=== PATIENT | female | born 1995 | race Caucasian/White ===

== ENCOUNTER → 2016-07-05 | Outpatient (CLI) | payer OTHER ==
[~2016-07-05] MED LIST: ACET50TA PO; Atarax PO; BENA25CA2 PO; BUTA50TA PO; EFFE150C PO; HYDR1OI TOP; IBUP60TA PO; IRON65TA PO; KEFL500C7 PO; KLON0.5T PO; LAMI25TA PO; MAGN400T5 PO; MELA0.02 PO; NO HISTORICAL MEDS; PREN1TAB11 PO; PRENMIS3 PO; PROZ10CA7 PO; PROZ20CA11 PO; STRA80CA PO; TRAZ25TA PO; TRAZ50TA4 PO; TYLE325T5 PO; VIST25CA PO; WELLTAB40 PO; XANA0.5T PO
== END ==
LOC: M OUTALCOH 14:27
PROVIDERS: ATTEND Psychiatry & Neurology Psychiatry
DX: Z13.9 Encounter for screening, unspecified (principal); F11.20 Opioid dependence, uncomplicated

== ENCOUNTER → 2016-12-16 | Outpatient (REF) | payer OTHER ==
[~2016-12-16] MED LIST changes: +CLON-383 PO; +GABA-283 PO; +NALT50TA4 PO
[2016-12-16 15:22] LABS: BASO # 0.1 K/mm3 (0.0-0.2); BASO % 1.1 % (0.0-1.0); EOS % 0.3 % (0.0-3.0); LARGE UNSTAINED CELL # 0.2 K/mm3 (0.0-0.4); LARGE UNSTAINED CELL % 1.4 % (0.0-4.0); LYMPH # 1.4 K/mm3 (1.5-6.5); LYMPH % 11.3 % (24.0-44.0); MEAN CORPUSCULAR HEMOGLOBIN 28.6 pg (27.0-33.0); MEAN CORPUSCULAR HGB CONC 34.5 g/dl (32.0-36.5); MEAN CORPUSCULAR VOLUME 82.9 fl (80.0-96.0); MONO # 0.6 K/mm3 (0.0-0.8); MONO % 4.4 % (0.0-5.0); NEUTROPHILS # 10.2 K/mm3 (1.8-7.7); NEUTROPHILS % 81.5 % (36.0-66.0); PLATELET COUNT, AUTOMATED 470 k/mm3 (150-450); RED CELL DISTRIBUTION WIDTH 13.8 % (11.5-14.5); WHITE BLOOD COUNT 12.5 K/mm3 (4.0-10.0)
[2016-12-16 16:20] LABS: ALBUMIN 4.6 GM/DL (3.2-5.2); ALBUMIN/GLOBULIN RATIO 1.53 (1.00-1.93); ALKALINE PHOSPHATASE 61 U/L (45-117); ALT/SGPT 28 U/L (12-78); ANION GAP 9 MEQ/L (8-16); AST/SGOT 17 U/L (15-37); BILIRUBIN,TOTAL 0.8 MG/DL (0.2-1.0); BLOOD UREA NITROGEN 13 MG/DL (7-18); CARBON DIOXIDE LEVEL 27 MEQ/L (21-32); CHLORIDE LEVEL 105 MEQ/L (98-107); CREATININE FOR GFR 0.69 MG/DL (0.55-1.02); GLOMERULAR FILTRATION RATE > 60.0 (>60); GLUCOSE, FASTING 83 MG/DL (70-105); POTASSIUM SERUM 4.5 MEQ/L (3.5-5.1); SODIUM LEVEL 141 MEQ/L (136-145); TOTAL PROTEIN 7.6 GM/DL (6.4-8.2)
[2016-12-23 10:17] LABS: ALT 24 IU/L (0-40); GGT 18 IU/L (0-60); HAPTOGLOBIN 107 mg/dL (34-200); HEPATITIS C QUANTITATION 985840 IU/mL (.); HEPATITIS C VIRUS GENOTYPE 1b (.); NECROINFLAM SCORE 0.09 (0.00-0.17); NECROINFLAMM GRADE A0-No activity (.); TOTAL BILIRUBIN 0.7 mg/dL (0.0-1.2)
== END ==
LOC: M LABDRAW1 15:00
PROVIDERS: ATTEND Internal Medicine Infectious Disease
DX: B18.2 Chronic viral hepatitis C (principal)

== ENCOUNTER 2016-12-17 10:04 | Emergency (ER) | payer OTHER ==
[~2016-12-17] VITALS: Ht 147.3 cm; Wt 47.3 kg
[~2016-12-17 10:04] MED LIST changes: -CLON-383 PO; -GABA-283 PO; +KEFL500C17 PO; -KEFL500C7 PO; -MELA0.02 PO; +MELA3TAB49 PO; -NALT50TA4 PO; +TRAZ50TA11 PO; -TRAZ50TA4 PO
[2016-12-17] MEDS ORDERED: CLON-383 PO (10:15)
[2016-12-17] MEDS ORDERED: GABA-283 PO (10:15)
[2016-12-17] MEDS ORDERED: NALT50TA4 PO (10:23)
[2016-12-17 12:18] VITALS: BP 106/58
== END 2016-12-17 12:19 | disposition home or self-care (01) ==
LOC: M ED 11:47
DX: F11.10 Opioid abuse, uncomplicated (principal); F17.200 Nicotine dependence, unspecified, uncomplicated; Z79.899 Other long term (current) drug therapy

== ENCOUNTER → 2016-12-30 | Outpatient (CLI) | payer MEDICAID ==
[~2016-12-30] MED LIST changes: +CLON-383 PO; +GABA-283 PO; +NALT50TA4 PO
== END ==
LOC: M OUTALCOH 07:36
PROVIDERS: ATTEND Psychiatry & Neurology Psychiatry
DX: Z13.9 Encounter for screening, unspecified (principal); F11.10 Opioid abuse, uncomplicated; F15.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 dependence, uncomplicated

== ENCOUNTER 2017-01-21 10:00 | Outpatient (RCR) | payer MEDICAID | END 2017-01-24 | LOC: M OUTALCOH 10:00 | PROVIDERS: ATTEND Psychiatry & Neurology Psychiatry | DX: F15.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 dependence, uncomplicated (principal); F11.10 Opioid abuse, uncomplicated ==

== ENCOUNTER → 2017-02-15 | Outpatient (REF) | payer OTHER ==
[2017-02-19 00:06] LABS: HEPATITIS C VIRUS GENOTYPE 1b (.)
== END ==
LOC: M SFHCPLAZ 13:21
PROVIDERS: ATTEND Internal Medicine Infectious Disease
DX: B18.2 Chronic viral hepatitis C (principal)

== ENCOUNTER → 2017-02-24 | Outpatient (RCR) | payer MEDICAID | LOC: M OUTALCOH 02-11 11:38 | PROVIDERS: ATTEND Psychiatry & Neurology Psychiatry | DX: F11.10 Opioid abuse, uncomplicated (principal); F15.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 dependence, uncomplicated ==

== ENCOUNTER 2017-03-25 15:00 | Outpatient (RCR) | payer OTHER | END 2017-03-26 | LOC: M OUTALCOH 15:00 | PROVIDERS: ATTEND Psychiatry & Neurology Psychiatry | DX: F15.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 dependence, uncomplicated (principal); F11.10 Opioid abuse, uncomplicated ==

== ENCOUNTER → 2017-03-30 | Outpatient (CLI) | payer MEDICAID ==
[2017-03-30 13:16] LABS: BASO # 0.1 10^3/uL (0.0-0.2); BASO % 0.7 % (0.0-1.0); EOS # 0.2 10^3/uL (0.0-0.50); EOS % 1.7 % (0.0-3.0); IMMATURE GRANULOCYTE % 0.5 % (0-0); LYMPH # 1.4 10^3/uL (1.5-6.5); LYMPH % 13.1 % (24.0-44.0); MEAN CORPUSCULAR HEMOGLOBIN 29.4 pg (27.0-33.0); MEAN CORPUSCULAR HGB CONC 34.6 g/dl (32.0-36.5); MEAN CORPUSCULAR VOLUME 84.9 fl (80.0-96.0); MONO # 0.5 10^3/uL (0.0-0.8); MONO % 4.9 % (0.0-5.0); NEUTROPHILS # 8.3 10^3/uL (1.8-7.7); NEUTROPHILS % 79.1 % (36.0-66.0); PLATELET COUNT, AUTOMATED 334 10^3/uL (150-450); RED CELL DISTRIBUTION WIDTH 12.8 % (11.5-14.5); WHITE BLOOD COUNT 10.5 10^3/uL (4.0-10.0)
[2017-03-30 13:20] LABS: VITAMIN B12 LEVEL 744 PG/ML (247-911)
[2017-03-30 13:22] LABS: ADD MANUAL DIFFER NO; DIFF SLIDE NUMBER 226
[2017-03-30 13:38] LABS: ALBUMIN 4.4 GM/DL (3.2-5.2); ALBUMIN/GLOBULIN RATIO 1.47 (1.00-1.93); ALKALINE PHOSPHATASE 72 U/L (45-117); ALT/SGPT 21 U/L (12-78); ANION GAP 6 MEQ/L (8-16); AST/SGOT 14 U/L (15-37); BILIRUBIN,TOTAL 0.4 MG/DL (0.2-1.0); BLOOD UREA NITROGEN 14 MG/DL (7-18); CALCIUM LEVEL 9.4 MG/DL (8.5-10.1); CARBON DIOXIDE LEVEL 30 MEQ/L (21-32); CHLORIDE LEVEL 106 MEQ/L (98-107); CHOLESTEROL LEVEL 146 MG/DL (<200); CREATININE FOR GFR 0.72 MG/DL (0.55-1.02); GLOMERULAR FILTRATION RATE > 60.0 (>60); GLUCOSE, FASTING 101 MG/DL (70-105); POTASSIUM SERUM 4.2 MEQ/L (3.5-5.1); SODIUM LEVEL 142 MEQ/L (136-145); TOTAL PROTEIN 7.4 GM/DL (6.4-8.2); TRIGLYCERIDES LEVEL 164 MG/DL (<150)
== END ==
LOC: M LAB 12:02
PROVIDERS: ATTEND Registered Nurse Psychiatric/Mental Health
DX: F31.32 Bipolar disorder, current episode depressed, moderate (principal)

== ENCOUNTER → 2017-04-12 | Outpatient (CLI) | payer OTHER ==
[2017-04-12 10:57] LABS: CONTROL LINE UCG INT CTR LINE PRESENT
[2017-04-12 11:07] LABS: MEAN CORPUSCULAR HEMOGLOBIN 29.7 pg (27.0-33.0); MEAN CORPUSCULAR HGB CONC 34.4 g/dl (32.0-36.5); MEAN CORPUSCULAR VOLUME 86.3 fl (80.0-96.0); RED CELL DISTRIBUTION WIDTH 13.2 % (11.5-14.5); WHITE BLOOD COUNT 8.5 10^3/uL (4.0-10.0)
[2017-04-12 11:25] LABS: ALBUMIN 4.2 GM/DL (3.2-5.2); ALKALINE PHOSPHATASE 63 U/L (45-117); ALT/SGPT 21 U/L (12-78); ANION GAP 8 MEQ/L (8-16); AST/SGOT 11 U/L (15-37); BILIRUBIN,TOTAL 0.5 MG/DL (0.2-1.0); BLOOD UREA NITROGEN 9 MG/DL (7-18); CARBON DIOXIDE LEVEL 27 MEQ/L (21-32); CHLORIDE LEVEL 107 MEQ/L (98-107); CREATININE FOR GFR 0.57 MG/DL (0.55-1.02); GLOMERULAR FILTRATION RATE > 60.0 (>60); GLUCOSE, FASTING 76 MG/DL (70-105); POTASSIUM SERUM 3.8 MEQ/L (3.5-5.1); SODIUM LEVEL 142 MEQ/L (136-145)
--- NOTE | 2017-04-13 16:10 | ECGEPIP ---
Stationary ECG Study [facility] Test Date: 2017-04-12 Pat Name: ANNIE NUNEZ Department: Room: - Gender: F A And P Technician: LAI : 1995 Requested By: Thomas Stover Order Number: [id number] Reading MD: Dinh Webber Measurements Intervals [place] Rate: 90 P: 68 [place]: 140 QRS: 76 QRSD: 89 T: 37 QT: 341 QTc: 419 Interpretive Statements SINUS RHYTHM POSSIBLE LEFT ATRIAL ENLARGEMENT Improved repolarization compared with 08/31/2014. Electronically Signed On 04-13-2017 16:09:46 EDT by Dinh Webber
== END ==
LOC: M LAB 09:28
PROVIDERS: ATTEND Family Medicine
DX: F11.20 Opioid dependence, uncomplicated (principal)

== ENCOUNTER → 2017-05-10 | Outpatient (REF) | payer OTHER | LOC: M LAB REF 14:07 | PROVIDERS: ATTEND Obstetrics & Gynecology | DX: Z12.4 Encounter for screening for malignant neoplasm of cervix (principal); Z11.3 Encounter for screening for infections with a predominantly sexual mode of transmission ==

== ENCOUNTER 2017-05-24 18:16 | Inpatient (IN) | payer OTHER ==
[~2017-05-24] VITALS: Ht 147.3 cm; Wt 60.0 kg
[2017-05-24] MEDS ORDERED: CYMB1CAP4 PO ×2 (18:44→21:57)
[2017-05-24] MEDS ORDERED: ZYPR10TA PO (18:44)
[2017-05-24] MEDS ORDERED: CYMB60CA3 PO ×2 (18:44→21:57)
[2017-05-24] MEDS ORDERED: GABA-282 PO ×2 (18:44→21:57)
[2017-05-24] MEDS ORDERED: MIREIUD IU ×2 (18:46→21:57)
[2017-05-24] MEDS ORDERED: SUBO2MIS SL ×2 (18:52→21:57)
[2017-05-24] MEDS ORDERED: SUBO8MIS SL ×2 (18:52→21:57)
[2017-05-24 19:00] LABS: MEAN CORPUSCULAR HGB CONC 34.9 g/dl (32.0-36.5); MEAN CORPUSCULAR VOLUME 83.1 fl (80.0-96.0); PLATELET COUNT, AUTOMATED 319 10^3/uL (150-450); RED CELL DISTRIBUTION WIDTH 12.4 % (11.5-14.5); WHITE BLOOD COUNT 7.8 10^3/uL (4.0-10.0)
[2017-05-24 19:02] LABS: CONTROL LINE HCG INT CTR LINE PRESENT
[2017-05-24 19:06] LABS: METHADONE URINE NEGATIVE (NEGATIVE)
[2017-05-24 19:15] LABS: ALBUMIN 3.9 GM/DL (3.2-5.2); ALBUMIN/GLOBULIN RATIO 1.44 (1.00-1.93); ALKALINE PHOSPHATASE 70 U/L (45-117); ALT/SGPT 21 U/L (12-78); ANION GAP 8 MEQ/L (8-16); AST/SGOT 16 U/L (7-37); BILIRUBIN,DIRECT < 0.1 MG/DL (0.0-0.2); BILIRUBIN,TOTAL 0.2 MG/DL (0.2-1.0); BLOOD UREA NITROGEN 13 MG/DL (7-18); CARBON DIOXIDE LEVEL 26 MEQ/L (21-32); CHLORIDE LEVEL 107 MEQ/L (98-107); CREATININE FOR GFR 0.65 MG/DL (0.55-1.02); GLOMERULAR FILTRATION RATE > 60.0 (>60); GLUCOSE, FASTING 95 MG/DL (70-105); POTASSIUM SERUM 3.9 MEQ/L (3.5-5.1); SODIUM LEVEL 141 MEQ/L (136-145); TOTAL PROTEIN 6.6 GM/DL (6.4-8.2)
[2017-05-24] MEDS ORDERED: OLAN10TA2 PO (21:57)
[2017-05-24] MEDS ORDERED: PATIENT COMMENT (21:58)
[2017-05-25] MEDS ORDERED: MAALOX 30 ML SUSP *UDC PO PRN (01:30)
[2017-05-25] MEDS ORDERED: MOM 30ML SUSPENSION UDC PO PRN (01:30)
[2017-05-25] MEDS ORDERED: traZODone 50 MG TAB PO PRN (01:30)
[2017-05-25] MEDS ORDERED: ACETAMINOPHEN TAB 650MG DOSE (2X325MG) PO PRN (01:30)
[2017-05-25 01:45] VITALS: BP 120/53
[2017-05-25 06:37] VITALS: BP 110/57
[2017-05-25] MEDS: GABAPENTIN 300 MG CAP PO SCH ×2 (08:40→20:08)
[2017-05-25] MEDS: OLANZapine 10 MG TAB PO SCH (08:41)
[2017-05-25] MEDS: DULoxetine 30 MG CAP (CYMBALTA) PO SCH (08:41)
[2017-05-25] MEDS: DULoxetine 20 MG CAP (CYMBALTA) PO SCH (08:41)
--- NOTE | 2017-05-25 09:25 | HPEPDOC ---
[facility] Medical History & Physical Date of Admission May 24, 2017 History and Physical PCP: Santiago KERR ID. Dr Whitney ATTENDING: Dr. Dinh Cisneros HPI: 21yoF admitted to [facility] for unspecified depressive disorder, being medically examined today. Patient states she has numbness and tingling in her fingertips and her toes bilaterally. She denies any neck or low back pain. No weakness in arms or legs. No loss of bowel or bladder control. No unsteadiness on her feet. Patient states she takes gabapentin for her mood. Denies any fevers, chills, weakness, fatigue, VALDEZ, CP, SOB, cough, palpitations, abdominal pain, N/V/D or changes in bowel or bladder habits. PMHx: Chronic hepatitis C. Managed by Dr. Whitney. Substance use. On Suboxone through [facility]. Anxiety Depression History of SI Self-mutilation PSHX: Right inguinal hernia repair D&C Removal of frenulum SOCHX: Resides in: [facility] Marital Status: Single Kids: 1 Employment: Unemployed Tobacco use: One pack Per day ETOH: Denies Illicit Drugs: Patient states she has not used any substances since 12/04/16. Previous use of heroin. Patient states has used "everything". IV Drug Use: Heroin and states she has injected "anything". Tattoos done unprofessionally: Denies FAMHX: Mother: Alive, bipolar disorder, anxiety, depression Father: Alive, alcohol use Siblings: Alive, anxiety, depression, bipolar disorder, autism. Children: Alive, well Unexpected deaths due to medical reasons: None. ROS: As noted in HPI, otherwise 11pt ROS of systems reviewed and remarkable only for LMP unknown, Mirena. PE: GEN: 21 yo F, appears stated age. Well-nourished, well developed. No acute distress. Alert and oriented x 3. Pleasant, interactive. HEENT: Normocephalic, atraumatic. Pupils are equal, round, and reactive to light. Extraocular movements are intact. No nystagmus appreciated. Sclera are nonicteric. Conjunctiva without injection. Nose midline. Nasal turbinates without bogginess. EACs both patent BL. TMs both visualized and domingo with good cone of light, no bulging or erythema. No facial asymmetry. Moist mucous membranes. Dentition fair. Pharynx pink and moist, no cobblestoning. Neck supple , trachea midline. No lymphadenopathy or thyromegaly appreciated. CHEST: Regular rate and rhythm, +S1, +S2 LUNGS: Clear to auscultation bilaterally. No wheezes, rales, or rhonchi. Breathing appears symmetric and easy. Patient is speaking in full sentences. No accessory muscle use. ABD: Round, soft, non-tender, non-distended. +Bowel sounds throughout. No rebound or guarding. No costovertebral angle tenderness. EXT: Pulses 2+ bilaterally dorsalis pedis and radial. No lower extremity edema appreciated. SKIN: [place], dry, warm. Capillary refill <2sec. No rashes. healed lacerations noted to forearms b/l, 2 superficial lacerations in different stages of healing , 1 on each forearm. NEURO: Alert and oriented x 3. Cranial nerves III-XII are intact. Tinel and Phalen's negative. Hand Reamer strength is equal bilaterally. No tenderness with palpation over the cervical or lumbar spine areas. Gait is steady, no assistive devices. Sensation to light touch is intact. EKG: Pending. A&P: 21yoF admitted to [facility] for unspecified depressive disorder 1. Psych. Plan per Psychiatry. Obtain baseline EKG to assure the safety of psychiatric medications as they can prolong the QT interval. 2. Chronic hepatitis C. Patient states she remains on Zepatier as per Dr Whitney. Continue outpatient follow-up with infectious disease, Dr. Whitney. 3. Upper extremity/lower extremity paresthesia. Add vitamin B12, folate. TSH is noted within normal limits. Hemoglobin is noted within normal limits. CT head 2014, WNL. Consider outpt referral to Neurology. 4. Follow up with PCP on discharge. 5. History of Substance use. Per psychiatry. Patient is prescribed Suboxone through [facility]. 6. Staff member Charo BLAS present throughout exam. Vital Signs Vital Signs Date Time Temp Pulse Resp B/P (MAP) Pulse Ox O2 Delivery O2 Flow Rate FiO2 05/25/17 06:37 98.1 88 14 110/57 (74) Room Air 05/25/17 01:19 95 Laboratory Data Labs 24H Laboratory Tests 2 05/24/17 18:21: Nucleated Red Blood Cells % (auto) 0.0, Anion Gap 8, Glomerular Filtration Rate > 60.0, Calcium Level 9.0, Aspartate Amino Transf (AST/SGOT) 16, Alanine Aminotransferase (ALT/SGPT) 21, Alkaline Phosphatase 70, Total Bilirubin 0.2, Direct Bilirubin < 0.1, Total Protein 6.6, Albumin 3.9, Albumin/Globulin Ratio 1.44, Thyroid Stimulating Hormone (TSH) 1.110, Human Chorionic Gonadotropin, Qual NEGATIVE, Salicylates Level 3.6L, Urine Amphetamines Screen NEGATIVE, Urine Benzodiazepines Screen NEGATIVE, Urine Opiates Screen NEGATIVE, Urine Methadone Screen NEGATIVE, Acetaminophen Level < 2.0L, Urine Barbiturates Screen NEGATIVE, Urine Phencyclidine Screen NEGATIVE, Urine Cocaine Metabolite Screen NEGATIVE, Urine Cannabinoids Screen NEGATIVE, Ethyl Alcohol Level 0.006 CBC/BMP Laboratory Tests 05/24/17 18:21 Red Blood Count 4.86, Mean Corpuscular Volume 83.1, Mean Corpuscular Hemoglobin 29.0, Mean Corpuscular Hemoglobin Concent 34.9, Red Cell Distribution Width 12.4 Home Medications Scheduled Buprenorphine/Naloxone (Suboxone 8-2 mg) 1 Mis Mis, 1 MIS SL DAILY TAKES WITH THE 2-0.5MG FOR 10-2.5MG TOTAL Buprenorphine/Naloxone (Suboxone 2-0.5 mg) 1 Mis Mis, 1 MIS SL DAILY TAKES WITH THE 8-2MG FOR 10-2.5MG TOTAL Duloxetine HCl (Cymbalta) 20 Mg Cap, 20 MG PO DAILY TAKES WITH 60MG FOR 80MG TOTAL Duloxetine Hcl (Cymbalta) 60 Mg Cap, 60 MG PO DAILY TAKES WITH 20MG FOR 80MG TOTAL Gabapentin (Gabapentin) 300 Mg Cap, 300 MG PO BID Levonorgestrel (Mirena) 20 Mcg/24 Hr Iud, 20 MCG IU ASDIRECTED IMPLANTED AROUND A YEAR AGO Olanzapine (Olanzapine) 10 Mg Tab, 10 MG PO DAILY Allergies Coded Allergies: No Known Drug Allergy (Verified Allergy, Unknown, 05/11/14) Jerica Villalobos May 25, 2017 09:25
[2017-05-25 10:09] LABS: VITAMIN B12 LEVEL 485 PG/ML
[2017-05-25 10:10] LABS: FOLATE 19.3 NG/ML
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
[2017-05-25] MEDS: BUPRENORPHINE/NALOXONE 8-2MG SUBLINGUAL TABLET(SUBOXONE) SL SCH (11:42)
[2017-05-25] MEDS: NICOTINE 14 MG/24 HR TRANSDERMAL TD SCH (11:42)
[2017-05-25 12:41] VITALS: BP 121/61
--- NOTE | 2017-05-25 17:37 | ECGEPIP ---
Stationary ECG Study [facility] Test Date: 2017-05-25 Pat Name: ANNIE NUNEZ Department: Room: [place] [address] Gender: F Comptometrist: : 1995 Requested By: Jerica Villalobos Order Number: [id number] Reading MD: Yuki Bonilla Measurements Intervals [place] Rate: 80 P: 18 [place]: 134 QRS: 68 QRSD: 101 T: 35 QT: 376 QTc: 436 Interpretive Statements SINUS RHYTHM IMPROVED STTW C/W 04/12/17 Electronically Signed On 05-25-2017 17:37:23 EST by Yuki Bonilla
[2017-05-25 18:00] VITALS: BP 111/61
[2017-05-25 21:00] VITALS: BP 124/62
[2017-05-26 06:40] VITALS: BP 115/60
[2017-05-26] MEDS: NICOTINE 14 MG/24 HR TRANSDERMAL TD SCH (08:04)
[2017-05-26] MEDS: DULoxetine 30 MG CAP (CYMBALTA) PO SCH (08:04)
[2017-05-26] MEDS: BUPRENORPHINE/NALOXONE 8-2MG SUBLINGUAL TABLET(SUBOXONE) SL SCH (08:04)
[2017-05-26] MEDS: GABAPENTIN 300 MG CAP PO SCH (08:04)
[2017-05-26] MEDS: DULoxetine 20 MG CAP (CYMBALTA) PO SCH (08:04)
[2017-05-26] MEDS: OLANZapine 10 MG TAB PO SCH (08:04)
[2017-05-26] MEDS ORDERED: ZEPATIER PO SCH (09:00)
[2017-05-26] MEDS ORDERED: NICOTINE POLACRILEX 2 MG GUM PO PRN ×2 (09:30→10:15)
[2017-05-26] MEDS ORDERED: TRAZO50TA PO (10:09)
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
== END 2017-05-26 12:35 | disposition home or self-care (01) | DRG 752 ==
LOC: M ED 18:16 → M ED INP 21:25 → M PSY 05-25 01:43
PROVIDERS: ADMIT Psychiatry & Neurology Psychiatry; ATTEND Psychiatry & Neurology Psychiatry
DX: F60.3 Borderline personality disorder (principal); R45.851 Suicidal ideations; F19.94 Other psychoactive substance use, unspecified with psychoactive substance-induced mood disorder; B18.2 Chronic viral hepatitis C; F17.210 Nicotine dependence, cigarettes, uncomplicated; R20.2 Paresthesia of skin; Z79.899 Other long term (current) drug therapy

== ENCOUNTER → 2017-07-08 | Outpatient (CLI) | payer OTHER ==
[2017-07-08 11:09] LABS: CONTROL LINE HCG INT CTR LINE PRESENT; HCG, SERUM QUALITATIVE NEGATIVE (NEGATIVE)
== END ==
LOC: M LAB 10:21
DX: F31.32 Bipolar disorder, current episode depressed, moderate (principal)
CPT/HCPCS: 84703

== ENCOUNTER → 2017-09-27 | Outpatient (REF) | payer OTHER ==
[2017-09-27 23:14] LABS: CHLAMYDIA DNA AMPLIFICATION NEGATIVE (NEGATIVE); GC DNA AMPLIFICATION NEGATIVE (NEGATIVE)
[2017-09-28 11:05] LABS: HIV 1&2 SCREEN CENTAUR NEGATIVE (NEGATIVE)
[2017-09-28 11:15] LABS: HEPATITIS C VIRUS ABY INDEX > 11.0 INDEX (<0.8)
== END ==
LOC: M LAB REF 17:01
DX: Z11.3 Encounter for screening for infections with a predominantly sexual mode of transmission (principal); Z86.19 Personal history of other infectious and parasitic diseases
CPT/HCPCS: 86803

== ENCOUNTER → 2017-11-23 | Outpatient (REF) | payer OTHER ==
[2017-11-24 08:24] LABS: APPEARANCE, URINE TURBID (CLEAR); BACTERIA, URINE AUTO 2+ (NEGATIVE); BILIRUBIN, URINE AUTO NEGATIVE (NEGATIVE); BLOOD, URINE BLOOD 1+ (NEGATIVE); COLOR, URINE YELLOW (YELLOW); GLUCOSE, URINE (UA) AUTO NEGATIVE (NEGATIVE); KETONE, URINE AUTO NEGATIVE (NEGATIVE); LEUKOCYTE ESTERASE, URINE AUTO 3+ (NEGATIVE); NITRITE, URINE AUTO POSITIVE (NEGATIVE); PROTEIN, URINE AUTO 1+ mg/dL (NEGATIVE); RBC, URINE AUTO 18 /HPF (0-3); SPECIFIC GRAVITY URINE AUTO 1.014 (1.002-1.035); SQUAMOUS EPITHELIAL CELL UR AU 4 /HPF (0-6); UROBILINOGEN, URINE AUTO 0.2 mg/dL (0.0-2.0); WBC, URINE AUTO TNTC /HPF (0-3)
== END ==
LOC: M LAB REF 07:42
DX: N39.0 Urinary tract infection, site not specified (principal)

== ENCOUNTER → 2017-11-30 | Outpatient (REF) | payer OTHER | LOC: M SFHCWAGY 13:27 | DX: Z12.4 Encounter for screening for malignant neoplasm of cervix (principal) ==

== ENCOUNTER → 2017-11-30 | Outpatient (REF) | payer OTHER ==
[2017-11-30 18:10] LABS: CHLAMYDIA DNA AMPLIFICATION NEGATIVE (NEGATIVE); GC DNA AMPLIFICATION NEGATIVE (NEGATIVE)
== END ==
LOC: M SFHCWAGY 16:08
DX: Z11.3 Encounter for screening for infections with a predominantly sexual mode of transmission (principal)

== ENCOUNTER → 2017-12-08 | Outpatient (CLI) | payer OTHER | LOC: M WHC 11:07 | DX: R10.2 Pelvic and perineal pain (principal) | CPT/HCPCS: 76830 ==

== ENCOUNTER → 2017-12-08 | Outpatient (REF) | payer OTHER ==
[2017-12-09 12:28] LABS: HIV 1&2 SCREEN CENTAUR NEGATIVE (NEGATIVE)
== END ==
LOC: M LABDRAW1 11:49
DX: Z11.3 Encounter for screening for infections with a predominantly sexual mode of transmission (principal); Z11.4 Encounter for screening for human immunodeficiency virus [HIV]

== ENCOUNTER 2018-01-13 02:40 | Inpatient (IN) | payer OTHER ==
[2018-01-13 03:34] LABS: BASO # 0.1 10^3/uL (0.0-0.2); BASO % 0.6 % (0.0-1.0); EOS # 0.3 10^3/uL (0.0-0.50); EOS % 3.7 % (0.0-3.0); HEMATOCRIT 41.9 % (36.0-47.0); HEMOGLOBIN 14.9 g/dl (12.0-15.5); IMMATURE GRANULOCYTE % 0.2 % (0-3.0); LYMPH # 2.5 10^3/uL (1.5-6.5); MEAN CORPUSCULAR HEMOGLOBIN 29.3 pg (27.0-33.0); MEAN CORPUSCULAR HGB CONC 35.6 g/dl (32.0-36.5); MEAN CORPUSCULAR VOLUME 82.5 fl (80.0-96.0); MONO # 0.7 10^3/uL (0.0-0.8); MONO % 8.6 % (0.0-5.0); NEUTROPHILS # 4.7 10^3/uL (1.8-7.7); NEUTROPHILS % 56.9 % (36.0-66.0); PLATELET COUNT, AUTOMATED 290 10^3/uL (150-450); RED BLOOD COUNT 5.08 10^6/uL (4.00-5.40); RED CELL DISTRIBUTION WIDTH 12.6 % (11.5-14.5); WHITE BLOOD COUNT 8.2 10^3/uL (4.0-10.0)
[2018-01-13 03:39] LABS: CONTROL LINE HCG INT CTR LINE PRESENT; HCG, SERUM QUALITATIVE NEGATIVE (NEGATIVE)
[2018-01-13 03:46] LABS: VENOUS BASE EXCESS 0.9 (-2.0-2.0); VENOUS HCO3 27.5 MEQ/L (23.0-27.0); VENOUS PARTIAL PRESSURE CO2 51.4 mmHg (38.0-50.0); VENOUS PARTIAL PRESSURE O2 85.9 mmHg (30.0-50.0); VENOUS PH 7.347 UNITS (7.330-7.430); VENOUS STANDARD HCO3 25.3 MEQ/L; VENOUS TOTAL CO2 29.1 MEQ/L (24.0-28.0)
[2018-01-13] MEDS: NS 1,000 ML IV (03:49)
[2018-01-13 03:54] LABS: ALBUMIN 4.2 GM/DL (3.2-5.2); ALBUMIN/GLOBULIN RATIO 1.56 (1.00-1.93); ALKALINE PHOSPHATASE 92 U/L (45-117); ALT/SGPT 16 U/L (12-78); ANION GAP 7 MEQ/L (8-16); AST/SGOT 12 U/L (7-37); BILIRUBIN,DIRECT < 0.1 MG/DL (0.0-0.2); BILIRUBIN,TOTAL 0.3 MG/DL (0.2-1.0); BLOOD UREA NITROGEN 10 MG/DL (7-18); CARBON DIOXIDE LEVEL 28 MEQ/L (21-32); CHLORIDE LEVEL 110 MEQ/L (98-107); CPK CREATINE PHOSPHOKINASE 95 U/L (26-192); CREATININE FOR GFR 0.69 MG/DL (0.55-1.30); ETHYL ALCOHOL (ETHANOL) < 0.003 % (0.000-0.010); GLOMERULAR FILTRATION RATE > 60.0 (>60); GLUCOSE, FASTING 95 MG/DL (70-100); POTASSIUM SERUM 4.4 MEQ/L (3.5-5.1); SALICYLATE LEVEL 4.9 MG/DL (5.0-30.0); SODIUM LEVEL 145 MEQ/L (136-145); TOTAL PROTEIN 6.9 GM/DL (6.4-8.2)
[2018-01-13 03:56] LABS: ACETAMINOPHEN LEVEL < 2.0 UG/ML (10.0-30.0)
[2018-01-13 03:58] LABS: AMPHETAMINES LEVEL URINE NEGATIVE (NEGATIVE); BARBITURATES URINE NEGATIVE (NEGATIVE); BENZODIAZEPINES URINE POSITIVE (NEGATIVE); CANNABINOIDS URINE NEGATIVE (NEGATIVE); COCAINE METABOLITE URINE NEGATIVE (NEGATIVE); METHADONE URINE POSITIVE (NEGATIVE); OPIATES URINE NEGATIVE (NEGATIVE); PHENCYCLIDINE URINE NEGATIVE (NEGATIVE)
[2018-01-13] MEDS ORDERED: cloNIDine 0.1 MG TAB PO (12:45)
[2018-01-13] MEDS ORDERED: LORazepam 2 MG TAB PO (12:45)
[2018-01-13] MEDS ORDERED: MAALOX 30 ML SUSP *UDC PO (12:45)
[2018-01-13] MEDS ORDERED: MOM 30ML SUSPENSION UDC PO (12:45)
[2018-01-14] MEDS: METHADONE 10 MG TAB (S0109) PO (08:13)
[2018-01-14] MEDS: ACETAMINOPHEN TAB 650MG DOSE (2X325MG) PO (10:10)
[2018-01-14] MEDS: DULoxetine 30 MG CAP (CYMBALTA) PO (12:20)
[2018-01-14] MEDS: GABAPENTIN 300 MG CAP PO ×3 (12:20→21:39)
[2018-01-14] MEDS: NICOTINE 21MG/24HR 1 EA TRANSDERMAL TD (15:33)
[2018-01-14] MEDS: hydrOXYzine 50 MG TAB PO (21:39)
[2018-01-14] MEDS: traZODone 50 MG TAB PO (21:52)
[2018-01-15] MEDS: GABAPENTIN 300 MG CAP PO ×3 (08:24→21:19)
[2018-01-15] MEDS: DULoxetine 30 MG CAP (CYMBALTA) PO (08:24)
[2018-01-15] MEDS: METHADONE 10 MG TAB (S0109) PO (08:25)
[2018-01-15] MEDS: NICOTINE 21MG/24HR 1 EA TRANSDERMAL TD (08:25)
[2018-01-15] MEDS: ACETAMINOPHEN TAB 650MG DOSE (2X325MG) PO (11:47)
[2018-01-15] MEDS: traZODone 50 MG TAB PO (21:19)
[2018-01-15] MEDS: hydrOXYzine 50 MG TAB PO (21:19)
[2018-01-16] MEDS: NICOTINE 21MG/24HR 1 EA TRANSDERMAL TD (08:11)
[2018-01-16] MEDS: METHADONE 10 MG TAB (S0109) PO (08:12)
[2018-01-16] MEDS: DULoxetine 30 MG CAP (CYMBALTA) PO (08:12)
[2018-01-16] MEDS: GABAPENTIN 300 MG CAP PO (08:12)
[2018-01-16] MEDS: hydrOXYzine 50 MG TAB PO (10:09)
== END 2018-01-16 12:10 | disposition home or self-care (01) | DRG 773 ==
LOC: M ED 02:40 → M ED INP 12:41 → M PSY 15:49
DX: F19.94 Other psychoactive substance use, unspecified with psychoactive substance-induced mood disorder (principal); F11.90 Opioid use, unspecified, uncomplicated; B18.2 Chronic viral hepatitis C; F15.90 Other stimulant use, unspecified, uncomplicated; Z79.899 Other long term (current) drug therapy; F17.210 Nicotine dependence, cigarettes, uncomplicated

== ENCOUNTER 2018-03-13 14:25 | Emergency (ER) | payer OTHER | END 2018-03-13 18:38 | disposition home or self-care (01) | LOC: M ED 14:25 | DX: S09.90XA Unspecified injury of head, initial encounter (principal); Y04.8XXA Assault by other bodily force, initial encounter; Y92.018 Other place in single-family (private) house as the place of occurrence of the external cause; B19.20 Unspecified viral hepatitis C without hepatic coma; F17.210 Nicotine dependence, cigarettes, uncomplicated | CPT/HCPCS: 99283 ==

== ENCOUNTER 2018-04-28 20:04 | Emergency (ER) | payer OTHER | END 2018-04-28 21:25 | disposition home or self-care (01) | LOC: M ED 20:04 | DX: Z60.9 Problem related to social environment, unspecified (principal); B18.2 Chronic viral hepatitis C; F19.21 Other psychoactive substance dependence, in remission; Z72.0 Tobacco use; Z79.899 Other long term (current) drug therapy | CPT/HCPCS: 99284 ==

== ENCOUNTER 2018-08-04 12:51 | Day surgery (SDC) | payer OTHER ==
[~2018-08-04] VITALS: Ht 147.3 cm; Wt 63.5 kg
[~2018-08-04 12:51] MED LIST changes: +ABIL10TA9 PO; -ACET50TA PO; +ARIP5TA PO; +CYMB1CAP4 PO; +CYMB60CA3 PO; +DULO1CAP3 PO; -EFFE150C PO; +EFFE150C2 PO; -GABA-283 PO; +GABA-843 PO; +GABA-845 PO; +KETOROLAC 60 MG/2 ML VIAL (J1885) As Ordered ONE; +LIDOCAINE 2% INJ 100 MG/5 ML SDV (FOR ANES.) As Ordered ONE; +MAPA500T2 PO; +METH10CO PO; +MIDAZOLAM INJ 2 MG/2 ML VIAL (J2250) As Ordered ONE; +MIRE1IUD IU; +NICO21DI6 TD; +OLAN10TA2 PO; +ONDANSETRON 4MG/2ML VIAL (J2405) As Ordered ONE; +PATIENT COMMENT; +PROP20TA72 PO; +PROPOFOL 200 MG/20 ML VIAL As Ordered ONE; +SUBO2MIS SL; +SUBO8MIS SL; +TRAZ-160 PO; +TRAZ-163 PO; -TRAZ50TA11 PO; +TRAZO50TA PO; +ZYPR10TA PO; +dexameTHASONE 4 MG/ML 1ML VIAL (J1100) As Ordered ONE; +fentaNYL 100 MCG/2 ML INJECTION (J3010) As Ordered ONE; +nicotine gum
[2018-08-04] MEDS ORDERED: LIDOCAINE 1% SDV INJ 30 ML VIAL As Ordered ONE (13:09)
[2018-08-04 13:27] LABS: HEMATOCRIT 43.1 % (36.0-47.0); HEMOGLOBIN 15.3 g/dl (12.0-15.5); MEAN CORPUSCULAR HEMOGLOBIN 30.6 pg (27.0-33.0); MEAN CORPUSCULAR HGB CONC 35.5 g/dl (32.0-36.5); MEAN CORPUSCULAR VOLUME 86.2 fl (80.0-96.0); PLATELET COUNT, AUTOMATED 283 10^3/uL (150-450)
[2018-08-04] MEDS ORDERED: METHYLERGONOVINE MALEATE 0.2 MG/ML VIAL (J2210) As Ordered ONE (14:23)
[2018-08-04] MEDS ORDERED: OXYTOCIN INJ 10 UNITS/ML VIAL (J2590) As Ordered ONE (14:32)
[2018-08-04] MEDS ORDERED: METOCLOPRAMIDE INJ 10MG/2ML VIAL (J2765) As Ordered ONE (14:49)
[2018-08-04] MEDS ORDERED: ONDANSETRON 4MG/2ML VIAL (J2405) IV PRN (15:00)
[2018-08-04] MEDS ORDERED: fentaNYL 100 MCG/2 ML INJECTION (J3010) IV PRN (15:00)
[2018-08-04] MEDS ORDERED: PERCOCET 5MG/325MG TAB PO PRN ×2 (15:00→15:15)
[2018-08-04] MEDS ORDERED: METOCLOPRAMIDE INJ 10MG/2ML VIAL (J2765) IV PRN (15:00)
[2018-08-04 16:25] VITALS: BP 125/73
[2018-08-04] MEDS ORDERED: KETOROLAC 30 MG/ML VIAL (J1885) IV SCH (20:00)
--- NOTE | 2018-08-05 12:01 | RO ---
DATE OF PROCEDURE: 08/04/2018 PREOPERATIVE DIAGNOSIS: Intrauterine embryonic demise at 9 weeks. POSTOPERATIVE DIAGNOSIS: Intrauterine embryonic demise at 9 weeks. PROCEDURE: Dilation and curettage. SURGEON: Mare Lynn MD MEDICAL GRADE SHOEMAKER: None. ANESTHESIA: General. ESTIMATED BLOOD LOSS: 500 mL. INTRAVENOUS FLUIDS: 1100 mL of lactated Ringer solution. URINE OUTPUT: 200 mL. SPECIMENS: Intrauterine contents. DESCRIPTION OF OPERATION: After informed consent was obtained and written content was reviewed, the patient was brought to the operating room where she was placed under general anesthesia. She was then placed in lithotomy position and was prepped and draped in normal sterile fashion. A time out in the operating room was then performed identifying the patient, the procedure to be performed, as well as drug allergies. A bivalved speculum was then placed revealing the cervix. The anterior lip of the cervix was grasped with a single toothed tenaculum. The uterus was then sounded to 14 cm. The uterus then sequentially dilated using Hanks dilators. A #10 uterine curette was then advanced through the cervical os to the level of the fundus and suction was deployed and the uterus was curetted in a 360 degree fashion with large amounts of tissue obtained. This was done in three passes. The suction curette was then removed and sharp curettage was then advanced to the level of the uterus and the uterus was once again curetted in 360 degrees fashion with minimal amounts of tissue obtained. A final pass of the suction curette was preformed with large amounts of bleeding noted. Methergine and IV Pitocin was given with hemostasis achieved after several minutes. Suction was then removed. In and out catheter was then performed productive of 200 mL of clear urine. The patient was then taken out of lithotomy position, was awakened from general anesthesia and taken to recovery in stable condition. Counts were correct. MTDD
== END 2018-08-04 16:35 | disposition home or self-care (01) ==
LOC: M SDC 12:51
PROVIDERS: ATTEND Obstetrics & Gynecology
DX: O02.1 Missed abortion (principal); F41.9 Anxiety disorder, unspecified; F32.9 Major depressive disorder, single episode, unspecified; F31.9 Bipolar disorder, unspecified; R51 Headache; F60.89 Other specific personality disorders; Z72.0 Tobacco use; Z86.19 Personal history of other infectious and parasitic diseases; Z86.59 Personal history of other mental and behavioral disorders
CPT/HCPCS: 36415; 59820; 85027; 86850; 86900; 86901; 88305; J1100; J1885; J2210; J2250; J2405; J2590; J2765; J3010

== ENCOUNTER → 2018-09-19 | Outpatient (CLI) | payer MEDICAID ==
[~2018-09-19] MED LIST changes: -KETOROLAC 60 MG/2 ML VIAL (J1885) As Ordered ONE; -LIDOCAINE 2% INJ 100 MG/5 ML SDV (FOR ANES.) As Ordered ONE; -MIDAZOLAM INJ 2 MG/2 ML VIAL (J2250) As Ordered ONE; -ONDANSETRON 4MG/2ML VIAL (J2405) As Ordered ONE; -PROPOFOL 200 MG/20 ML VIAL As Ordered ONE; -dexameTHASONE 4 MG/ML 1ML VIAL (J1100) As Ordered ONE; -fentaNYL 100 MCG/2 ML INJECTION (J3010) As Ordered ONE
== END ==
LOC: M OUTALCOH 09:21
PROVIDERS: ATTEND Psychiatry & Neurology Psychiatry
DX: F10.20 Alcohol dependence, uncomplicated (principal)

== ENCOUNTER → 2018-10-24 | Outpatient (RCR) | payer MEDICAID ==
[~2018-10-24] MED LIST changes: +ARIP1TAB6 PO; -ARIP5TA PO; -HYDR1OI TOP; +HYDR1OIN2 TOP; +IBUP600T42 PO; -IBUP60TA PO; +TRAZ1TAB36 PO; -TRAZ25TA PO
== END ==
LOC: M OUTALCOH 10-16 14:52
PROVIDERS: ATTEND Psychiatry & Neurology Psychiatry
DX: F11.10 Opioid abuse, uncomplicated (principal); F11.20 Opioid dependence, uncomplicated; F15.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 dependence, uncomplicated

== ENCOUNTER 2018-11-21 10:48 | Outpatient (RCR) | payer MEDICAID | END 2018-11-24 | LOC: M OUTALCOH 10:48 | PROVIDERS: ATTEND Psychiatry & Neurology Psychiatry | DX: F11.20 Opioid dependence, uncomplicated (principal); F15.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 dependence, uncomplicated; F10.10 Alcohol abuse, uncomplicated; Z72.0 Tobacco use ==

== ENCOUNTER → 2018-11-23 | Outpatient (CLI) | payer MEDICAID ==
[~2018-11-23] MED LIST changes: -TRAZ-160 PO; +TRAZ-252 PO; +TRAZ1TAB10 PO; -TRAZO50TA PO
== END ==
LOC: M LAB 11:29
PROVIDERS: ATTEND Nurse Practitioner Psychiatric/Mental Health
DX: F31.81 Bipolar II disorder (principal)

== ENCOUNTER 2018-12-19 09:34 | Outpatient (RCR) | payer MEDICAID | END 2018-12-24 | LOC: M OUTALCOH 09:34 | PROVIDERS: ATTEND Psychiatry & Neurology Psychiatry | DX: F11.10 Opioid abuse, uncomplicated (principal); F15.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 dependence, uncomplicated ==

== ENCOUNTER 2018-12-27 11:29 | Outpatient (RCR) | payer MEDICAID ==
[~2018-12-27 11:29] MED LIST changes: -DULO1CAP3 PO; +DULO1CAP6 PO
== END 2019-01-24 ==
LOC: M OUTALCOH 11:29
PROVIDERS: ATTEND Psychiatry & Neurology Psychiatry
DX: F11.11 Opioid abuse, in remission (principal); F15.21 Other stimulant dependence, in remission

== ENCOUNTER → 2019-03-15 | Outpatient (CLI) | payer OTHER ==
--- NOTE | 2019-03-16 04:22 | REP ---
Clinical: History of ovarian cyst. Comparison: 12/08/2017 . Technique: Transabdominal pelvic ultrasound followed by transvaginal examination for better evaluation of the endometrium and adnexa with color Doppler evaluation of the ovaries. Findings: Bladder is unremarkable and measures 9.4 x 9.1 x 6.1 cm . Normal anteverted uterus measures 8.7 x 3.3 x 5.3 cm . The endometrial complex measures 9.6 mm thickness. No discrete uterine or endometrial abnormalities are appreciated. Bilateral ovaries are normal in appearance and vascularity without evidence for torsion. Right ovary measures 4.2 x 2.8 x 4.2 cm with 3.2 cm cyst ; R I = 0.64 . Left ovary measures 2.1 x 1.6 x 2.0 cm ; R I = 0.51 . No pelvic fluid or adnexal mass lesion . Impression: 1. 3.2 cm right ovarian cyst. Follow-up examination in 4-6 weeks is recommended to evaluate for resolution. Electronically Signed by Gerald Camarillo MD 03/16/2019 04:13 A
== END ==
LOC: M RAD 10:41
PROVIDERS: ATTEND Advanced Practice Midwife
DX: N83.201 Unspecified ovarian cyst, right side (principal)

== ENCOUNTER → 2019-03-20 | Outpatient (REF) | payer OTHER | LOC: M LABDRAWC 19:53 | PROVIDERS: ATTEND Nurse Practitioner Psychiatric/Mental Health | DX: F31.81 Bipolar II disorder (principal) ==

== ENCOUNTER → 2019-12-10 | Outpatient (REF) | payer OTHER ==
[~2019-12-10] MED LIST changes: -TRAZ-163 PO; +TRAZ-257 PO
== END ==
LOC: M PLALAB 09:11
PROVIDERS: ATTEND Obstetrics & Gynecology
DX: Z33.1 Pregnant state, incidental (principal); Z53.8 Procedure and treatment not carried out for other reasons

== ENCOUNTER → 2020-01-01 | Outpatient (REF) | payer OTHER ==
[2020-01-01 11:42] LABS: HEMATOCRIT 38.2 % (36.0-47.0); HEMOGLOBIN 13.2 g/dl (12.0-15.5); MEAN CORPUSCULAR HEMOGLOBIN 28.3 pg (27.0-33.0); MEAN CORPUSCULAR HGB CONC 34.6 g/dl (32.0-36.5); PLATELET COUNT, AUTOMATED 223 10^3/uL (150-450); RED BLOOD COUNT 4.66 10^6/uL (4.00-5.40); WHITE BLOOD COUNT 7.4 10^3/uL (4.0-10.0)
[2020-01-01 13:53] LABS: CHLAMYDIA DNA AMPLIFICATION NEGATIVE (NEGATIVE); GC DNA AMPLIFICATION NEGATIVE (NEGATIVE)
[2020-01-02 10:45] LABS: HIV 1&2 SCREEN CENTAUR NEGATIVE (NEGATIVE)
== END ==
LOC: M PLALAB 09:07
PROVIDERS: ATTEND Obstetrics & Gynecology
DX: Z34.01 Encounter for supervision of normal first pregnancy, first trimester (principal)

== ENCOUNTER → 2020-02-20 | Outpatient (CLI) | payer OTHER ==
--- NOTE | 2020-02-27 19:02 | REP ---
OBSTETRIC SONOGRAPHY HISTORY: Supervision of for anatomy. FINDINGS: Scanning through the gravid uterus demonstrates a viable single intrauterine gestation in a breech lie. The placenta is anterior grade 1 without evidence of placenta previa or abruption. Amniotic fluid is subjectively normal. Closed cervical length is measured at 4.5 cm viewed transabdominally. heart rate is recorded at 143 beats per minute. No anomaly is seen. The following anatomic structures are identified and felt to be unremarkable: intracranial anatomy, spine, left-sided stomach, kidneys and bladder, four chamber heart with left and right ventricular outflow tract views, three-vessel cord, abdominal wall cord insertion, face and lips, upper and lower extremities. BIOMETRY CHART: BPD 39 mm 17 weeks 6 days Head Circumference 154 mm 18 weeks 3 days Abdominal Circumference 154 mm 18 weeks 3 days Femur Length 27 mm 18 weeks 3 days Humeral Length 30 mm 19 weeks 5 days Estimated Weight 254 g 86th percentile IMPRESSION: Viable single intrauterine gestation at 18 weeks 4 days by todays criteria. Estimated date of delivery (VIDYA) by todays criteria 07/19/2020. MTDD
== END ==
LOC: M WHC 08:53
PROVIDERS: ATTEND Advanced Practice Midwife
DX: Z36.89 Encounter for other specified antenatal screening (principal); Z3A.18 18 weeks gestation of pregnancy

== ENCOUNTER → 2020-04-23 | Outpatient (REF) | payer OTHER ==
[2020-04-23 10:47] LABS: HEMATOCRIT 37.7 % (36.0-47.0); HEMOGLOBIN 12.6 g/dl (12.0-15.5); MEAN CORPUSCULAR HEMOGLOBIN 29.5 pg (27.0-33.0); MEAN CORPUSCULAR HGB CONC 33.4 g/dl (32.0-36.5); MEAN CORPUSCULAR VOLUME 88.3 fl (80.0-96.0); PLATELET COUNT, AUTOMATED 236 10^3/uL (150-450); RED BLOOD COUNT 4.27 10^6/uL (4.00-5.40); WHITE BLOOD COUNT 12.6 10^3/uL (4.0-10.0)
== END ==
LOC: M PLALAB 08:27
PROVIDERS: ATTEND Advanced Practice Midwife
DX: Z36.89 Encounter for other specified antenatal screening (principal)

== ENCOUNTER → 2020-06-17 | Outpatient (CLI) | payer OTHER ==
--- NOTE | 2020-06-17 13:11 | REP ---
INDICATION: GROWTH JESSY PROBLEMS SUSPECTED BUT UNFOUNDED.. COMPARISON: 02/20/2020. TECHNIQUE: Real-time sonographic evaluation of the gravid uterus performed. FINDINGS: Estimated gestational age is34 weeks 6 days, EDC 07/23/2020. Today's measurements indicate appropriate growth. Presentation: Cephalic Placenta anterior, grade 2, without evidence of placenta previa. heart rate is recorded at 136 beats per minute. Amniotic fluid is subjectively normal. JESSY 15.6, normal 7.9-24.9. Closed cervical length is measured at 3.6 cm. Biometry chart: BPD: 90 mm, 36 weeks 3 days, 72nd percentile. HC: 327 mm, 37 weeks 1 days, 87th percentile AC: 333 mm, 37 weeks 1 days, 84th percentile Femur length: 68 mm, 34 weeks 5 days, 48th percentile HC to AC ratio: 0.98, normal range 0.94-1.13. Estimated weight: 64353g, 87th percentile. IMPRESSION: Viable single intrauterine gestation as above. <Electronically signed by Thomas Pulido > 06/17/20 [id number]
== END ==
LOC: M WHC 10:29
PROVIDERS: ATTEND Specialist
DX: Z03.74 Encounter for suspected problem with fetal growth ruled out (principal)

== ENCOUNTER → 2020-06-24 | Outpatient (REF) | payer OTHER | LOC: M SFHCWAGY 13:01 | PROVIDERS: ATTEND Specialist | DX: Z34.83 Encounter for supervision of other normal pregnancy, third trimester (principal); Z3A.35 35 weeks gestation of pregnancy ==

== ENCOUNTER 2020-07-16 11:58 | Inpatient (IN) | payer OTHER ==
[~2020-07-16] VITALS: Ht 149.9 cm; Wt 78.8 kg
[2020-07-16] VITALS (38 sets, daily range): BP systolic 95–152; BP diastolic 52–89
[~2020-07-16 11:58] MED LIST changes: +GABA-282 PO; -GABA-843 PO
--- OUTSIDE RECORDS SUMMARY | 2020-07-16 12:03 | CCD ---
Author Author 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 013 Active 22718471 Problem Slow transit constipation K59.01 Active 542328 07 Problem Other acne L70.8 Active 78804175 Problem Supervision of other normal Z34.80 Ac tive 998596150 ALLERGIES No Known Allergies ENCOUNTERS from 1993 to 2020-07-10 Encounter Location Date Provider Diagnosis [facility] [place] [address] 08 Jun, 2020 Psatora Arias 37 weeks gestation o f Z3A.37 ; Chronic hepatitis C B18.2 ; History of drug abuse in remission Z87.898 and Viral hepatitis affecting in third trimester O98.413 IMMUNIZATIONS Vaccine Route Administration Date Status TDAP 0.5mL (Boostrix) IM Intramuscular May 14, 2020 Administe red TDAP IM Intramuscular August 26, 2015 Administered Influenza (6mo & up) Fluzone IM Intramuscular Apr 23, 2020 Ad ministered Influenza (6mo & up) Fluzone IM Intramuscular Apr 18, 2017 Ad ministered Influenza (6mo & up) Fluzone Unknown August 31, 2016 Oth ers Influenza (6mo & up) Fluzone Unknown Mar 27, 2014 Adm inistered SOCIAL HISTORY Tobacco Use: Social History Observation Description Date Details (start date - stop date) Current Smoker Sex Assigned At : Social History Observation Description Sex Assigned At Unknown Tobacco Use: Question Answer Notes Are you a: current smoker How many cigarettes a day do you smoke? 11-20 Are you interested in quitting? Thinking about quitting REASON FOR REFERRAL No Information VITAL SIGNS Weight 167 lbs Jun, Height 59 in Jun, BMI 33.73 kg/m2 Jun, Blood pressure systolic 112 mm Hg Jun, Blood pressure diastolic 78 mm Hg Jun, MEDICATIONS Medication SIG (Take, Route, Frequency, Duration) Notes Start Da te End Date Status SEROquel 25 MG 1 tablet Orally Once a day Not-Taking Zoloft 25 MG 1 tablet Orally Once a day for 21 day(s) Not-Taking Mirena (52 MG) 20 MCG/24HR Intrauterine Not-Taking Klonopin 0.5 MG 1 tablet Orally Twice a day Not-Taking Naltrexone HCl 50 MG 1 tablet Orally Once a day Not-Taking Zepatier 50-100 MG 1 tablet Orally Once a day Dec, Not-Taking Omeprazole 20 MG 1 capsule 30 minutes before morning meal Orally Once a day for 30 day(s) Active Senokot S 8.6-50 MG 2 tablet in the evening as n eeded Orally Once a day for 30 day(s) Not-Taking Cymbalta 60 MG 1 capsule Orally bid Not-Taking Buprenorphine HCl 8 MG 1 tablet under the tongue an d allow to dissolve Sublingual BID Active Buprenorphine HCl 8 MG 1 tablet under the tongue an d allow to dissolve every 8 hrs Not-Taking Benzoyl Peroxide-Erythromycin 5-3 % 1 application to a ffected area Externally Twice a day for 30 day(s) Mar, Not-Ta ashly Vitamin 27-0.8 MG 1 tablet Orally Once a day Active Gabapentin 300 MG 1 capsule Orally Three times a day Not-Taking Suboxone 4-1 MG 1 film under the tongue and allow to dissolve Sublingual Once a day Not-Taking PROCEDURES No Information RESULTS No Results REASON FOR VISIT 2WK PN MEDICAL (GENERAL) HISTORY Type Description Date Medical History Hepatitis C/ vaccinated for hepatitis B surface antibody positive hepatitis A IgG positive genotype 3 in 2015 HCV RNA less than 50k, repeat Genotype 1B 2017 2 occasions Medical History Meth/Heroin addiction IV drug abuse Medical History History of suicide attempt Medical History Anxiety Medical History Depression Medical History Bi-Polar Surgical History R hernia removed Surgical History teeth removed Surgical History D&C x2 Hospitalization History admitted malnutrition Hospitalization History admitted for attempted suicide Goals Section No Information Health Concerns No Information MEDICAL EQUIPMENT No Information MENTAL STATUS No Information FUNCTIONAL STATUS No Information ASSESSMENTS Encounter Date Diagnosis Assessment Notes Treatment Notes Treatm ent Clinical Notes Jun, 37 weeks gestation of (ICD-10 - Z3A.37 ) Jun, Chronic hepatitis C (ICD-10 - B18.2) Jun, History of drug abuse in remission (ICD-10 - Z87 .898) Jun, Viral hepatitis affecting pr egnancy in third trimester (ICD-10 - O98.413) PLAN OF TREATMENT Next Appt Details 1 Week Reason:PN Follow Up:1 WeekPN Insurance Providers Payer Name Payer Address Payer Phone Insured Name Patient Relati onship to Insured Coverage Start Date Coverage End Date [facility] COMMUNITY PLAN [facility] [address] [facility] [phone] ANNIE NUNEZ self
--- OUTSIDE RECORDS SUMMARY | 2020-07-16 12:03 | CCD ---
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 013 Active 00368848 Problem Slow transit constipation K59.01 Active 492300 07 Problem Other acne L70.8 Active 23748444 Problem Supervision of other normal Z34.80 Ac tive 712061825 ALLERGIES No Known Allergies ENCOUNTERS from 1993 to 2020-07-08 Encounter Location Date Provider Diagnosis [facility] [address] [place] [address] 11 Jun, 2020 Harsha Saab Encounter for superv ision of normal in third trimester Z34.93 IMMUNIZATIONS Vaccine Route Administration Date Status TDAP [...] many cigarettes a day do you smoke? 05-16 Are you interested in quitting? Thinking about quitting REASON FOR REFERRAL No Information VITAL SIGNS Weight 165.6 lbs Jun, Weight-kg 75.11 kg Jun, Height 59 in Jun, BMI 33.447 kg/m2 Jun, Blood pressure systolic 116 mm Hg Jun, Blood pressure diastolic 74 mm Hg Jun, MEDICATIONS Medication SIG (Take, [...] hepatitis A IgG positive genotype 3 in 2014 HCV RNA less than 50k, repeat Genotype [...] Treatment Notes Treatm ent Clinical Notes Jun, Encounter for supervision of normal in third trimester (ICD-10 - Z34.93) PLAN OF TREATMENT Next Appt Details 1 Week Reason: Insurance Providers Payer Name Payer Address Payer Phone Insured Name Patient Relati onship to Insured Coverage Start Date Coverage End Date [facility] COMMUNITY PLAN [facility] [address] [facility] [phone] ANNIE NUNEZ self
--- OUTSIDE RECORDS SUMMARY | 2020-07-16 12:03 | CCD | Continuity of Care Document ---
Author Author [facility] Address [address] [place] [address] Phone Care Team Providers Care Portfolio Accountant Name Role Phone Lizet TORRES PCP Allergies, Adverse Reactions, Alerts No allergy information available. Medications No medication information available. Problems No problem information available. Procedures No procedure information available. Relevant Diagnostic Tests and/or Laboratory Data No known relevant diagnostic tests and/or laboratory data. Health Concerns No known health concerns documented Chief Complaint and Reason for Visit Reason for Visit 36WEEKS PREG, SHORTNESS OF B REATH Encounters Encounter Location(s) Arrival/Admit Date Discharge/Depart Date Provider(s) [facility] June 26, 2020 6:53p m June 26, 2020 7:53pm [facility] June 25, 2020 3:05pm RUBÉN MACKEY Registered Physician/Provider Office Visit [facility] June 11, 2020 4:10am ANGELA BROTHERS Assessments No Assessments Information Available Functional Status No Functional Status information available Goals No Goals Information Available Immunizations No Immunization Information Available Mental Status No Mental Status Information Available Medical Equipment No Medical Equipment Information available Insurance Providers Guarantor ANNIE NUNEZ Address [address] [facility] [address] [facility] [address] Contact Info. Home Phone: Payer Policy Id Coverage Id Subscriber's Name Subscriber Id Effect tracy Date Expiration Date [employer] MEDICAID [id number] ANNIE NUNEZ 2019 2020 Social History Assigned Sex Female Vital Signs No vital signs result information available.
--- OUTSIDE RECORDS SUMMARY | 2020-07-16 12:03 | CCD ---
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 013 Active 36903207 Problem Slow transit constipation K59.01 Active 584606 07 Problem Other acne L70.8 Active 36786239 Problem Supervision of other normal Z34.80 Ac tive 028253953 ALLERGIES No Known Allergies ENCOUNTERS from 1993 to 2020-06-30 Encounter Location Date Provider Diagnosis [facility] [address] [place] [phone] May, Michael Lozada Other mental disorde rs complicating , third trimester O99.343 ; Depression F32.9 and 35 weeks gestation of Z3A.35 IMMUNIZATIONS Vaccine Route Administration Date Status TDAP [...] FOR REFERRAL No Information VITAL SIGNS Weight 167.0 lbs May, Height 59 in May, BMI 33.73 kg/m2 May, Blood pressure systolic 110 mm Hg May, Blood pressure diastolic 68 mm Hg May, MEDICATIONS Medication SIG (Take, Route, Frequency, Duration) Notes Start Da te End Date Status Zoloft 25 MG 1 tablet Orally Once a day for 21 day(s) Not-Taking Zepatier 50-100 MG 1 tablet Orally Once a day Dec, Not-Taking Omeprazole 20 MG 1 capsule 30 minutes before morning meal Orally Once a day for 30 day(s) Active Senokot S 8.6-50 MG 2 tablet in the evening as n eeded Orally Once a day for 30 day(s) Not-Taking Mirena (52 MG) 20 MCG/24HR Intrauterine Not-Taking Naltrexone HCl 50 MG 1 tablet Orally Once a day Not-Taking Benzoyl Peroxide-Erythromycin 5-3 % 1 application to a ffected area Externally Twice a day for 30 day(s) Mar, Not-Ta ashly Cymbalta 60 MG 1 capsule Orally bid Not-Taking SEROquel 25 MG 1 tablet Orally Once a day Not-Taking Buprenorphine HCl 8 MG 1 tablet under the tongue an d allow to dissolve every 8 hrs Not-Taking Vitamin 27-0.8 MG 1 tablet Orally Once a day Active Gabapentin 300 MG 1 capsule Orally Three times a day Not-Taking Klonopin 0.5 MG 1 tablet Orally Twice a day Not-Taking Buprenorphine HCl 8 MG 1 tablet under the tongue an d allow to dissolve Sublingual BID Active Suboxone 4-1 MG 1 film under the tongue and allow to dissolve Sublingual Once a day Not-Taking PROCEDURES No Information RESULTS Component Value Reference Range GROUP B STREP CULTURE Reviewed date:06/26/2020 14:08:59 Interpretation: Performing Lab:[facility], [facility] [address] [address] , ,[place] [address] REASON FOR VISIT 2WK PN MEDICAL (GENERAL) [...] Notes Treatment Notes Treatm ent Clinical Notes May, Other mental disorders compl icating , third trimester (ICD-10 - O99.343) May, Depression (ICD-10 - F32.9) May, 35 weeks gestation of (ICD-10 - Z3A.35 ) PLAN OF TREATMENT Next Appt Details Provider Name:Pastora Arias, 2020-06 08:40:00 AM, [address] [place], [address], Insurance Providers Payer Name Payer Address Payer Phone Insured Name Patient Relati onship to Insured Coverage Start Date Coverage End Date [facility] COMMUNITY PLAN [facility] [address] [facility] [address] ANNIE NUNEZ self
--- OUTSIDE RECORDS SUMMARY | 2020-07-16 12:03 | CCD ---
Author Author Mabel Ingram Organization Unknown Address [address] [address] Phone Care Team Providers Care Repairer Recreational Vehicle Name Role Phone Zurdo Ingramney PCP Allergies, Adverse Reactions, Alerts Concept Allergy Name Reaction Severity Onset Date Status Documentation Date Phone Number Npid Taxonomy Code Taxonomy Desc Author Last Name Author Fi rst Name Concept Type 372192 nkda Active 02/17/2018 [id number] Psychiatric/Mental Health Esa Wills RXNORM Problem List Concept Problem Description Status Start Date Created Date Resolv ed Date Snomed Code F31.81 Bipolar II Disorder Active 02/17/2018 02/17/2018 F11.20 Opioid Use Disorder, Moderate Active 01/25/2018 8 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 Active 01/25/2018 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, Moderate: Amphetamine-ty pe substance Active 01/25/2018 01/25/2018 Medications Rx Norm Medication Route Route Concept Start Date Stop Date Dosage Zach quency Duration Formula Strength Dosage Form Dosage Form Code Dosage Description Medication Id Account Npid Author First Name Author Last Name Taxonomy Code Taxonomy Desc Phone Number [id number] buspirone by mouth [id number] 10/23/2019 twice a day 10 mg tab let [id number] Zahira Ingram [id number] Psychiatric/Mental Health [phone] 114192 mirtazapine by mouth P07898 10/23/2019 every night 7.5 mg tablet 75727 484674 [id number] Zahira Ingram [id number] Psychiatric/Mental Health [id number] 377757 buprenorphine HCl under tongue 04/14/2020 twice a da y 8 mg tablet, sublingual 34538 190719 [id number] Zahira Ingram [id number] Psychiatric/Mental Health [id number] Social History Social History Element Description Concept Effective Date Smoking Status Unknown if ever smoked [id number] Immunizations No Data in Section Vital Signs Encounter Date Height Ins Weight Lbs Bmi Bp Systolic Bp Diastoli c Oxygen Saturation Respiration Rate Pulse Rate Body Temp Head Circumference Heigh t Lying 06/30/2020 0.00 0.00 0.00 0 0 0.00 0 0 0.00 0.0 0.0 0 Procedures Date Concept Id Description Targeted Site Concept Targeted Site Concept Type 06/30/2020 65608-55 [facility] Telemed E/M Lvl 3--Est pt CPT 06/30/2020 27830-40 Telemed A/O 30" CPT Patient has no history of implantable de vices Encounters Encounter Start Date End Date Encounter Type Description Diagnosis Di agnosis Desc Location Author First Name Author Last Name Npid Taxonomy Cod e Taxonomy Desc Phone Number Location Addr1 Location Addr2 Location [facility] Location [facility] Location [facility] [id number] 06/30/2020 06/30/2020 43225-63 [facility] Telemed E/M Lvl 3--Est p t F31.81 Bipolar II disorder [facility] Juan Jose bell [phone] Psychiatric/Mental Health [id number] [address] [address] Plan of Treatment No Data in Section Lab Results No Data in Section Instructions No Data in Section Functional Cognitive Status No Data in Section Insurance Providers Insurance Id Policy Effective Date Policy Thru Date Company N dana [id number] 2018 [id number]
--- OUTSIDE RECORDS SUMMARY | 2020-07-16 12:04 | CCD | Continuity of Care Document ---
Author Author [facility] Address [address] [place] [address] Phone Care Team Providers Care Manager Security Name Role Phone Lizet TORRES PCP Allergies, [...] Encounter Location(s) Arrival/Admit Date Discharge/Depart Date Provider(s) [facility] June 26, 2020 6:53p m June 26, 2020 7:53pm [facility]47[facility] m June 25, 2020 3:05pm RUBÉN MACKEY Registered Physician/Provider Office Visit [facility] June 11, 2020 4:10am ANGELA BROTHERS Assessments No Assessments Information Available Functional Status No Functional Status information available Goals No Goals Information Available Immunizations No Immunization Information Available Mental Status No Mental Status Information Available Medical Equipment No Medical Equipment Information available Insurance Providers Guarantor ANNIE NUNEZ Address [address] [facility] [address] [facility] [address] Contact Info. Home Phone: Payer Policy Id Coverage Id Subscriber's Name Subscriber Id Effect tracy Date Expiration Date [employer] MEDICAID [id number] ANNIE NUNEZ 2019 2020 Social History Assigned Sex Female Vital Signs No vital signs result information available.
--- OUTSIDE RECORDS SUMMARY | 2020-07-16 12:04 | CCD ---
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 013 Active 19511739 Problem Slow transit constipation K59.01 Active 290626 07 Problem Other acne L70.8 Active 29773506 Problem Supervision of other normal Z34.80 Ac tive 883405224 ALLERGIES No Known Allergies ENCOUNTERS from 1993 to 2020-06-04 Encounter Location Date Provider Diagnosis [facility] [address] [place] [phone] Apr, Michael Lozada Other mental disorde rs complicating , third trimester O99.343 ; Depression F32.9 ; 30 weeks gestation of Z3A.30 and Encounter for vaccination Z23 IMMUNIZATIONS Vaccine Route Administration Date Status TDAP [...] many cigarettes a day do you smoke? - Are you interested in quitting? Thinking about quitting REASON FOR REFERRAL No Information VITAL SIGNS Weight 150.4 lbs Apr, Weight-kg 68.22 kg Apr, Height 59 in Apr, BMI 30.37 kg/m2 Apr, Blood pressure systolic 100 mm Hg Apr, Blood pressure diastolic 70 mm Hg Apr, MEDICATIONS Medication SIG (Take, Route, Frequency, Duration) Notes Start Da te End Date Status Klonopin 0.5 MG 1 tablet Orally Twice a day Not-Taking Gabapentin 300 MG 1 capsule Orally Three times a day Not-Taking Zoloft 25 MG 1 tablet Orally Once a day for 21 day(s) Not-Taking Vitamin 27-0.8 MG 1 tablet Orally Once a day Active SEROquel 25 MG 1 tablet Orally Once a day Not-Taking Suboxone 4-1 MG 1 film under the tongue and allow to dissolve Sublingual Once a day Not-Taking Mirena (52 MG) 20 MCG/24HR Intrauterine Not-Taking Buprenorphine HCl 8 MG 1 tablet under the tongue an d allow to dissolve every 8 hrs Not-Taking Senokot S 8.6-50 MG 2 tablet in the evening as n eeded Orally Once a day for 30 day(s) Not-Taking Naltrexone HCl 50 MG 1 tablet Orally Once a day Not-Taking Benzoyl Peroxide-Erythromycin 5-3 % 1 application to a ffected area Externally Twice a day for 30 day(s) Mar, Not-Ta ashly Cymbalta 60 MG 1 capsule Orally bid Not-Taking Buprenorphine HCl 8 MG 1 tablet under the tongue an d allow to dissolve Sublingual BID Active Omeprazole 20 MG 1 capsule 30 minutes before morning meal Orally Once a day for 30 day(s) Active Zepatier 50-100 MG 1 tablet Orally Once a day Dec, Not-Taking PROCEDURES from 1993 to 2020-06-04 Procedure Date Ordered Result Body Site Immunization: Boostrix 0.5mL IM (TDAP) 2020-05-14 N/A RESULTS No Results REASON FOR VISIT 3 WK PN MEDICAL (GENERAL) HISTORY Type Description Date [...] Notes Treatment Notes Treatm ent Clinical Notes Apr, Other mental disorders compl icating , third trimester (ICD-10 - O99.343) Apr, Depression (ICD-10 - F32.9) Apr, 30 weeks gestation of (ICD-10 - Z3A.30 ) Apr, Encounter for vaccination (ICD-10 - Z23) PLAN OF TREATMENT Next Appt Details Provider Name:Michael Lozada 2020-06-17 09:40:00 AM, [address] [place], [address], Insurance Providers Payer Name Payer Address Payer Phone Insured Name Patient Relati onship to Insured Coverage Start Date Coverage End Date [facility] COMMUN[facility] PLAN [facility] [address] [facility] [phone] ANNIE NUNEZ self
--- OUTSIDE RECORDS SUMMARY | 2020-07-16 12:04 | CCD ---
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 013 Active 76860744 Problem Slow transit constipation K59.01 Active 652814 07 Problem Other acne L70.8 Active 56192081 Problem Supervision of other normal Z34.80 Ac tive 075053948 ALLERGIES No Known Allergies ENCOUNTERS from 1993 to 2020-04-23 Encounter Location Date Provider Diagnosis [facility] [address] [place] [address] Mar, Kavya Luna Other mental diso rders complicating , second trimester O99.342 ; Depression F32.9 and 23 weeks gestation of Z3A.23 IMMUNIZATIONS Vaccine Route Administration Date Status TDAP IM Intramuscular August 26, 2015 Administered [...] FOR REFERRAL No Information VITAL SIGNS Weight 140 lbs Mar, Height 59 in Mar, BMI 28.277 kg/m2 Mar, Blood pressure systolic 126 mm Hg Mar, Blood pressure diastolic 74 mm Hg Mar, MEDICATIONS Medication SIG (Take, Route, Frequency, Duration) Start Date En d Date Status Naltrexone HCl 50 MG 1 tablet Orally Once a day Not-Taking Cymbalta 60 MG 1 capsule Orally bid Not-T aking Benzoyl Peroxide-Erythromycin 5-3 % 1 application to a ffected area Externally Twice a day for 30 day(s) Mar, Not-Taking Suboxone 4-1 MG 1 film under the tongue and allow to dissolve Sublingual Once a day Not-Taking Buprenorphine HCl 8 MG 1 tablet under the tongue an d allow to dissolve every 8 hrs Not-Taking Buprenorphine HCl 8 MG 1 tablet under the tongue an d allow to dissolve Sublingual BID Active Omeprazole 20 MG 1 capsule 30 minutes before morning meal Orally Once a day for 30 day(s) Active Mirena (52 MG) 20 MCG/24HR Intrauterine Not-Taking Zepatier 50-100 MG 1 tablet Orally Once a day Dec, Not-Taking Gabapentin 300 MG 1 capsule Orally Three times a day Not-Taking SEROquel 25 MG 1 tablet Orally Once a day Not-Taking Senokot S 8.6-50 MG 2 tablet in the evening as n eeded Orally Once a day for 30 day(s) Not-Taking Zoloft 25 MG 1 tablet Orally Once a day for 21 day(s) Active Vitamin 27-0.8 MG 1 tablet Orally Once a day Active Klonopin 0.5 MG 1 tablet Orally Twice a day Not-Taking PROCEDURES No Information RESULTS Component Value Reference Range Type and Screen (D Rh Antibody Screen) Reviewed date:04/23/2020 12:24:10 Interpretation: Performing Lab:[facility], [facility] [address] [facility] [id number] , ,[place] [address] BLOOD TYPE O POSITIVE AB SCREEN (INDIRECT JAYLEN)VIS NEGATIVE CBC - Complete Blood Count Reviewed date:04/23/2020 11:12:06 Interpretation: Performing Lab:[facility] [address] [facility] [address] , ,[facility] WHITE BLOOD COUNT 12.6 4.0-10.0 RED BLOOD COUNT 4.27 4.00-5.40 HEMOGLOBIN 12.6 12.0-15.5 HEMATOCRIT 37.7 36.0-47.0 MEAN CORPUSCULAR VOLUME 88.3 80.0-96.0 MEAN CORPUSCULAR HEMOGLOBIN 29.5 27.0-33.0 MEAN CORPUSCULAR HGB CONC 33.4 32.0-36.5 RED CELL DISTRIBUTION WIDTH 13.1 11.5-14.5 PLATELET COUNT, AUTOMATED 236 150-450 Glucose Challenge Test 1 Hour Reviewed date:04/23/2020 12:24:20 Interpretation: Performing Lab:[facility] [address] [facility] [address] , ,[facility] GLUCOSE CHALLENGE TEST 1 HOUR 103 LESS THAN 140 REASON FOR VISIT 4 WK PN MEDICAL (GENERAL) HISTORY Type Description [...] STATUS No Information ASSESSMENTS Encounter Date Diagnosis Notes Mar, Other mental disorders compl icating , second trimester (ICD-10 - O99.342) Mar, 23 weeks gestation of (ICD-10 - Z3A.23) Mar, Depression (ICD-10 - F32.9) PLAN OF TREATMENT Medication Medication Name Sig Start Date Stop Date Zoloft 25 MG 1 tablet Orally Once a day for 21 day(s) Treatment Notes Test Name Order Date AB SCREEN (INDIRECT JAYLEN)GEL Antibody Screen 2020-03 Next Appt Details 4 Weeks Reason:return ob Provider Name:Michael Lozada, 2020-05-14 08:40:00 AM, [address] [place], [address], Follow Up:4 Weeksreturn ob Insurance Providers Payer Name Payer Address Payer Phone Insured Name Patient Relati onship to Insured Coverage Start Date Coverage End Date [facility] COMMUNITY PLAN [facility] [address] [facility] [phone] ANNIE NUNEZ self
--- OUTSIDE RECORDS SUMMARY | 2020-07-16 12:04 | CCD ---
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 013 Active 28268916 Problem Slow transit constipation K59.01 Active 415104 07 Problem Other acne L70.8 Active 21516397 Problem Supervision of other normal Z34.80 Ac tive 273596068 ALLERGIES No Known Allergies ENCOUNTERS from 1993 to 2020-05-25 Encounter Location Date Provider Diagnosis [facility] [address] [place] [address] Apr, Orquidea Lyons Smoking (tobacco) co mplicating , second trimester O99.332 ; Nicotine dependence, cigarettes, uncomplicated F17.210 and 27 weeks gestation of Z3A.27 IMMUNIZATIONS Vaccine Route Administration Date Status TDAP [...] FOR REFERRAL No Information VITAL SIGNS Weight 145.2 lbs Apr, Weight-kg 65.86 kg Apr, Height 59 in Apr, BMI 29.32 kg/m2 Apr, Blood pressure systolic 116 mm Hg Apr, Blood pressure diastolic 70 mm Hg Apr, MEDICATIONS Medication SIG (Take, Route, Frequency, Duration) Notes Start Da te End Date Status Cymbalta 60 MG 1 capsule Orally bid Not-Taking Suboxone 4-1 MG 1 film under the tongue and allow to dissolve Sublingual Once a day Not-Taking Senokot S 8.6-50 MG 2 tablet in the evening as n eeded Orally Once a day for 30 day(s) Not-Taking Benzoyl Peroxide-Erythromycin 5-3 % 1 application to a ffected area Externally Twice a day for 30 day(s) Mar, Not-Ta ashly Zoloft 25 MG 1 tablet Orally Once a day for 21 day(s) Not-Taking Omeprazole 20 MG 1 capsule 30 minutes before morning meal Orally Once a day for 30 day(s) Active Zepatier 50-100 MG 1 tablet Orally Once a day Dec, Not-Taking Klonopin 0.5 MG 1 tablet Orally Twice a day Not-Taking Vitamin 27-0.8 MG 1 tablet Orally Once a day Active Naltrexone HCl 50 MG 1 tablet Orally Once a day Not-Taking Buprenorphine HCl 8 MG 1 tablet under the tongue an d allow to dissolve Sublingual BID Active Mirena (52 MG) 20 MCG/24HR Intrauterine Not-Taking Buprenorphine HCl 8 MG 1 tablet under the tongue an d allow to dissolve every 8 hrs Not-Taking SEROquel 25 MG 1 tablet Orally Once a day Not-Taking Gabapentin 300 MG 1 capsule Orally Three times a day Not-Taking PROCEDURES No Information RESULTS No Results REASON FOR VISIT B/P check MEDICAL (GENERAL) HISTORY Type Description Date Medical [...] Treatment Notes Treatm ent Clinical Notes Apr, Smoking (tobacco) complicati ng , second trimester (ICD-10 - O99.332) Apr, Nicotine dependence, cigarettes, uncompl icated (ICD-10 - F17.210) Apr, 27 weeks gestation of (ICD-10 - Z3A.27 ) PLAN OF TREATMENT Next Appt Details routine OB Reason: Provider Name:Kavya Toledozaida 2020-05-27 08:00:00 AM, [facility] [place], [address], Insurance Providers Payer Name Payer Address Payer Phone Insured Name Patient Relati onship to Insured Coverage Start Date Coverage End Date [facility] COMMUNITY PLAN [facility] [address] [facility] [phone] ANNIE NUNEZ self
--- OUTSIDE RECORDS SUMMARY | 2020-07-16 12:04 | CCD ---
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 013 Active 05760814 Problem Slow transit constipation K59.01 Active 979066 07 Problem Other acne L70.8 Active 14325179 Problem Supervision of other normal Z34.80 Ac tive 511770829 ALLERGIES No Known Allergies ENCOUNTERS from 1993 to 2020-04-28 Encounter Location Date Provider Diagnosis [facility] [address] [place] [address] Apr, Orquidea Lyons IMMUNIZATIONS Vaccine Route Administration Date Status TDAP [...] REASON FOR REFERRAL No Information VITAL SIGNS No information MEDICATIONS Medication SIG (Take, Route, Frequency, Duration) [...] Information RESULTS No Results REASON FOR VISIT high blood pressure MEDICAL (GENERAL) HISTORY Type Description Date Medical [...] No Information FUNCTIONAL STATUS No Information ASSESSMENTS No Information PLAN OF TREATMENT Medication Medication Name Sig Start Date Stop Date Zoloft 25 MG 1 tablet Orally Once a day for 21 day(s) Next Appt Details Provider Name:Michael Cota Lozada, 2020-05-14 08:40:00 AM, [address] [place], [address], Insurance Providers Payer Name Payer Address Payer Phone Insured Name Patient Relati onship to Insured Coverage Start Date Coverage End Date [facility] COMMUNITY PLAN [facility] [address] [facility] [phone] ANNIE NUNEZ self
--- OUTSIDE RECORDS SUMMARY | 2020-07-16 12:04 | CCD ---
Author Author Mabel Inrgam Organization Unknown Address [address] [place] [address] Phone Care Team Providers Care Buckle Strap Drum Operator Name Role Phone Juan Jose Zahira PCP Allergies, Adverse Reactions, Alerts Concept Allergy Name Reaction Severity Onset Date Status Documentation Date Phone Number Npid Taxonomy Code Taxonomy Desc Author Last Name Author Megan rst Name Concept Type 915189 nkda Active 02/17/2018 [id number] Psychiatric/Mental Health Esa Wills RXNORM Problem List Concept Problem Description Status Start Date Created Date Resolv ed Date Snomed Code F11.20 Opioid Use Disorder, Moderate Active 01/25/2018 8 F31.81 Bipolar II Disorder Active 02/17/2018 02/17/2018 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 Active 01/25/2018 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, Moderate: Amphetamine-ty pe substance Active 01/25/2018 01/25/2018 Medications Rx Norm Medication Route Route Concept Start Date Stop Date Dosage Zach quency Duration Formula Strength Dosage Form Dosage Form Code Dosage Description Medication Id Account Npid Author First Name Author Last Name Taxonomy Code Taxonomy Desc Phone Number [phone] buspirone by mouth [id number] 10/23/2019 twice a day 10 mg tab let 49320 383304 [id number] Zahira Ingram [id number] Psychiatric/Mental Health [id number] 815340 mirtazapine by mouth Z29510 10/23/2019 every night 7.5 mg tablet 39050 [id number] [id number] Zahira Ingram [id number] Psychiatric/Mental Health [id number] 750833 buprenorphine HCl under tongue 04/14/2020 twice a da y 8 mg tablet, sublingual 06859 498770 [id number] Zahira Ingram [id number] Psychiatric/Mental Health [id number] Social History Social History Element Description Concept Effective Date Smoking Status Unknown if ever smoked [id number] 54346980 Immunizations No Data in Section Vital Signs Encounter Date Height Ins Weight Lbs Bmi Bp Systolic Bp Diastoli c Oxygen Saturation Respiration Rate Pulse Rate Body Temp Head Circumference Heigh t Lying 05/26/2020 0.00 0.00 0.00 108 82 0.00 0 0 0.00 0.0 0.0 0 Procedures Date Concept Id Description Targeted Site Concept Targeted Site Concept Type 05/26/2020 61788-72 [facility] Telemed E/M Lvl 3--Est pt CPT 05/26/2020 17913-06 Telemed A/O 30" CPT Patient has no history of implantable de vices Encounters Encounter Start Date End Date Encounter Type Description Diagnosis Di agnosis Desc Location Author First Name Author Last Name Npid Taxonomy Cod e Taxonomy Desc Phone Number Location Addr1 Location Addr2 Location [facility] Location [facility] te Location Zip [address] 05/26/2020 05/26/2020 05880-89 [facility] Telemed E/M Lvl 3--Est p t F11.20 Opioid dependence, uncomplicated [facility] [id number] Psychiatric/Mental Health [id number] [address] [address] Plan of Treatment No Data in Section Lab Results No Data in Section Instructions No Data in Section Functional Cognitive Status No Data in Section Insurance Providers Insurance Id Policy Effective Date Policy Thru Date [employer] N dana [id number] 2018 [id number]
--- OUTSIDE RECORDS SUMMARY | 2020-07-16 12:04 | CCD ---
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 013 Active 26473863 Problem Slow transit constipation K59.01 Active 656925 07 Problem Other acne L70.8 Active 21107733 Problem Supervision of other normal Z34.80 Ac tive 400700126 ALLERGIES No Known Allergies ENCOUNTERS from 1993 to 2020-05-14 Encounter Location Date Provider Diagnosis [facility] [address] [place] [address] Mar, Orquidae Lyons Viral hepatitis comp licating , second trimester O98.412 ; Chronic viral hepatitis C B18.2 ; 27 weeks gestation of Z3A.27 and Encounter for administration of vaccine Z23 IMMUNIZATIONS Vaccine Route Administration Date Status [...] FOR REFERRAL No Information VITAL SIGNS Weight 146.4 lbs Mar, Height 59 in Mar, BMI 29.569 kg/m2 Mar, Blood pressure systolic 122 mm Hg Mar, Blood pressure diastolic 74 [...] Orally Three times a day Not-Taking PROCEDURES Procedure Date Ordered Result Body Site Immunization: Fluzone (6mo & older) 0.5mL IM (Influenza) 2020-03 N/A RESULTS No Results REASON FOR VISIT 4WK PN MEDICAL (GENERAL) HISTORY Type Description Date [...] Notes Treatment Notes Treatm ent Clinical Notes Mar, Viral hepatitis complicating , second trimester (ICD-10 - O98.412) Mar, Chronic viral hepatitis C (ICD-10 - B18.2) Mar, 27 weeks gestation of (ICD-10 - Z3A.27 ) Mar, Encounter for administration of vaccine (ICD-10 - Z23) PLAN OF TREATMENT Next Appt Details 3 Weeks Reason: [facility] 08:00:00 AM, [address] [place], [address], Follow Up:3 Weeksprenatal Insurance Providers Payer Name Payer Address Payer Phone Insured Name Patient Relati onship to Insured Coverage Start Date Coverage End Date [facility] COMMUN[facility] PLAN [facility] [address] [facility] [address] [phone] ANNIE NUNEZ self
--- OUTSIDE RECORDS SUMMARY | 2020-07-16 12:04 | CCD ---
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 013 Active 49191635 Problem Slow transit constipation K59.01 Active 644153 07 Problem Other acne L70.8 Active 75282083 Problem Supervision of other normal Z34.80 Ac tive 754708833 ALLERGIES No Known Allergies ENCOUNTERS from 1993 to 2020-06-21 Encounter Location Date Provider Diagnosis [facility] [address] [place] [phone] May, Michael Lozada Encounter for pregna ncy related examination in third trimester Z34.83 and 34 weeks gestation of Z3A.34 IMMUNIZATIONS Vaccine Route Administration Date Status TDAP [...] FOR REFERRAL No Information VITAL SIGNS Weight 160.8 lbs May, Weight-kg 72.94 kg May, Height 59 in May, BMI 32.478 kg/m2 May, Blood pressure systolic 112 mm Hg May, Blood pressure diastolic 72 mm Hg May, MEDICATIONS Medication SIG (Take, Route, Frequency, Duration) Notes Start Da te End Date Status Omeprazole 20 MG 1 capsule 30 minutes before morning meal Orally Once a day for 30 day(s) Active Naltrexone HCl 50 MG 1 tablet [...] 1 tablet Orally Once a day Active Cymbalta 60 MG 1 capsule Orally bid Not-Taking Mirena (52 MG) 20 MCG/24HR Intrauterine Not-Taking SEROquel 25 MG 1 tablet Orally Once a day Not-Taking Buprenorphine HCl 8 MG 1 tablet under the tongue an d allow to dissolve every 8 hrs Not-Taking Klonopin 0.5 MG 1 tablet Orally Twice a day Not-Taking Gabapentin 300 MG 1 capsule Orally Three times a day Not-Taking Buprenorphine HCl 8 MG 1 tablet under the tongue an d allow to dissolve Sublingual BID Active Zepatier 50-100 MG 1 tablet Orally Once a day Dec, Not-Taking Zoloft 25 MG 1 tablet Orally Once a day for 21 day(s) Not-Taking PROCEDURES No Information RESULTS No Results [...] Treatment Notes Treatm ent Clinical Notes May, Encounter for rela cortez examination in third trimester (ICD-10 - Z34.83) May, 34 weeks gestation of (ICD-10 - Z3A.34 ) PLAN OF TREATMENT Treatment Notes Test Name Order Date PLZ OBS FOLLOW UP OR REPEAT EACH GES 2020-06-21 Next Appt Details Provider Name:Michael Lozada, 2020-06-24 09:20:00 AM, [address] [place], [address], Insurance Providers Payer Name Payer Address Payer Phone Insured Name Patient Relati onship to Insured Coverage Start Date Coverage End Date [facility] COMMUN[facility] PLAN [facility] [address] [facility] [phone] ANNIE NUNEZ self
--- OUTSIDE RECORDS SUMMARY | 2020-07-16 12:04 | CCD ---
Author Author Mabel Ingram Organization Unknown Address [address] [place] [phone] Phone Care Team Providers Care Charge Lpn Name Role Phone Juan Jose Zahira PCP Allergies, Adverse Reactions, Alerts Concept Allergy Name Reaction Severity Onset Date Status Documentation Date Phone Number Npid Taxonomy Code Taxonomy Desc Author Last Name Author Megan rst Name Concept Type 202906 nkda Active 02/17/2018 [id number] Psychiatric/Mental Health Esa Wills RXNORM Problem List [...] Name Taxonomy Code Taxonomy Desc Phone Number 561970 buspirone by mouth C38486 10/23/2019 twice a day 10 mg tab [place] 21856 139256 [phone] Zahira Ingram [id number] Psychiatric/Mental Health [phone] 403767 mirtazapine by mouth C42321 10/23/2019 every night 7.5 mg tablet 10403 164667 [id number] Zahira Ingram [id number] Psychiatric/Mental Health [id number] 038431 buprenorphine HCl under tongue 04/14/2020 twice a da y 8 mg tablet, sublingual 48863 777665 [id number] Zahira Ingram [id number] Psychiatric/Mental Health [id number] Social History Social History Element Description Concept Effective Date Smoking Status Unknown if ever smoked [id number] 76895157 Immunizations No Data in Section Vital Signs Encounter Date Height Ins Weight Lbs Bmi Bp Systolic Bp Diastoli c Oxygen Saturation Respiration Rate Pulse Rate Body Temp Head Circumference Heigh t Lying 04/28/2020 0.00 0.00 0.00 0 0 0.00 0 0 0.00 0.0 0.0 0 Procedures Date Concept Id Description Targeted Site Concept Targeted Site Concept Type 04/28/2020 51662-92 [facility] Telemed E/M Lvl 3--Est pt CPT 04/28/2020 47030-50 Telemed A/O 30" CPT Patient has no history of implantable de vices Encounters Encounter Start Date End Date Encounter Type Description Diagnosis Di agnosis Desc Location Author First Name Author Last Name Npid Taxonomy Cod e Taxonomy Desc Phone Number Location Addr1 Location Addr2 Location [facility] Location Rust te Location [facility] [place] [id number] 04/28/2020 04/28/2020 89955-98 [facility] Telemed E/M Lvl 3--Est p t F11.20 Opioid dependence, uncomplicated [facility] [id number] [id number] Psychiatric/Mental Health [phone] [address] [address] Plan of Treatment No Data in Section Lab Results No Data in Section Instructions No Data in Section Functional Cognitive Status No Data in Section Insurance Providers Insurance Id Policy Effective Date Policy Thru Date [employer] N dana [id number] 2018 [id number]
--- OUTSIDE RECORDS SUMMARY | 2020-07-16 12:04 | CCD ---
Author Author [facility] Organization [facility] Address Unknown Phone Unavailable Care Team Providers Care Custodial Services Manager Name Role Phone [place], Damari Unavailable PROBLEMS Type Condition ICD9-CM Code [id number] Code Onset Dates Condition S tatus SNOMED Code Notes Problem Amenorrhea N91.2 Active 60972628 ALLERGIES No Known Allergies ENCOUNTERS from 1993 to 2020-06-11 Encounter [place] [address] May, Damari Rice Upper respiratory tract infection, unspe cified type J06.9 and Third trimester at less than 36 weeks Z34.93 IMMUNIZATIONS No Information SOCIAL HISTORY Tobacco Use: Social History Observation Description Date Details (start date - stop date) Current Smoker Sex Assigned At : Social History Observation Description Sex Assigned At Unknown Tobacco Use/Smoking Question Answer Notes Are you a current smoker How many cigarettes a day do you smoke? 6-10 How often do you smoke cigarettes? every day REASON FOR REFERRAL No Information VITAL SIGNS Height 4 ft 11 in in May, Weight 155.6 lbs May, BMI 31.42 kg/m2 May, Temperature 97.8 degrees Fahrenheit May, Heart Rate 116 /min May, Respiratory Rate 18 /min May, Oximetry 98 % May, Blood pressure systolic 112 mmHg May, Blood pressure diastolic 70 mmHg May, MEDICATIONS Medication SIG (Take, Route, Frequency, Duration) Notes Start Da te End Date Status Omeprazole 20 MG 1 capsule 30 minutes before morning meal Orally Once a day for 30 day(s) Active 28-0.8 MG 1 tablet Orally Once a day for 30 day(s) Active Suboxone 8-2 MG 1 film under the tongue and allow to dissolve Campbell blingual BID Active PROCEDURES No Information RESULTS No Results REASON FOR VISIT ear pain x 3 days MEDICAL (GENERAL) HISTORY Type Description Date Medical History anxiety Medical History nerve pain in legs Medical History depression Medical History history of opiod addiction Surgical History right inguinal hernia Surgical History D&C x2 Hospitalization History surgical needs Goals Section No Information Health Concerns No Information MEDICAL EQUIPMENT No Information MENTAL STATUS No Information FUNCTIONAL STATUS No Information ASSESSMENTS Encounter Date Diagnosis Assessment Notes Treatment Notes Treatm ent Clinical Notes May, Upper respiratory tract infe ction, unspecified type (ICD-10 - J06.9) May, Third trimester at less than 3 6 weeks (ICD-10 - Z34.93) Jean Paul Enriquez contractions vs early labor. Pt instructe to call her OB and go to [facility] for evaluation for pre term labor. She was advised to increase fluids and not to drink her red bull. Pt is advised if abdominal pain intensifies or water breaks or other problems to call EMS May, Other Rest Increase fluids Saline gargle one teaspoon salt in 8 oz of water use at least four times a day Saline nasal spray as often as needed tylenol or advil as needed for discomfort or fever PLAN OF TREATMENT Treatment Notes Assessment Notes Clinical Notes Third trimester at less than 36 weeks Braxto n Enriquez contractions vs early labor. Pt instructe to call her OB and go to [facility] for evaluation for pre term labor.She was advised to increase fluids and not to drink her red bull.Pt is advised if abdominal pain intensifies or water breaks or other problems to call EMS Next Appt Details prn Reason: Insurance Providers Payer Name Payer Address Payer Phone Insured Name Patient Relati onship to Insured Coverage Start Date Coverage End Date [facility] [employer] MEDICA[employer] [address] [facility] [id number] ANNIE NUNEZ self
--- OUTSIDE RECORDS SUMMARY | 2020-07-16 12:04 | CCD ---
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 013 Active 68829596 Problem Slow transit constipation K59.01 Active 867156 07 Problem Other acne L70.8 Active 33391526 Problem Supervision of other normal Z34.80 Ac tive 224212286 ALLERGIES No Known Allergies ENCOUNTERS from 1993 to 2020-06-09 Encounter Location Date Provider Diagnosis [address] [address] May, Gabrielradhika Cehlo IMMUNIZATIONS Vaccine Route Administration Date Status TDAP [...] Orally Once a day Dec, Not-Taking PROCEDURES No Information RESULTS No Results REASON FOR VISIT Hep C med? MEDICAL (GENERAL) HISTORY Type Description Date Medical [...] Information ASSESSMENTS No Information PLAN OF TREATMENT Next Appt Details Provider Name:Michael Lozada, 2020-06-17 09:40:00 AM, [address] [place], [address], Insurance Providers Payer Name Payer Address Payer Phone Insured Name Patient Relati onship to Insured Coverage Start Date Coverage End Date [facility] [address] [facility] [address] ANNIE NUNEZ self
--- OUTSIDE RECORDS SUMMARY | 2020-07-16 12:04 | CCD ---
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 013 Active 08648183 Problem Slow transit constipation K59.01 Active 490323 07 Problem Other acne L70.8 Active 42152677 Problem Supervision of other normal Z34.80 Ac tive 303437387 ALLERGIES No Known Allergies ENCOUNTERS from 1993 to 2020-06-04 Encounter Location Date Provider Diagnosis [facility] [place] [address] 08 May, 2020 Kavya Luna 32 weeks gestatio n of Z3A.32 ; Other mental disorders complicating , third trimester O99.343 and Depression F32.9 IMMUNIZATIONS Vaccine Route Administration Date Status TDAP [...] FOR REFERRAL No Information VITAL SIGNS Weight 154.6 lbs May, Weight-kg 70.13 kg May, Height 59 in May, BMI 31.225 kg/m2 May, Blood pressure systolic 102 mm Hg May, Blood pressure diastolic 80 mm Hg May, MEDICATIONS Medication SIG (Take, [...] Information RESULTS No Results REASON FOR VISIT 3 [...] Treatment Notes Treatm ent Clinical Notes May, 32 weeks gestation of (ICD-10 - Z3A.32 ) May, Other mental disorders compl icating , third trimester (ICD-10 - O99.343) May, Depression (ICD-10 - F32.9) PLAN OF TREATMENT Next Appt Details 2 Weeks Reason:return ob Provider Name:Michael Lozada, 2020-06-17 09:40:00 AM, [address] [place], [address], Follow Up:2 Weeksreturn ob Insurance Providers Payer Name Payer Address Payer Phone Insured Name Patient Relati onship to Insured Coverage Start Date Coverage End Date [facility] [address] [facility] [phone] ANNIE NUNEZ self
--- OUTSIDE RECORDS SUMMARY | 2020-07-16 12:04 | CCD ---
Author Author Mabel Ingram Organization Unknown Address [address] [place] [address] Phone Care Team Providers Care Flower Machine Operator Name Role Phone Juan Jose Zahira PCP Allergies, Adverse Reactions, Alerts Concept Allergy Name Reaction Severity Onset Date Status Documentation Date Phone Number Npid Taxonomy Code Taxonomy Desc Author Last Name Author Megan rst Name Concept Type 353537 nkda Active 02/17/2018 [id number] Psychiatric/Mental Health Esa Wills RXNORM Problem List [...] Name Taxonomy Code Taxonomy Desc Phone Number [id number] buspirone by mouth [id number] 10/23/2019 twice a day 10 [place] 66767 533118 [id number] Zahira Ingram [id number] Psychiatric/Mental Health [phone] 359084 mirtazapine by mouth [id number] 10/23/2019 every night 7.5 mg tablet 18334 [id number] Zahira Ingram [id number] Psychiatric/Mental Health [phone] 875346 buprenorphine HCl under tongue 04/14/2020 twice a da y 8 mg tablet, sublingual 53811 286647 [id number] Zahira Ingram [id number] X Psychiatric/Mental Health [id number] Social History Social History Element Description Concept Effective Date Smoking Status Unknown if ever smoked [id number] 43478812 Immunizations No Data in Section Vital Signs Encounter Date Height Ins Weight Lbs Bmi Bp Systolic Bp Diastoli c Oxygen Saturation Respiration Rate Pulse Rate Body Temp Head Circumference Heigh t Lying 04/28/2020 0.00 0.00 0.00 0 0 0.00 0 0 0.00 0.0 0.0 0 Procedures Date Concept Id Description Targeted Site Concept Targeted Site Concept Type 04/28/2020 27118-70 [facility] Telemed E/M Lvl 3--Est pt CPT 04/28/2020 65186-36 Telemed A/O 30" CPT Patient has no history of implantable de vices Encounters Encounter Start Date End Date Encounter Type Description Diagnosis Di agnosis Desc Location Author First Name Author Last Name Npid Taxonomy Cod e Taxonomy Desc Phone Number Location Addr1 Location Addr2 Location [facility] Location [facility] te Location [facility] [id number] 04/28/2020 04/28/2020 20283-68 [facility] Telemed E/M Lvl 3--Est p t F11.20 Opioid dependence, uncomplicated [facility] [id number] Psychiatric/Mental Health [phone] [address] [address] Plan of Treatment No Data in Section Lab Results No Data in Section Instructions No Data in Section Functional Cognitive Status No Data in Section Insurance Providers Insurance Id Policy Effective Date Policy Thru Date el? N dana [id number] 2018 [email or web address]
--- OUTSIDE RECORDS SUMMARY | 2020-07-16 12:04 | CCD ---
Author Author Mabel Cunningham Beatrice Organization Unknown Address [address] [place] [address] [place] [address] Phone Care Team Providers Care Safety Deposit Supervisor Name Role Phone Beatrice Cunningham PCP Allergies, Adverse Reactions, Alerts Concept Allergy Name Reaction Severity Onset Date Status Documentation Date Phone Number Npid Taxonomy Code Taxonomy Desc Author Last Name Author Fi rst Name Concept Type 583271 nkda Active 02/17/2018 [id number] Psychiatric/Mental Health Esa Wills RXNORM Problem List [...] Name Taxonomy Code Taxonomy Desc Phone Number 480385 buspirone by mouth [id number] 10/23/2019 twice a day 10 [place] [address] 729278 [phone] Zahirakarson Ingram [id number] Psychiatric/Mental Health [phone] 882940 mirtazapine by mouth V33607 10/23/2019 every night 7.5 mg tablet 06719 796768 [id number] Zahira Murrieta [id number] Psychiatric/Mental Health [phone] 549596 buprenorphine HCl under tongue 04/14/2020 twice a da y 8 mg tablet, sublingual 34471 924703 [phone] Zahirakarson Ingram [id number] X Psychiatric/Mental Health [id number] Social History Social History Element Description Concept Effective Date Smoking Status Unknown if ever smoked 747526080 93572611 Immunizations No Data in Section Vital Signs No Data in Section Procedures Date Concept Id Description Targeted Site Concept Targeted Site Concept Type 06/09/2020 67796-00 TEMPMHCTelemed 30" Psychotherapy CPT Patient has no history of implantable de vices Encounters Encounter Start Date End Date Encounter Type Description Diagnosis Di agnosis Desc Location Author First Name Author Last Name Npid Taxonomy Cod e Taxonomy Desc Phone Number Location Addr1 Location Addr2 Location [facility] Location [facility] Location Zip [id number] 06/09/2020 06/09/2020 30836-53 TEMPMHCTelemed 30" Psychothe grace F31.81 Bipolar II disorder [facility] Octavio Beatrice [phone] [id number] Mental Health [phone] [address] [address] Plan of Treatment No Data in Section Lab Results No Data in Section Instructions No Data in Section Insurance Providers Insurance Id Policy Effective Date Policy Thru Date Company Josh ocrtez [id number] [address]
--- OUTSIDE RECORDS SUMMARY | 2020-07-16 12:06 | CCD ---
Author Author [facility] Organization [facility] Address Unknown Phone Unavailable Care Team Providers Care Child Care Lead Teacher Name Role Phone Caryn CHAMBERS Unavailable Unavailable SYMENOW, G CHRISTOPHER PA Unavailable Unavailable SYMENOW, G CHRISTOPHER PA Unavailable Unavailable SYMENOW, G CHRISTOPHER PA Unavailable Unavailable SYMENOW, G CHRISTOPHER PA Unavailable Unavailable SYMENOW, G CHRISTOPHER PA Unavailable Unavailable SYMENOW, G CHRISTOPHER PA Unavailable Unavailable SYMENOW, G CHRISTOPHER PA Unavailable Unavailable SYMENOW, G CHRISTOPHER PA Unavailable Unavailable SYMENOW, G CHRISTOPHER PA Unavailable Unavailable SYMENOW, G CHRISTOPHER PA Unavailable Unavailable SYMENOW, G CHRISTOPHER PA Unavailable Unavailable SYMENOW, G CHRISTOPHER PA Unavailable Unavailable SYMENOW, G CHRISTOPHER PA Unavailable Unavailable SYMENOW, G CHRISTOPHER PA Unavailable Unavailable SYMENOW, G CHRISTOPHER PA Unavailable Unavailable SYMENOW, G CHRISTOPHER PA Unavailable Unavailable Kilcer, R Jordan RPAC Unavailable Unavailable Kilcer, R Jordan RPAC Unavailable Unavailable Kilcer, R Jordan RPAC Unavailable Unavailable Kilcer, R Jordan RPAC Unavailable Unavailable Kilcer, R Jordan RPAC Unavailable Unavailable Kilcer, R Jordan RPAC Unavailable Unavailable Kilcer, R Jordan RPAC Unavailable Unavailable Kilcer, R Jordan RPAC Unavailable Unavailable Kilcer, R Jordan RPAC Unavailable Unavailable Kilcer, R Jordan RPAC Unavailable Unavailable Kilcer, R Jordan RPAC Unavailable Unavailable Kilcer, R Jordan RPAC Unavailable Unavailable Kilcer, R Jordan RPAC Unavailable Unavailable Kilcer, R Jordan RPAC Unavailable Unavailable Kilcer, R Jordan RPAC Unavailable Unavailable Kilcer, R Jordan RPAC Unavailable Unavailable Kilcer, R Jordan RPAC Unavailable Unavailable Kilcer, R Jordan RPAC Unavailable Unavailable Kilcer, R Jordan RPAC Unavailable Unavailable Kilcer, R Jordan RPAC Unavailable Unavailable Kilcer, R Jordan RPAC Unavailable Unavailable Kilcer, R Jordan RPAC Unavailable Unavailable Kilcer, R Jordan RPAC Unavailable Unavailable Kilcer, R Jordan RPAC Unavailable Unavailable Kilcer, R Jordan RPAC Unavailable Unavailable Kilcer, R Jordan RPAC Unavailable Unavailable Kilcer, R Jordan RPAC Unavailable Unavailable Evangelista MANSFIELD PA Unavailable Unavailable Evangelista MANSFIELD PA Unavailable Unavailable Evangelista MANSFIELD PA Unavailable Unavailable Evangelista MANSFIELD PA Unavailable Unavailable Evangelista MANSFIELD PA Unavailable Unavailable Evangelista MANSFIELD PA Unavailable Unavailable Evangelista MANSFIELD PA Unavailable Unavailable DONAL, L DARLENE PA Unavailable Unavailable DONAL, L DARLENE PA Unavailable Unavailable DONAL, L DARLENE PA Unavailable Unavailable DONAL, L DARLENE PA Unavailable Unavailable DONAL, L DARLENE PA Unavailable Unavailable DONAL, L DARLENE PA Unavailable Unavailable DONAL, L DARLENE PA Unavailable Unavailable DONAL, L DARLENE PA Unavailable Unavailable DONAL, L DARLENE PA Unavailable Unavailable DONAL, L DARLENE PA Unavailable Unavailable DONAL, L DARLENE PA Unavailable Unavailable DONAL, L DARLENE PA Unavailable Unavailable Afua Escobar MUSHROOM SORTER GRADER MUSHROOM SORTER GRADER Unavailable Unavailable Fish, B Miles REED Unavailable Unavailable Fish, B Miles REED Unavailable Unavailable Fish, B Miles REED Unavailable Unavailable Fish, B Miles REED Unavailable Unavailable Fish, B Miles REED Unavailable Unavailable Fish, B Miles REED Unavailable Unavailable Fish, B Miles REED Unavailable Unavailable Fish, B Miles REED Unavailable Unavailable Fish, B Miles REED Unavailable Unavailable Fish, B Miles REED Unavailable Unavailable Fish, B Miles REED Unavailable Unavailable Fish, B Miles REED Unavailable Unavailable Fish, B Miles REED Unavailable Unavailable Fish, B Miles REED Unavailable Unavailable Fish, B Miles REED Unavailable Unavailable Fish, B Miles REED Unavailable Unavailable Fish, B Miles REED Unavailable Unavailable Fish, B Miles REED Unavailable Unavailable Fish, B Miles REED Unavailable Unavailable Fish, B Miles REED Unavailable Unavailable Fish, B Miles REED Unavailable Unavailable Fish, B Miles REED Unavailable Unavailable Fish, B Miles REED Unavailable Unavailable Fish, B Miles REED Unavailable Unavailable Fish, B Miles REED Unavailable Unavailable Fish, B Miles REED Unavailable Unavailable Fish, B Miles REED Unavailable Unavailable Fish, B Miles REED Unavailable Unavailable Fish, B Miles REED Unavailable Unavailable Fish, B Miles REED Unavailable Unavailable Fish, B Miles REED Unavailable Unavailable Fish, B Miles REED Unavailable Unavailable Fish, B Miles REED Unavailable Unavailable Fish, B Miles REED Unavailable Unavailable Fish, B Miles REED Unavailable Unavailable Fish, B Miles REED Unavailable Unavailable Fish, B Miles REED Unavailable Unavailable Fish, B Miles REED Unavailable Unavailable Fish, B Miles REED Unavailable Unavailable Fish, B Miles REED Unavailable Unavailable Fish, B Miles REED Unavailable Unavailable Fish, B Miles REED Unavailable Unavailable Fish, B Miles REED Unavailable Unavailable Fish, B Miles REED Unavailable Unavailable Fish, B Miles REED Unavailable Unavailable Fish, B Miles REED Unavailable Unavailable Fish, B Miles REED Unavailable Unavailable Fish, B Miles REED Unavailable Unavailable Fish, B Miles REED Unavailable Unavailable Fish, B Miles REED Unavailable Unavailable Fish, B Miles REED Unavailable Unavailable Fish, B Miles REED Unavailable Unavailable Fish, B Miles REED Unavailable Unavailable Lea, E Cyndee Unavailable Unavailable Lea, E Cyndee Unavailable Unavailable Lea, E Cyndee Unavailable Unavailable Lea, E Cyndee Unavailable Unavailable Lea, E Cyndee Unavailable Unavailable Lae, E Cyndee Unavailable Unavailable Lea, E Cyndee Unavailable Unavailable Lea, E Cyndee Unavailable Unavailable Lea, E Cyndee Unavailable Unavailable Lea, E Cyndee Unavailable Unavailable Lea, E Cyndee Unavailable Unavailable Lea, E Cyndee Unavailable Unavailable Lea, E Cyndee Unavailable Unavailable Lea, E Cyndee Unavailable Unavailable Lea, E Cyndee Unavailable Unavailable Escobar, F Afua MUSHROOM SORTER GRADER-BC Unavailable Unavailable Escobar, F Afua MUSHROOM SORTER GRADER-BC Unavailable Unavailable Escobar, F Afua MUSHROOM SORTER GRADER-BC Unavailable Unavailable Escobar, F Afua MUSHROOM SORTER GRADER-BC Unavailable Unavailable Escobar, F Afua MUSHROOM SORTER GRADER-BC Unavailable Unavailable Escobar, F Afua MUSHROOM SORTER GRADER-BC Unavailable Unavailable Escobar, F Afua MUSHROOM SORTER GRADER-BC Unavailable Unavailable Escobar, F Afua MUSHROOM SORTER GRADER-BC Unavailable Unavailable Escobar, F Afua MUSHROOM SORTER GRADER-BC Unavailable Unavailable Escobar, F Afua MUSHROOM SORTER GRADER-BC Unavailable Unavailable Escobar, F Afua MUSHROOM SORTER GRADER-BC Unavailable Unavailable Escobar, F Afua MUSHROOM SORTER GRADER-BC Unavailable Unavailable Escobar, F Afua MUSHROOM SORTER GRADER-BC Unavailable Unavailable Escobar, F Afua MUSHROOM SORTER GRADER-BC Unavailable Unavailable Escobar, F Afua MUSHROOM SORTER GRADER-BC Unavailable Unavailable Escobar, F Afua MUSHROOM SORTER GRADER-BC Unavailable Unavailable Escobar, F Afua MUSHROOM SORTER GRADER-BC Unavailable Unavailable Escobar, F Afua MUSHROOM SORTER GRADER-BC Unavailable Unavailable Escobar, F Afua MUSHROOM SORTER GRADER-BC Unavailable Unavailable Escobar, F Afua MUSHROOM SORTER GRADER-BC Unavailable Unavailable Escobar, F Afua MUSHROOM SORTER GRADER-BC Unavailable Unavailable Escobar, F Afua MUSHROOM SORTER GRADER-BC Unavailable Unavailable Brendon, A Ivette MUSHROOM SORTER GRADER Unavailable Unavailable Brendon, A Ivette MUSHROOM SORTER GRADER Unavailable Unavailable Brendon, A Ivette MUSHROOM SORTER GRADER Unavailable Unavailable Brendon, A Ivette MUSHROOM SORTER GRADER Unavailable Unavailable Brendon, A Ivette MUSHROOM SORTER GRADER Unavailable Unavailable Brendon, A Ivette MUSHROOM SORTER GRADER Unavailable Unavailable Brendon, A Ivette MUSHROOM SORTER GRADER Unavailable Unavailable Brendon, A Ivette MUSHROOM SORTER GRADER Unavailable Unavailable Brendon, A Ivette MUSHROOM SORTER GRADER Unavailable Unavailable Brendon, A Ivette MUSHROOM SORTER GRADER Unavailable Unavailable Brendon, A Ivette MUSHROOM SORTER GRADER Unavailable Unavailable Brendon, A Ivette MUSHROOM SORTER GRADER Unavailable Unavailable Brendon, A Ivette MUSHROOM SORTER GRADER Unavailable Unavailable Brendon, A Ivette MUSHROOM SORTER GRADER Unavailable Unavailable Brendon, A Ivette MUSHROOM SORTER GRADER Unavailable Unavailable Brendon, A Ivette MUSHROOM SORTER GRADER Unavailable Unavailable Brendon, A Ivette MUSHROOM SORTER GRADER Unavailable Unavailable Brendon, A Ivette MUSHROOM SORTER GRADER Unavailable Unavailable Brendon, A Ivette MUSHROOM SORTER GRADER Unavailable Unavailable Brendon, A Ivette MUSHROOM SORTER GRADER Unavailable Unavailable Brendon, A Ivette MUSHROOM SORTER GRADER Unavailable Unavailable Brendon, A Ivette MUSHROOM SORTER GRADER Unavailable Unavailable Brendon, A Ivette MUSHROOM SORTER GRADER Unavailable Unavailable Brendon, A Ivette MUSHROOM SORTER GRADER Unavailable Unavailable Brendon, A Ivette MUSHROOM SORTER GRADER Unavailable Unavailable Brendon, A Ivette MUSHROOM SORTER GRADER Unavailable Unavailable Brendon, A Ivette MUSHROOM SORTER GRADER Unavailable Unavailable Brendon, A Ivette MUSHROOM SORTER GRADER Unavailable Unavailable Brendon, A Ivette MUSHROOM SORTER GRADER Unavailable Unavailable Brendon, A Ivette MUSHROOM SORTER GRADER Unavailable Unavailable Brendon, A Ivette MUSHROOM SORTER GRADER Unavailable Unavailable Brendon, A Ivette MUSHROOM SORTER GRADER Unavailable Unavailable Brendon, A Ivette MUSHROOM SORTER GRADER Unavailable Unavailable Brendon, A Ivette MUSHROOM SORTER GRADER Unavailable Unavailable Brendon, A Ivette MUSHROOM SORTER GRADER Unavailable Unavailable Brendon, A Ivette MUSHROOM SORTER GRADER Unavailable Unavailable Brendon, A Ivette MUSHROOM SORTER GRADER Unavailable Unavailable Brendon, A Ivette MUSHROOM SORTER GRADER Unavailable Unavailable Brendon, A Ivette MUSHROOM SORTER GRADER Unavailable Unavailable Brendon, A Ivette MUSHROOM SORTER GRADER Unavailable Unavailable Brendon, A Ivette MUSHROOM SORTER GRADER Unavailable Unavailable Brendon, A Ivette MUSHROOM SORTER GRADER Unavailable Unavailable Brendon, A Ivette MUSHROOM SORTER GRADER Unavailable Unavailable Brendon, A Ivette MUSHROOM SORTER GRADER Unavailable Unavailable Brendon, A Ivette MUSHROOM SORTER GRADER Unavailable Unavailable Brendon, A Ivette MUSHROOM SORTER GRADER Unavailable Unavailable Brendon, A Ivette MUSHROOM SORTER GRADER Unavailable Unavailable Brendon, A Ivette MUSHROOM SORTER GRADER Unavailable Unavailable Brendon, A Ivette MUSHROOM SORTER GRADER Unavailable Unavailable Brendon, A Ivette MUSHROOM SORTER GRADER Unavailable Unavailable Brendon, A Ivette MUSHROOM SORTER GRADER Unavailable Unavailable Brendon, A Ivette MUSHROOM SORTER GRADER Unavailable Unavailable Brendon, A Ivette MUSHROOM SORTER GRADER Unavailable Unavailable Brendon, A Ivette MUSHROOM SORTER GRADER Unavailable Unavailable Brendon, A Ivette MUSHROOM SORTER GRADER Unavailable Unavailable Brendon, A Ivette MUSHROOM SORTER GRADER Unavailable Unavailable Brendon, A Ivette MUSHROOM SORTER GRADER Unavailable Unavailable Brendon, A Ivette MUSHROOM SORTER GRADER Unavailable Unavailable Brendon, A Ivette MUSHROOM SORTER GRADER Unavailable Unavailable Brendon, A Ivette MUSHROOM SORTER GRADER Unavailable Unavailable Brendon, A Ivette MUSHROOM SORTER GRADER Unavailable Unavailable Brendon, A Ivette MUSHROOM SORTER GRADER Unavailable Unavailable Brendon, A Ivette MUSHROOM SORTER GRADER Unavailable Unavailable Brendon, A Ivette MUSHROOM SORTER GRADER Unavailable Unavailable Brendon, A Ivette MUSHROOM SORTER GRADER Unavailable Unavailable Brendon, A Ivette MUSHROOM SORTER GRADER Unavailable Unavailable Brendon, A Ivette MUSHROOM SORTER GRADER Unavailable Unavailable Brendon, A Ivette MUSHROOM SORTER GRADER Unavailable Unavailable Brendon, A Ivette MUSHROOM SORTER GRADER Unavailable Unavailable Brendon, A Ivette MUSHROOM SORTER GRADER Unavailable Unavailable Brendon, A Ivette MUSHROOM SORTER GRADER Unavailable Unavailable Brendon, A Ivette MUSHROOM SORTER GRADER Unavailable Unavailable Brendon, A Ivette MUSHROOM SORTER GRADER Unavailable Unavailable Brendon, A Ivette MUSHROOM SORTER GRADER Unavailable Unavailable Brendon, A Ivette MUSHROOM SORTER GRADER Unavailable Unavailable Brendon, A Ivette MUSHROOM SORTER GRADER Unavailable Unavailable Brendon, A Ivette MUSHROOM SORTER GRADER Unavailable Unavailable Brendon, A Ivette MUSHROOM SORTER GRADER Unavailable Unavailable Brendon, A Ivette MUSHROOM SORTER GRADER Unavailable Unavailable Brendon, A Ivette MUSHROOM SORTER GRADER Unavailable Unavailable Brendon, A Ivette MUSHROOM SORTER GRADER Unavailable Unavailable Brendon, A Ivette MUSHROOM SORTER GRADER Unavailable Unavailable Brendon, A Ivette MUSHROOM SORTER GRADER Unavailable Unavailable Brendon, A Ivette MUSHROOM SORTER GRADER Unavailable Unavailable Brendon, A Ivette MUSHROOM SORTER GRADER Unavailable Unavailable Brendon, A Ivette MUSHROOM SORTER GRADER Unavailable Unavailable Brendon, A Ivette MUSHROOM SORTER GRADER Unavailable Unavailable Brendon, A Ivette MUSHROOM SORTER GRADER Unavailable Unavailable Fish, B Miles REED Unavailable Unavailable Fish, B Miles REED Unavailable Unavailable Fish, B Miles REED Unavailable Unavailable Fish, B Miles REED Unavailable Unavailable Fish, B Miles REED Unavailable Unavailable Fish, B Miles REED Unavailable Unavailable Fish, B Miles REED Unavailable Unavailable Fish, B Miles REED Unavailable Unavailable Fish, B Miles REED Unavailable Unavailable Fish, B Miles REED Unavailable Unavailable Fish, B Miles REED Unavailable Unavailable Fish, B Miles REED Unavailable Unavailable Fish, B Miles REED Unavailable Unavailable Fish, B Miles REED Unavailable Unavailable Fish, B Miles REED Unavailable Unavailable Fish, B Miles REED Unavailable Unavailable Fish, B Miles REED Unavailable Unavailable Fish, B Miles REED Unavailable Unavailable Fish, B Miles REED Unavailable Unavailable Fish, B Miles REED Unavailable Unavailable Fish, B Miles REED Unavailable Unavailable Fish, B Miles REED Unavailable Unavailable Fish, B Miles REED Unavailable Unavailable Fish, B Miles REED Unavailable Unavailable Fish, B Miles REED Unavailable Unavailable Fish, B Miles REED Unavailable Unavailable Fish, B Miles REED Unavailable Unavailable Fish, B Miles REED Unavailable Unavailable Fish, B Miles REED Unavailable Unavailable Fish, B Miles REED Unavailable Unavailable Fish, B Miles REED Unavailable Unavailable Fish, B Miles REED Unavailable Unavailable Fish, B Miles REED Unavailable Unavailable Fish, B Miles REED Unavailable Unavailable Fish, B Miles REED Unavailable Unavailable Fish, B Miles REED Unavailable Unavailable Fish, B Miles REED Unavailable Unavailable Fish, B Miles REED Unavailable Unavailable Fish, B Miles REED Unavailable Unavailable Fish, B Miles REED Unavailable Unavailable Fish, B Miles REED Unavailable Unavailable Fish, B Miles REED Unavailable Unavailable Fish, B Miles REED Unavailable Unavailable Fish, B Miles REED Unavailable Unavailable Fish, B Miles REED Unavailable Unavailable Fish, B Miles REED Unavailable Unavailable Fish, B Miles REED Unavailable Unavailable Fish, B Miles REED Unavailable Unavailable Fish, B Miles REED Unavailable Unavailable Fish, B Miles REED Unavailable Unavailable Fish, B Miles REED Unavailable Unavailable Fish, B Miles REED Unavailable Unavailable Fish, B Miles REED Unavailable Unavailable Pat Salazar Unavailable RINCON, HERSON KONG RPA-C Unavailable Unavailable RINCON, HERSON KONG RPA-C Unavailable Unavailable RINCON, HERSON KONG RPA-C Unavailable Unavailable RINCON, HERSON KONG RPA-C Unavailable Unavailable RINCON, HERSON KONG RPA-C Unavailable Unavailable RINOCN, HERSON KONG RPA-C Unavailable Unavailable RINCON, HERSON KONG RPA-C Unavailable Unavailable RINCON, HERSON KONG RPA-C Unavailable Unavailable RINCON, HERSON KONG RPA-C Unavailable Unavailable RINCON, HERSON KONG RPA-C Unavailable Unavailable RINCON, HERSON KONG RPA-C Unavailable Unavailable RINCON, HERSON KONG RPA-C Unavailable Unavailable RINCON, HERSON KONG RPA-C Unavailable Unavailable RINCON, HERSON KONG RPA-C Unavailable Unavailable RINCON, HERSON KONG RPA-C Unavailable Unavailable RINCON, HERSON KONG RPA-C Unavailable Unavailable RINCON, HERSON KONG RPA-C Unavailable Unavailable RINCON, HERSON KONG RPA-C Unavailable Unavailable RINCON, HERSON KONG RPA-C Unavailable Unavailable RINCON, HERSON KONG RPA-C Unavailable Unavailable RINCON, HERSON KONG RPA-C Unavailable Unavailable RINCON, HERSON KONG RPA-C Unavailable Unavailable RINCON, HERSON KONG RPA-C Unavailable Unavailable RINCON, HERSON KONG RPA-C Unavailable Unavailable RINCON, HERSON KONG RPA-C Unavailable Unavailable RINCON, HERSON KONG RPA-C Unavailable Unavailable RINCON, HERSON KONG RPA-C Unavailable Unavailable RINCON, HERSON KONG RPA-C Unavailable Unavailable RINCON, HERSON KONG RPA-C Unavailable Unavailable RINCON, HERSON KONG RPA-C Unavailable Unavailable RINCON, HERSON KONG RPA-C Unavailable Unavailable RINCON, HERSON KONG RPA-C Unavailable Unavailable RINCON, HERSON KONG RPA-C Unavailable Unavailable RINCON, HERSON KONG RPA-C Unavailable Unavailable RINCON, HERSON KONG RPA-C Unavailable Unavailable RINCON, HERSON KONG RPA-C Unavailable Unavailable RINCON, HERSON KONG RPA-C Unavailable Unavailable RINCON, HERSNO KONG RPA-C Unavailable Unavailable RINCON, HERSON KONG RPA-C Unavailable Unavailable Rotella, Christianne Unavailable Kenmore, Damari RPA-C Unavailable Unavailable Kenmore, Damari RPA-C Unavailable Unavailable Kenmore, Damari RPA-C Unavailable Unavailable [place], Damari RPA-C Unavailable Unavailable Kenmore, Damari RPA-C Unavailable Unavailable Kenmore, Damari RPA-C Unavailable Unavailable Kenmore, Damari RPA-C Unavailable Unavailable Kenmore, Damari RPA-C Unavailable Unavailable Kenmore, Damari RPA-C Unavailable Unavailable [place], Damari RPA-C Unavailable Unavailable [place], Damari RPA-C Unavailable Unavailable [place], Damari RPA-C Unavailable Unavailable [place], Damari RPA-C Unavailable Unavailable [place], Damari RPA-C Unavailable Unavailable Damari Rice RPA-C Unavailable Unavailable ABHIJIT ESCOBAR JHOAN Unavailable Unavailable PADDEN, CHRIS VICE PRESIDENT MEDIA RELATIONS Unavailable Unavailable PADDEN, CHRIS VICE PRESIDENT MEDIA RELATIONS Unavailable Unavailable PADDEN, CHRIS VICE PRESIDENT MEDIA RELATIONS Unavailable Unavailable PADDEN, CHRIS VICE PRESIDENT MEDIA RELATIONS Unavailable Unavailable PADDEN, CHRIS VICE PRESIDENT MEDIA RELATIONS Unavailable Unavailable PADDEN, CHRIS VICE PRESIDENT MEDIA RELATIONS Unavailable Unavailable PADDEN, CHRIS VICE PRESIDENT MEDIA RELATIONS Unavailable Unavailable PADDEN, CHRIS VICE PRESIDENT MEDIA RELATIONS Unavailable Unavailable PADDEN, CHRIS VICE PRESIDENT MEDIA RELATIONS Unavailable Unavailable PADDEN, CHRIS VICE PRESIDENT MEDIA RELATIONS Unavailable Unavailable PADDEN, CHRIS VICE PRESIDENT MEDIA RELATIONS Unavailable Unavailable PADDEN, CHRIS VICE PRESIDENT MEDIA RELATIONS Unavailable Unavailable PADDEN, CHRIS VICE PRESIDENT MEDIA RELATIONS Unavailable Unavailable PADDEN, CHRIS VICE PRESIDENT MEDIA RELATIONS Unavailable Unavailable PADDEN, CHRIS VICE PRESIDENT MEDIA RELATIONS Unavailable Unavailable PADDEN, CHRIS VICE PRESIDENT MEDIA RELATIONS Unavailable Unavailable PADDEN, CHRIS VICE PRESIDENT MEDIA RELATIONS Unavailable Unavailable PADDEN, CHRIS VICE PRESIDENT MEDIA RELATIONS Unavailable Unavailable PADDEN, CHRIS VICE PRESIDENT MEDIA RELATIONS Unavailable Unavailable Rivers, Shannan Unavailable Esa, C Johann Unavailable Unavailable Esa, C Johann Unavailable Unavailable Gattman, C Johann Unavailable Unavailable Gattman, C Johann Unavailable Unavailable Gattman, C Johann Unavailable Unavailable Esa, C Johann Unavailable Unavailable Esa, C Johann Unavailable Unavailable [place], K Zahira PMH-VICE PRESIDENT MEDIA RELATIONS Unavailable Unavailable [place], K Zahira PMH-VICE PRESIDENT MEDIA RELATIONS Unavailable Unavailable [place], K Zahira PMH-VICE PRESIDENT MEDIA RELATIONS Unavailable Unavailable Juan Jose, K Zahira PMH-VICE PRESIDENT MEDIA RELATIONS Unavailable Unavailable [place], K Zahira PMH-VICE PRESIDENT MEDIA RELATIONS Unavailable Unavailable Juan Jose, K Zahira PMH-VICE PRESIDENT MEDIA RELATIONS Unavailable Unavailable PADDEN, CHRIS VICE PRESIDENT MEDIA RELATIONS Unavailable Unavailable PADDEN, CHRIS VICE PRESIDENT MEDIA RELATIONS Unavailable Unavailable PADDEN, CHRIS VICE PRESIDENT MEDIA RELATIONS Unavailable Unavailable PADDEN, CHRIS VICE PRESIDENT MEDIA RELATIONS Unavailable Unavailable PADDEN, CHRIS VICE PRESIDENT MEDIA RELATIONS Unavailable Unavailable PADDEN, CHRIS VICE PRESIDENT MEDIA RELATIONS Unavailable Unavailable PADDEN, CHRIS VICE PRESIDENT MEDIA RELATIONS Unavailable Unavailable PADDEN, CHRIS VICE PRESIDENT MEDIA RELATIONS Unavailable Unavailable PADDEN, CHRIS VICE PRESIDENT MEDIA RELATIONS Unavailable Unavailable PADDEN, CHRIS VICE PRESIDENT MEDIA RELATIONS Unavailable Unavailable PADDEN, CHRIS VICE PRESIDENT MEDIA RELATIONS Unavailable Unavailable PADDEN, CHRIS VICE PRESIDENT MEDIA RELATIONS Unavailable Unavailable PADDEN, CHRIS VICE PRESIDENT MEDIA RELATIONS Unavailable Unavailable PADDEN, CHRIS VICE PRESIDENT MEDIA RELATIONS Unavailable Unavailable PADDEN, CHRIS VICE PRESIDENT MEDIA RELATIONS Unavailable Unavailable PADDEN, CHRIS VICE PRESIDENT MEDIA RELATIONS Unavailable Unavailable PADDEN, CHRIS VICE PRESIDENT MEDIA RELATIONS Unavailable Unavailable PADDEN, CHRIS VICE PRESIDENT MEDIA RELATIONS Unavailable Unavailable PADDEN, CHRIS VICE PRESIDENT MEDIA RELATIONS Unavailable [facility] Unavailable Unavailable Beatrice Cunningham Unavailable [facility], ROST RINCON USHA TRIANA Unavailable Unavailable Re-disclosure Warning The records that you are about to access may contain information from federally-assisted alcohol or drug abuse programs. If such information is present, then the following federally mandated warning applies: This information has been disclosed to you from records protected by federal confidentiality rules (42 CFR part 2). The federal rules prohibit you from making any further disclosure of this information unless further disclosure is expressly permitted by the written consent of the person to whom it pertains or as otherwise permitted by 42 CFR part 2. A general authorization for the release of medical or other information is NOT sufficient for this purpose. The Federal rules restrict any use of the information to criminally investigate or prosecute any alcohol or drug abuse patient.The records that you are about to access may contain highly sensitive health information, the redisclosure of which is protected by Article 27-F of the [facility] Public Health law. If you continue you may have access to information: Regarding HIV / AIDS; Provided by facilities licensed or operated by the [facility] Office of Mental Health; or Provided by the [facility] Office for People With Developmental Disabilities. If such information is present, then the following [facility] mandated warning applies: This information has been disclosed to you from confidential records which are protected by state law. State law prohibits you from making any further disclosure of this information without the specific written consent of the person to whom it pertains, or as otherwise permitted by law. Any unauthorized further disclosure in violation of state law may result in a fine or mcfp sentence or both. A general authorization for the release of medical or other information is NOT sufficient authorization for further disc losure. Allergies and Adverse Reactions Type Description Substance Reaction Status Data Source(s ) Propensity to adverse reactions to substance nkda 24 HR Bupropion Hydrochloride 150 MG Extended Release Oral Tablet Active Accu medic ([facility]) Family History Family Member Name Family Member Gender Family Member Status Date o f Status Description Data Source(s) Unknown Unknown Problem MEDENT ([facility], ) Encounters Encounter Providers Location Date Indications Data Source(s ) ( ESTOB) enter Est OB [address] [place] [address] 07/07/2020 12:00:00 AM EST [facility] ([facility]) ( ESTOB) [facility] OB [address] [place] [address] 07/04/2020 12:00:00 AM EST [facility]CW1 ([facility]) Outpatient Attender: Zahira Ingram PM-VICE PRESIDENT MEDIA [facility]30[facility]2020 11:00:00 AM EST - 06/30/2020 11:00:00 AM EST [facility] ([facility]) Attender: Zahira Ingram PM-VICE PRESIDENT MEDIA RELATIONS 06/30/2020 12: 00:00 AM EST [facility] ([facility]) Emergency Attender: ROBERTO Garduno: Jordan Alonso [facility] 06/27/2020 12:22:00 AM EST - 06/27/2020 12:53:00 AM [facility] Patient discharged. Emergency Attender: JHOAN Johns nder: DARLENE Garduno: Jordan Alonso [facility] 06/25/2020 07:55:00 PM EST - 06/25/2020 08:05:00 PM [facility] Patient discharged. ( ESTOB) [facility] Est OB [address] [place] [address] 06/24/2020 12:00:00 AM EST eCW1 ([facility]) ( ESTOB) [facility] Est OB [address] [place] [address] 06/17/2020 12:00:00 AM EST eCW1 ([facility]) Outpatient Attender: Damari Rice RPA-C 06/11/2020 09:10: 00 AM EST [facility] Outpatient [facility] 06/11/2020 12:00:00 AM EST eCW1 ([facility]) TEMPMHCTelemed 30" Psychotherapy Attender: Beatrice Christensen on [facility] 06/09/2020 10:00:00 AM EST - 06/09/2020 10:00:00 AM EST [facility] ([facility]) Unknown [address] [facility] [address] 06/09/2020 12:00:00 AM EST eCW1 ([facility]) Attender: Beatrice Cunningham 06/09/2020 12:00:00 AM EST [facility] ([facility]) ( ESTOB) [facility] Est OB [address] [place] [address] 06/03/2020 12:00:00 AM EST eCW1 ([facility]) Outpatient Attender: Zahira Ingram [facility]-VICE PRESIDENT MEDIA RELATIONS [facility] 05/26/2020 10:00:00 AM EST - 05/26/2020 10:00:00 AM EST [facility] ([facility]) Attender: Zahira Ingram [facility]-VICE PRESIDENT MEDIA RELATIONS 05/26/2020 12: 00:00 AM EST [facility] ([facility]) ( ESTOB) [facility] Est OB [address] [place] [address] 05/14/2020 12:00:00 AM EST eCW1 ([facility]) Outpatient Attender: Zahira Ingram [facility]-VICE PRESIDENT MEDIA RELATIONS [facility] 04/28/2020 11:00:00 AM EST - 04/28/2020 11:00:00 AM EST [facility] ([facility]) ( [place]) [facility] Nurse Visit [address] [place] [address] 04/28/2020 12:00:00 AM EST eCW1 ([facility]) [place] [address] [facility] [address] 04/28/2020 12:00:00 AM EST eCW1 ([facility]) Attender: Zahira Ingram [facility]-VICE PRESIDENT MEDIA RELATIONS 04/28/2020 12: 00:00 AM EST [facility] ([facility]) ( ESTOB) [facility] Est OB [address] [place] [address] 04/23/2020 12:00:00 AM EDT eCW1 ([facility]) Unknown [address] [facility] [address] 04/11/2020 12:00:00 AM EDT eCW1 ([facility]) ( ESTOB) [facility] Est OB [address] [place] [address] 03/27/2020 12:00:00 AM EDT [facility]CW1 ([facility]) Outpatient Attender: Zahira Ingram [facility]-VICE PRESIDENT MEDIA RELATIONS [facility] 03/25/2020 10:30:00 AM EDT - 03/25/2020 10:30:00 AM EDT [facility] ([facility]) Attender: Zahira HARRELL-VICE PRESIDENT MEDIA RELATIONS 03/25/2020 12: 00:00 AM EDT [facility] ([facility]) TEMPMHCTelemed 30" [facility] 03/14/2020 08:30:00 AM EDT - 03/14/2020 08:30:00 AM EDT [facility] ([facility]) Attender: Pat Salazar 03/14/2020 12:00:00 AM E DT [facility] ([facility]) Outpatient Attender: KONG RINCON RPA-C 01/24/2020 09:19:00 AM EDT [facility] Emergency Attender: DARLENE Garduno: Isaías Alonso [facility]-ER 01/23/2020 04:47:00 PM EDT - 01/23/2020 07:09:00 PM EDT [facility] Patient discharged. Outpatient Attender: Cyndee Hamilton 01/03/2020 10:40:00 AM EDT MED[facility] ([facility]) (WC ESTOB) [facility] Est OB [address] [place] [address] 01/01/2020 12:00:00 AM EDT eCW1 ([facility]) Outpatient Attender: Zahira Ingram [facility]-VICE PRESIDENT MEDIA RELATIONS [facility] 12/24/2019 09:00:00 AM EDT - 12/24/2019 09:00:00 AM EDT [facility] ([facility]) Attender: Zahira HARRELL-VICE PRESIDENT MEDIA RELATIONS 12/24/2019 12: 00:00 AM EDT [facility] ([facility]) Outpatient Attender: Cyndee Hamilton 12/20/2019 01:00:00 PM EDT MEDENT ([facility]) TEMPMHCTelemed 30" Psychotherapy Attender: Pat Salazar [facility] 12/13/2019 10:30:00 AM EDT - 12/13/2019 10:30:00 AM EDT [facility] ([facility]) Attender: Pat Salazar 12/13/2019 12:00:00 AM E DT [facility] ([facility]) Outpatient Attender: CHRIS Hamilton 12/04/2019 02:40:0 0 PM EDT MEDENT ([facility]) Outpatient Attender: Zahira Ingram [facility]-VICE PRESIDENT MEDIA RELATIONS [facility] 11/28/2019 11:00:00 AM EDT - 11/28/2019 11:00:00 AM EDT [facility] ([facility]) Attender: Zahira Ingram [facility]-VICE PRESIDENT MEDIA RELATIONS 11/28/2019 12: 00:00 AM EDT [facility] ([facility]) TEMPMHCTelemed 30" Psychotherapy Attender: Pat Salazar [facility] 11/27/2019 05:00:00 AM EDT - 11/27/2019 05:00:00 AM EDT [facility] ([facility]) Attender: Pat Salazar 11/27/2019 12:00:00 AM E DT [facility] ([facility]) Outpatient Attender: Cyndee Hamilton 11/22/2019 03:20:00 PM EDT MEDENT ([facility]) Outpatient Attender: Ivette ZAPATA 11/14/2019 10:00 :00 AM EDT [facility] Outpatient Attender: Ivette Olivas FNPReferrer: Jordan lai [facility] 11/14/2019 09:53:00 AM EDT - 11/14/2019 09:53:00 AM EDT [facility] 0 12:00:00 AM EDT eCW1 ([facility]) TEMPMHCTelemed 30" Psychotherapy Attender: Pat Salazar [facility] 11/13/2019 10:30:00 AM EDT - 11/13/2019 10:30:00 AM EDT [facility] ([facility]) Attender: Pat Salazar 11/13/2019 12:00:00 AM E DT [facility] ([facility]) Outpatient Attender: CHRIS Hamilton 11/06/2019 09:20:0 0 AM EDT MEDENT ([facility]) Outpatient Attender: KONG BAIG 10/31/2019 09:01:02 PM EDT [facility] Outpatient Attender: Zahira Ingram [facility] Shiv [facility] 10/23/2019 10:15:00 AM EDT - 10/23/2019 10:15:00 AM EDT [facility] ([facility]) Outpatient Attender: CHRIS Hamilton 10/23/2019 09:00:0 0 AM EDT MEDENT ([facility]) Attender: Zahira SCHWARZ-NICHELLE 10/23/2019 12: 00:00 AM EDT [facility] ([facility]) Outpatient Attender: KONG BAIG 10/18/2019 10:20:02 AM EDT [facility] Outpatient Attender: VEE BAIG 10/18/2019 10:20:00 AM EDT [facility] Outpatient Attender: KONG BAIG 10/18/2019 09:10:01 AM EDT [facility] TEMPMHCTelemed 30" Psychotherapy Attender: Pat Salazar [facility] 10/16/2019 02:00:00 AM EDT - 10/16/2019 02:00:00 AM EDT [facility] ([facility]) Attender: Pat Salazar 10/16/2019 12:00:00 AM E DT [facility] ([facility]) Outpatient Attender: CHRIS Hamilton 10/09/2019 09:00:0 0 AM EDT MEDENT ([facility]) Outpatient Attender: Zahira Ingram [facility]-VICE PRESIDENT MEDIA RELATIONS [facility] 09/27/2019 11:00:00 AM EDT - 09/27/2019 11:00:00 AM EDT [facility] ([facility]) Attender: Zahira Ingram PM-VICE PRESIDENT MEDIA RELATIONS 09/27/2019 12: 00:00 AM EDT [facility] ([facility]) Outpatient Referrer: Miles Cherry MD 09/26/2019 02:54:00 PM EDT [facility] Outpatient Referrer: Miles Cherry MD 09/26/2019 02:35:00 PM EDT [facility] Outpatient Referrer: Miles Cherry MD 09/26/2019 02:35:00 PM EDT [facility] Outpatient Referrer: Miles Cherry MD 09/26/2019 02:30:00 PM EDT [facility] Outpatient Attender: Cyndee Hamilton 09/25/2019 09:20:00 AM EDT MEDENT ([facility]) Outpatient Attender: KONG BAIG 09/17/2019 01:02:00 PM EDT [facility] Outpatient Referrer: Miles Cherry MD 09/13/2019 11:29:[address] [facility] [id number]"Psychotherapy Attender: Pta Salazar [facility] 09/13/2019 11:00:00 AM EDT - 09/13/2019 11:00:00 AM EDT [facility] ([facility]) Outpatient Referrer: Miles Cherry MD 09/13/2019 10:52:[address] [facility] Attender: Pat Salazar 09/13/2019 12:00:00 AM E DT [facility] ([facility]) Outpatient Referrer: Miles Cherry MD 09/12/2019 04:17:00 PM EDT [facility] Outpatient 09/12/2019 03:51:[address] [facility] Outpatient Attender: CHRIS STEPHEN NP [place] 09/11/2019 09:00:0 0 AM EDT MEDENT ([facility]) OFFICE OUTPATIENT NEW 30 MINUTES Attender: Miles Cherry MD Physic al Therapy 09/07/2019 10:00:00 AM EDT MEDENT ([facility]) Outpatient Attender: KONG ANDERSON FP 09/05/2019 10:26:00 AM EDT [facility] Outpatient Attender: KONG ANDERSON 08/31/2019 10:48:01 AM EST [facility] Outpatient Attender: VEE BAIG 08/31/2019 10:47:00 AM EST [facility] Outpatient Attender: KONG ANDERSON 08/31/2019 10:03:01 AM EST [facility] Brief Individual Psychotherapy - 30 min Attender: Pat hess [facility] 08/30/2019 10:30:00 AM EST - 08/30/2019 10:30:00 AM EST [facility] ([facility]) Attender: Pat Salazar 08/30/2019 12:00:[address] [facility] ([facility]) Outpatient Attender: CHRIS Hamilton 08/27/2019 09:40:0 0 AM EST MED[facility] ([facility]) Outpatient Attender: Johann See [facility] 0 08/22/2019 10:00:00 AM EST - 08/22/2019 10:00:00 AM EST [facility] ([facility]) Attender: Johann Gattman 08/22/2019 12:00:00 AM EST [facility] ([facility]) Outpatient Attender: CHRIS Hamilton 08/21/2019 03:00:0 0 PM EST MED[facility] ([facility]) Outpatient Attender: VEE BACK 08/20/2019 08:50:00 AM EST [facility] Attender: Christianne Lawrence 08/16/2019 12:00:00 AM EST [facility] ([facility]) Outpatient Attender: CHRIS STEPHEN NPReferrer: Kamilah Alonso [facility]LABOTHPROV 08/15/2019 10:29:00 AM EST - 08/15/2019 10:29:00 AM [facility] Outpatient Attender: Ivette Olivas [facility] 08/15/2019 09:35 :00 AM [facility] Injectable Psychotropic Medication Administration (Inj ection Only) Attender: Christianne Lawrence [facility] 08/15/2019 09:15:00 AM EST - 08/15/2019 09:15:00 AM EST [facility] ([facility] 0 12:00:00 AM EST eCW1 ([facility]) Outpatient Attender: CHRIS Hamilton 08/14/2019 01:20:0 0 PM EST MED[facility] ([facility]) Outpatient Attender: KONG BAIG 08/13/2019 10:36:00 AM EST [facility] Brief Individual Psychotherapy - 30 min Attender: Pat hess [facility] 08/09/2019 10:00:00 AM EST - 08/09/2019 10:00:00 AM EST [facility] ([facility]) Attender: Pat Salazar 08/09/2019 12:00:[address] [facility] ([facility]) Outpatient Attender: KONG ANDERSON 08/07/2019 08:39:01 AM [facility] 08/06/2019 09:28:02 AM [facility] Outpatient [facility] 07/18/2019 08:50:01 AM [facility] Injectable Medication Administration w/ Monitoring & E ducation Attender: Shannan Rivers [facility] 07/17/2019 11:00:00 AM EST - 07/17/2019 11:00:00 AM EST [facility] ([facility]) Attender: Shannan Rivers 07/17/2019 12:00:00 AM EST [facility] ([facility]) Brief Individual Psychotherapy - 30 min Attender: Pat hess [facility] 07/12/2019 11:00:00 AM EST - 07/12/2019 11:00:00 AM EST [facility] ([facility]) Outpatient Attender: Johann See [facility] 0 07/12/2019 10:30:00 AM EST - 07/12/2019 10:30:00 AM EST [facility] ([facility]) Attender: Pat Salazar 07/12/2019 12:00:[address] [facility] ([facility]) Attender: Johann See 07/12/2019 12:00:00 AM EST [facility] ([facility]) Outpatient Attender: KONG BAIG 06/29/2019 11:01:00 AM [facility] Outpatient Attender: KONG BAIG 06/26/2019 08:30:00 AM [facility] Outpatient Attender: Afua BAIG 06/26/2019 08: 29:00 AM [facility] Outpatient Attender: BENNY BAIG 06/21/2019 01:28:01 PM [facility] Brief Individual Psychotherapy - 30 min Attender: Pat hess [facility] 06/21/2019 10:30:00 AM EST - 06/21/2019 10:30:00 AM EST [facility] ([facility]) Outpatient Attender: Johann See [facility] 1 08/22/2018 02:30:00 AM EST - 06/21/2019 02:30:00 AM EST [facility] ([facility]) Attender: Johann See 06/21/2019 12:00:00 AM EST [facility] ([facility] Attender: Pat Salazar 06/21/2019 12:00:[address] [facility] ([facility]) Outpatient Attender: Afua BAIG 06/07/2019 08: 22:54 AM [facility] Outpatient Attender: Afua BAIG 06/05/2019 03: 46:02 PM [facility] Outpatient Attender: Afua BAIG 06/04/2019 01: 36:01 PM [facility] Outpatient Attender: Johann Esa [facility] 1 08/02/2018 10:30:00 AM EST - 06/01/2019 10:30:00 AM EST [facility] ([facility] Outpatient Attender: BENNY ZAPATA FP 06/01/2019 09:19:00 AM [facility] Attender: Johann See 06/01/2019 12:00:00 AM EST [facility] ([facility]) [facility] 07/31/2018 02:30:00 AM EST - 05/30/2019 02:30:00 AM EST [facility] ([facility]) Attender: Johann See 05/30/2019 12:00:00 AM EST [facility] ([facility]) [facility] 05/25/2019 12:00:00 AM EST eCW1 ([facility]) Outpatient Attender: Ivette MOODYPConsultant: [facility] MY-BMR-EOFTB 05/22/2019 05:20:00 PM [facility] Outpatient Attender: Ivette Olivas FNPReferrer: Jordan Alonso [facility]-CLN2 05/22/2019 04:49:00 PM EST - 05/22/2019 04:49:00 PM [facility] 9 12:00:00 AM EST eCW1 ([facility]) Outpatient Attender: BENNY ZAPATA FP 05/17/2019 03:30:01 PM [facility] Outpatient Attender: Ivette Olivas FNPReferrer: Jordan lai [facility] 01/22/2019 01:00:00 PM [facility] Outpatient Attender: Ivette Olivas FNPReferrer: Jordan Alonso [facility]-CLN2 01/17/2019 04:00:00 PM EDT - 01/17/2019 04:00:00 PM [facility] Outpatient Attender: Johann See EMERGENCY ROOM-LABOTHPR OV 09/13/2018 09:02:00 AM EDT - 09/13/2018 09:02:00 AM [facility] pital Functional Status Immunizations Vaccine Date Status Description Data Source(s) Tdap 05/14/2020 12:56:00 PM EST completed [facility] Tdap 05/14/2020 12:56:00 PM EST completed e CW[facility] ([facility]) Tdap 05/14/2020 12:56:00 PM EST completed e CW1 ([facility]) Tdap 05/14/2020 12:56:00 PM EST completed e CW1 ([facility]) Tdap 05/14/2020 12:56:00 PM EST completed e CW1 ([facility]) Tdap 05/14/2020 12:56:00 PM EST completed e CW1 ([facility]) Tdap 05/14/2020 12:56:00 PM EST completed e CW1 ([facility]) Tdap 05/14/2020 12:56:00 PM EST completed e CW1 ([facility]) Tdap 05/14/2020 12:56:00 PM EST completed e CW1 ([facility]) New in 2011. IIV4 04/23/2020 09:27:00 AM EDT completed eCW1 ([facility]) New in 2011. IIV4 04/23/2020 09:27:00 AM EDT completed eCW1 ([facility]) New in 2011. IIV4 04/23/2020 09:27:00 AM EDT completed eCW1 ([facility]) New in 2011. IIV4 04/23/2020 09:27:00 AM EDT completed eCW1 ([facility]) New in 2011. IIV4 04/23/2020 09:27:00 AM EDT completed eCW1 ([facility]) New in 2011. IIV4 04/23/2020 09:27:00 AM EDT completed eCW1 ([facility]) New in 2011. IIV4 04/23/2020 09:27:00 AM EDT completed eCW1 ([facility]) New in 2011. IIV4 04/23/2020 09:27:00 AM EDT completed eCW1 ([facility]) New in 2011. IIV4 04/23/2020 09:27:00 AM EDT completed eCW1 ([facility]) New in 2011. IIV4 04/23/2020 09:27:00 AM EDT completed eCW1 ([facility]) New in 2011. IIV4 04/23/2020 09:27:00 AM EDT completed eCW1 ([facility]) Medications Medication Brand Name Start Date Product Form Dose Route Admi nistrative Instructions Pharmacy Instructions Status Indications Reaction Description Data Source(s) Buprenorphine 8 MG Sublingual Tablet buprenorphine HCl 12:00:00 AM EDT 8 mg completed [id number] buprenorphine HCl under tongue 04/14/2020 twice a day 8 mg tablet, sublingual 28035 10 4047 [id number] Zahira Ingram [id number] [facility] ([facility]) Omeprazole 20 MG Delayed Release Oral Capsule Omeprazole 12/20/2019 12:00:00 AM EDT active MEDENT ([facility]) Buprenorphine 8 MG Sublingual Tablet Buprenorphine HCL 02/2020 12:00:00 AM EDT active [facility] ([facility]) Buprenorphine 8 MG / Naloxone 2 MG Oral Strip Buprenor phine Hydrochloride/Naloxone Hydrochloride 11/22/2019 12:00:00 AM EDT SUBLINGUAL completed MEDENT ([facility]) buspirone hydrochloride 10 MG Oral Tablet buspirone 2019 12:00:00 AM EDT 10 mg by mouth completed [id number] buspirone by mouth [id number] 10/23/2019 twice a day 10 mg tablet 73876 061514 [id number] Zahira taylor [id number] [facility] ([facility]) Mirtazapine 7.5 MG Oral Tablet mirtazapine 10/23/2019 12:00:00 AM EDT 7.5 mg by mouth completed 780866 mirtazapine by mouth G35986 every night 7.5 mg tablet 53124 702293 [id number] Zahira simmons [id number] [facility] ([facility]) aripiprazole 30 MG Oral Tablet [Abilify] Abilify 10/04/2019 12 :00:00 AM EDT 30 mg by mouth completed 235036 Abilify by mouth [id number] 10/04/2019 12/03/2019 every morning 30 30 mg tablet 46449 448167 [id number] Zahira Ingram [id number] [facility] ([facility]) aripiprazole 30 MG Oral Tablet [Abilify] Abilify 10/04/2019 12 :00:00 AM EDT 30 mg by mouth completed [id number] Abilify by mouth [id number] 10/04/2019 12/03/2019 every morning 30 30 mg tablet 10234 209075 [id number] Zahira Ingram [id number] [facility] ([facility]) 24 HR Bupropion Hydrochloride 150 MG Extended Release Oral Tablet [Wellbutrin] Wellbutrin XL 10/04/2019 12:00:00 AM EDT 150 mg by mouth co mpleted 273807 Wellbutrin XL by mouth [id number] 10/04/2019 11/03/2019 every morning 30 150 mg tablet extended release 24 hr 54794 064653 [id number] Zahira Ingram [id number] [facility] ([facility]) 24 HR Bupropion Hydrochloride 150 MG Extended Release Oral Tablet [Wellbutrin] Wellbutrin XL 10/04/2019 12:00:00 AM EDT 150 mg by mouth co mpleted 947672 Wellbutrin XL by mouth [id number] 10/04/2019 11/22/2019 every morning 30 150 mg tablet extended release 24 hr 28541 724681 [id number] Zahira Ingram [id number] [facility] ([facility]) aripiprazole 30 MG Oral Tablet [Abilify] Abilify 10/04/2019 12 :00:00 AM EDT 30 mg by mouth completed [id number] Abilify by mouth [id number] 10/04/2019 12/03/2019 every morning 30 30 mg tablet 59016 773674 [id number] Zahira Ingram [id number] [facility] ([facility]) 24 HR Bupropion Hydrochloride 150 MG Extended Release Oral Tablet [Wellbutrin] Wellbutrin XL 10/04/2019 12:00:00 AM EDT 150 mg by mouth co unm hospitaleted 109397 Wellbutrin XL by mouth [id number] 10/04/2019 11/03/2019 every morning 30 150 mg tablet extended release 24 hr 34674 481121 [id number] Zahira Ingram [id number] [facility] ([facility]) Buprenorphine 8 MG / Naloxone 2 MG Oral Strip Buprenor phine Hydrochloride/Naloxone Hydrochloride 09/03/2019 12:00:00 AM EDT completed [facility] ([facility]) Buprenorphine 8 MG / Naloxone 2 MG Oral Strip Buprenor phine Hydrochloride/Naloxone Hydrochloride 08/14/2019 12:00:00 AM EST completed [facility] ([facility]) duloxetine 60 MG Delayed Release Oral Capsule [Cymbalta] Cym adry 07/12/2019 12:00:00 AM EST 60 mg completed [id number] Cymbalta 07/12/2019 09/10/2019 every morning 30 60 mg capsule,delayed release(DR/EC) 84017 032313 [id number] Johann See [id number] [facility] ([facility]) Naltrexone 112 MG/ML Injectable Suspension [Vivitrol] Vivitr ol 07/12/2019 12:00:00 AM EST 380 mg completed [id number] Vivitrol i ntramuscularly 07/12/2019 every four weeks 380 mg suspension,extended re l recon as directed 08294 364153 [id number] Johann See [id number] Psychiat july/Mental Health [facility] ([facility]) 12 HR Bupropion Hydrochloride 100 MG Extended Release Oral T ablet bupropion HCl 07/12/2019 12:00:00 AM EST 100 mg completed [id number] bupropion HCl 07/12/2019 09/10/2019 once a day 30 100 mg tablet sustained-releas e 12 hr 61195 [id number] Johann See [id number] [facility] ([facility]) duloxetine 60 MG Delayed Release Oral Capsule [Cymbalta] Cym adry 07/12/2019 12:00:00 AM EST 60 mg completed [id number] Cymbalta 07/12/2019 09/10/2019 every morning 30 60 mg capsule,delayed release(DR/EC) 48013 801487 [id number] Johann See [id number] [facility] ([facility]) Naltrexone 112 MG/ML Injectable Suspension [Vivitrol] Vivitr ol 07/12/2019 12:00:00 AM EST 380 mg completed [id number] Vivitrol i ntramuscularly 07/12/2019 08/22/2019 every four weeks 380 mg suspension,extended r el recon as directed 50744 826696 [id number] Johann See [id number] [facility]i [facility] ([facility]) duloxetine 60 MG Delayed Release Oral Capsule [Cymbalta] Cym adry 07/12/2019 12:00:00 AM EST 60 mg completed [id number] Cymbalta 07/12/2019 09/10/2019 every morning 30 60 mg capsule,delayed release(DR/EC) 12893 278570 [id number] Johann See [id number] [facility] ([facility]) duloxetine 60 MG Delayed Release Oral Capsule [Cymbalta] Cym adry 07/12/2019 12:00:00 AM EST 60 mg completed [id number] Cymbalta 07/12/2019 08/22/2019 every morning 30 60 mg capsule,delayed release(DR/EC) 69649 417433 [id number] Johann See [id number] [facility] ([facility]) 12 HR Bupropion Hydrochloride 100 MG Extended Release Oral T ablet bupropion HCl 07/12/2019 12:00:00 AM EST 100 mg completed [id number] bupropion HCl 07/12/2019 08/22/2019 once a day 30 100 mg tablet sustained-releas e 12 hr 98805 649087 [id number] Johann See [id number] [facility] ([facility]) 12 HR Bupropion Hydrochloride 100 MG Extended Release Oral T ablet bupropion HCl 07/12/2019 12:00:00 AM EST 100 mg completed [id number] bupropion HCl 07/12/2019 09/10/2019 once a day 30 100 mg tablet sustained-releas e 12 hr 94343 781636 [id number] Johann See [id number] [facility] ([facility]) 12 HR Bupropion Hydrochloride 100 MG Extended Release Oral T ablet bupropion HCl 07/12/2019 12:00:00 AM EST 100 mg completed [id number] bupropion HCl 07/12/2019 09/10/2019 once a day 30 100 mg tablet sustained-releas e 12 hr 50607 983441 [id number] Johann See [id number] [facility] ([facility]) Mirtazapine 7.5 MG Oral Tablet mirtazapine 06/21/2019 12:00:00 AM EST 7.5 mg by mouth completed [id number] mirtazapine by mouth [id number] 10/21/2019 at bedtime 30 7.5 mg tablet 79059 379296 [id number] [facility] [place] [id number] [facility] ([facility]) Mirtazapine 7.5 MG Oral Tablet mirtazapine 06/21/2019 12:00:00 AM EST 7.5 mg by mouth completed [id number] mirtazapine by mouth [id number] 10/21/2019 at bedtime 30 7.5 mg tablet 33252 302854 [id number] [facility] [place] [id number] [facility] ([facility]) Naltrexone hydrochloride 50 MG Oral Tablet naltrexone 06/21/2019 12:00:00 AM EST 50 mg by mouth completed [id number] naltrexone by lucas th [id number] 06/21/2019 08/20/2019 every morning 30 50 mg tablet 43708 063854 [id number] Johann See [id number] [facility] ([facility]) Mirtazapine 7.5 MG Oral Tablet mirtazapine 06/21/2019 12:00:00 AM EST 7.5 mg by mouth completed [id number] mirtazapine by mouth [id number] 10/21/2019 at bedtime 30 7.5 mg tablet 50379 439808 [id number] om [place]sa [id number] [facility] ([facility]) Naltrexone hydrochloride 50 MG Oral Tablet naltrexone 06/21/2019 12:00:00 AM EST 50 mg by mouth completed [id number] naltrexone by [facility] [id number] 06/21/2019 08/20/2019 every morning 30 50 mg tablet 04501 522884 [id number] Johann Esa [id number] [facility] ([facility]) Mirtazapine 7.5 MG Oral Tablet mirtazapine 06/21/2019 12:00:00 AM EST 7.5 mg by mouth completed [id number] mirtazapine by mouth [id number] 09/10/2019 at bedtime 30 7.5 mg tablet 50841 673255 [id number] [facility] [id number] [facility] ([facility]) Mirtazapine 7.5 MG Oral Tablet mirtazapine 06/21/2019 12:00:00 AM EST 7.5 mg by mouth completed [id number] mirtazapine by mouth [id number] 09/10/2019 at bedtime 30 7.5 mg tablet 26764 636129 [id number] [facility] [id number] [facility] ([facility]) Naltrexone hydrochloride 50 MG Oral Tablet naltrexone 06/21/2019 12:00:00 AM EST 50 mg by mouth completed [id number] naltrexone by [facility] [id number] 06/21/2019 08/20/2019 every morning 30 50 mg tablet 32697 661935 [id number] Johann See [id number] [facility] ([facility]) aripiprazole 30 MG Oral Tablet [Abilify] Abilify 05/30/2019 12 :00:00 AM EST 30 mg by mouth completed [id number] Abilify by mouth [id number] 05/30/2019 10/21/2019 every morning 30 30 mg tablet 08585 057144 [id number] Johann See [id number] [facility] ([facility]) aripiprazole 30 MG Oral Tablet [Abilify] Abilify 05/30/2019 12 :00:00 AM EST 30 mg by mouth completed [id number] Abilify by mouth [id number] 05/30/2019 09/10/2019 every morning 30 30 mg tablet 48078 119043 [id number] oJhann See [id number] [facility] ([facility]) 500 mg 05/25/2019 12:00:00 AM EST tablet 4 TAKE 4 TABLETS BY MOUTH AT ONCE FOR 1 DAY TAKE 4 TABLETS BY MOUTH AT ONCE FOR 1 DAY SOLD: 05/25/2019 [facility] Pramipexole dihydrochloride 0.75 MG Oral Tablet pramipexole 04/16/2019 12:00:00 AM EDT 0.75 mg by mouth completed [id number] pramipexole by mouth [id number] 04/16/2019 07/29/2019 twice a day 30 0.75 mg tablet 32604 489569 [id number] Johann See [id number] [facility] ([facility]) Pramipexole dihydrochloride 0.75 MG Oral Tablet pramipexole 04/16/2019 12:00:00 AM EDT 0.75 mg by mouth completed [id number] pramipexole by mouth [id number] 04/16/2019 07/29/2019 twice a day 30 0.75 mg tablet 84299 059449 [id number] Johann See [id number] [facility] ([facility]) Pramipexole dihydrochloride 0.75 MG Oral Tablet pramipexole 04/16/2019 12:00:00 AM EDT 0.75 mg by mouth completed [id number] pramipexole by mouth [id number] 04/16/2019 07/29/2019 twice a day 30 0.75 mg tablet 13034 394507 [id number] Johann See [id number] [facility] ([facility]) Pramipexole dihydrochloride 0.75 MG Oral Tablet pramipexole 04/16/2019 12:00:00 AM EDT 0.75 mg by mouth completed [id number] pramipexole by mouth [id number] 04/16/2019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 [facility]) Name Value Range Interpretation Code Description Data Annabella rce(s) Supporting Document(s) 103 GLUCOSE CHALLENGE TEST 1 HOUR eCW1 ([facility]) ID Date Data Source Type and Screen (D Rh Antibody Screen) 04/23/2020 01:24:10 P M EDT eCW1 ([facility]) Name Value Range Interpretation Code Description Data Annabella rce(s) Supporting Document(s) O POSITIVE BLOOD TYPE eCW1 ([facility]) NEGATIVE AB SCREEN (INDIRECT COOMB S)VIS eCW1 ([facility]) ID Date Data Source CBC - Complete Blood Count 04/23/2020 12:12:06 PM EDT eCW1 ( [facility]) Name Value Range Interpretation Code Description Data Annabella rce(s) Supporting Document(s) 4.27 RED BLOOD COUNT eCW1 ([facility]) 12.6 HEMOGLOBIN eCW1 ([facility]) 12.6 WHITE BLOOD COUNT eCW1 ([facility]) 37.7 HEMATOCRIT eCW1 ([facility]) 29.5 MEAN CORPUSCULAR HEMOGLOBIN eC W1 ([facility]) 88.3 MEAN CORPUSCULAR VOLUME eCW1 ( [facility]) 33.4 MEAN CORPUSCULAR HGB CONC eCW1 ([facility]) 13.1 RED CELL DISTRIBUTION WIDTH eC W1 ([facility]) 236 PLATELET COUNT, AUTOMATED eCW1 ([facility]) ID Date Data Source [id number] 01/23/2020 08:21:00 PM EDT [facility] Patient: ANNIE NUNEZ Observation Report - Physicians/Mid Levels HospitalVisitID: [id number] [place] [address] [phone], FRegistration Date/Time: 01/23/2020 16:07 Weight:63 kg (S). Height/Length:59 inches (S). BMI:28.1 PAST HISTORYProblems:Bipolar Disorder [Chronic].Anxiety Reaction [Chronic].Depression [Chronic].Narcotic Dependence [Chronic].Gastroesophageal Reflux Disease [Chronic]..Miscarriage (disorder). (Two total). Additional Surgeries:Dilatation & Curettage.Hernia Repair.Oral Surgery. Medications:Omeprazole Oral 20 mg, daily as needed, last dose last week. Oral 1 tablet, daily.Subutex 8mg, 2x a day, last dose yesterday am. Allergies:No Known Drug Allergy. FAMILY HISTORYNegative. No significant family medical history. (Electronically signed by Tracie Noble 01/23/2020 20:19) Name Value Range Interpretation Code Description Data Annabella rce(s) Supporting Document(s) ID Date Data Source [id number] 01/23/2020 06:41:00 PM EDT [facility] TSYSORDER [id number] Name Value Range Interpretation Code Description Data Annabella rce(s) Supporting Document(s) URINE RBC 30-40 /hpf 0-3 H [facility] URINE WBC 1-3 /hpf 0-5 [facility] URINE EPITHELIAL CELLS 3+ /hpf 0 [facility] URINE BACTERIA 1+ NONE SEEN [facility] ID Date Data Source [id number] 01/23/2020 06:40:00 PM EDT [facility] TSYSORDER [id number] Name Value Range Interpretation Code Description Data Annabella rce(s) Supporting Document(s) URINE COLOR. YELLOW [facility] URINE APPEARANCE CLOUDY [facility] SPECIFIC GRAVITY,URINE 1.030 1.001-1.035 [facility] URINE LEUKOCYTE ESTERASE 1+(SMALL) NEGATIVE [facility] URINE NITRATE NEGATIVE NEGATIVE [facility] PH,URINE 6.0 5.0-9.0 [facility] URINE PROTEIN NEGATIVE mg/dL NEGATIVE [facility] URINE GLUCOSE (UA) NEGATIVE mg/dL NEGATIVE [facility] URINE KETONE NEGATIVE mg/dL NEGATIVE [facility] URINE UROBILINOGEN NORMAL(0.2-1) mg/dL 0-1 [facility] URINE BILIRUBIN NEGATIVE NEGATIVE [facility] URINE BLOOD 3+(LARGE) NEGATIVE [facility] ID Date Data Source [id number] 01/23/2020 05:43:00 PM EDT [facility] DATE OF EXAMINATION: 01/23/2020 16:46 EDT OB LIMITED HISTORY: Vaginal bleeding for viability TECHNIQUE: Real-time ultrasound imaging was performed utilizing B- mode/grayscale and color Doppler imaging where applicable. FINDINGS:Single viable intrauterine gestation in breech presentation with biometricalmeasurements corresponding to an estimated gestational age of 14 weeks 5 days,is noted. A regular heart rate of 135 beats per minute is appreciated. Thereare no adnexal masses or fluid in the cul-de-sac. Placenta noted anteriorly and grade 1 without evidence for placenta previa,currently measuring 2 cm from the closed internal os. Cervix measures 44 mm inlength and appears closed. Amniotic fluid volume is subjectively normal. IMPRESSION: 1. Single viable intrauterine gestation measuring at 14 weeks 5 daysgestational age.2. Placenta tip 2 cm from the closed internal os.3. Complete anatomical assessment should be performed at 19-20 weeks.. Electronically signed in PS360 by: Gerald Camarillo M.D. 01/23/2020 17:38 EDT Name Value Range Interpretation Code Description Data Annabella rce(s) Supporting Document(s) ID Date Data Source [id number] 01/23/2020 06:41:00 PM EDT [facility] TSYSORDER [id number] Name Value Range Interpretation Code Description Data Annabella rce(s) Supporting Document(s) GLUCOSE 87 mg/dL 74-106 [facility] BLOOD UREA NITROGEN 6 mg/dL 7-18 L [facility] CREATININE 0.5 mg/dL 0.6-1.0 [facility] SODIUM 139 mmol/L 136-145 [facility] POTASSIUM 3.6 mmol/L 3.5-5.1 [facility] CHLORIDE 104 mmol/L 98-107 [facility] CO2 26 mmol/L 21-32 [facility] CALCIUM 9.0 mg/dL 8.5-10.1 [facility] ANION GAP 9.0 mmol/L 5-12 [facility] GLOMERULAR FILTRATION RATE >90 mL/min [facility] GFR IS CALCULATED IN mL/min/1.73m2 SHANNAN L FUNCTION: >90MILDLY DECREASED: 60-89MILDY TO MODERATELY DECREASED: 45-59 MODERATELY TO SEVERELY DECREASED: 30-44SEVERELY DECREASED: 15-29RENAL FAILURE: <15 AST 11 U/L 15-37 [facility] ALT 15 U/L 12-78 [facility] ALKALINE PHOSPHATASE 54 U/L 46-116 [facility] TOTAL BILIRUBIN 0.2 mg/dL 0.2-1.0 [facility] TOTAL PROTEIN 6.4 g/dl 6.4-8.2 [facility] ALBUMIN 3.1 gm/dL 3.4-5.0 [facility] ID Date Data Source [id number] 01/23/2020 06:41:00 PM EDT [facility] l TSYSORDER [id number] Name Value Range Interpretation Code Description Data Annabella rce(s) Supporting Document(s) BETA HCG,QUANT 13231 mIU/mL [facility] Female(non ) <10mIU/mLW eeks after Conception mIU/mL 1 Week 5-501-2 Weeks 50-5002-3 Weeks 100-5,0003-4 Weeks 500-10,0004-5 Weeks 1,000-50,0005-6 Weeks 10,000-100,0006-8 Weeks 15,000-200,0002nd Trimester 10,000-100,000 ID Date Data Source [id number] 01/23/2020 06:00:00 PM EDT [facility] l TSYSORDER [id number] Name Value Range Interpretation Code Description Data Annabella rce(s) Supporting Document(s) WHITE BLOOD COUNT 9.9 K/mm3 4.0-10.0 [facility] RED BLOOD COUNT 4.62 M/mm3 4.00-5.50 [facility] HEMOGLOBIN 13.4 gm/dL 12.0-16.0 [facility] HEMATOCRIT 36.6 % 36.0-48.8 [facility] MEAN CELL VOLUME 79.2 fl 80-96 L [facility] MEAN CORPUSCULAR HEMOGLOBIN 29.0 pg 27.0-31.0 [facility] MEAN CORPUSCULAR HGB CONC 36.6 g/dl 32.0-36.[address] [facility] RED CELL DISTRIBUTION WIDTH 13.1 % 10.0-14.5 [facility] PLATELET COUNT 239 K/mm3 172-450 [facility] MEAN PLATELET VOLUME 10.6 fl 9.0-13.0 [facility] GRAN % 75.2 % 50-80.0 [facility] IG% 0.3 % 0.0-0.2 H [facility] LYMPH % 16.5 % 25.0-50.0 L [facility] MONO % 6.5 % 2.0-10.0 [facility] EOS % 1.2 % 0-5.0 [facility] BASO % 0.3 % 0.0-2.0 [facility] GRAN # 7.5 K/mm3 2.0-8.00 [facility] IG# 0.0 K/mm3 0.0-0.2 [facility] LYMPH # 1.6 K/mm3 1.0-5.0 [facility] MONO # 0.6 K/mm3 0.10-1.20 [facility] EOS # 0.1 K/mm3 0.0-0.5 [facility] BASO # 0.0 K/mm3 0.0-0.2 [facility] ID Date Data Source [id number] 11/14/2019 10:27:00 AM EDT [facility] DATE OF EXAMINATION: 11/14/2019 9:58 EDT TECHNIQUE: 4 views of the left foot were obtained. HISTORY: Pain FINDINGS: No evidence of acute fracture or dislocation. Alignment is normal. No aggressiveosseous lesions or erosions. Bone mineral density is unremarkable. Visualizedsoft tissues are normal. IMPRESSION: No evidence of acute fracture or dislocation. Electronically signed in PS360 by: Lydia Baldwin M.D. 11/14/2019 10:21 EDT Name Value Range Interpretation Code Description Data Annabella rce(s) Supporting Document(s) ID Date Data Source [id number] 11/14/2019 10:27:00 AM EDT [facility] DATE OF EXAMINATION: 11/14/2019 9:58 EDT HISTORY: Pain TECHNIQUE: 4 views of the left ankle were obtained FINDINGS: No evidence of acute fracture or dislocation. Ankle mortise and talar dome areintact with normal alignment. No aggressive osseous lesions or erosions. Bonemineral density is unremarkable. Visualized soft tissues are normal. IMPRESSION: No evidence of acute fracture or dislocation. Electronically signed in PS360 by: Lydia Baldwin M.D. 11/14/2019 10:22 EDT Name Value Range Interpretation Code Description Data [facility](s) Supporting Document(s) ID Date Data Source [id number] 10/18/2019 09:44:59 AM EDT [facility] Measurements & CalculationsHeight: 59 inches (4 ft. 11 in.) 149.86 cm Weight: 154 pounds 4 oz. 70.11 kg Body Mass Index (BMI): 31.27BMI Interpretation: ObeseBody Surface Area (BSA): 1.65Weight Management Education Done (Nutrition/Physical Activity)Vital SignsTemperature: 98.7F oral Pulse Rate: 101 beats/minuteRespiratory Rate: 18 respirations/minuteBlood Pressure: 121/84 left arm sitting automaticO2 Saturation: 100% room airVital Signs performed by: Irvin Jones MA, October 18, 2019 9:59 AMInitial Intake Information from: patientRoom #: 14Smoking, Tobacco, Vaping or Smoke Exposure StatusSmoke Status: current every day smokerTobacco Use: YesAdv to Quit: YesDo you vape? NoPassive Smoke Exposure: YesMenstrual HistoryLast Menstrual Period (LMP): 10/17/2019Any possibility of ? NoHealthcare HistorySince your last office visit...Have you been admitted to the hospital? No - H SMCHave you been to an emergency room (ER) or urgent care clinic? NoHave you seen another healthcare provider? Yes - community clinicHave you seen a dentist? Yes - NCFHCIntake performed by: Irvin Jones MA, October 18, 2019 9:47 AMRate Your HealthIn general, would you say your health is? GoodPain AssessmentAre you currently having any pain which... You would like your provider to address? Yes Affects your activity level? YesDepression Screening - PHQ-2Over the last two weeks, have you... Had little interest or pleasure in doing things? Not at all Been feeling down, depressed, or hopeless? Not at all PHQ-2 Score: 0Anxiety Screening - VICKIE-2Over the last two weeks, have you been... Feeling nervous, anxious, or on edge? Not at all Unable to stop or control worrying? Not at all VICKIE-2 Score: 0Food InsecurityWithin the past year...Did you worry whether your food would run out before you got money to buy more? NoWas there a time when the food you bought didn't last and you didn't poole ve money to get more? NoInfectious Disease / Travel ScreeningRecent travel for you or any close contacts? NoHave you had any close contact with anyone diagnosed with or under investigation for COVID-19 (coronavirus)? NoHave you had any of the following symptoms recently? Fever? NoRespiratory symptoms: cough, cold, congestion, shortness of breath, difficulty breathing? YesPain AssessmentPain ScaleNumeric Rating Scale: 6 / 10Location: legs Duration: chronicFrequency: DailyCharacter/Quality: aching, burning and throbbingIs the pain radiating? NoScreening, Brief Intervention, & Referral to Treatment ( SBIRT)Pre-Screening Questions How many times have you have 4 or more drinks in a day? 0How many times have you used an illegal drug or used a prescription medication for a non-medical reason? 0Performed by: Irvin Jones MA, October 18, 2019 9:52 AMPatient History Medical History:substance abusebipolarsplit personalityimpulse disorderanxietydepressionSurgical History:hernia repairoral surgeryFamily History:mental illnessovarian cancerSocial/Personal History: Advised to Quit/Tobacco Education: YesChief Complaintleg pain RM 14History of Present Illness (HPI)23 yr old female here today with complaints of cooper leg pain. Pt states she has been taking here medications with no side effects. IKj MA, am scribing for, and in the presence of, Paresh Jones DO pt is here today with leg pain. 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 pt states she also has fallen off of horses when she was younger. DO will manipulate pt's back to try and relieve any pinched nerves. pt has piriformis spasm. pt states after stretch pt does feel better. She did inject meth into her lower leg veins as a teen.Transitions of Care InboundProblem ReviewProblem List was reviewed and/or updated during this visit.Medication Reconciliation & ReviewMedication List was reviewed and/or updated during this visit, including review of any zpss-woj-enbnfsx medications, herbal therapies, and/or supplements.Allergy ReviewAllergy List was reviewed and/or updated during this visit.Adult Preventive CareProvider Calculated and Reviewed all Clinical Protocols for patient today. Screening Tobacco Screening: Smoking Status: current every day smoker (10/18/2019) Tobacco Use: Currently (10/18/2019) Advised to Quit: Yes (10/18/2019)Labs/Meds/Other Counseling- Nutrition and Physical Activity:BMI Interpretation: Obese (10/18/2019) Counseling: Done (10/18/2019) Physical Activity: Done (10/18/2019)Review of Systems General: Denies loss of appetite, chills, dizziness, fatigue, fever, co ntinued fever, headache, feeling ill, sweats, night sweats, sleep disturbances, weight loss. Musculoskeletal: Complains of back pain, leg pain. Skin: Denies rash, hives, redness, itching, dryness, nail changes, suspicious lesions, athlete's foot, rash on palms, rash on bottom of feet. Physical ExamGeneral Appearance: well nourished, well hydrated, no acute distressGait & Station: normalBack: left piriformis, L4-5 spasmOrientation: oriented to time, place, and personMood & Affect: no depression, anxiety, or agitationJudgment & Insight: intactCare Management Plan Transitions of CareInboundRate Your HealthIn general, would you say your health is? GoodAssessment & Plan Problems:Added: Bilateral lower limb piriformis syndrome (CRU23-B54.03)Peripheral neuropathy (ICD-356.9) (KYE56-U04.9)Assessed:Chronic low back pain (ICD-724.2) (LZT64-E07.5) Assessment: OMTAssessment not SavedPeripheral neuropathy (YLG67-G19.9): resolved with OMTMedications:CYCLOBENZAPRINE HCL 10 MG ORAL TABLETWELLBUTRIN SR 150 MG ORAL TABLET EXTENDED RELEASE 12 HOUROMEPRAZOLE 40 MG ORAL CAPSULE DELAYED RELEASESUBOXONE 8-2 MG SUBLINGUAL FILMABILIFY 15 MG ORAL TABLET (ARIPIPRAZOLE)Medication Changes:Added: WELLBUTRIN SR 150 MG ORAL TABLET EXTENDED RELEASE 12 HOUR-1 tab PO dailyNew Prescription:CYCLOBENZAPRINE HCL 10 MG ORAL TABLET-one tab po TID prn spasm Qty: 30[Tablet] Refills: 1 Method: ElectronicAllergies:No Known Allergies (updated 08/01/2018) Orders:Adult - Ofc Vst, EST, Level III [[id number]] Medications:CYCLOBENZAPRINE HCL 10 MG ORAL TABLET (CYCLOBENZAPRINE HCL) one tab po TID prn spasm #30[Tablet] x 1 Route:ORAL Entered and Authorized by: Paresh Jones DO Method used: Electronically to [facility] (retail) [address] [place] [address] Note to Pharmacy: Route: ORAL; RxID: [id number] sig mary by Paresh Jones DO on 10/18/2019 at 10:19 AM Name Value Range Interpretation Code Description Data Annabella rce(s) Supporting Document(s) ID Date Data Source [id number] 09/11/2019 09:14:00 AM EDT [facility] ([facility]) Name Value Range Interpretation Code Description Data Annabella rce(s) Supporting Document(s) Norbuprenorphine Ur 307 ng/mL [facility] ([facility]) please test for suboxone Buprenorphine Ur 7 ng/mL [facility] ([facility]) please test for suboxone Buprenorphine Glucu 660 [facility] ([facility]) please test for suboxone Norbupr Glucuronide Laboratory test result [facility] ([facility]) please test for suboxone Naloxone,Urine Laboratory test result ME D[facility] ([facility]) please test for suboxone ID Date Data Source [id number] 09/11/2019 09:14:00 AM EDT [facility] ([facility]) Name Value Range Interpretation Code Description Data Annabella rce(s) Supporting Document(s) Amphetamines,Urine Laboratory test result [facility] ([facility]) please test for suboxone Bupernorphrine/Norbu,Urine Laboratory test result Abnormal (applies to non- numeric results) [facility] ([facility]) please test for suboxone Barbiturates,Urine Laboratory test result [facility] ([facility]) please test for suboxone Benzodiazepines, Urine Laboratory test result [facility] ([facility]) please test for suboxone Methadone,Urine Laboratory test result M EDENT ([facility]) please test for suboxone Opiates,Urine Laboratory test result MED ENT ([facility]) please test for suboxone Cocaine Metabolites,Urine Laboratory test result [facility] ([facility]) please test for suboxone Phencyclidine,Urine Laboratory test result [facility] ([facility]) please test for suboxone Oxycodone,Urine Laboratory test result M ED[facility] ([facility]) please test for suboxone ID Date Data Source [id number] 09/16/2019 07:31:06 PM EDT [facility] Name Value Range Interpretation Code Description Data Annabella rce(s) Supporting Document(s) BUPRENORPHINE UR 7 ng/mL [facility] INTERPRETIVE INFORMATION: Buprenorphine and Metabolites, Urine, Quantitative Methodology: Quantitative Liquid Chromatography-Tandem Mass Spectrometry Positive cutoff: Buprenorphine 2 ng/mL Norbuprenorphine 2 ng/mL Buprenorphine glucuronide 5 ng/mL Norbuprenorphine glucuronide 5 ng/mL Naloxone 100 ng/mL For medical purposes only; not valid for forensic use. The presence of metabolite(s) without parent drug is common and may indicate use of parent drug during the prior week. Naloxone is included to detect addition of a naloxone-containing drug directly into the urine. The absence of expected drug(s) and/or drug metabolite(s) may indicate non-compliance, inappropriate timing of specimen collection relative to drug administration, poor drug absorption, diluted/adulterated urine, or limitations of testing. The concentration value must be greater than or equal to the cutoff to be reported as positive. Interpretive questions should be directed to the laboratory. Test developed and characteristics determined by [employer]. See Compliance Statement B: [employer] [facility] NORBUPRENORPHINE UR 307 ng/mL Laboratory [facility] BUPRENORPHINE GLUCU 660 Laboratory [facility] Unit: ng/mL Consistent with use of a bup renorphine-containing drug. Glucuronide concentrations are semi-quantitative. NORBUPR GLUCURONIDE >1000 Laboratory [facility] Unit: ng/mL NALOXONE,URINE <100 ng/mL Laboratory [facility] Performed by [employer], [address] [place] [id number] www.[employer] [facility], Valentin Tipton MD, Lab. Director ID Date Data Source [id number] 09/03/2019 08:40:00 AM EDT [facility] ([facility]) Name Value Range Interpretation Code Description Data Annabella rce(s) Supporting Document(s) Buprenorphine Ur 11 ng/mL [facility] ([facility]) INTERPRETIVE INFORMATION: Buprenorphine and Metabolites, Urine, Quantitative Methodology: Quantitative Liquid Chromatography-Tandem Mass Spectrometry Positive cutoff: Buprenorphine 2 ng/mL Norbuprenorphine 2 ng/mL Buprenorphine glucuronide 5 ng/mL Norbuprenorphine glucuronide 5 ng/mL Naloxone 100 ng/mL For medical purposes only; not valid for forensic use. The presence of metabolite(s) without parent drug is common and may indicate use of parent drug during the prior week. Naloxone is included to detect addition of a naloxone-containing drug directly into the urine. The absence of expected drug(s) and/or drug metabolite(s) may indicate non-compliance, inappropriate timing of specimen collection relative to drug administration, poor drug absorption, diluted/adulterated urine, or limitations of testing. The concentration value must be greater than or equal to the cutoff to be reported as positive. Interpretive questions should be directed to the laboratory. Test developed and characteristics determined by [employer]. See Compliance Statement B: [employer] [facility] Buprenorphine Glucu 923 [facility] ([facility]) Unit: ng/mL Consistent with use of a buprenorphine-containing drug. Glucuronide concentrations are semi-quantitative. Norbuprenorphine Ur 410 ng/mL [facility] ([facility]) please test for suboxone Naloxone,Urine Laboratory test result [facility] ([facility]) Performed by [employer], [address] [place] [id number] www.[employer] [facility], Valentin Tipton MD, Lab. Director Unless otherwise specified, testing performed by Laboratory [place] [facility] [employer] [address] [place] [id number] Norbupr Glucuronide Laboratory test result [facility] ([facility]) Unit: ng/mL ID Date Data Source [id number] 09/03/2019 08:40:00 AM EDT [facility] ([facility]) Name Value Range Interpretation Code Description Data Annabella rce(s) Supporting Document(s) Barbiturates,Urine Laboratory test result [facility] ([facility]) please test for suboxone Amphetamines,Urine Laboratory test result [facility] ([facility]) please test for suboxone Cocaine Metabolites,Urine Laboratory test result [facility] ([facility]) please test for suboxone Benzodiazepines, Urine Laboratory test result [facility] ([facility]) please test for suboxone Bupernorphrine/Norbu,Urine Laboratory test result Abnormal (applies to non- numeric results) [facility] ([facility]) please test for suboxone Opiates,Urine Laboratory test result MED [facility] ([facility]) please test for suboxone Methadone,Urine Laboratory test result M [facility]ENT ([facility]) please test for suboxone Phencyclidine,Urine Laboratory test result [facility] ([facility]) please test for suboxone Oxycodone,Urine Laboratory test result M [facility] ([facility]) please test for suboxone Cannabinoids,Urine Laboratory test result [facility] ([facility]) please test for suboxone ID Date Data Source [id number] 09/08/2019 01:29:50 PM EDT Laboratory [facility] Name Value Range Interpretation Code Description Data Annabella rce(s) Supporting Document(s) BUPRENORPHINE UR 11 ng/mL Laboratory [facility] INTERPRETIVE INFORMATION: Buprenorphine and Metabolites, Urine, Quantitative Methodology: Quantitative Liquid Chromatography-Tandem Mass Spectrometry Positive cutoff: Buprenorphine 2 ng/mL Norbuprenorphine 2 ng/mL Buprenorphine glucuronide 5 ng/mL Norbuprenorphine glucuronide 5 ng/mL Naloxone 100 ng/mL For medical purposes only; not valid for forensic use. The presence of metabolite(s) without parent drug is common and may indicate use of parent drug during the prior week. Naloxone is included to detect addition of a naloxone-containing drug directly into the urine. The absence of expected drug(s) and/or drug metabolite(s) may indicate non-compliance, inappropriate timing of specimen collection relative to drug administration, poor drug absorption, diluted/adulterated urine, or limitations of testing. The concentration value must be greater than or equal to the cutoff to be reported as positive. Interpretive questions should be directed to the laboratory. Test developed and characteristics determined by [employer]. See Compliance Statement B: [facility] NORBUPRENORPHINE UR 410 ng/mL Laboratory [place] [facility] [employer] [facility] [employer] BUPRENORPHINE GLUCU 923 Laboratory [place] Unit: ng/mL Consistent with use of a bup renorphine-containing drug. Glucuronide concentrations are semi-quantitative. NORBUPR GLUCURONIDE >1000 [facility] [place] Unit: ng/mL NALOXONE,URINE <100 ng/mL Laboratory [facility] [employer] [facility] Performed by [employer], [address] [place] [address] [place] [address] www.[employer] [facility], Valentin Tipton MD, Lab. Director ID Date Data Source [id number] 08/31/2019 10:17:47 AM [facility] Measurements & CalculationsHeight: 59 inches (4 ft. 11 in.) 149.86 cm Weight: 173 pounds 78.64 kg Body Mass Index (BMI): 35.07BMI Interpretation: ObeseBody Surface Area (BSA): 1.74Vital SignsTemperature: 97.8F oral Pulse Rate: 90 beats/minuteRespiratory Rate: 16 respirations/minuteBlood Pressure: 105/66 right arm sitting automaticO2 Saturation: 96% room airVital Signs performed by: Irvin Jones MA, August 31, 2019 10:33 AMInitial Intake Information from: patientRoom #: 15Smoking, Tobacco, Vaping or Smoke Exposure StatusSmoke Status: current every day smokerTobacco Use: YesAdv to Quit: YesDo you vape? NoPassive Smoke Exposure: YesMenstrual HistoryLast Menstrual Period (LMP): 08/29/2019Healthcare HistorySince your last office visit...Have you been admitted to the hospital? NoHave you been to an emergency room (ER) or urgent care clinic? NoHave you seen another healthcare provider? Yes - community clinicHave you seen a dentist? NoIntake performed by: Irvin Jones MA, August 31, 2019 10:25 AMRate Your HealthIn general, would you say your health is? Very GoodPain AssessmentAre you currently having any pain which... You would like your provider to address? YesDepression Screening - PHQ-2Over the last two weeks, have you... Had little interest or pleasure in doing things? Several days Been feeling down, depressed, or hopeless? Several days PHQ-2 Score: 2Anxiety Screening - VICKIE-2Over the last two weeks, have you been... Feeling nervous, anxious, or on edge? Several days Unable to stop or control worrying? Nearly every day VICKIE-2 Score: 4Food InsecurityWithin the past year...Did you worry whether your food would run out before you got money to buy more? NoWas there a time when the food you bought didn't last and you didn't have money to get more? NoInfectious Disease / Travel ScreeningRecent travel for you, your family, and/or any sexual partners? NoGeneralized Anxiety Disorder 7- Item Screening (VICKIE-7)Answer Guide:0 = Not at all1 = Several days2 = Over half the days3 = Nearly every dayOver the last 2 weeks, how often have you been bothered by the following problems?Feeling nervous, anxious, or on edge: 1Not being able to stop or control worryinWorrying too much about different things: 3Trouble relaxinBeing so restless that it's hard to sit still: 1 Becoming easily annoyed or irritable: 3Feeling afraid as if something awful might happen: 2Answer Guide:0 = Not difficult at all1 = Somewhat difficult2 = Very difficult3 = Extremely difficultHow difficult have these made it for you to do your work, take care of things at home, or get along with other people? 1GAD- 7 Screening Results VICKIE-2 Score: 4GAD-7 Score: 13Functional Impairment: Somewhat difficultRecommendation: Moderate anxietyPHQ-9 1. Over the last 2 weeks, patient reports the following frequency of symptoms: a. Little interest or pleasure in doing things -Several days b. Feeling down, depressed, or hopeless -Several days c. Trouble falling asleep, staying asleep, or sleeping too much - Nearly every day d. Feeling tired or having little energy -Several days e. Poor appetite or overeating -Not at all f. Feeling bad about yourself, feeling that you are a failure, or feeling that you have let yourself or your family down -Several days g. Trouble concentrating on things such as reading the newspaper or watching television -Not at all h. Moving or speaking so slowly that other people could have noticed. Or being so fidgety or restless that you have been moving around a lot more than usual -Not at all i. Thinking that you would be better off or that you want to hurt yourself in some way -Not at all2. If you checked off any problems, how difficult have these problems made it for you to do your work, take care of things at home, or get along with other people? -Somewhat DifficultToday's PHQ-9 Results Score: 7 Severity: Mild Diagnosis Recommendation: No recommendation Functional Impairment: Somewhat DifficultPain AssessmentPain ScaleNumeric Rating Scale: 7 / 10Location: lower backDuration: intermittentFrequency: DailyCharacter/Quality: aching, burning and throbbingIs the pain radiating? NoScreening, Brief Intervention, & Referral to Treatment (SBIRT)Pre-Screening Questions How many times have you have 4 or more drinks in a day? 0How many times have you used an illegal drug or used a prescription medication for a non-medical reason? 0Performed by: Irvin Jones MA, August 31, 2019 10:30 AMPatient History Medical History:substance abusebipolarsplit personalityimpulse disorderanxietydepressionSurgical History:hernia repairoral surgeryFamily History:mental illnessovarian cancerSocial/Personal History: Advised to Quit/Tobacco Education: YesChief Complaintleg pain/ medsHistory of Present Illness (HPI)I, Kj Thompson MA, am scribing for, and in the presence of, Paresh Jones, pt is here today for omeprazole her acid reflex. pt states that she sometimes will not eat because of her acid reflux. pt states she does have back pain. it's msotly when she stands up. it goes away when she sits down. her suboxone doctor states its probably because she put on weight fastly. Do will manipulate. lower back pain in right side does not radiate. pt states that her back does feel better after manipulation. pt advised not to lift anything heavy. Transitions of Care Inbo undProblem ReviewProblem List was reviewed and/or updated during this visit.Medication Reconciliation & ReviewMedication List was reviewed and/or updated during this visit, including review of any zfal-xqr-bndjmkz medications, herbal therapies, and/or supplements.Allergy ReviewAllergy List was reviewed and/or updated during this visit.Adult Preventive CareProvider Calculated and Reviewed all Clinical Protocols for patient today. Screening Tobacco Screening: Smoking Status: current every day smoker (08/31/2019) Tobacco Use: Currently (08/31/2019) Advised to Quit: Yes (08/31/2019)Labs/Meds/Other Counseling- Nutrition and Physical Activity:BMI Interpretation: Obese (08/31/2019) Counseling: Done (05/09/2019) Physical Activity: Done (05/09/2019)Review of Systems General: Denies loss of appetite, chills, dizziness, fatigue, fever, continued fever, headache, feeling ill, sweats, night sweats, sleep disturbances, weight loss. Cardiovascular: Denies chest pain, palpitations, feeling faint, trouble breathing w/exertion, SOB upon lying down, SOB at night, peripheral edema, elevated blood pressure, decreased heart rate. Respiratory: Denies cough, difficulty breathing, shortness of breath, excessive sputum, coughing up blood, wheezing, chest pain. Gastrointestinal: Complains of burning, pain or discomfort. Physical ExamGeneral Appearance: well nourished, well hydrated, no acute distressRespiratory, Auscultation: clear to auscultation bilaterally; no rales, rhonchi, or wheezesAbdomen: soft, sl. epigastric tenderness, no masses, bowel sounds normalGait & Station: normalBack: spasm L4-5 on rightSkin, Inspection: no rashes, lesions, or ulcerationsOrientation: oriented to time, place, and personMood & Affect: no depression, anxiety, or agitationJudgment & Insight: intactCare Management Plan Transitions of CareInboundRate Your HealthIn general, would you say your health is? Very GoodAssessment & Plan Problems:Added: Chronic low back pain (ICD-724.2) (ICD10- M54.5)Acute and chronic gastritis (ICD-535.00) (BDY81-K69.00)Assessment not SavedAcute and chronic gastritis (ANX22-U26.00): added omeprazoleMedications:OMEPRAZOLE 40 MG ORAL CAPSULE DELAYED RELEASESUBOXONE 8-2 MG SUBLINGUAL FILMABILIFY 15 MG ORAL TABLET (ARIPIPRAZOLE)Medication Changes:New Prescription:OMEPRAZOLE 40 MG ORAL CAPSULE DELAYED RELEASE-one tab po QD Qty: 30[Capsule] Refills: 3 Method: ElectronicRemoved:COLACE 100 MG ORAL CAPSULE- 1 po tid prn constipation Qty: 90[Capsule] Refills: 3, GABAPENTIN 600 MG ORAL TABLET-Three times a day, CYMBALTA 60 MG ORAL CAPSULE DELAYED RELEASE PARTICLES- take one cap in am and one in pmAllergies:No Known Allergies (updated 08/01/2018) Medications:OMEPRAZOLE 40 MG ORAL CAPSULE DELAYED RELEASE (OMEPRAZOLE) one tab po QD #30[Capsule] x 3 Route:ORAL Entered and Autho rized by: Paresh Jones DO Method used: Electronically to [facility] (retail) [address] [place] [address] Note to Pharmacy: Route: ORAL; RxID: [id number] COLACE 100 MG ORAL CAPSULE (DOCUSATE SODIUM) 1 po tid prn constipation #90[Capsule] x 3 Route:ORAL Entered by: Irvin Jones MA Authorized by: Dinh Wilkinson MD Method used: Electronically to [facility] (retail) [address] [place] [address] RxID: [id number]][Immunization Management] Name Value Range Interpretation Code Description Data Annabella rce(s) Supporting Document(s) ID Date Data Source [id number] 08/27/2019 10:00:00 AM EST [facility] ([facility]) Name Value Range Interpretation Code Description Data Annabella rce(s) Supporting Document(s) Buprenorphine Ur 4 ng/mL [facility] ([facility]) INTERPRETIVE INFORMATION: Buprenorphine and Metabolites, Urine, Quantitative Methodology: Quantitative Liquid Chromatography-Tandem Mass Spectrometry Positive cutoff: Buprenorphine 2 ng/mL Norbuprenorphine 2 ng/mL Buprenorphine glucuronide 5 ng/mL Norbuprenorphine glucuronide 5 ng/mL Naloxone 100 ng/mL For medical purposes only; not valid for forensic use. The presence of metabolite(s) without parent drug is common and may indicate use of parent drug during the prior week. Naloxone is included to detect addition of a naloxone-containing drug directly into the urine. The absence of expected drug(s) and/or drug metabolite(s) may indicate non-compliance, inappropriate timing of specimen collection relative to drug administration, poor drug absorption, diluted/adulterated urine, or limitations of testing. The concentration value must be greater than or equal to the cutoff to be reported as positive. Interpretive questions should be directed to the laboratory. Test developed and characteristics determined by [employer]. See Compliance Statement B: [employer] Norbuprenorphine Ur 58 ng/mL [facility] ([facility]) Buprenorphine Glucu 227 [facility] ([facility]) Unit: ng/mL Consistent with use of a buprenorphine-containing drug. Glucuronide concentrations are semi-quantitative. Norbupr Glucuronide 273 [facility] ([facility]) Unit: ng/mL Naloxone,Urine Laboratory test result [facility] ([facility]) Performed by [employer], [address] [place] [id number] www.[facility], Valentin Tipton MD, Lab. Director Unless otherwise specified, testing performed by Laboratory [facility] [employer], [place] [address] ID Date Data Source [id number] 08/27/2019 10:00:00 AM EST [facility] ([facility]) Name Value Range Interpretation Code Description Data Annabella rce(s) Supporting Document(s) Amphetamines,Urine Laboratory test result [facility] ([facility]) Barbiturates,Urine Laboratory test result [facility] ([facility]) Benzodiazepines, Urine Laboratory test result [facility] ([facility]) Bupernorphrine/Norbu,Urine Laboratory test result Abnormal (applies to non- numeric results) [facility] ([facility]) Cocaine Metabolites,Urine Laboratory test result [facility] ([facility]) Methadone,Urine Laboratory test result M ED[facility] ([facility]) Opiates,Urine Laboratory test result MED [facility] ([facility]) Oxycodone,Urine Laboratory test result M ED[facility] ([facility]) Phencyclidine,Urine Laboratory test result [facility] ([facility]) ID Date Data Source [id number] 08/30/2019 12:29:52 PM EST Laboratory [facility] Name Value Range Interpretation Code Description Data Annabella rce(s) Supporting Document(s) BUPRENORPHINE UR 4 ng/mL Laboratory [facility] of [facility] INTERPRETIVE INFORMATION: Buprenorphine and Metabolites, Urine, Quantitative Methodology: Quantitative Liquid Chromatography-Tandem Mass Spectrometry Positive cutoff: Buprenorphine 2 ng/mL Norbuprenorphine 2 ng/mL Buprenorphine glucuronide 5 ng/mL Norbuprenorphine glucuronide 5 ng/mL Naloxone 100 ng/mL For medical purposes only; not valid for forensic use. The presence of metabolite(s) without parent drug is common and may indicate use of parent drug during the prior week. Naloxone is included to detect addition of a naloxone-containing drug directly into the urine. The absence of expected drug(s) and/or drug metabolite(s) may indicate non-compliance, inappropriate timing of specimen collection relative to drug administration, poor drug absorption, diluted/adulterated urine, or limitations of testing. The concentration value must be greater than or equal to the cutoff to be reported as positive. Interpretive questions should be directed to the laboratory. Test developed and characteristics determined by [employer]. See Compliance Statement B: [employer] NORBUPRENORPHINE UR 58 ng/mL Laboratory [place] [facility] BUPRENORPHINE GLUCU 227 Laboratory [place] [facility] Unit: ng/mL Consistent with use of a bup renorphine-containing drug. Glucuronide concentrations are semi-quantitative. NORBUPR GLUCURONIDE 273 Laboratory [facility] Unit: ng/mL NALOXONE,URINE <100 ng/mL Laboratory All [facility]ance of [facility] Performed by [employer], [address] [facility] jamie Aparicio, [facility] [place] [address] www.[employer], Valentin Tipton MD, Lab. Director ID Date Data Source [id number] 08/21/2019 10:09:00 AM EST [facility] ([facility]) Name Value Range Interpretation Code Description Data Annabella rce(s) Supporting Document(s) Norbuprenorphine Ur 26 ng/mL [facility] ([facility]) please test for suboxone Buprenorphine Ur Laboratory test result [facility] ([facility]) INTERPRETIVE INFORMATION: Buprenorphine and Metabolites, Urine, Quantitative Methodology: Quantitative Liquid Chromatography-Tandem Mass Spectrometry Positive cutoff: Buprenorphine 2 ng/mL Norbuprenorphine 2 ng/mL Buprenorphine glucuronide 5 ng/mL Norbuprenorphine glucuronide 5 ng/mL Naloxone 100 ng/mL For medical purposes only; not valid for forensic use. The presence of metabolite(s) without parent drug is common and may indicate use of parent drug during the prior week. Naloxone is included to detect addition of a naloxone-containing drug directly into the urine. The absence of expected drug(s) and/or drug metabolite(s) may indicate non-compliance, inappropriate timing of specimen collection relative to drug administration, poor drug absorption, diluted/adulterated urine, or limitations of testing. The concentration value must be greater than or equal to the cutoff to be reported as positive. Interpretive questions should be directed to the laboratory. Test developed and characteristics determined by [employer]. See Compliance Statement B: [employer] Norbupr Glucuronide 122 [facility] ([facility]) Unit: ng/mL Buprenorphine Glucu 128 [facility] ([facility]) Unit: ng/mL Consistent with use of a buprenorphine-containing drug. Glucuronide concentrations are semi-quantitative. Naloxone,Urine Laboratory test result [facility] ([facility]) Performed by [employer], [address] [place] [id number] www.[email or web address], Valentin Tipton MD, Lab. Director Unless otherwise specified, testing performed by Laboratory [place] [facility] [place] [facility] [address] [address] ID Date Data Source [id number] 08/21/2019 10:09:00 AM EST [facility] ([facility]) Name Value Range Interpretation Code Description Data Annabella rce(s) Supporting Document(s) Amphetamines,Urine Laboratory test result [facility] ([facility]) please test for suboxone Barbiturates,Urine Laboratory test result [facility] ([facility]) please test for suboxone Benzodiazepines, Urine Laboratory test result [facility] ([facility]) please test for suboxone Bupernorphrine/Norbu,Urine Laboratory test result Abnormal (applies to non- numeric results) [facility] ([facility]) please test for suboxone Methadone,Urine Laboratory test result M EDENT ([facility]) please test for suboxone Cocaine Metabolites,Urine Laboratory test result [facility] ([facility]) please test for suboxone Phencyclidine,Urine Laboratory test result [facility] ([facility]) please test for suboxone Opiates,Urine Laboratory test result MED ENT ([facility]) please test for suboxone Oxycodone,Urine Laboratory test result M [facility] ([facility]) please test for suboxone ID Date Data Source [id number] 08/25/2019 12:54:47 AM EST Laboratory [facility] Name Value Range Interpretation Code Description Data Annabella rce(s) Supporting Document(s) BUPRENORPHINE UR <2 ng/mL Laboratory [facility] INTERPRETIVE INFORMATION: Buprenorphine and Metabolites, Urine, Quantitative Methodology: Quantitative Liquid Chromatography-Tandem Mass Spectrometry Positive cutoff: Buprenorphine 2 ng/mL Norbuprenorphine 2 ng/mL Buprenorphine glucuronide 5 ng/mL Norbuprenorphine glucuronide 5 ng/mL Naloxone 100 ng/mL For medical purposes only; not valid for forensic use. The presence of metabolite(s) without parent drug is common and may indicate use of parent drug during the prior week. Naloxone is included to detect addition of a naloxone-containing drug directly into the urine. The absence of expected drug(s) and/or drug metabolite(s) may indicate non-compliance, inappropriate timing of specimen collection relative to drug administration, poor drug absorption, diluted/adulterated urine, or limitations of testing. The concentration value must be greater than or equal to the cutoff to be reported as positive. Interpretive questions should be directed to the laboratory. Test developed and characteristics determined by [employer]. See Compliance Statement B: [employer] NORBUPRENORPHINE UR 26 ng/mL Laboratory [place] [facility] BUPRENORPHINE GLUCU 128 Laboratory [place] [facility] Unit: ng/mL Consistent with use of a bup renorphine-containing drug. Glucuronide concentrations are semi-quantitative. NORBUPR GLUCURONIDE 122 Laboratory [place] [facility] Unit: ng/mL NALOXONE,URINE <100 ng/mL Laboratory [facility] Performed by [employer], [address] [place] [address] www.[employer], Valentin Tipton MD, Lab. Director ID Date Data Source [id number] 08/15/2019 10:34:00 AM EST [facility] ([facility]) Name Value Range Interpretation Code Description Data Annabella rce(s) Supporting Document(s) Reagin Ab [Presence] in Serum by RPR Laboratory test result [facility] ([facility]) 08/20/19 1205: RPR previously reported as: Non Reactive Performed at: - [facility] [id number] Director Of Women'S Services: Fernanda Scales MD, Phone: [phone] HIV 2 Ab [Presence] in Serum by Immunoblot (IB) Laboratory test resul t [facility] ([facility]) Specimen Comment: A duplicate report has been generated due to demographic Specimen Comment: updates. ID Date Data Source [id number] 08/15/2019 10:34:00 AM EST [facility] ([facility]) Name Value Range Interpretation Code Description Data Annabella rce(s) Supporting Document(s) Laboratory test finding (navigational concept) [facility]) HCV Not Detected Laboratory test finding (navigational concept) Laboratory test result [facility] ([facility]) The quantitative range of this assay is 15 IU/mL to 100 million IU/mL. 08/20/19 1205: TEST INFO: previously reported as: Comment The quantitative range of this assay is 15 IU/mL to 100 million IU/mL. Performed at: [facility] [id number] Director Of Women'S Services: Fernanda Scales MD, Phone: [phone] ID Date Data Source [id number] 08/15/2019 10:34:00 AM EST [facility] ([facility]) Name Value Range Interpretation Code Description Data Annabella rce(s) Supporting Document(s) Hepatitis C virus Ab [Units/volume] in Serum by Immunoassay 5.3 0.0-0.9 [facility] ([facility]) <content>INFCE Result Units: s/co ratio< /content>
<content>Negative: < 0.8</content>
<content>Indeterminate: 0.8 - 0.9</content>
<content>Positive: > 0.9</content>
<content>The CDC recommends that a positive HCV antibody result</content>
<content>be followed up with a HCV Nucleic Acid Amplification</content>
<content>test (757558).</content>
<content></content> Hepatitis B virus surface Ag [Presence] in Serum or Pl asma by Immunoassay Laboratory test result [facility] ([facility]) Specimen Comment: A duplicate report has been generated due to demographic Specimen Comment: updates. Laboratory test finding (navigational concept) Laboratory test result [facility] ([facility]) Non Reactive: Inconsistent with immunity , less than 10 mIU/mL Reactive: Consistent with immunity, greater than 9.9 mIU/mL Hepatitis A virus Ab [Presence] in Serum by Immunoassay Labo ratory test result [facility] Performed at: [facility] [id number] Director Of Women'S Services: Fernanda Scales MD, Phone: [phone] ID Date Data Source [id number] 08/15/2019 11:35:00 AM EST [facility] Name Value Range Interpretation Code Description Data [facility](s) Supporting Document(s) GLUCOSE 97 mg/dL 74-106 [facility] BLOOD UREA NITROGEN 14 mg/dL 7-18 [facility] ital CREATININE 0.6 mg/dL 0.6-1.0 [facility] SODIUM 144 mmol/L 136-145 [facility] POTASSIUM 4.3 mmol/L 3.5-5.1 [facility] CHLORIDE 105 mmol/L 98-107 [facility] CO2 27 mmol/L 21-32 [facility] CALCIUM 8.9 mg/dL 8.5-10.1 [facility] ANION GAP 12.0 mmol/L 5-12 [facility] GLOMERULAR FILTRATION RATE >90 mL/min [facility] GFR IS CALCULATED IN mL/min/1.73m2 SHANNAN L FUNCTION: >90MILDLY DECREASED: 60-89MILDY TO MODERATELY DECREASED: 45-59 MODERATELY TO SEVERELY DECREASED: 30-44SEVERELY DECREASED: 15-29RENAL FAILURE: <15 AST 21 U/L 15-37 [facility] ALT 37 U/L 12-78 [facility] ALKALINE PHOSPHATASE 101 U/L 46-116 [facility] pital TOTAL BILIRUBIN 0.4 mg/dL 0.2-1.0 [facility] TOTAL PROTEIN 7.2 g/dl 6.4-8.2 [facility] ALBUMIN 4.5 gm/dL 3.4-5.0 [facility] ID Date Data Source [id number] 08/15/2019 11:19:00 AM [facility] Name Value Range Interpretation Code Description Data [facility](s) Supporting Document(s) HCG,SERUM NEGATIVE NEGATIVE [facility] False negative results may occur when th e levels of hCG arebelow the sensitivity level of the test. If isstill suspected, a first morning urine specimen should becollected 48hrs later.This test has a sensitivity of 10mIU/mL in serum nhl39eBL/mL in urine. ID Date Data Source [id number] 08/15/2019 10:51:00 AM [facility] Name Value Range Interpretation Code Description Data [facility](s) Supporting Document(s) WHITE BLOOD COUNT 5.0 K/mm3 4.0-10.0 [facility] RED BLOOD COUNT 5.16 M/mm3 4.00-5.50 [facility] HEMOGLOBIN 14.2 gm/dL 12.0-16.0 [facility] HEMATOCRIT 41.9 % 36.0-48.8 [facility] MEAN CELL VOLUME 81.2 fl 80-96 [facility] l MEAN CORPUSCULAR HEMOGLOBIN 27.5 pg 27.0-31.0 [facility] MEAN CORPUSCULAR HGB CONC 33.9 g/dl 32.0-36.0 [facility] RED CELL DISTRIBUTION WIDTH 14.1 % 10.0-14.5 [facility] PLATELET COUNT 269 K/mm3 172-450 [facility] MEAN PLATELET VOLUME 9.9 fl 9.0-13.0 [facility] pital GRAN % 65.6 % 50-80.0 [facility] IG% 0.2 % 0.0-0.2 [facility] LYMPH % 20.4 % 25.0-50.0 L [facility] MONO % 9.4 % 2.0-10.0 [facility] EOS % 3.8 % 0-5.0 [facility] BASO % 0.6 % 0.0-2.0 [facility] GRAN # 3.3 K/mm3 2.0-8.00 [facility] IG# 0.0 K/mm3 0.0-0.2 [facility] LYMPH # 1.0 K/mm3 1.0-5.0 [facility] MONO # 0.5 K/mm3 0.10-1.20 [facility] EOS # 0.2 K/mm3 0.0-0.5 [facility] BASO # 0.0 K/mm3 0.0-0.2 [facility] ID Date Data Source [id number] 08/16/2019 06:06:00 AM EST [facility] Specimen Comment: A duplicate report has been generated due to demographicSpecimen Comment: updates. Name Value Range Interpretation Code Description Data [facility] Supporting Document(s) HIV SCREEN 4TH GEN Non Reactive Non Reactive [facility] ID Date Data Source [id number] 08/20/2019 12:05:00 PM EST [facility] Specimen Comment: A duplicate report has been generated due to demographicSpecimen Comment: updates. Name Value Range Interpretation Code Description Data [facility] Supporting Document(s) RPR Non Reactive Non Reactive [facility] 08/20/19 1205: RPR previously reported as: Non Reactive Performed at: RN - [facility] [address] [id number] Director Of Women'S Services: Fernanda Scales MD, Phone: [phone] ID Date Data Source [id number] 08/17/2019 02:05:00 PM EST [facility] Specimen Comment: A duplicate report has been generated due to demographicSpecimen Comment: updates. Name Value Range Interpretation Code Description Data Annabella rce(s) Supporting Document(s) HEPATITIS C QUANTITATION HCV Not Detected IU/mL . [facility] TEST INFORMATION: Comment . [facility] The quantitative range of this assay is 15 IU/mL to 100million IU/mL.08/20/19 1205: TEST INFO: previously reported as: Comment The quantitative range of this assay is 15 IU/mL to 100 million IU/mL. Performed at: [facility] [id number] Director Of Women'S Services: Fernanda Scales MD, Phone: [phone] ID Date Data Source [id number] 08/16/2019 06:06:00 AM EST [facility] Specimen Comment: A duplicate report has been generated due to demographicSpecimen Comment: updates. Name Value Range Interpretation Code Description Data Annabella rce(s) Supporting Document(s) HEP A AB, TOTAL Positive Negative [facility] Performed at: [facility] [address] [id number] Director: Fernanda Scales MD, Phone: [phone] ID Date Data Source [id number] 08/16/2019 06:06:00 AM EST [facility] Specimen Comment: A duplicate report has been generated due to demographicSpecimen Comment: updates. Name Value Range Interpretation Code Description Data Annabella rce(s) Supporting Document(s) HCV ANTIBODY 5.3 0.0-0.[address] [facility] INFCE Result Units: s/co ratio Negative: < 0.8 Indeterminate: 0.8 - 0.9 Positive: > 0.9 The CDC recommends that a positive HCV antibody result be followed up with a HCV Nucleic Acid Amplification test (096530). ID Date Data Source [id number] 08/16/2019 06:06:00 AM EST [facility] Specimen Comment: A duplicate report has been generated due to demographicSpecimen Comment: updates. Name Value Range Interpretation Code Description Data Annabella rce(s) Supporting Document(s) HEP B SURFACE ANTIGEN SCREEN Negative Negative [facility] ID Date Data Source [id number] 08/16/2019 06:06:00 AM EST [facility] Specimen Comment: A duplicate report has been generated due to demographicSpecimen Comment: updates. Name Value Range Interpretation Code Description Data Annabella rce(s) Supporting Document(s) HEP B SURFACE AB, QUAL Reactive . [facility] Non Reactive: Inconsistent with immunity, less than 10 mIU/mL Reactive: Consistent with immunity, greater than 9.9 mIU/mL ID Date Data Source [id number] 08/20/2019 12:05:00 PM EST [facility] Name Value Range Interpretation Code Description Data Annabella rce(s) Supporting Document(s) Hepatitis C Quantitation HCV Not Detected IU/mL [facility] Test Information: [facility] The quantitative range of this assay is 15 IU/mL to 100 million IU/mL. ID Date Data Source [id number] 08/20/2019 12:05:00 PM EST [facility] Name Value Range Interpretation Code Description Data Annabella rce(s) Supporting Document(s) Hep B Surface Ab, Qual Reactive [facility] Non Reactiv e: Inconsistent with immunity, less than 10 mIU/mL Reactive: Consistent with immunity, greater than 9.9 mIU/mL ID Date Data Source [id number] 08/20/2019 12:05:00 PM EST [facility] Name Value Range Interpretation Code Description Data Annabella rce(s) Supporting Document(s) HIV Screen 4th Generation wRfx Non Reactive Non Reactive [facility] ID Date Data Source [id number] 08/20/2019 12:05:00 PM EST [facility] Name Value Range Interpretation Code Description Data Annabella rce(s) Supporting Document(s) Hep C Virus Ab 5.3 s/co ratio 0.0-0.9 Above high normal [facility] Negative: < 0.8 Indeterminate: 0.8 - 0.9 Positive: > 0.9 The CDC recommends that a positive HCV antibody result be followed up with a HCV Nucleic Acid Amplification test (643323). ID Date Data Source [id number] 08/20/2019 12:05:00 PM EST [facility] Name Value Range Interpretation Code Description Data Annabella rce(s) Supporting Document(s) RPR Non Reactive Non Reactive [facility] ID Date Data Source [id number] 08/20/2019 12:05:00 PM EST [facility] Name Value Range Interpretation Code Description Data Annabella rce(s) Supporting Document(s) HBsAg Screen Negative Negative [facility] ID Date Data Source [id number] 08/20/2019 12:05:00 PM EST [facility] Name Value Range Interpretation Code Description Data Annabella rce(s) Supporting Document(s) Hep A Ab, Total Positive Negative Abnormal (applies to non-numeri c results) [facility] ID Date Data Source [id number] 08/14/2019 12:49:00 PM EST [facility] ([facility]) Name Value Range Interpretation Code Description Data Annabella rce(s) Supporting Document(s) Chlamydia trachomatis DNA [Identifier] i n Unspecified specimen by Probe and target amplification method Laboratory test result [facility] ([facility]) please test for suboxone GC Laboratory test result [facility] ([facility]) please test for suboxone ID Date Data Source [id number] 08/14/2019 12:49:00 PM EST [facility] ([facility]) Name Value Range Interpretation Code Description Data Annabella rce(s) Supporting Document(s) Barbiturates,Urine Laboratory test result [facility] ([facility]) please test for suboxone Amphetamines,Urine Laboratory test result [facility] ([facility]) please test for suboxone Bupernorphrine/Norbu,Urine Laboratory test result [facility] ([facility]) please test for suboxone Benzodiazepines, Urine Laboratory test result [facility] ([facility]) please test for suboxone Methadone,Urine Laboratory test result [facility] ([facility]) please test for suboxone Cocaine Metabolites,Urine Laboratory test result [facility] ([facility]) please test for suboxone Opiates,Urine Laboratory test result [facility] ([facility]) please test for suboxone Oxycodone,Urine Laboratory test result [facility] ([facility]) please test for suboxone Phencyclidine,Urine Laboratory test result [facility] ([facility]) please test for suboxone ID Date Data Source [id number] 05/24/2019 04:05:00 PM EST [facility] Name Value Range Interpretation Code Description Data Annabella rce(s) Supporting Document(s) MENA SPECIES Negative Negative [facility] GARDNERELLA VAGINALIS Negative Negative [facility] spital TRICHOMONAS VAGINALIS Positive Negative [facility] spital Performed at: [facility] [address] [id number] Director: Fernanda Scales MD, Phone: [phone] ID Date Data Source [id number] 05/25/2019 08:09:00 PM EST [facility] Name Value Range Interpretation Code Description Data Annabella rce(s) Supporting Document(s) CHLAMYDIA TRACHOMATIS, WESLEY Negative Negative [facility] NEISSERIA GONORRHOEAE, WESLEY Negative Negative [facility] Performed at: [facility] [address] [id number] Director: Fernanda Scales MD, Phone: [phone] ID Date Data Source [id number] 05/24/2019 04:05:00 PM EST [facility] Name Value Range Interpretation Code Description Data Annabella rce(s) Supporting Document(s) Mena species Negative Negative [facility] Gardnerella vaginalis Negative Negative [facility] Trichomonas vaginalis Positive Negative Abnormal ( applies to non-numeric results) [facility] ID Date Data Source [id number] 05/25/2019 08:05:00 PM EST [facility] Name Value Range Interpretation Code Description Data Annabella rce(s) Supporting Document(s) Chlamydia/GC Amplification Lab Man TESTS RESULT FLAG UNI TS REF RANGE LAB C trachomatis, WESLEY Negative (Negative) 01N gonorrhoeae, WESLEY Negative (Negative) 01 FLAG LEGEND: L-Low Normal,H-High Normal,LL-Alert Low,HH-Alert High <-Panic Low,>-Panic High,A-Abnormal,AA-Critical Abnormal Performed at:01 RN [facility] [address] [id number] Fernanda Scales MD, ID Date Data Source [id number] 05/25/2019 02:31:00 PM [facility]aro Name Value Range Interpretation Code Description Data Annabella rce(s) Supporting Document(s) [facility] ID Date Data Source [id number] 05/22/2019 05:21:00 PM [facility] l Name Value Range Interpretation Code Description Data Annabella rce(s) Supporting Document(s) URINE COLOR. [facility] URINE APPEARANCE CLEAR [facility] l SPECIFIC GRAVITY,URINE 1.025 1.001-1.035 [facility] URINE LEUKOCYTE ESTERASE 1+(SMALL) NEGATIVE [facility] URINE NITRATE NEGATIVE NEGATIVE [facility] PH,URINE 7.0 5.0-9.0 [facility] URINE PROTEIN NEGATIVE mg/dL NEGATIVE [facility] URINE GLUCOSE (UA) NEGATIVE mg/dL NEGATIVE [facility] URINE KETONE 5(TRACE) mg/dL NEGATIVE [facility] URINE UROBILINOGEN NORMAL(0.2-1) mg/dL 0-1 R [facility] URINE BILIRUBIN NEGATIVE NEGATIVE [facility] URINE BLOOD NEGATIVE NEGATIVE [facility] ID Date Data Source [id number] 05/22/2019 05:21:00 PM [facility] l Name Value Range Interpretation Code Description Data Annabella rce(s) Supporting Document(s) URINE RBC 0-2 /hpf 0-3 [facility] URINE WBC 3-5 /hpf 0-5 [facility] URINE BACTERIA TRACE NONE SEEN [facility] ID Date Data Source [id number] 05/22/2019 05:02:00 PM [facility] l Name Value Range Interpretation Code Description Data Annabella rce(s) Supporting Document(s) HCG URINE NEGATIVE NEGATIVE [facility] Procedure Social History Code Duration Value Status Description Data Source(s ) Smoking 07/04/2020 12:00:00 AM EST Current Smoker completed Curre nt Smoker [facility] Smoking 07/04/2020 12:00:00 AM EST Current Smoker completed Curre nt Smoker eCW1 ([facility]) Smoking 06/30/2020 12:00:00 AM EST Unknown if ever smoked comp leted Unknown if ever smoked [facility] ([facility]) Smoking 06/23/2020 12:00:00 AM EST Current Smoker completed Curre nt Smoker eCW1 ([facility]) Smoking 06/11/2020 12:00:00 AM EST Current Smoker completed Curre nt Smoker eCW1 ([facility]) Smoking 06/11/2020 12:00:00 AM EST Current Smoker completed Curre nt Smoker eCW1 ([facility]) Smoking 06/09/2020 12:00:00 AM EST Unknown if ever smoked comp leted Unknown if ever smoked [facility] ([facility]) Smoking 05/30/2020 12:00:00 AM EST Current Smoker completed Curre nt Smoker eCW1 ([facility]) Smoking 05/30/2020 12:00:00 AM EST Current Smoker completed Curre nt Smoker eCW1 ([facility]) Smoking 05/30/2020 12:00:00 AM EST Current Smoker completed Curre nt Smoker eCW1 ([facility]) Smoking 05/26/2020 12:00:00 AM EST Unknown if ever smoked comp leted Unknown if ever smoked [facility] ([facility]) Smoking 05/08/2020 12:00:00 AM EST Current Smoker completed Curre nt Smoker eCW1 ([facility]) Smoking 05/08/2020 12:00:00 AM EST Current Smoker completed Curre nt Smoker eCW1 ([facility]) Smoking 04/28/2020 12:00:00 AM EST Current Smoker completed Curre nt Smoker eCW1 ([facility]) Smoking 04/28/2020 12:00:00 AM EST Unknown if ever smoked comp leted Unknown if ever smoked [facility] ([facility]) Smoking 04/17/2020 12:00:00 AM EDT Current Smoker completed Curre nt Smoker eCW1 ([facility]) Smoking 03/27/2020 12:00:00 AM EDT Current Smoker completed Curre nt Smoker eCW1 ([facility]) Smoking 03/27/2020 12:00:00 AM EDT Current Smoker completed Curre nt Smoker eCW1 ([facility]) Smoking 03/25/2020 12:00:00 AM EDT Unknown if ever smoked comp leted Unknown if ever smoked [facility] ([facility]) Smoking 03/14/2020 12:00:00 AM EDT Unknown if ever smoked comp leted Unknown if ever smoked [facility] ([facility]) Smoking 12/24/2019 12:00:00 AM EDT Unknown if ever smoked comp leted Unknown if ever smoked [facility] ([facility]) Smoking 12/13/2019 12:00:00 AM EDT Unknown if ever smoked comp leted Unknown if ever smoked [facility] ([facility]) Smoking 11/28/2019 12:00:00 AM EDT Unknown if ever smoked comp leted Unknown if ever smoked [facility] ([facility]) Smoking 11/27/2019 12:00:00 AM EDT Unknown if ever smoked comp leted Unknown if ever smoked [facility] ([facility]) Smoking 11/13/2019 12:00:00 AM EDT Unknown if ever smoked comp leted Unknown if ever smoked [facility] ([facility]) Smoking 10/23/2019 12:00:00 AM EDT Unknown if ever smoked comp leted Unknown if ever smoked [facility] ([facility]) Smoking 10/16/2019 12:00:00 AM EDT Unknown if ever smoked comp leted Unknown if ever smoked [facility] ([facility]) Smoking 09/27/2019 12:00:00 AM EDT Unknown if ever smoked comp leted Unknown if ever smoked [facility] ([facility]) Smoking 09/13/2019 12:00:00 AM EDT Unknown if ever smoked comp leted Unknown if ever smoked [facility] ([facility]) Smoking 08/30/2019 12:00:00 AM EST Unknown if ever smoked comp leted Unknown if ever smoked [facility] ([facility]) Smoking 08/22/2019 12:00:00 AM EST Unknown if ever smoked comp leted Unknown if ever smoked [facility] ([facility]) Smoking 08/16/2019 12:00:00 AM EST Unknown if ever smoked comp leted Unknown if ever smoked [facility] ([facility]) Smoking 08/09/2019 12:00:00 AM EST Unknown if ever smoked comp leted Unknown if ever smoked [facility] ([facility]) Smoking 07/17/2019 12:00:00 AM EST Unknown if ever smoked comp leted Unknown if ever smoked [facility] ([facility]) Smoking 07/12/2019 12:00:00 AM EST Unknown if ever smoked comp leted Unknown if ever smoked [facility] ([facility]) Smoking 06/21/2019 12:00:00 AM EST Unknown if ever smoked comp leted Unknown if ever smoked [facility] ([facility]) Smoking 06/01/2019 12:00:00 AM EST Unknown if ever smoked comp leted Unknown if ever smoked [facility] ([facility]) Smoking 05/30/2019 12:00:00 AM EST Unknown if ever smoked comp leted Unknown if ever smoked [facility] ([facility]) Vital Signs ID Date Data Source UNK Name Value Range Interpretation Code Description Data Source(s) Systolic blood pressure 116 mm[Hg] 116 mm[Hg] e CW1 [facility] Body mass index (BMI) [Ratio] 33.447 kg/m2 33.4 47 kg/m2 eCW1 ([facility]) Body height 59 [in_i] 59 [in_i] eCW1 ([facility]) Body weight 75.11 kg 75.11 kg W1 ([facility]) Body weight 165.6 [lb_av] 165.6 [lb_av] eCW1 ([facility]) Diastolic blood pressure 74 mm[Hg] 74 mm[Hg] eCW1 [facility] Diastolic blood pressure 78 mm[Hg] 78 mm[Hg] eCW1 [facility]) Systolic blood pressure 112 mm[Hg] 112 mm[Hg] e CW1 ([facility]) Body mass index (BMI) [Ratio] 33.73 kg/m2 33.73 kg/m2 eCW1 ([facility]) Body height 59 [in_i] 59 [in_i] eCW1 ([facility]) Body weight 167 [lb_av] 167 [lb_av] eCW1 ([facility]) Diastolic blood pressure 0 mm[Hg] Normal (applies to non-numeric results) 0 mm[Hg] [facility] ([facility]) Systolic blood pressure 0 mm[Hg] Normal (applies t o non-numeric results) 0 mm[Hg] [facility] ([facility]) Body mass index (BMI) [Ratio] 0.00 kg/m2 No rmal (applies to non-numeric results) 0.00 kg/m2 [facility] ([facility]) Body weight Measured 0.00 lbs Normal (applies to n on-numeric results) 0.[address] [facility] ([facility]) Body height 0.00 in Normal (applies to non-numeric resu lts) 0.[address] [facility] ([facility]) Diastolic blood pressure 68 mm[Hg] 68 mm[Hg] eCW1 ([facility]) Systolic blood pressure 110 mm[Hg] 110 mm[Hg] e CW1 ([facility]) Body mass index (BMI) [Ratio] 33.73 kg/m2 33.73 kg/m2 W1 ([facility]) Body height 59 [in_i] 59 [in_i] W1 ([facility]) Body weight 167.0 [lb_av] 167.0 [lb_av] eCW1 ([facility]) Diastolic blood pressure 72 mm[Hg] 72 mm[Hg] eCW1 ([facility]) Systolic blood pressure 112 mm[Hg] 112 mm[Hg] e CW1 ([facility]) Body mass index (BMI) [Ratio] 32.478 kg/m2 32.4 78 kg/m2 eCW1 ([facility]) Body height 59 [in_i] 59 [in_i] eCW1 ([facility]) Body weight 72.94 kg 72.94 kg eCW1 ([facility]) Body weight 160.8 [lb_av] 160.8 [lb_av] eCW1 ([facility]) Oxygen saturation in Arterial blood by Pulse oximetry 98 % 98 % eCW1 ([facility]) Respiratory rate 18 /min 18 /min eCW1 ([facility]) Heart rate 116 /min 116 /min eCW1 ([facility]) Body temperature 97.8 [degF] 97.8 [degF] eCW1 ( [facility]) Body mass index (BMI) [Ratio] 31.42 kg/m2 31.42 kg/m2 eCW1 ([facility]) Body weight 155.6 [lb_av] 155.6 [lb_av] eCW1 ([facility]) Body height [in_i] eCW1 ([facility]) Diastolic blood pressure 80 mm[Hg] 80 mm[Hg] eCW1 [facility] Systolic blood pressure 102 mm[Hg] 102 mm[Hg] e CW1 ([facility]) Body mass index (BMI) [Ratio] 31.225 kg/m2 31.2 25 kg/m2 eCW1 ([facility]) Body height 59 [in_i] 59 [in_i] eCW1 ([facility]) Body weight 70.13 kg 70.13 kg eCW1 ([facility]) Body weight 154.6 [lb_av] 154.6 [lb_av] eCW1 ([facility]) Diastolic blood pressure 82 mm[Hg] Normal (applies to non-numeric results) 82 mm[Hg] [facility] ([facility]) Systolic blood pressure 108 mm[Hg] Normal (applies t o non-numeric results) 108 mm[Hg] [facility] ([facility]) Body mass index (BMI) [Ratio] 0.00 kg/m2 No rmal (applies to non-numeric results) 0.00 kg/m2 [facility] ([facility]) Body weight Measured 0.00 lbs Normal (applies to n on-numeric results) 0.[address] [facility] ([facility]) Body height 0.00 in Normal (applies to non-numeric resu lts) 0.[address] [facility] ([facility]) Diastolic blood pressure 70 mm[Hg] 70 mm[Hg] [facility] Systolic blood pressure 100 mm[Hg] 100 mm[Hg] e 1 ([facility]) Body mass index (BMI) [Ratio] 30.37 kg/m2 30.37 kg/m2 [facility] Body height 59 [in_i] 59 [in_i] eCW1 ([facility]) Body weight 68.22 kg 68.22 kg W1 ([facility]) Body weight 150.4 [lb_av] 150.4 [lb_av] eCW1 ([facility]) Diastolic blood pressure 70 mm[Hg] 70 mm[Hg] eCW1 [facility]) Systolic blood pressure 116 mm[Hg] 116 mm[Hg] e CW1 ([facility]) Body mass index (BMI) [Ratio] 29.32 kg/m2 29.32 kg/m2 W1 ([facility]) Body height 59 [in_i] 59 [in_i] eCW1 ([facility]) Body weight 65.86 kg 65.86 kg W1 ([facility]) Body weight 145.2 [lb_av] 145.2 [lb_av] eCW1 ([facility]) Diastolic blood pressure 0 mm[Hg] Normal (applies to non-numeric results) 0 mm[Hg] [facility] ([facility]) Systolic blood pressure 0 mm[Hg] Normal (applies t o non-numeric results) 0 mm[Hg] [facility] ([facility]) Body mass index (BMI) [Ratio] 0.00 kg/m2 No rmal (applies to non-numeric results) 0.00 kg/m2 [facility] ([facility]) Body weight Measured 0.00 lbs Normal (applies to n on-numeric results) 0.00 lbs [facility]) Body height 0.00 in Normal (applies to non-numeric resu lts) 0.[address] [facility] ([facility]) Diastolic blood pressure 74 mm[Hg] 74 mm[Hg] W1 ([facility]) Systolic blood pressure 122 mm[Hg] 122 mm[Hg] e CW1 ([facility]) Body mass index (BMI) [Ratio] 29.569 kg/m2 29.5 69 kg/m2 eC1 ([facility]) Body height 59 [in_i] 59 [in_i] eCW1 ([facility]) Body weight 146.4 [lb_av] 146.4 [lb_av] eCW1 ([facility]) Diastolic blood pressure 74 mm[Hg] 74 mm[Hg] eCW1 ([facility]) Systolic blood pressure 126 mm[Hg] 126 mm[Hg] e CW1 ([facility]) Body mass index (BMI) [Ratio] 28.277 kg/m2 28.2 77 kg/m2 eCW1 ([facility]) Body height 59 [in_i] 59 [in_i] eCW1 ([facility]) Body weight 140 [lb_av] 140 [lb_av] eCW1 ([facility]) Diastolic blood pressure 0 mm[Hg] Normal (applies to non-numeric results) 0 mm[Hg] [facility] ([facility]) Systolic blood pressure 0 mm[Hg] Normal (applies t o non-numeric results) 0 mm[Hg] [facility] ([facility]) Body mass index (BMI) [Ratio] 0.00 kg/m2 No rmal (applies to non-numeric results) 0.00 kg/m2 [facility] ([facility]) Body weight Measured 0.00 lbs Normal (applies to n on-numeric results) 0.00 lbs [facility] ([facility]) Body height 0.00 in Normal (applies to non-numeric resu lts) 0.00 in [facility] ([facility]) Diastolic blood pressure 76 mm[Hg] 76 mm[Hg] W1 ([facility]) Systolic blood pressure 128 mm[Hg] 128 mm[Hg] e CW1 ([facility]) Body mass index (BMI) [Ratio] 28.882 kg/m2 28.8 82 kg/m2 [facility]) Body height 59 [in_i] 59 [in_i] eCW1 ([facility]) Body weight 143 [lb_av] 143 [lb_av] eCW1 ([facility]) Diastolic blood pressure 0 mm[Hg] Normal (applies to non-numeric results) 0 mm[Hg] [facility] ([facility]) Systolic blood pressure 0 mm[Hg] Normal (applies t o non-numeric results) 0 mm[Hg] [facility] ([facility]) Body mass index (BMI) [Ratio] 0.00 kg/m2 No rmal (applies to non-numeric results) 0.00 kg/m2 [facility] ([facility]) Body weight Measured 0.00 lbs Normal (applies to n on-numeric results) 0.00 lbs [facility] ([facility]) Body height 0.00 in Normal (applies to non-numeric resu lts) 0.00 in [facility] ([facility]) Diastolic blood pressure 0 mm[Hg] Normal (applies to non-numeric results) 0 mm[Hg] [facility] ([facility]) Systolic blood pressure 0 mm[Hg] Normal (applies t o non-numeric results) 0 mm[Hg] [facility] ([facility]) Body mass index (BMI) [Ratio] 0.00 kg/m2 No rmal (applies to non-numeric results) 0.00 kg/m2 [facility] ([facility]) Body weight Measured 0.00 lbs Normal (applies to n on-numeric results) 0.00 lbs [facility]) Body height 0.00 in Normal (applies to non-numeric resu lts) 0.00 in [facility] ([facility]) Deprecated Oxygen saturation in Capillary blood by Oximetry 99 % 99 % eCW1 ([facility]) Respiratory rate 18 /min 18 /min eCW1 ([facility]) Heart rate 102 /min 102 /min eCW1 ([facility]) Body temperature 98.4 [degF] 98.4 [degF] eCW1 ( [facility]) Body mass index (BMI) [Ratio] 31.75 kg/m2 31.75 kg/m2 eCW1 ([facility]) Body height [in_us] eCW1 ([facility]) Diastolic blood pressure 0 mm[Hg] Normal (applies to non-numeric results) 0 mm[Hg] [facility] ([facility]) Systolic blood pressure 0 mm[Hg] Normal (applies t o non-numeric results) 0 mm[Hg] [facility] ([facility]) Body mass index (BMI) [Ratio] 0.00 kg/m2 No rmal (applies to non-numeric results) 0.00 kg/m2 [facility] ([facility]) Body weight Measured 0.00 lbs Normal (applies to n on-numeric results) 0.00 lbs [facility] ([facility]) Body height 0.00 in Normal (applies to non-numeric resu lts) 0.00 in [facility] ([facility]) Diastolic blood pressure 0 mm[Hg] Normal (applies to non-numeric results) 0 mm[Hg] [facility] ([facility]) Systolic blood pressure 0 mm[Hg] Normal (applies t o non-numeric results) 0 mm[Hg] [facility] ([facility]) Body mass index (BMI) [Ratio] 0.00 kg/m2 No rmal (applies to non-numeric results) 0.00 kg/m2 [facility] ([facility]) Body weight Measured 0.00 lbs Normal (applies to n on-numeric results) 0.[address] [facility] ([facility]) Body height 0.00 in Normal (applies to non-numeric resu lts) 0.00 in [facility] ([facility]) Body mass index (BMI) [Ratio] 35.8 kg/m2 35.8 k g/m2 [facility] ([facility]) Oxygen saturation in Arterial blood by Pulse oximetry 98 % 98 % [facility] ([facility]) Body height 60 [in_i] 60 [in_i] [facility] 5'0" Diastolic blood pressure 60 mm[Hg] 60 mm[Hg] [facility] ([facility]) Systolic blood pressure 100 mm[Hg] 100 mm[Hg] M [facility]ENT ([facility]) Heart rate 93 /min 93 /min [facility] ([facility]) Body weight 183.25 [lb_av] 183.25 [lb_av] [facility] T ([facility]) Body temperature 96.7 [degF] 96.7 [degF] [facility] ([facility]) Body mass index (BMI) [Ratio] 35.0 kg/m2 35.0 k g/m2 [facility] ([facility]) Body weight 179.00 [lb_av] 179.00 [lb_av] [facility] T ([facility]) Body height 60 [in_i] 60 [in_i] [facility] ([facility]) 5'0" Body temperature 97.7 [degF] 97.7 [degF] [facility] ([facility]) Body mass index (BMI) [Ratio] 35.9 kg/m2 35.9 k g/m2 [facility] ([facility]) Oxygen saturation in Arterial blood by Pulse oximetry 99 % 99 % [facility] ([facility]) Body height 60 [in_i] 60 [in_i] [facility] 5'0" Diastolic blood pressure 60 mm[Hg] 60 mm[Hg] [facility] ([facility]) Systolic blood pressure 96 mm[Hg] 96 mm[Hg] M EDENT ([facility]) Heart rate 98 /min 98 /min [facility] ([facility]) Body weight 184.00 [lb_av] 184.00 [lb_av] [facility] T ([facility]) Diastolic blood pressure 0 mm[Hg] Normal (applies to non-numeric results) 0 mm[Hg] [facility] ([facility]) Systolic blood pressure 0 mm[Hg] Normal (applies t o non-numeric results) 0 mm[Hg] [facility] ([facility]) Body mass index (BMI) [Ratio] 0.00 kg/m2 No rmal (applies to non-numeric results) 0.00 kg/m2 [facility] ([facility]) Body weight Measured 0.00 lbs Normal (applies to n on-numeric results) 0.00 lbs [facility] ([facility]) Body height 0.00 in Normal (applies to non-numeric resu lts) 0.00 in [facility] ([facility]) Body mass index (BMI) [Ratio] 35.6 kg/m2 35.6 k g/m2 [facility] ([facility]) Oxygen saturation in Arterial blood by Pulse oximetry 98 % 98 % [facility] ([facility]) Body height 60 [in_i] 60 [in_i] [facility] ([facility] 5'0" Diastolic blood pressure 60 mm[Hg] 60 mm[Hg] [facility] ([facility]) Systolic blood pressure 110 mm[Hg] 110 mm[Hg] M EDENT ([facility]) Heart rate 98 /min 98 /min [facility] ([facility]) Body weight 182.12 [lb_av] 182.12 [lb_av] [facility] T ([facility]) Deprecated Oxygen saturation in Capillary blood by Oximetry 98 % 98 % eCW1 ([facility]) Respiratory rate 18 /min 18 /min eCW1 ([facility]) Heart rate 115 /min 115 /min eCW1 ([facility]) Body temperature 97.8 [degF] 97.8 [degF] eCW1 ( [facility]) Body mass index (BMI) [Ratio] 36.15 kg/m2 36.15 kg/m2 eCW1 ([facility]) Body weight Measured 179.0 [lb_av] 179.0 [lb_av ] eCW1 ([facility]) Body height [in_us] eCW1 ([facility]) Body mass index (BMI) [Ratio] 350.7 kg/m2 350.7 kg/m2 [facility] ([facility]) Oxygen saturation in Arterial blood by Pulse oximetry 98 % 98 % [facility] ([facility]) Body height 60 [in_i] 60 [in_i] [facility] ([facility] 5'0" Diastolic blood pressure 80 mm[Hg] 80 mm[Hg] [facility] ([facility]) Systolic blood pressure 122 mm[Hg] 122 mm[Hg] M EDENT ([facility]) Heart rate 122 /min 122 /min [facility] ([facility]) Body weight 1796.00 [lb_av] 1796.00 [lb_av] [facility] ([facility]) Body temperature 97.2 [degF] 97.2 [degF] [facility] ([facility]) Diastolic blood pressure 0 mm[Hg] Normal (applies to non-numeric results) 0 mm[Hg] [facility] ([facility]) Systolic blood pressure 0 mm[Hg] Normal (applies t o non-numeric results) 0 mm[Hg] [facility] ([facility]) Body mass index (BMI) [Ratio] 0.00 kg/m2 No rmal (applies to non-numeric results) 0.00 kg/m2 [facility] ([facility]) Body weight Measured 0.00 lbs Normal (applies to n on-numeric results) 0.00 lbs [facility]) Body height 0.00 in Normal (applies to non-numeric resu lts) 0.00 in [facility] ([facility]) Diastolic blood pressure 0 mm[Hg] Normal (applies to non-numeric results) 0 mm[Hg] [facility] ([facility]) Systolic blood pressure 0 mm[Hg] Normal (applies t o non-numeric results) 0 mm[Hg] [facility] ([facility]) Body mass index (BMI) [Ratio] 0.00 kg/m2 No rmal (applies to non-numeric results) 0.00 kg/m2 [facility] ([facility]) Body weight Measured 0.00 lbs Normal (applies to n on-numeric results) 0.00 lbs [facility] ([facility]) Body height 0.00 in Normal (applies to non-numeric resu lts) 0.00 in [facility] ([facility]) Diastolic blood pressure 0 mm[Hg] Normal (applies to non-numeric results) 0 mm[Hg] [facility] ([facility]) Systolic blood pressure 0 mm[Hg] Normal (applies t o non-numeric results) 0 mm[Hg] [facility] ([facility]) Body mass index (BMI) [Ratio] 0.00 kg/m2 No rmal (applies to non-numeric results) 0.00 kg/m2 [facility] ([facility]) Body weight Measured 0.00 lbs Normal (applies to n on-numeric results) 0.[address] [facility] ([facility]) Body height 0.00 in Normal (applies to non-numeric resu lts) 0.[address] [facility] ([facility])
[2020-07-16] MEDS ORDERED: miSOPROStol 50MCG 1/2 TABLET PO ONE (12:45)
[2020-07-16] MEDS ORDERED: PRENTAB9 PO (13:21)
[2020-07-16] MEDS ORDERED: BUPR8SUB SL (13:21)
[2020-07-16] MEDS ORDERED: OMEP-312 PO (13:21)
[2020-07-16 14:13] LABS: MEAN CORPUSCULAR HGB CONC 33.3 g/dl (32.0-36.5); MEAN CORPUSCULAR VOLUME 80.9 fl (80.0-96.0); PLATELET COUNT, AUTOMATED 178 10^3/uL (150-450); RED BLOOD COUNT 4.08 10^6/uL (4.00-5.40); WHITE BLOOD COUNT 13.4 10^3/uL (4.0-10.0)
[2020-07-16 14:20] LABS: AMPHETAMINES URINE REFLEX NEGATIVE (NEGATIVE); BARBITURATES URINE REFLEX NEGATIVE (NEGATIVE); BENZODIAZEPINES URINE REFLEX NEGATIVE (NEGATIVE); CANNABINOIDS URINE REFLEX NEGATIVE (NEGATIVE); COCAINE METABOLITE URINE REFLE NEGATIVE (NEGATIVE); METHADONE URINE REFLEX NEGATIVE (NEGATIVE); OPIATES URINE REFLEX NEGATIVE (NEGATIVE); PHENCYCLIDINE URINE REFLEX NEGATIVE (NEGATIVE)
--- NOTE | 2020-07-16 14:43 | HPE ---
HISTORY AND PHYSICAL DATE OF ADMISSION: 07/16/2020 HISTORY OF PRESENT ILLNESS: Mabel is a 24-year-old, 5, para 1-0-2-1 at 39 weeks gestation with an estimated date of confinement (EDC) of 07/23/2020 based on first trimester ultrasound. She presents to labor and delivery today for induction of labor due to social reasons. She denies regular painful contractions, vaginal bleeding or leakage or fluid. The fetus has been active. Her care was initiated at [facility] in the first trimester and has been appropriate throughout. Her course complicated by chronic hepatitis C, history of substance abuse. She is currently on Subutex 8 mg twice a day, a history of depression, suicidal ideation and attempt with hospitalization. OBSTETRIC HISTORY: 1. 2012, missed , molar . She did undergo a dilation and curettage (D&C). 2. 2014, spontaneous miscarriage. 3. December 2015, 39 weeks, 1 day, 6 pound 14 ounce female following induction of labor due to social reasons. Vaginal delivery, no complications. 4. July 2018. She had a missed and underwent a D&C. OB LABS: Blood type O positive, antibody screen negative. Urine culture initially Escherichia (E) coli, which was treated and follow up urine culture with no growth. Syphilis negative. Gonorrhea and chlamydia negative. Hepatitis B surface antigen negative. HIV nonreactive. Rubella immune. Gestational diabetic screening 103 and her Group B Streptococcus (GBS) is negative. MEDICAL HISTORY: 1. History of concussion. 2. Chronic hepatitis C. 3. Hepatitis A. 4. History of heroin and methadone abuse. 5. History of suicidal attempt. 6. Anxiety. 7. Depression. 8. Bipolar. SURGERIES: 1. Hernia removed. 2. [place] tooth extraction. 3. D&C x2. FAMILY HISTORY: Anxiety, depression, bipolar, breast cancer, cervical cancer, uterine cancer, alcoholism. SOCIAL HISTORY: The patient is single. The partner is at bedside and supportive. She currently smokes. She denies alcohol and she reports her last use of heroin or methadone in 2018 and has undergone rehabilitation. She has a history of trichomonas, hepatitis C. ALLERGIES: No known drug allergies. CURRENT MEDICATIONS: - Subutex 8 mg twice a day at 0800 and 1900 - omeprazole 20 mg daily - vitamin OBJECTIVE: Temperature 99.6, pulse 111, respirations 18, blood pressure is 130/87. She is alert and oriented times three, in no apparent distress. heart rate is 140 with moderate variability. Positive accelerations, negative decelerations. No pattern of regular contractions. ABDOMEN: Gravid. Cephalic presentation. Estimated weight 7 to 7.5 pounds. STERILE VAGINAL EXAM: 2 cm dilated, 50% effaced, -3 station, posterior with moderate texture. Very scant show with the exam. ASSESSMENT: 1. Intrauterine at 39 weeks. 2. heart rate category 1. 3. Term . PLAN: Per consultation with Dr. Don Swift, did admit patient to labor and delivery. Routine laboratories, including a urine toxicology, saline lock. Regular diet at this time. Out of bed ad fernando. Will start misoprostol 50 mcg orally for cervical ripening. I did review risks, benefits and alternatives. The patient and her partner have had their questions answered. She has been verbally consented for emergency surgery and blood products. I do anticipate cervical ripening. Will likely start intravenous (IV) Pitocin. She does desire an epidural in active labor and will consider assist rupture of membranes and I anticipate spontaneous vaginal delivery following that. MTDD
[2020-07-16] MEDS ORDERED: LR 1,000 ML IV SCH (18:15)
[2020-07-16] MEDS ORDERED: LACTATED RINGER'S 1000 ML IV ONE (18:15)
[2020-07-16] MEDS: OXYTOCIN DRIP 30 UNITS in IV 1 EA IV SCH ×2 (18:53→20:29)
[2020-07-16] MEDS: BUPRENORPHINE HCL 8MG SUBINGUAL TABLET SL SCH (19:00)
[2020-07-16] MEDS ORDERED: FENTANYL 2MCG/ML ROPIVACAINE 0.2% IN 0.9% NACL 100ML IVBAG As Ordered ONE ×2 (19:12→19:15)
[2020-07-16] MEDS ORDERED: ePHEDrine SULFATE 25 MG/5 ML(5MG/ML) SYRINGE As Ordered ONE (19:19)
[2020-07-16] MEDS: ePHEDrine SULFATE 25 MG/5 ML(5MG/ML) SYRINGE IV PRN ×2 (20:03→20:07)
[2020-07-16] MEDS ORDERED: NALOXONE INJ 0.4MG/1ML VIAL (J2310 PER 1MG) IV PRN (20:30)
[2020-07-16] MEDS ORDERED: LACTATED RINGER'S 1000 ML IV PRN (20:30)
[2020-07-16] MEDS ORDERED: diphenhydrAMINE 50MG/ML VIAL (J1200) IV PRN (20:30)
[2020-07-16] MEDS ORDERED: REFRIGERATOR IV KEYS XX PRN (20:30)
[2020-07-16] MEDS ORDERED: EPIDURAL COMMENT XX SCH (20:30)
[2020-07-16] MEDS ORDERED: EPIDURAL/PCA KEYS XX PRN (20:30)
[2020-07-16] MEDS ORDERED: ONDANSETRON 4MG/2ML VIAL IV PRN (20:30)
[2020-07-16] MEDS ORDERED: FENTANYL/ROPIVACAINE/NACL BAG 100 ML EPIDURAL SCH (20:30)
[2020-07-16] MEDS ORDERED: IBUPROFEN 800 MG TAB PO ONE (23:30)
[2020-07-16] MEDS ORDERED: ACETAMINOPHEN 500 MG TAB PO ONE (23:30)
[2020-07-16] MEDS ORDERED: LIDOCAINE 1% MDV 20ML VIAL INFIL ONE (23:45)
[2020-07-16] MEDS ORDERED: ACETAMINOPHEN TAB 650MG DOSE (2X325MG) PO PRN (23:45)
[2020-07-16] MEDS ORDERED: METHYLERGONOVINE MALEATE 0.2 MG TAB PO PRN (23:45)
[2020-07-16] MEDS ORDERED: OXYTOCIN DRIP 30 UNITS in IV 1 EA IV SCH (23:45)
[2020-07-16] MEDS ORDERED: RHOGAM 300 MCG (1500 IU) INJ (J2790) IM SCH (23:45)
[2020-07-16] MEDS ORDERED: DOCUSATE SODIUM 100MG CAPSULE PO PRN (23:45)
[2020-07-16] MEDS ORDERED: IBUPROFEN 800 MG TAB PO PRN (23:45)
[2020-07-16] MEDS ORDERED: MEASLES,MUMPS,RUBELLA VACCINE INJ (MMR-II) (90707) SC SCH (23:45)
[2020-07-16] MEDS ORDERED: BENZOCAINE 20% HEMORRHOIDAL OINTMENT 28GM TUBE TOP PRN (23:45)
[2020-07-17 00:12] VITALS: BP 150/65
[2020-07-17] MEDS ORDERED: GENTAMICIN IV ONE (00:30)
[2020-07-17] MEDS ORDERED: AMPICILLIN 2 GM VIAL (J0290 PER 500MG) As Ordered ONE (00:30)
[2020-07-17] MEDS ORDERED: D5W IV ONE (00:30)
[2020-07-17] MEDS: AMPICILLIN SOD 2 GM in D5W MINI-BAG PLUS 100 ML IV SCH ×4 (00:40→18:18)
[2020-07-17 00:44] VITALS: BP 124/57
[2020-07-17 01:43] VITALS: BP 115/59
[2020-07-17] MEDS: ACETAMINOPHEN 500 MG TAB PO PRN (05:47)
[2020-07-17 06:33] VITALS: BP 118/62
[2020-07-17] MEDS: BUPRENORPHINE HCL 8MG SUBINGUAL TABLET SL SCH ×3 (06:49→18:20)
--- NOTE | 2020-07-17 07:39 | DN ---
DELIVERY NOTE DATE OF DELIVERY: 07/16/2020 TIME OF : 2310 GENDER: Male APGARS: 8 and 9 LACERATIONS: Left labial. ANESTHESIA: Epidural. ESTIMATED BLOOD LOSS: 400 mL. COUNTS: Correct and verified. DESCRIPTION OF DELIVERY: Mabel is a 24-year-old 5, para 2-0-3-2 now. She was admitted to labor and delivery for social induction. She had one dose of misoprostol and IV Pitocin and labor ensued. She used an epidural for her labor coping. She reached complete dilation at 1100. At 2300 she pushed to a normal spontaneous vaginal delivery at 2310 occiput anterior (OA) position with restitution to left occiput transverse (LOT) position. There was no nuchal cord. Shoulders delivered with gentle downward traction and corpus immediately followed. 's mouth and nares were bulb suctioned. Placed on maternal abdomen crying and active. Cord was clamped x2 and cut by myself. Spontaneous expulsion of an intact placenta with a three-vessel cord was at 2317. Uterine hemostasis achieved with IV Pitocin rapid infusion and uterine fundal massage. Estimated blood loss 400 mL. Perineum and vagina inspected. Noted to have a left labial laceration. The laceration was infiltrated with 1% Lidocaine and repaired with 3-0 Vicryl Rapide in the usual fashion. [place] male weighed 3480 (7 pounds 11 ounces). 8 and 9. Mom is going to breastfeed. The family have named him Jacques. Of note, there was onset of tachycardia at approximately 2229 of about 180, returned to 160, maternal temperature of 103.0. Also noted a dry nonproductive cough and the patient was shivering and having chills through the second stage of labor. Will treat for chorio presumptively with ampicillin and gentamicin. Also ordered a rapid COVID-19 testing. Upon return of the COVID test, further plan of care will be made. At the close of delivery lap counts, needle counts, and instrument counts were correct and verified.
[2020-07-17] MEDS: OMEPRAZOLE 20 MG CAP PO SCH (08:56)
[2020-07-17] MEDS: PRENATAL VITAMINS CHEWABLE TABLET PO SCH (08:56)
[2020-07-17 18:00] VITALS: BP 111/72
[2020-07-17] MEDS: IBUPROFEN 600MG TAB PO PRN (18:18)
[2020-07-17 22:00] VITALS: BP 116/59
[2020-07-18] MEDS: ACETAMINOPHEN 500 MG TAB PO PRN (01:17)
[2020-07-18] MEDS ORDERED: GENTAMICIN IV SCH (02:00)
[2020-07-18] MEDS ORDERED: D5W IV SCH (02:00)
[2020-07-18] MEDS: IBUPROFEN 600MG TAB PO PRN (03:16)
[2020-07-18 03:24] VITALS: BP 104/55
[2020-07-18] MEDS ORDERED: BUPRENORPHINE HCL 8MG SUBINGUAL TABLET SL SCH (05:00)
[2020-07-18 05:38] VITALS: BP 104/58
--- NOTE | 2020-07-18 07:53 | IPNPDOC ---
Progress Note Date of Service: Jul 18, 2020 Day#: 2 Progress Note SUBJECT: Status post . , Guided by intrauterine amniotic infection. She is status post antibiotic therapy, and she has not had a fever for over 24 hours. She has been ambulating, voiding spontaneously without issue and tolerating regular diet. Lochia decreasing/minimal. Pain is well-controlled. Denies headache, visual changes, right upper quadrant pain, shortness breath or chest pain. OBJECTIVE: VITAL SIGNS: Within normal limits, afebrile. Alert and oriented times three. Abdomen: Fundus firm at U-2. Soft, NTTP. ASSESSMENT: Status post uncomplicated spontaneous vaginal delivery. Vitals within normal limits, afebrile, hemodynamically stable with no evidence of infection. PLAN: Discharge to home today. Tylenol and Motrin for pain. Routine instructions/precautions reviewed. Routine PP visit in 6 weeks in clinic. VS, I&O, 24H, Fishbone Vital Signs/I&O Vital Signs Date Time Temp Pulse Resp B/P (MAP) Pulse Ox O2 Delivery O2 Flow Rate FiO2 07/18/20 05:38 98.0 89 16 104/58 (73) 98 Room Air HARINI GARCIA DO Jul 18, 2020 07:53
[2020-07-18] MEDS: PRENATAL VITAMINS CHEWABLE TABLET PO SCH (09:21)
[2020-07-18] MEDS: OMEPRAZOLE 20 MG CAP PO SCH (09:21)
[2020-07-18 10:00] VITALS: BP 133/68
[2020-07-18 14:00] VITALS: BP 131/78
== END 2020-07-18 18:30 | disposition home or self-care (01) | DRG 560 ==
LOC: M LDI 11:58 → M OBS 07-17 01:29
PROVIDERS: ADMIT Advanced Practice Midwife; ATTEND Advanced Practice Midwife
PROC: 10E0XZZ Delivery of Products of Conception, External Approach (ICD-10-PCS; principal; 2020-07-16)
PROC: 3E0P7GC Introduction of Other Therapeutic Substance into Female Reproductive, Via Natural or Artificial Opening (ICD-10-PCS; 2020-07-16)
PROC: 0HQ9XZZ Repair Perineum Skin, External Approach (ICD-10-PCS; 2020-07-16)
DX: O70.0 First degree perineal laceration during delivery (principal); O41.1230 Chorioamnionitis, third trimester, not applicable or unspecified; Z3A.39 39 weeks gestation of pregnancy; Z37.0 Single live birth

== ENCOUNTER → 2020-12-17 | Outpatient (REF) | payer OTHER ==
[~2020-12-17] MED LIST changes: +BUPR8SUB SL; +GABA-283 PO; -GABA-845 PO; +OMEP-312 PO; +PRENTAB9 PO
[2020-12-17 16:17] LABS: BASO # 0.1 10^3/uL (0.0-0.2); BASO % 0.7 % (0.0-1.0); EOS # 0.2 10^3/uL (0.0-0.5); EOS % 2.5 % (0.0-3.0); HEMATOCRIT 42.3 % (36.0-47.0); HEMOGLOBIN 14.1 g/dl (12.0-15.5); LYMPH # 1.5 10^3/uL (1.5-5.0); LYMPH % 22.4 % (24.0-44.0); MEAN CORPUSCULAR HGB CONC 33.3 g/dl (32.0-36.5); MEAN CORPUSCULAR VOLUME 83.9 fl (80.0-96.0); MONO # 0.5 10^3/uL (0.0-0.8); MONO % 7.4 % (2.0-8.0); NEUTROPHILS # 4.5 10^3/uL (1.5-8.5); NEUTROPHILS % 66.7 % (36.0-66.0); PLATELET COUNT, AUTOMATED 290 10^3/uL (150-450); RED BLOOD COUNT 5.04 10^6/uL (4.00-5.40); WHITE BLOOD COUNT 6.8 10^3/uL (4.0-10.0)
[2020-12-17 16:26] LABS: ALBUMIN 4.1 GM/DL (3.2-5.2); ALT/SGPT 18 U/L (12-78); BILIRUBIN,TOTAL 0.5 MG/DL (0.2-1.0); BLOOD UREA NITROGEN 11 MG/DL (7-18); CALCIUM LEVEL 9.2 MG/DL (8.5-10.1); CARBON DIOXIDE LEVEL 26 MEQ/L (21-32); CHLORIDE LEVEL 109 MEQ/L (98-107); CREATININE FOR GFR 0.57 MG/DL (0.55-1.30); FREE T4 0.96 NG/DL (0.76-1.46); GLOMERULAR FILTRATION RATE > 60.0 (>60); GLUCOSE, FASTING 93 MG/DL (70-100); POTASSIUM SERUM 4.1 MEQ/L (3.5-5.1); SODIUM LEVEL 143 MEQ/L (136-145); THYROID STIMULATING HORMONE 0.575 uIU/ML (0.358-3.740); TOTAL PROTEIN 6.8 GM/DL (6.4-8.2)
== END ==
LOC: M SFHCCLAY 09:47
PROVIDERS: ATTEND Nurse Practitioner Family
DX: B18.2 Chronic viral hepatitis C (principal); R10.11 Right upper quadrant pain; F32.9 Major depressive disorder, single episode, unspecified

== ENCOUNTER → 2021-02-04 | Outpatient (REF) | payer OTHER ==
[~2021-02-04] MED LIST changes: -OLAN10TA2 PO; +OLAN1TAB20 PO
== END ==
LOC: M SFHCWAGY 13:14
PROVIDERS: ATTEND Advanced Practice Midwife
DX: Z12.4 Encounter for screening for malignant neoplasm of cervix (principal)

== ENCOUNTER → 2021-02-20 | Outpatient (CLI) | payer OTHER ==
--- NOTE | 2021-02-20 09:50 | REP ---
INDICATION: R10.11 RUQ PAIN COMPARISON: None. TECHNIQUE: Real time domingo scale ultrasound examination using curved array transducer. FINDINGS: Liver and pancreas are normal in contour, size, and echogenicity without focal hepatic or pancreatic lesions identified. The gallbladder demonstrates mobile gallstones without wall thickening, or pericholecystic fluid. No biliary ductal dilatation is appreciated and the common bile duct measures 3.2 mm diameter. Right kidney is normal in reniform shape without hydronephrosis and measures 10.4 x 3.9 x 3.9 cm. No ascites in the visualized right upper quadrant. IMPRESSION: 1. Cholelithiasis. <Electronically signed by Gerald Camarillo > 02/20/21 0946
== END ==
LOC: M WHC 08:42
PROVIDERS: ATTEND Nurse Practitioner Family
DX: K80.20 Calculus of gallbladder without cholecystitis without obstruction (principal); R10.11 Right upper quadrant pain

== ENCOUNTER → 2021-03-03 | Outpatient (CLI) | payer OTHER ==
--- NOTE | 2021-03-03 12:11 | REP ---
INDICATION: S69.92XA, INJURY OF LEFT MIDDLE FINGER COMPARISON: None. TECHNIQUE: Four views left 3rd digit. FINDINGS: There is no evidence of acute fracture, dislocation, or intrinsic bone disease. IMPRESSION: No fracture or dislocation. <Electronically signed by Thomas Pulido > 03/03/21 3322
== END ==
LOC: M CLY 11:11
PROVIDERS: ATTEND Nurse Practitioner Family
DX: S69.92XA Unspecified injury of left wrist, hand and finger(s), initial encounter (principal); X58.XXXA Exposure to other specified factors, initial encounter; Y92.9 Unspecified place or not applicable

== ENCOUNTER → 2021-04-22 | Outpatient (REF) | payer OTHER ==
[~2021-04-22] MED LIST changes: -CYMB60CA3 PO; +CYMB60CA4 PO
[2021-04-22 12:20] LABS: FOLATE 13.2 NG/ML; FREE T4 1.08 NG/DL (0.76-1.46); FREE THYROXINE INDEX 3.1 % (1.3-4.8); RHEUMATOID FACTOR QUANT < 10.0 IU/ML (<15.0); T UPTAKE 32 % (30-39); THYROXINE (T4) 9.8 UG/DL (4.5-12.0); VITAMIN B12 LEVEL 568 PG/ML
[2021-04-22 13:43] LABS: HEMOGLOBIN A1c 5.1 %
[2021-04-24 12:55] LABS: ALBUMIN 4.67 GM/DL (3.29-5.55); ALBUMIN % 66.7 % (55.8-66.1); ALPHA-1-GLOBULIN % 5.7 % (2.9-4.9); ALPHA-2-GLOBULINS 0.78 GM/DL (0.42-0.99); ALPHA-2-GLOBULINS % 11.2 % (7.1-11.8); BETA-1-GLOBULINS 0.47 GM/DL (0.28-0.60); BETA-1-GLOBULINS % 6.7 % (4.7-7.2); BETA-2-GLOBULINS 0.28 GM/DL (0.19-0.55); GAMMA GLOBULIN % 5.7 % (11.1-18.8)
== END ==
LOC: M LABDRAWC 11:19
PROVIDERS: ATTEND Psychiatry & Neurology Neurology
DX: G25.81 Restless legs syndrome (principal); G62.9 Polyneuropathy, unspecified

== ENCOUNTER → 2021-06-01 | Outpatient (CLI) | payer OTHER ==
[~2021-06-01] MED LIST changes: +ABIL1TAB13 PO; +DEPO150I IM; +LAMI1TAB7 PO; +ROPI0.253 PO
== END ==
LOC: M LABSMTC 10:42
PROVIDERS: ATTEND Anesthesiology
DX: Z01.812 Encounter for preprocedural laboratory examination (principal); Z20.822 Contact with and (suspected) exposure to COVID-19

== ENCOUNTER 2021-06-05 07:21 | Day surgery (SDC) | payer OTHER ==
[~2021-06-05] VITALS: Ht 172.7 cm; Wt 66.2 kg
[~2021-06-05 07:21] MED LIST changes: +LIDOCAINE 1% MDV 20ML VIAL SQ PRN; +LIDOCAINE 2% 100MG/5ML SDV (FOR ANES.) As Ordered ONE; +LR 1,000 ML IV ONE; +MIDAZOLAM INJ 2MG/2ML VIAL (J2250 PER 1MG) As Ordered ONE; +ROCURONIUM BROMIDE 50 MG/5 ML VIAL As Ordered ONE; +fentaNYL 100 MCG/2 ML INJECTION (J3010) As Ordered ONE; +propofoL 200 MG/20 ML VIAL As Ordered ONE
--- OUTSIDE RECORDS SUMMARY | 2021-06-05 07:26 | CCD ---
Author Author [facility] Organization [facility] [employer] [facility] Address Unknown Phone Unavailable Care Team Providers Care Wet Machine Tender Name Role Phone Kevin Paul Unavailable PROBLEMS Type Condition ICD9-CM Code [id number] Code Onset Dates Condition S tatus W/U Status Risk SNOMED Code Notes Problem Depressive disorder F32.9 Active confirmed 85442078 Problem Chronic hepatitis C B18.2 Active confirmed 226108565 Problem Anemia affecting in third trimester O99. 013 Active confirmed 36479651 Problem Chronic viral hepatitis C B18.2 Active confirmed 802875623 Problem History of drug abuse in remission Z87.898 Activ e confirmed 8143353151131 Problem Restless leg syndrome G25.81 Active confirmed 07947312 Problem Slow transit constipation K59.01 Active confirmed 95498657 Problem Other acne L70.8 Active confirmed 60986393 Problem Supervision of other normal Z34.80 Ac tive confirm 769881087 Problem Drug abuse in remission F19.11 Active confirmed 3133499972595 ALLERGIES No Known Allergies ENCOUNTERS from 1993 to 2021-05-26 Encounter Location Date Provider Diagnosis [facility] [address] [facility] [phone] [place] [address] 29 Apr, 2021 Kevin Paul Consultation for fem markie sterilization Z30.09 IMMUNIZATIONS Vaccine Route Administration Date Status TDAP 0.5mL (Boostrix) IM Intramuscular May 14, 2020 Administe red TDAP IM Intramuscular August 26, 2015 Administered Influenza 6mo & up Fluzone IM Intramuscular Apr 23, 2020 Admi nistered Influenza 6mo & up Fluzone IM Intramuscular Apr 18, 2017 Admi nistered Influenza 6mo & up Fluzone Unknown August 31, 2016 Other s Influenza 6mo & up Fluzone Unknown Mar 27, 2014 Admin istered SOCIAL HISTORY Tobacco Use: Social History Observation Description Date Details (start date - stop date) Current Smoker Sex Assigned At : Social History Observation Description Sex Assigned At Unknown Audit Question Answer Notes Total Score: 0 Interpretation: Alcohol Education Drug and Alcohol Question Answer Notes Total Score: 0 Interpretation: No problems reported Alcohol Screening: Question Answer Notes Did you have a drink containing alcohol in the past year? No Points 0 Interpretation Negative Tobacco Use: Question Answer Notes Are you a: current smoker How many cigarettes a day do you smoke? 31 or more 20 pack year Are you interested in quitting? Thinking about quitting REASON FOR REFERRAL No Information VITAL SIGNS Weight 147.2 lbs Apr, Weight-kg 66.77 kg Apr, Height 59 in Apr, BMI 29.73 kg/m2 Apr, Blood pressure systolic 110 mm Hg Apr, Blood pressure diastolic 70 mm Hg Apr, MEDICATIONS Medication SIG (Take, Route, Frequency, Duration) Notes Start Da te End Date Status Depo-Provera Active Cymbalta 60 MG 1 capsule Orally bid Not-Taking LaMICtal 25 MG 2 tabs Orally once a day Active Benzoyl Peroxide-Erythromycin 5-3 % 1 application to a ffected area Externally Twice a day for 30 day(s) Mar, Not-Ta ashly KlonoPIN 0.5 MG 1 tablet Orally Twice a day Not-Taking SEROquel 25 MG 1 tablet Orally Once a day Not-Taking Naltrexone HCl 50 MG 1 tablet Orally Once a day Not-Taking Suboxone 4-1 MG 1 film under the tongue and allow to dissolve Sublingual Once a day Not-Taking Buprenorphine HCl 8 MG 1 tablet under the tongue an d allow to dissolve Sublingual BID Not-Taking Cymbalta 60 MG 1 capsule Orally once a day Not-Taking Buprenorphine HCl 8 MG 1 tablet under the tongue an d allow to dissolve every 8 hrs Not-Taking Gabapentin 300 MG 1 capsule Orally Three times a day Not-Taking Zoloft 25 MG 1 tablet Orally Once a day for 21 day(s) Not-Taking Abilify 5 MG 1 tablet Orally Once a day Active Vitamin 27-0.8 MG 1 tablet Orally Once a day Not-Taking Omeprazole 20 MG 1 capsule 30 minutes before morning meal Orally Once a day for 30 day(s) Not-Taking busPIRone HCl 10 MG 8mg in the am and 8mg in pm Orally twice a day Not-Taking Zepatier 50-100 MG 1 tablet Orally Once a day Dec, Not-Taking Senokot S 8.6-50 MG 2 tablet in the evening as n eeded Orally Once a day for 30 day(s) Not-Taking Mirena (52 MG) 20 MCG/24HR Intrauterine Not-Taking PROCEDURES No Information RESULTS No Results REASON FOR VISIT PRE OP SURG 06/05/21 MEDICAL (GENERAL) HISTORY Type Description Date Medical History Meth/Heroin addiction IV drug abuse: sob er for years Medical History Anxiety Medical History Depression Medical History Bi-Polar Medical History Hepatitis C/ vaccinated for hepatitis B surface antibody positive hepatitis A IgG positive genotype 3 in 2014 HCV RNA less than 50k, repeat Genotype 1B 2017 2 occasions Medical History Hep C: treated to cure 2016 Surgical History R hernia removed Surgical History teeth removed Surgical History D&C x2 Hospitalization History admitted malnutrition Hospitalization History admitted for attempted suicide Hospitalization History childbirth Goals Section No Information Health Concerns No Information MEDICAL EQUIPMENT No Information MENTAL STATUS No Information FUNCTIONAL STATUS No Information ASSESSMENTS Encounter Date Diagnosis Assessment Notes Treatment Notes Treatm ent Clinical Notes Apr, Consultation for female sterilization (ICD-10 - Z30.09) She was counseled on the risks, benefits, alternatives, and indications of permanent sterilization via laparoscopic bilateral salpingectomy. She understands the risk of regret and remains insistent on proceeding with permanent sterilization. She was offered long acting reversible contraceptives and has declined. She understands the risk of permanent sterilization failure (less than 1%) and her elevated risk of ectopic should she become after this procedure. The patient understands the surgical risks to include: damage to surrounding organs (necessitating additional surgical pr ocedures), hemorrhage (possibly requiring a blood transfusion), infection (necessitating antibiotics and possible additional hospitalization), and poor surgical wound healing and need for additional surgical procedures. She also understands that surgery and anesthesia carry the risk of heart attack, stroke, and/or . PLAN OF TREATMENT Treatment Notes Assessment Notes Clinical Notes Consultation for female sterilization Kye garrido was counseled on the risks, benefits, alternatives, and indications of permanent sterilization via laparoscopic bilateral salpingectomy. She understands the risk of regret and remains insistent on proceeding with permanent sterilization. She was offered long acting reversible contraceptives and has declined. She understands the risk of permanent sterilization failure (less than 1%) and her elevated risk of ectopic should she become after this procedure. The patient understands the surgical risks to include: damage to surrounding organs (necessitating additional surgical procedures), hemorrhage (possibly requiring a blood transfusion), infection (necessitating antibiotics and possible additional hospitalization), and poor surgical wound healing and need for additional jose gical procedures. She also understands that surgery and anesthesia carry the risk of heart attack, stroke, and/or . Next Appt Details 06/05/22 Reason: Provider Name:Laura Sorto, 2020-06 10:00:00 AM, [address] [place] [address], , [place], [address], Provider Name:Kevin Paul, 12:00:00 AM, [address] [place] [address], , [place], [address], Provider Name:Kevin Paul, 01:20:00 PM, [address] [facility], , [place], [address], Insurance Providers Payer Name Payer Address Payer Phone Insured Name Patient Relati onship to Insured Coverage Start Date Coverage End Date [facility] [address] [facility] [address] ANNIE NUNEZ self
--- OUTSIDE RECORDS SUMMARY | 2021-06-05 07:26 | CCD ---
Author Author Mabel Davis Organization Unknown Address [address] [address] Phone Care Team Providers Care Field Crop I Farmworker Name Role Phone Davis, Lisa PCP Allergies, Adverse Reactions, Alerts Concept Allergy Name Reaction Severity Onset Date Status Documentation Date Phone Number Npid Taxonomy Code Taxonomy Desc Author Last Name Author Fi rst Name Concept Type [id number] nkda Active 02/17/2018 [id number] Psychiatric/Mental Health Esa Wills RXNORM Problem List Concept Problem Description Status Start Date Created Date Resolv ed Date Snomed Code F60.3 Borderline Personality Disorder Active 05/15/20 21 F41.9 Unspecified Anxiety Disorder Active 05/15/2021 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, Moderate: Amphetamine-ty pe substance Active 01/25/2018 01/25/2018 F11.20 Opioid Use Disorder, Moderate Active 01/25/2018 8 Medications Rx Norm Medication Route Route Concept Start Date Stop Date Dosage Zach quency Duration Formula Strength Dosage Form Dosage Form Code Dosage Description Medication Id Account Npid Author First Name Author Last Name Taxonomy Code Taxonomy Desc Phone Number [id number] aripiprazole by mouth [id number] 05/14/2021 07/13/2021 once a day 30 2 mg tablet [id number] [place] Gold [id number] Nurse Pr actitioner [phone] [id number] lamotrigine 02/12/2021 07/28/2021 30 100 mg tablet [id number] [id number] Franklin Gold [id number] Nurse Practitioner [phone] Social History Social History Element Description Concept Effective Date Smoking Status Unknown if ever smoked [id number] Immunizations No Data in Section Vital Signs No Data in Section Procedures Date Concept Id Description Targeted Site Concept Targeted Site Concept Type 05/15/2021 66272 Extended Individual Psychotherapy - 45 min CPT Patient has no history of implantable de vices Encounters Encounter Start Date End Date Encounter Type Description Diagnosis Di agnosis Desc Location Author First Name Author Last Name Npid Taxonomy Cod e Taxonomy Desc Phone Number Location Addr1 Location Addr2 Location [facility] Location [facility] Location [facility] [id number] 05/15/2021 05/15/2021 18844 Extended Individual Psych otherapy - 45 min F60.3 Borderline personality disorder Community [facility] Davis Beatrice [phone] [id number] Mental Health [phone] [address] [address] Plan of Treatment No Data in Section Lab Results No Data in Section Instructions No Data in Section Insurance Providers Insurance Id Policy Effective Date Policy Thru Date Company Josh cortez [id number] 2018 [id number]
--- OUTSIDE RECORDS SUMMARY | 2021-06-05 07:26 | CCD | Continuity of Care Document ---
Author Author Mabel GALLARDO M.D. Organization Unknown Address [address] [place] [address] Phone [phone] Care Team Providers Care Financial Auditor Name Role Phone Noreen Ambreen Kristy MOODYP-C AUTM Problems Description No Information Available Social History Type Date Description Comments Sex Unknown Allergies and adverse reactions Description No Information Available Medications Description No Information Available Immunizations Description No Information Available Vital Signs Description No Information Available Results Description No Information Available Procedures Description No Information Available Medical Devices Description No Information Available Encounters Description No Information Available Assessments Description No Information Available Plan of Treatment Future Appointment(s):* 05/13/2021 10:00 am - Ans/VS at [facility] * 05/27/2021 9:30 am - Beatrice Luke P.A.-C. at [facility] * 04/20/2021 9:00 am - Abdulkadir Gallardo M.D. at [facility] * 05/19/2021 1:00 pm - EEG at [facility] Functional Status Description No Information Available Mental Status Description No Information Available Referrals Description No Information Available
--- OUTSIDE RECORDS SUMMARY | 2021-06-05 07:26 | CCD | Continuity of Care Document ---
Author Author Mabel GALLARDO M.D. Organization Unknown Address [address] [place] [address] Phone [phone] Care Team Providers Care Flux Plant Operator Name Role Phone Ambreen Sorto Kristy MOODYP-C AUTM [phone] Problems Description No Information Available Social History Type Date Description Comments Sex Unknown Allergies and adverse reactions Description No Information Available Medications Active Medications SIG Qnty Indications Ordering Provide r Date Alprazolam 0.5mg Tablets 1 tab by mouth half an hour before mri scan. may repeat once if needed. 2tagm Freeman M.D. 04/15/2021 Immunizations Description No Information Available Vital Signs Description No Information Available Results Description No Information Available Procedures Date Code Description Status 04/14/2021 88034 Office/Outpatient New Moderate M DM 45-59 Minutes Completed Medical Devices Description No Information Available Encounters Type Date Location Provider Dx Diagnosis Office Visit 04/14/2021 12:30p Main office - [place] Lori Gallardo M.D. M54.59 Other low back pain R41.3 Other amnesia R20.2 Paresthesia of skin G25.81 Restless legs syndrome Assessments Date Code Description Provider 04/14/2021 M54.59 Other low back pain Lori Gallardo M.D. 04/14/2021 R41.3 Other amnesia Serafin Perez 04/14/2021 R20.2 Paresthesia of skin Lori Gallardo M.D. 04/14/2021 G25.81 Restless legs syndrome Lori Vizcaino M.D. Plan of Treatment Future Appointment(s):* 05/13/2021 10:00 am - Ans/VS at Main office - [place] * 05/27/2021 9:30 am - Beatrice Luke P.A.-C. at [facility] * 04/20/2021 9:00 am - Abdulkadir Gallardo M.D. at [facility] * 05/19/2021 1:00 pm - EEG at [facility] Functional Status Description No Information Available Mental Status Description No Information Available Referrals Description No Information Available
--- OUTSIDE RECORDS SUMMARY | 2021-06-05 07:26 | CCD | Continuity of Care Document ---
Author Mabel Ken M.D. Organization Unknown Address [address] [place] [address] Phone [phone] Care Team Providers Care Infrastructure Consultant Name Role Phone Noreen Ambreen Kristy MOODYP-Neeraj AUTM Problems Description No Information Available Social History Type Date Description Comments Sex Unknown Allergies and adverse reactions Description No Information Available Medications Active Medications SIG Qnty Indications Ordering Provide r Date Ropinirole HCL 0.5mg Tablets 1 po bid 60tabs Abdulkadir Gallardo M.D. 04/20/2021 Alprazolam 0.5mg Tablets 1 tab by mouth half an hour before mri scan. may repeat once if needed. 2tabs Kali Freeman M.D. 04/15/2021 Immunizations Description No Information Available Vital Signs Description No Information Available Results Description No Information Available Procedures Date Code Description Status 04/17/2021 29365 MRI Spine Lumbar W/O Contrast Co mpleted 04/17/2021 90863 MRI Spine Thoracic W/O Contrast Completed 04/17/2021 14386 MRI Brain W/O Contrast Completed 04/14/2021 89481 Office/Outpatient New Moderate M DM 45-59 Minutes Completed Medical Devices Description No Information Available Encounters Type Date Location Provider Dx Diagnosis Office Visit 04/14/2021 12:30p Main office - E[place] Gallardo M.D. M54.59 Other low back pain R41.3 Other amnesia R20.2 Paresthesia of skin G25.81 Restless legs syndrome Assessments Date Code Description Provider 04/17/2021 R41.3 Other amnesia MRI 04/17/2021 R20.2 Paresthesia of skin MRI 04/17/2021 M54.59 Other low back pain MRI 04/14/2021 M54.59 Other low back pain Lori Gallardo M.D. 04/14/2021 R41.3 Other amnesia Serafin Perez 04/14/2021 R20.2 Paresthesia of skin Lori Gallardo M.D. 04/14/2021 G25.81 Restless legs syndrome Lori Vizcaino M.D. Plan of Treatment Future Appointment(s):* 05/13/2021 10:00 am - Ans/VS at [facility] * 05/27/2021 9:30 am - Beatrice Luke P.A.-C. at [facility] * 05/19/2021 1:00 pm - EEG at [facility] Functional Status Description No Information Available Mental Status Description No Information Available Referrals Description No Information Available
--- OUTSIDE RECORDS SUMMARY | 2021-06-05 07:26 | CCD ---
Author Author Mabel Gold Organization Unknown Address [address] [address] Phone Care Team Providers Care Account Support Specialist Name Role Phone Ekta Goldchary PCP Allergies, Adverse Reactions, Alerts Concept Allergy Name Reaction Severity Onset Date Status Documentation Date Phone Number Npid Taxonomy Code Taxonomy Desc Author Last Name Author Fi rst Name Concept Type [id number] nkda Active 02/17/2018 [id number] Psychiatric/Mental Health Esa Wills RXNORM Problem List [...] Name Taxonomy Code Taxonomy Desc Phone Number [id number] bupropion HCl by mouth [id number] 04/03/2021 05/14/2021 every morni ng 150 mg tablet extended release 24 hr [id number] Ariadna Javed [id number] Nurse Practitioner [id number] aripiprazole by mouth [id number] 05/14/2021 07/13/2021 once a day 30 2 mg tablet 30257 [id number] Franklin Gold [id number] Nurse Pr actitioner [id number] lamotrigine 02/12/2021 07/28/2021 30 100 mg tablet 85026 [id number] Franklin Gold [id number] Nurse Practitioner [id number] Social History Social History Element Description Concept Effective Date Smoking Status Unknown if ever smoked [id number] Immunizations No Data in Section Vital Signs No Data in Section Procedures Date Concept Id Description Targeted Site Concept Targeted Site Concept Type 05/14/2021 65853-07 Telemed E/M Lvl 3--New pt CPT 05/14/2021 23756-53 Telemed A/O 30" CPT Patient has no history of implantable de vices Encounters Encounter Start Date End Date Encounter Type Description Diagnosis Di agnosis Desc Location Author First Name Author Last Name Npid Taxonomy Cod e Taxonomy Desc Phone Number Location Addr1 Location Addr2 Location [facility] Location Sta te Location Zip [id number] 05/14/2021 05/14/2021 31391-86 Telemed E/M Lvl 3--New pt F6 0.3 Borderline personality disorder [facility] Alla bell [phone] [id number] Nurse Practitioner [phone] [address] [address] Plan of Treatment No Data in Section Lab Results No Data in Section Instructions No Data in Section Functional Cognitive Status No Data in Section Insurance Providers Insurance Id Policy Effective Date Policy Thru Date Company N dana [id number] [address]
--- OUTSIDE RECORDS SUMMARY | 2021-06-05 07:26 | CCD | Continuity of Care Document ---
Author Author Mabel LUKE P.A.-C. Organization Unknown Address [address] [place] [address] Phone [phone] Care Team Providers Care Sound Person Name Role Phone Ambreen Sorto MARKETING COMMUNICATIONS COORDINATOR-C AUTM Problems Description No Information Available Social History Type Date Description Comments Sex Unknown Allergies and adverse reactions Description No Information Available Medications Active Medications SIG Qnty Indications Ordering Provide r Date Ropinirole HCL 1mg Tablets 1 po bid 60tabs G25.81 Lori Gallardo M.D. 05/27/2021 PT: Evaluate And Treat thoracic and lumbar pain with DDD M54.6 Lori Gallardo M.D. 05/27/2021 Alprazolam 0.5mg Tablets 1 tab by mouth half an hour before mri scan. may repeat once if needed. 2tabs Kali Freeman M.D. 04/15/2021 History Medications Ropinirole HCL 0.5mg Tablets 1 po bid 60tabs Abdulkadir Gallardo M.D. 04/20/2021 - 021 Immunizations Description No Information Available Vital Signs Date Vital Result Comment 05/27/2021 8:30am BP Systolic 124 mmHg BP Diastolic 80 mmHg Heart Rate 88 /min Respiratory Rate 16 /min Results Test Acquired Date Facility Test Result H/L Range Note Laboratory test finding 04/22/2021 [facility] Erythrocyte Sedimentation Rate 5 mm/hr Normal 0-20 Hemoglobin A1c 04/22/2021 [facility] Hemoglobin A1c 5.1 % Normal 1 Estimated Average Glucose 100 mg/dL Normal 60-110 Serum Protein Electrophoresis 04/22/2021 [facility] Albumin % 66.7 % High 55.8-66.1 Tvmvq-8-Lthmpojt % 5.7 % High 2.9-4.9 Qqmmq-4-Diwihevzp % 11.2 % Normal 7.1-11.8 Ysec-5-Vpdrduhly % 6.7 % Normal 4.7-7.2 Vcws-8-Txonczpny % 4.0 % Normal 3.2-6.5 Gamma Globulin % 5.7 % Low 11.1-18.8 Albumin 4.67 GM/DL Normal 3.29-5.55 Gxxzw-1-Rmxifxpjr 0.40 GM/DL Normal 0.17-0.41 Ojwew-3-Jlpyqyivr 0.78 GM/DL Normal 0.42-0.99 Jtkw-3-Emnthejzb 0.47 GM/DL Normal 0.28-0.60 Vblq-9-Sqncgmnob 0.28 GM/DL Normal 0.19-0.55 Gamma Globulins 0.40 GM/DL Low 0.65-1.58 Total Protein 7.0 GM/DL Normal 6.4-8.2 Spep Interpretation SEE COMMENT Normal 2 Spep Pathologist Review REV'D BY Sofia NEWMAN Normal Thyroid Profile 04/22/2021 [facility] T Uptake 32 % Normal 30-39 Thyroxine (T4) 9.8 g/dL Normal 4.5-12.0 Free Thyroxine Index 3.1 % Normal 1.3-4.8 Thyroid Stimulating Hormone 1.170 uIU/ML Normal 0.358-3.740 Laboratory test finding 04/22/2021 [facility] Free T4 1.08 ng/dL Normal 0.76-1.46 Vitamin B12 & Folate 04/22/2021 [facility] Vitamin B12 Level 568 pg/mL Normal 3 Folate 13.2 NG/ML Normal 4 Laboratory test finding 04/22/2021 [facility] Rheumatoid Factor Quant < 10.0 IU/mL Normal <15.0 Lupus Type Anticoagulant Scree 04/22/2021 [facility] PTT Lupus Type Anticoag Screen 0.9 Normal 0-1.2 5 Vitamin E Level 04/22/2021 [facility] Vitamin E(Alpha Tocopherol) 10.0 mg/L Normal 5.9-19.4 6 Vitamin E(Gamma Tocopherol) 2.0 mg/L Normal 0.7-4.9 7 Laboratory test finding 04/22/2021 [facility] Vitamin B1 Level Whole Blood 153.9 nmol/L Normal 66.5-200.0 8 Vitamin B6,Pyridoxal Phosphate 4.8 ug/L Normal 2.0-32.8 9 Antinuclear Antibodies 04/22/2021 [facility] Antinuclear Antibodies Direct Positive Abnormal Negative Anti Double Strand-Dna AB <1 IU/mL Normal 0-9 10 FIRE MANAGEMENT OFFICER Antibodies 1.1 AI High 0.0-0.9 Wilde Antibodies <0.2 AI Normal 0.0-0.9 Sjogren's Anti SS-A <0.2 AI Normal 0.0-0.9 Sjogren's Anti SS-B <0.2 AI Normal 0.0-0.9 Brenda Comment (SEE NOTE) Normal . 11 1 REFERENCE RANGES: <=5.6% NORMAL 5.7-6.4% SUGGESTS IMPAIRED GLUCOSE META BOLISM/PREDIABETIC >= 6.5% ABNORMAL [address] SERUM AND URINE IMMUNOTYPING. 3 VITAMIN B12 NORMAL RANGE NORMAL 247 - 911 PG/ML INDETERMINATE 211 - 246 PG/ML DEFICIENT LESS THAN 211 PG/ML 4 FOLATE NORMAL RANGE NORMAL GREATER THAN 5.4 NG/ML INDETERMINATE 3.4-5.4 NG/ML DEFICIENT LESS THAN 3.4 NG/ML 5 RESULT IS LESS THAN 1.2, NO FURTHER TESTING INDICATED. INTERPRETATION This test is to screen those individuals that may have a circulating lupus anticoagulant. If the LA Screen test is normal, and/or the LA Confirm test is normal, the presence of a Lupus Anticoagulant (LA) is unlikely, but does not completely exclude LA-like activity. If both tests or the LA Confirm test are elevated, the specimen will be reflexed to a hexagonal phase phospholipid test through our reference laboratory for confirmation. A positive hexagonal phase phospholipid is indicative of LA. A negative hexagonal phase phospholipid test may indicate a coagulation factor deficiency or a specific inhibitor. 6 This test was developed and its performance characteristics determined by [employer]. It has not been cleared or approved by the Food and Drug Administration. 7 This test was developed and its performance characteristics determined by [employer]. It has not been cleared or approved by the Food and Drug Administration. Reference intervals for alpha and gamma-tocopherol determined from National Health and Nutrition Examination Survey, 6024-5798. Individuals with alpha-tocopherol levels less than 5.0 mg/L are considered vitamin E deficient. 8 This test was developed and its performance characteristics determined by [employer]. It has not been cleared or approved by the Food and Drug Administration. 9 This test was developed and its performance characteristics determined by [employer]. It has not been cleared or approved by the Food and Drug Administration. 10 Negative <5 Equivocal 5 - 9 Positive >9 11 . Autoantibody Disease Association Condition Frequency -------- --------- Antinuclear Antibody, SLE, mixed connective Direct (BRENDA-D) tissue diseases -------- --------- dsDNA SLE 40 - 60% -------- --------- Chromatin Drug induced SLE 90% SLE 48 - 97% -------- --------- SSA (Ro) SLE 25 - 35% Sjogren's Syndrome 40 - 70% Lupus 100% -------- --------- SSB (La) SLE 10% Sjogren's Syndrome 30% ------- --------- Sm (anti-Wilde) SLE 15 - 30% ------- --------- FIRE MANAGEMENT OFFICER Mixed Connective Tissue Disease 95% (U1 nRNP, SLE 30 - 50% anti-ribonucleoprotein) Polymyositis and/or Dermatomyositis 20% -------- --------- Scl-70 (antiDNA Scleroderma (diffuse) 20 - 35% topoisomerase) Crest 13% -------- --------- Elvia-1 Polymyositis and/or Dermatomyositis 20 - 40% -------- --------- Centromere B Scleroderma - Crest variant 80% Performed at: [address] [id number] Flooring Professional: John Miles MD, Phone: [phone] Performed at: [facility] [address] [id number] Flooring Professional: Fernanda Scales MD, Phone: [phone] Procedures Date Code Description Status 05/27/2021 07138 Office/Outpatient Established Mo d MDM 30-39 Min Completed 05/19/2021 45833 EEG Recording Awake & Asleep Com pleted 05/19/2021 91915 EEG Recording Awake & Asleep Com pleted 04/20/2021 21892 Nerve Conduction 13+ Studies Com pleted 04/20/2021 16321 Needle Electromyography Complete , Five Or More Muscles Studied Completed 04/20/2021 33381 Needle Electromyography Complete , Five Or More Muscles Studied Completed 04/17/2021 70215 MRI Spine Lumbar W/O Contrast Co mpleted 04/17/2021 60296 MRI Spine Lumbar W/O Contrast Co mpleted 04/17/2021 15760 MRI Spine Thoracic W/O Contrast Completed 04/17/2021 26985 MRI Spine Thoracic W/O Contrast Completed 04/17/2021 89922 MRI Brain W/O Contrast Completed 04/17/2021 37040 MRI Brain W/O Contrast Completed 04/14/2021 00102 Office/Outpatient New Moderate M DM 45-59 Minutes Completed Medical Devices Description No Information Available Encounters Type Date Location Provider Dx Diagnosis Office Visit 05/27/2021 9:30a Main office - [place] Beatrice arias P.A.-C. R41.840 Attention and concentration deficit M54.59 Other low back pain M54.6 Pain in thoracic spine R20.2 Paresthesia of skin G25.81 Restless legs syndrome R79.9 Abnormal finding of blood ch emistry, unspecified Office Visit 04/14/2021 12:30p Main office - [place] Lori Gallardo M.D. M54.59 Other low back pain R41.3 Other amnesia R20.2 Paresthesia of skin G25.81 Restless legs syndrome Assessments Date Code Description Provider 05/27/2021 R41.840 Attention and concentration defi cit William MorelosA.-C. 05/27/2021 M54.59 Other low back pain Beata Malagon.A.-C. 05/27/2021 M54.6 Pain in thoracic spine William ReyesA.-CThelma 05/27/2021 R20.2 Paresthesia of skin Beata Malagon.A.-C. 05/27/2021 G25.81 Restless legs syndrome William ReyesA.-C. 05/27/2021 R79.9 Abnormal finding of blood chemis try, unspecified Beata Morelos.A.-C. 05/19/2021 R41.3 Other amnesia Lori Paulina, M. D. 05/19/2021 R41.3 Other amnesia EEG 04/20/2021 M54.59 Other low back pain Abdulkadir Paulina, M.D. 04/20/2021 M54.16 Radiculopathy, lumbar region Abd ul Paulina, M.D. 04/20/2021 R20.2 Paresthesia of skin Abdulkadir Paulina, M.D. 04/20/2021 G60.9 Hereditary and idiopathic neurop athy, unspecified Abdulkadir Paulina, M.D. 04/17/2021 R41.3 Other amnesia Abdulkadir Paulina, M.D . 04/17/2021 R41.3 Other amnesia MRI 04/17/2021 R20.2 Paresthesia of skin Abdulkadir Paulina, M.D. 04/17/2021 R20.2 Paresthesia of skin MRI 04/17/2021 M54.59 Other low back pain Abdulkadir Paulina, M.D. 04/17/2021 M54.59 Other low back pain MRI 04/14/2021 M54.59 Other low back pain Lori Paulina , M.D. 04/14/2021 R41.3 Other amnesia Lori Paulina, M. D. 04/14/2021 R20.2 Paresthesia of skin Lori Paulina , M.D. 04/14/2021 G25.81 Restless legs syndrome Lori [facility] Plan of Treatment Future Appointment(s):* 08/25/2021 11:15 am - Beatrice Luke PThelmaA.-CThelma at [facility] * 06/24/2021 11:45 am - Ans/VS at [facility] 05/27/2021 - Deniz Morelos.-C.* R41.840 Attention and concentration deficit* Comments:* This may be affected by previous head injuries and mood issues. Monitor. * M54.59 Other low back pain* Comments:* PT order given. * M54.6 Pain in thoracic spine* New Medication:* PT: Evaluate And Treat - thoracic and lumbar pain with DDD * Comments:* PT order given. * R20.2 Paresthesia of skin* Comments:* EMG of the lower extremities was normal. * G25.81 Restless legs syndrome* New Medication:* Ropinirole HCL 1 mg - 1 po bid * Comments:* Increase Requip to 1 mg bid. Add magnesium oxide 400 mg daily. * R79.9 Abnormal finding of blood chemistry, unspecified* Comments:* Refer to [facility] rheumatology for abnormal BRENDA and to [facility] hematology for abnormal SPEP. * Follow up:* 3 months Functional Status Description No Information Available Mental Status Description No Information Available Referrals Refer to Reason for Referral Status Appt Date [facility] Rheumatology BACK PAIN AND ABNORMAL BRENDA - FAXING T O PCP FOR [facility] AUTH Created Rheumatology [address] [place] [address] [phone] [facility] ABNORMAL SPEP - FAXING TO PCP FOR [facility] AUTH Created [address] [place] [address] [phone] Abdulkadir Gallardo M.D. Created [facility] [address] [place] [address] [phone] Abdulkadir Gallardo M.D. Created [facility] [address] [place] [address] [phone] Abdulkadir Gallardo M.D. Created [facility] [address] [place] [address] [phone]
--- OUTSIDE RECORDS SUMMARY | 2021-06-05 07:26 | CCD | Continuity of Care Document ---
Author Author Mabel MAHAN Organization Unknown Address [address] [place] [address] Phone [phone] Care Team Providers Care Java Project Manager Name Role Phone Ambreen Sorto INVENTORY CONTROLLER-C AUTM Problems Description No Information Available Social [...] Available Procedures Date Code Description Status 04/14/2021 87382 Office/Outpatient New Moderate M DM 45-59 Minutes Completed Medical Devices Description No Information Available Encounters Type Date Location Provider Dx Diagnosis Office Visit 04/14/2021 12:30p Main office - [place] Lori Gallardo M.D. M54.59 Other low back [...] am - Ans/VS at Main office - [place] * 05/27/2021 9:30 am - Beatrice Luke P.A.-C. at [facility] * 04/20/2021 9:00 am - Abdulkadir Gallardo M.D. at [facility] * 05/19/2021 1:00 pm - EEG at [facility] Functional Status Description No Information Available Mental Status Description No Information Available Referrals Description No Information Available
--- OUTSIDE RECORDS SUMMARY | 2021-06-05 07:26 | CCD | Continuity of Care Document ---
Author Author Mabel SOLANO Organization Unknown Address [address] [place] [address] Phone [phone] Care Team Providers Care Offset Printer Name Role Phone Ambreen Sorto IMPLEMENTATION MANAGER-C AUTM [phone] Problems Description No Information Available Social History Type Date Description Comments Sex Unknown Allergies and adverse reactions Description No Information Available Medications Active Medications SIG Qnty Indications Ordering Provide r Date Ropinirole HCL 0.5mg Tablets 1 po bid 60tagm Gallardo M.D. 04/20/2021 Alprazolam 0.5mg Tablets 1 tab by mouth half an hour before mri scan. may repeat once if needed. 2tagm Freeman M.D. 04/15/2021 Immunizations Description No Information Available Vital Signs Description No Information Available Results Test Acquired Date Facility Test Result H/L Range Note Laboratory test finding 04/22/2021 [facility] Erythrocyte Sedimentation Rate 5 mm/hr Normal 0-20 Hemoglobin A1c 04/22/2021 [facility] Hemoglobin A1c 5.1 % Normal 1 Estimated Average Glucose 100 mg/dL Normal 60-110 Serum Protein Electrophoresis 04/22/2021 [facility] Albumin % 66.7 % High 55.8-66.1 Otepw-7-Dltueavt % 5.7 % High 2.9-4.9 Kzmft-7-Uzkznnrxb % 11.2 % Normal 7.1-11.8 Kidr-8-Mksvipmfu % 6.7 % Normal 4.7-7.2 Pkjh-6-Weaodsmck % 4.0 % Normal 3.2-6.5 Gamma Globulin % 5.7 % Low 11.1-18.8 Albumin 4.67 GM/DL Normal 3.29-5.55 Igqsb-9-Sqvgcyxsc 0.40 GM/DL Normal 0.17-0.41 Bcano-6-Yvtltmije 0.78 GM/DL Normal 0.42-0.99 Mdyf-4-Dwbztousf 0.47 GM/DL Normal 0.28-0.60 Yojd-6-Yamgwtaoc 0.28 GM/DL Normal 0.19-0.55 Gamma Globulins 0.40 GM/DL Low 0.65-1.58 Total Protein 7.0 GM/DL Normal 6.4-8.2 Spep Interpretation SEE COMMENT Normal 2 Spep Pathologist Review REV'D BY Sofia NEWMAN Normal Thyroid Profile 04/22/2021 [facility] T Uptake 32 % Normal 30-39 Thyroxine (T4) 9.8 g/dL Normal 4.5-12.0 Free Thyroxine Index 3.1 % Normal 1.3-4.8 Thyroid Stimulating Hormone 1.170 uIU/ML Normal 0.358-3.740 Laboratory test finding 04/22/2021 [facility] Free T4 1.08 ng/dL Normal 0.76-1.46 Vitamin B12 & Folate 04/22/2021 [facility] Vitamin B12 Level 568 pg/mL Normal 3 Folate 13.2 NG/ML Normal 4 Laboratory test finding 04/22/2021 [facility] Rheumatoid Factor Quant < 10.0 IU/mL Normal <15.0 Lupus Type Anticoagulant Scree 04/22/2021 [facility] PTT Lupus Type Anticoag Screen 0.9 Normal 0-1.2 5 Vitamin E Level 04/22/2021 [facility] Vitamin E(Alpha Tocopherol) 10.0 mg/L Normal 5.9-19.4 6 Vitamin E(Gamma Tocopherol) 2.0 mg/L Normal 0.7-4.9 7 Laboratory test finding 04/22/2021 [facility] Vitamin B1 Level Whole Blood 153.9 nmol/L Normal 66.5-200.0 8 Vitamin B6,Pyridoxal Phosphate 4.8 ug/L Normal 2.0-32.8 9 Antinuclear Antibodies 04/22/2021 [facility] Antinuclear Antibodies Direct Positive Abnormal Negative Anti Double Strand-Dna AB <1 IU/mL Normal 0-9 10 DOCUMENTATION WRITER Antibodies 1.1 AI High 0.0-0.9 Wilde Antibodies [...] developed and its performance characteristics determined by [employer]. It has not been cleared or approved by the Food and Drug Administration. 7 This test was developed and its performance characteristics determined by [employer]. It has not been cleared or approved by the Food and Drug Administration. Reference intervals for alpha and gamma-tocopherol determined from National Health and Nutrition Examination Survey, 1865-5600. Individuals with alpha-tocopherol levels less than 5.0 mg/L are considered vitamin E deficient. 8 This test was developed and its performance characteristics determined by [employer]. It has not been cleared or approved by the Food and Drug Administration. 9 This test was developed and its performance characteristics determined by [employer]. It has not been cleared or approved [...] (anti-Wilde) SLE 15 - 30% ------- --------- DOCUMENTATION WRITER Mixed Connective Tissue Disease 95% (U1 nRNP, SLE 30 - 50% anti-ribonucleoprotein) Polymyositis and/or Dermatomyositis 20% -------- --------- Scl-70 (antiDNA Scleroderma (diffuse) 20 - 35% topoisomerase) Crest 13% -------- --------- Elvia-1 Polymyositis and/or Dermatomyositis 20 - 40% -------- --------- Centromere B Scleroderma - Crest variant 80% Performed at: - [facility] [id number] Aerial Crop Duster: John Miles MD, Phone: [phone] Performed at: - [facility] [address] [id number] Aerial Crop Duster: Fernanda Scales MD, Phone: [phone] Procedures Date Code Description Status 04/20/2021 38608 Nerve Conduction 13+ Studies Com pleted 04/20/2021 96051 Needle Electromyography Complete , Five Or More Muscles Studied Completed 04/20/2021 93448 Needle Electromyography Complete , Five Or More Muscles Studied Completed 04/17/2021 88621 MRI Spine Lumbar W/O Contrast Co mpleted 04/17/2021 04585 MRI Spine Lumbar W/O Contrast Co mpleted 04/17/2021 35504 MRI Spine Thoracic W/O Contrast Completed 04/17/2021 65459 MRI Spine Thoracic W/O Contrast Completed 04/17/2021 21577 MRI Brain W/O Contrast Completed 04/17/2021 25612 MRI Brain W/O Contrast Completed 04/14/2021 64061 Office/Outpatient New Moderate M DM 45-59 Minutes Completed Medical Devices Description No Information Available Encounters Type Date Location Provider Dx Diagnosis Office Visit 04/14/2021 12:30p [facility] Lori Paulina , M.DThelma M54.59 Other low back pain R41.3 Other amnesia R20.2 Paresthesia of skin G25.81 Restless legs syndrome Assessments Date Code Description Provider 04/20/2021 M54.59 Other low back pain Abdulkadir [...] Vizcaino M.D. Plan of Treatment Future Appointment(s):* 06/24/2021 11:45 am - Ans/VS at [facility] * 05/27/2021 9:30 am - Beatrice Luke P.A.-C. at [facility] Functional Status Description No Information Available Mental Status Description No Information Available Referrals Refer to Reason for Referral Status Appt Date Abdulkadir Gallardo M.D. Created [facility] [address] [place] [address] [phone] Abdulkadir Gallardo M.D. Created [facility] [address] [place] [address] [phone] Abdulkadir Gallardo M.D. Created [facility] [address] [place] [address] [phone]
--- OUTSIDE RECORDS SUMMARY | 2021-06-05 07:26 | CCD ---
Author Author [facility] Organization [facility] Address Unknown Phone Unavailable Care Team Providers Care Roller Hand Name Role Phone Kevin Paul Unavailable PROBLEMS Type Condition ICD9-CM Code OYH84-PC Code Onset Dates Condition S tatus W/U Status Risk SNOMED Code Notes Problem Depressive disorder F32.9 Active confirmed 83050272 Problem Chronic hepatitis C B18.2 Active confirmed 152143196 Problem Anemia affecting in third trimester O99. 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 Active confirmed [id number] ALLERGIES No Known Allergies ENCOUNTERS from 1993 to 2021-04-17 Encounter Location Date Provider Diagnosis [facility] [address] [facility] [phone] [place] [address] Mar, Kevin Paul IMMUNIZATIONS Vaccine Route Administration Date Status Depo-Provera 150mg/1mL Medroxy-Progestrone Acetate IM Intram uscular Feb 04, 2021 Administered Depo-Provera 150mg/1mL Medroxy-Progestrone Acetate IM Intram uscular November 19, 2020 Administered Depo-Provera 150mg/1mL Medroxy-Progestrone Acetate IM Intram uscular September 01, 2020 Administered TDAP 0.5mL (Boostrix) IM Intramuscular May 14, [...] Notes Start Da te End Date Status Gabapentin 300 MG 1 capsule Orally Three times a day Not-Taking Omeprazole 20 MG 1 capsule 30 minutes before morning meal Orally Once a day for 30 day(s) Not-Taking Mirena (52 MG) 20 MCG/24HR Intrauterine Not-Taking Suboxone 4-1 MG 1 film under the tongue and allow to dissolve Sublingual Once a day Not-Taking Cymbalta 60 MG 1 capsule Orally bid Not-Taking Zepatier 50-100 MG 1 tablet Orally Once a day Dec, Not-Taking LaMICtal 25 MG 2 tabs Orally once a day Active KlonoPIN 0.5 MG 1 tablet Orally Twice a day Not-Taking Depo-Provera Active busPIRone HCl 10 MG 8mg in the am and 8mg in pm Orally twice a day Not-Taking Benzoyl Peroxide-Erythromycin 5-3 % 1 application to a ffected area Externally Twice a day for 30 day(s) Mar, Not-Ta ashly Vitamin 27-0.8 MG 1 tablet Orally Once a day Not-Taking Buprenorphine HCl 8 MG 1 tablet under the tongue an d allow to dissolve Sublingual BID Not-Taking Senokot S 8.6-50 MG 2 tablet in the evening as n eeded Orally Once a day for 30 day(s) Not-Taking Cymbalta 60 MG 1 capsule Orally once a day Not-Taking Zoloft 25 MG 1 tablet Orally Once a day for 21 day(s) Not-Taking Naltrexone HCl 50 MG 1 tablet Orally Once a day Not-Taking SEROquel 25 MG 1 tablet Orally Once a day Not-Taking Buprenorphine HCl 8 MG 1 tablet under the tongue an d allow to dissolve every 8 hrs Not-Taking PROCEDURES No Information RESULTS No Results REASON FOR VISIT 06/05/21 SURG AUTH MEDICAL (GENERAL) HISTORY Type Description Date Medical History Meth/Heroin addiction IV drug abuse: sob er for years Medical History Anxiety Medical History Depression Medical History Bi-Polar Medical History Hepatitis C/ vaccinated for hepatitis B surface antibody positive hepatitis A IgG positive genotype 3 in 2014 HCV RNA less than 50k, repeat Genotype 1B 2017 2 occasions Medical History Hep C: treated to cure 2017 Surgical History R hernia removed Surgical History teeth removed Surgical History D&C x2 Hospitalization History admitted malnutrition Hospitalization History admitted for attempted suicide Hospitalization History childbirth Goals Section No Information Health Concerns No Information MEDICAL EQUIPMENT No Information MENTAL STATUS No Information FUNCTIONAL STATUS No Information ASSESSMENTS No Information PLAN OF TREATMENT Next Appt Details Provider Name:Harsha Saab, 2021-04-29 1 0:00:00 AM, [address] [place] [address] , [place], [address], Provider Name:Kevin Paul, 01:20:00 PM, [address] [place] [address] , [place], [address], Provider Name:Laura Sorto, 2020-06 10:00:00 AM, [address] [place] [address] , [place], [address], Provider Name:Kevin Paul, 01:30:00 PM, [address] [place] [address] , [place], [address], Provider Name:Kevin Paul, 01:20:00 PM, [address] [facility], , [place], [address], Insurance Providers Payer Name Payer Address Payer Phone Insured Name Patient Relati onship to Insured Coverage Start Date Coverage End Date [facility] [address] [facility] [phone] ANNIE NUNEZ self
--- OUTSIDE RECORDS SUMMARY | 2021-06-05 07:26 | CCD ---
Author Author Mabel Davis Organization Unknown Address [address] [address] Phone Care Team Providers Care Show Jumping Instructor Name Role Phone Susan Beatrice PCP Allergies, Adverse Reactions, Alerts Concept Allergy Name Reaction Severity Onset Date Status Documentation Date Phone Number Npid Taxonomy Code Taxonomy Desc Author Last Name Author Fi rst Name Concept Type 593248 nkda Active 02/17/2018 [id number] Psychiatric/Mental Health Esa Wills RXNORM Problem List Concept Problem Description Status Start Date Created Date Resolv ed Date Snomed Code F60.3 Borderline Personality Disorder Active 05/29/20 21 F41.9 Unspecified Anxiety Disorder Active 05/29/2021 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, Moderate: Amphetamine-ty pe substance Active 01/25/2018 01/25/2018 F11.20 Opioid Use Disorder, Moderate Active 01/25/2018 8 Medications Rx Norm Medication Route Route Concept Start Date Stop Date Dosage Zach quency Duration Formula Strength Dosage Form Dosage Form Code Dosage Description Medication Id Account Npid Author First Name Author Last Name Taxonomy Code Taxonomy Desc Phone Number [phone] lamotrigine 02/12/2021 07/28/2021 30 100 mg tablet [phone] Franklin Gold [id number] Nurse Practitioner [phone] [id number] nicotine (polacrilex) to inside of mouth (buccal) 05/27/2021 07/26/2021 every three hours 30 2 mg gum as needed [id number] [phone] Franklin Gold [id number] Nurse Practitioner [phone] [id number] aripiprazole by mouth [id number] 05/14/2021 07/13/2021 once a day 30 2 mg tablet 13664 [id number] [phone] Franklin Gold [id number] Nurse Pr actitioner [id number] Social History Social History Element Description Concept Effective Date Smoking Status Unknown if ever smoked [id number] Immunizations No Data in Section Vital Signs No Data in Section Procedures Date Concept Id Description Targeted Site Concept Targeted Site Concept Type 05/29/2021 48811 Extended Individual Psychotherapy - 45 min CPT Patient has no history of implantable de vices Encounters Encounter Start Date End Date Encounter Type Description Diagnosis Di agnosis Desc Location Author First Name Author Last Name Npid Taxonomy Cod e Taxonomy Desc Phone Number Location Addr1 Location Addr2 Location [facility] Location Sta te Location [facility] [id number] 05/29/2021 05/29/2021 34180 Extended Individual Psych otherapy - 45 min F60.3 Borderline personality disorder [facility] [id number] Mental Health [id number] [address] [address] Plan of Treatment No Data in Section Lab Results No Data in Section Instructions No Data in Section Insurance Providers Insurance Id Policy Effective Date Policy Thru Date Company Josh cortez [id number] 2018 [id number]
--- OUTSIDE RECORDS SUMMARY | 2021-06-05 07:26 | CCD | Continuity of Care Document ---
Author Author Mabel SOLANO Organization Unknown Address [address] [place] [address] Phone [phone] Care Team Providers Care Operating Room Coordinator Name Role Phone Ambreen Sorto SEED CORE OPERATOR-Neeraj AUTM [phone] Problems Description No Information Available Social [...] Range Note Laboratory test finding 04/22/[address] [facility] Erythrocyte Sedimentation Rate 5 mm/hr Normal 0-20 Hemoglobin A1c 04/22/[address] [facility] Hemoglobin A1c 5.1 % Normal 1 Estimated Average Glucose 100 mg/dL Normal 60-110 Serum Protein Electrophoresis 04/22/[address] [facility] Albumin % 66.7 % High 55.8-66.1 Pfpwv-0-Jxagxsdx % 5.7 % High 2.9-4.9 Kvluq-1-Yojqogorc % 11.2 % Normal 7.1-11.8 Jcbl-6-Ugwalgkyi % 6.7 % Normal 4.7-7.2 Pwsn-3-Nhxwyudsk % 4.0 % Normal 3.2-6.5 Gamma Globulin % 5.7 % Low 11.1-18.8 Albumin 4.67 GM/DL Normal 3.29-5.55 Nzfim-1-Xihpfnkvz 0.40 GM/DL Normal 0.17-0.41 Qxekc-1-Tyhyyupua 0.78 GM/DL Normal 0.42-0.99 Rbmy-5-Zvthqeonv 0.47 GM/DL Normal 0.28-0.60 Fmao-9-Aabqfaopl 0.28 GM/DL Normal 0.19-0.55 Gamma Globulins 0.40 GM/DL Low 0.65-1.58 Total Protein 7.0 GM/DL Normal 6.4-8.2 Spep Interpretation SEE COMMENT Normal 2 Spep Pathologist Review REV'D BY Sofia NEWMAN Normal Thyroid Profile 04/22/[address] [facility] T Uptake 32 % Normal 30-39 Thyroxine (T4) 9.8 g/dL Normal 4.5-12.0 Free Thyroxine Index 3.1 % Normal 1.3-4.8 Thyroid Stimulating Hormone 1.170 uIU/ML Normal 0.358-3.740 Laboratory test finding 04/22/[address] [facility] Free T4 1.08 ng/dL Normal 0.76-1.46 Vitamin B12 & Folate 04/22/[address] [facility] Vitamin B12 Level 568 pg/mL Normal 3 Folate 13.2 NG/ML Normal 4 Laboratory test finding 04/22/[address] [facility] Rheumatoid Factor Quant < 10.0 IU/mL Normal <15.0 Lupus Type Anticoagulant Scree 04/22/[address] [facility] PTT Lupus Type Anticoag Screen 0.9 Normal 0-1.2 5 Vitamin E Level 04/22/[address] [facility] Vitamin E(Alpha Tocopherol) 10.0 mg/L Normal 5.9-19.4 6 Vitamin E(Gamma Tocopherol) 2.0 mg/L Normal 0.7-4.9 7 Laboratory test finding 04/22/[address] [facility] Vitamin B1 Level Whole Blood 153.9 nmol/L Normal 66.5-200.0 8 Vitamin B6,Pyridoxal Phosphate 4.8 ug/L Normal 2.0-32.8 9 Antinuclear Antibodies 04/22/[address] [facility] Antinuclear Antibodies Direct Positive Abnormal Negative Anti Double Strand-Dna AB <1 IU/mL Normal 0-9 10 FORESTRY TECHNICIAN Antibodies 1.1 AI High 0.0-0.9 Wilde Antibodies <0.2 AI Normal 0.0-0.9 Sjogren's Anti SS-A <0.2 AI Normal 0.0-0.9 Sjogren's Anti SS-B <0.2 AI Normal 0.0-0.9 Derrick Comment (SEE NOTE) Normal . 11 1 REFERENCE RANGES: <=5.6% NORMAL 5.7-6.4% SUGGESTS IMPAIRED GLUCOSE META BOLISM/PREDIABETIC >= 6.5% ABNORMAL 2 HYPOGAMMAGLOBULINEMIA. YAN SERUM AND URINE IMMUNOTYPING. 3 VITAMIN B12 [...] developed and its performance characteristics determined by [employer]. It has not been cleared or approved by the Food and Drug Administration. 7 This test was developed and its performance characteristics determined by [employer]. It has not been cleared or approved by the Food and Drug Administration. Reference intervals for alpha and gamma-tocopherol determined from National Health and Nutrition Examination Survey, 3594-3077. Individuals with alpha-tocopherol levels less than 5.0 mg/L are considered vitamin E deficient. 8 This test was developed and its performance characteristics determined by [employer]. It has not been cleared or approved by the Food and Drug Administration. 9 This test was developed and its performance characteristics determined by [employer]. It has not been cleared or approved by the Food and Drug Administration. 10 Negative <5 Equivocal 5 - 9 Positive >9 11 . Autoantibody Disease Association Condition Frequency -------- --------- Antinuclear Antibody, SLE, mixed connective Direct (DERRICK-D) tissue diseases -------- --------- dsDNA SLE 40 - 60% -------- --------- Chromatin Drug induced SLE 90% SLE 48 - 97% -------- --------- SSA (Ro) SLE 25 - 35% Sjogren's Syndrome 40 - 70% Lupus 100% -------- --------- SSB (La) SLE 10% Sjogren's Syndrome 30% ------- --------- Sm (anti-Wilde) SLE 15 - 30% ------- --------- FORESTRY TECHNICIAN Mixed Connective Tissue Disease 95% (U1 nRNP, SLE 30 - 50% anti-ribonucleoprotein) Polymyositis and/or Dermatomyositis 20% -------- --------- Scl-70 (antiDNA Scleroderma (diffuse) 20 - 35% topoisomerase) Crest 13% -------- --------- Elvia-1 Polymyositis and/or Dermatomyositis 20 - 40% -------- --------- Centromere B Scleroderma - Crest variant 80% Performed at: [address] [id number] Baker: John Miles MD, Phone: [phone] Performed at: [facility] [address] [id number] Second Baker: Fernanda Scales MD, Phone: [phone] Procedures Date Code Description Status 05/27/2021 01496 Office/Outpatient Established Mo d MDM 30-39 Min Completed 05/19/2021 14239 EEG Recording Awake & Asleep Com pleted 05/19/2021 72328 EEG Recording Awake & Asleep Com pleted 04/20/2021 08320 Nerve Conduction 13+ Studies Com pleted 04/20/2021 84489 Needle Electromyography Complete , Five Or More Muscles Studied Completed 04/20/2021 58166 Needle Electromyography Complete , Five Or More Muscles Studied Completed 04/17/2021 09002 MRI Spine Lumbar W/O Contrast Co mpleted 04/17/2021 89107 MRI Spine Lumbar W/O Contrast Co mpleted 04/17/2021 14386 MRI Spine Thoracic W/O Contrast Completed 04/17/2021 84907 MRI Spine Thoracic W/O Contrast Completed 04/17/2021 76293 MRI Brain W/O Contrast Completed 04/17/2021 71354 MRI Brain W/O Contrast Completed 04/14/2021 73108 Office/Outpatient New Moderate M DM 45-59 Minutes Completed Medical Devices Description No Information Available Encounters Type Date Location Provider Dx Diagnosis Office Visit 05/27/2021 9:30a Main office - [place] Beata Malagon.A.-C. R41.840 Attention and concentration deficit M54.59 Other low back pain M54.6 Pain in thoracic spine R20.2 Paresthesia of skin G25.81 Restless legs syndrome R79.9 Abnormal finding of blood ch emistry, unspecified Office Visit 04/14/2021 12:30p Main office - [place] Lori Gallardo M.D. M54.59 Other low back pain R41.3 Other amnesia R20.2 Paresthesia of skin G25.81 Restless legs syndrome Assessments Date Code Description Provider 05/27/2021 R41.840 Attention and concentration defi cit William MorelosA.-CThelma 05/27/2021 M54.59 Other low back pain Beata Malagon.A.-C. 05/27/2021 M54.6 Pain in thoracic spine Alvaro ReyesCThelma 05/27/2021 R20.2 Paresthesia of skin Beata Malagon.A.-C. 05/27/2021 G25.81 Restless legs syndrome William ReyesA.-C. 05/27/2021 R79.9 Abnormal finding of blood chemis try, unspecified William MorelosA.-CThelma 05/19/2021 R41.3 Other amnesia Serafin Perez 05/19/2021 R41.3 Other amnesia EEG 04/20/2021 M54.59 [...] Vizcaino M.D. Plan of Treatment Future Appointment(s):* 08/25/2021 11:15 am - Beatrice Luke PThelmaAThelma-CThelma at [facility] * 06/24/2021 11:45 am - Ans/VS at [facility] 05/27/2021 - Beatrice Luke PThelmaA.-C.* R41.840 Attention and concentration deficit* Comments:* This [...] of blood chemistry, unspecified* Comments:* Refer to [facility] rheumatology for abnormal DERRICK and to [facility] hematology for abnormal SPEP. * Follow up:* 3 months Functional Status Description No Information Available Mental Status Description No Information Available Referrals Refer to Reason for Referral Status Appt Date [facility] Rheumatology BACK PAIN AND ABNORMAL DERRICK - FAXING T O PCP FOR [facility] AUTH Created Rheumatology [address] [facility] [address] [place] [address] [phone] [facility] ABNORMAL SPEP - FAXING TO PCP FOR [facility] AUTH Created [address] [place] [address] [phone] Abdulkadir Gallardo M.D. Created [facility] [address] [place] [address] [phone] Abdulkadir Gallardo M.D. Created [facility] [address] [place] [address] [phone] Abdulkadir Gallardo M.D. Created [facility] [address] [place] [address] [phone]
--- OUTSIDE RECORDS SUMMARY | 2021-06-05 07:26 | CCD | Continuity of Care Document ---
Author Author Mabel MAHAN Organization Unknown Address [address] [place] [address] Phone [phone] Care Team Providers Care Seafood Technology Specialist Name Role Phone Ambreen Sorot BLOOD BANK MANAGER-C AUTM Problems Description No Information Available Social [...] Information Available Procedures Date Code Description Status 04/20/2021 08137 Nerve Conduction 13+ Studies Com pleted 04/20/2021 20918 Needle Electromyography Complete , Five Or More Muscles Studied Completed 04/20/2021 35406 Needle Electromyography Complete , Five Or More Muscles Studied Completed 04/17/2021 25168 MRI Spine Lumbar W/O Contrast Co mpleted 04/17/2021 35282 MRI Spine Lumbar W/O Contrast Co mpleted 04/17/2021 94614 MRI Spine Thoracic W/O Contrast Completed 04/17/2021 24066 MRI Spine Thoracic W/O Contrast Completed 04/17/2021 83212 MRI Brain W/O Contrast Completed 04/17/2021 51836 MRI Brain W/O Contrast Completed 04/14/2021 26325 Office/Outpatient New Moderate M DM 45-59 Minutes Completed Medical Devices Description No Information Available Encounters Type Date Location Provider Dx Diagnosis Office Visit 04/14/2021 12:30p [facility] Lori Paulina , oTny.DThelma M54.59 Other low back pain R41.3 Other amnesia R20.2 Paresthesia of skin G25.81 Restless legs syndrome Assessments Date Code Description Provider 04/20/2021 M54.59 Other low back pain Adbulkadir Paulina, M.D. 04/20/2021 M54.16 Radiculopathy, lumbar region [...] Appointment(s):* 05/13/2021 10:00 am - Ans/VS at [facility] * 05/27/2021 9:30 am - Beatrice Luke P.A.-C. at [facility] * 05/19/2021 1:00 pm - EEG at [facility] Functional Status Description No Information Available Mental Status Description No Information Available Referrals Refer to Reason for Referral Status Appt Date Abdulkadir Gallardo M.D. Created [facility] [place] [address] [phone] Abdulkadir Gallardo M.D. Created [facility] [address] [place] [address] [phone] Abdulkadir Gallardo M.D. Created [facility] [address] [place] [address] [phone]
--- OUTSIDE RECORDS SUMMARY | 2021-06-05 07:26 | CCD | Continuity of Care Document ---
Author Mabel Ken M.D. Organization Unknown Address [address] [place] [address] Phone [phone] Care Team Providers Care Oncology Rep Specialist Name Role Phone Noreen Ambreen Kristy MOODYP-Neeraj AUTM [phone] Problems Description No Information Available Social [...] H/L Range Note Laboratory test finding 04/22/2021 [facility] Erythrocyte Sedimentation Rate 5 mm/hr Normal 0-20 Hemoglobin A1c 04/22/2021 [facility] Hemoglobin A1c 5.1 % Normal 1 Estimated Average Glucose 100 mg/dL Normal 60-110 1 REFERENCE RANGES: <=5.6% NORMAL 5.7-6.4% SUGGESTS IMPAIRED GLUCOSE META BOLISM/PREDIABETIC >= 6.5% ABNORMAL Procedures Date Code Description Status 04/20/2021 20231 Nerve Conduction 13+ Studies Com pleted 04/20/2021 25882 Needle Electromyography Complete , Five Or More Muscles Studied Completed 04/20/2021 39695 Needle Electromyography Complete , Five Or More Muscles Studied Completed 04/17/2021 06199 MRI Spine Lumbar W/O Contrast Co mpleted 04/17/2021 26755 MRI Spine Lumbar W/O Contrast Co mpleted 04/17/2021 34092 MRI Spine Thoracic W/O Contrast Completed 04/17/2021 77099 MRI Spine Thoracic W/O Contrast Completed 04/17/2021 17189 MRI Brain W/O Contrast Completed 04/17/2021 17802 MRI Brain W/O Contrast Completed 04/14/2021 47250 Office/Outpatient New Moderate M DM 45-59 Minutes Completed Medical Devices Description No Information Available Encounters Type Date Location Provider Dx Diagnosis Office Visit 04/14/2021 12:30p Main office - [place] Lori Rox Gallardo M54.59 Other low back pain R41.3 Other amnesia R20.2 Paresthesia of skin G25.81 Restless legs syndrome Assessments Date Code Description Provider 04/20/2021 M54.59 Other low back pain Abdulkadir Paulina, M.DThelma 04/20/2021 M54.16 Radiculopathy, lumbar region Abd ul [...] am - Ans/VS at Main office - [place] * 05/27/2021 9:30 am - Beatrice Luke P.A.-C. at [facility] * 05/19/2021 1:00 pm - EEG at [facility] Functional Status Description No Information Available Mental Status Description No Information Available Referrals Refer to Dr Reason for Referral Status Appt Date Abdulkadir Gallardo M.D. Created [facility] [address] [place] [address] [phone] Abdulkadir Gallardo M.D. Created [facility] [address] [place] [address] [phone] Abdulkadir Gallardo M.D. Created [facility] [address] [place], [place] [address] [phone]
--- OUTSIDE RECORDS SUMMARY | 2021-06-05 07:26 | CCD | Continuity of Care Document ---
Author Author Mabel MAHAN Organization Unknown Address [address] [place] [address] Phone [phone] Care Team Providers Care Knocker Off Name Role Phone Ambreen Sorto INSTALLATION DRAFTER-C AUTM [phone] Problems Description No Information Available Social [...] Available Procedures Date Code Description Status 04/14/2021 44454 Office/Outpatient New Moderate M DM 45-59 Minutes Completed Medical Devices Description No Information Available Encounters Type Date Location Provider Dx Diagnosis Office Visit 04/14/2021 12:30p Main office - [place] Lori Gallardo M.D. M54.59 Other low back [...] am - Ans/VS at Main office - [place] * 05/27/2021 9:30 am - Beatrice Luke P.A.-C. at [facility] * 04/20/2021 9:00 am - Abdulkadir Gallardo M.D. at [facility] * 05/19/2021 1:00 pm - EEG at [facility] Functional Status Description No Information Available Mental Status Description No Information Available Referrals Description No Information Available
--- OUTSIDE RECORDS SUMMARY | 2021-06-05 07:26 | CCD ---
Author Author [facility] Organization [facility] Address Unknown Phone Unavailable Care Team Providers Care Foreclosure Field Inspector Name Role Phone [facility] Hrasha Unavailable PROBLEMS Type Condition ICD9-CM Code DRU69-OR Code Onset Dates Condition S tatus W/U Status Risk SNOMED Code Notes Problem Depressive disorder F32.9 Active confirmed 24629841 Problem Chronic hepatitis C B18.2 Active confirmed 553624751 Problem Anemia affecting in third trimester O99. 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 Active confirmed [id number] ALLERGIES No Known Allergies ENCOUNTERS from 1993 to 2021-04-29 Encounter Location Date Provider Diagnosis [facility] [address] [facility] [phone] [place] [address] Apr, Harsha Saab Encounter for Depo-P rovera contraception Z30.42 IMMUNIZATIONS Vaccine Route Administration Date Status TDAP [...] to dissolve every 8 hrs Not-Taking PROCEDURES from 1993 to 2021-04-29 Procedure Date Ordered Result Body Site Medication: Depo-Provera 150mg/1mL IM (Medroxyprogesterone A cetate) 2021-04-29 N/A RESULTS No Results REASON FOR VISIT DEPO MEDICAL (GENERAL) HISTORY Type Description Date Medical [...] Treatment Notes Treatm ent Clinical Notes Apr, Encounter for Depo-Provera contraception (ICD-10 - Z30.42) PLAN OF TREATMENT Next Appt Details Provider Name:Kevin Paul, 01:20:00 PM, [address] [place] [address] , [place], [address], Provider Name:Laura Sorto, 2020-06 10:00:00 AM, [address] [place] [address], , [place], [address], Provider Name:Kevin Paul, 01:30:00 PM, [address] [place] [address] , [place], [address], Provider Name:Kevin Paul, 01:20:00 PM, [address] [place] [address] , [place], [address], Insurance Providers Payer Name Payer Address Payer Phone Insured Name Patient Relati onship to Insured Coverage Start Date Coverage End Date PENDING SALE TO [facility] [address] [facility] [address] ANNIE NUNEZ self
--- OUTSIDE RECORDS SUMMARY | 2021-06-05 07:27 | CCD ---
Author Author Mabel Davis Organization Unknown Address [address] [address] Phone Care Team Providers Care Runner Man Name Role Phone Davis, Lisa PCP Allergies, Adverse Reactions, Alerts Concept Allergy Name Reaction Severity Onset Date Status Documentation Date Phone Number Npid Taxonomy Code Taxonomy Desc Author Last Name Author Fi rst Name Concept Type 135029 nkda Active 02/17/2018 [id number] Psych[facility] Esa Wills RXNORM Problem List Concept Problem Description Status Start Date Created Date Resolv ed Date Snomed Code F60.3 Borderline Personality Disorder Active 04/14/20 21 F41.9 Unspecified Anxiety Disorder Active 04/14/2021 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, Moderate: Amphetamine-ty pe substance Active 01/25/2018 01/25/2018 F11.20 Opioid Use Disorder, Moderate Active 01/25/2018 8 Medications Rx Norm Medication Route Route Concept Start Date Stop Date Dosage Zach quency Duration Formula Strength Dosage Form Dosage Form Code Dosage Description Medication Id Account Npid Author First Name Author Last Name Taxonomy Code Taxonomy Desc Phone Number [id number] lamotrigine by mouth R23179 02/12/2021 twice a day 100 mg tablet [id number] Franklin Gold [id number] Nurse Practitioner [phone] [id number] bupropion HCl by mouth [id number] 04/03/2021 every morning 150 mg tablet extended release 24 hr [id number] Franklin Gold [id number] Nurse Practitioner [id number] Social History Social History Element Description Concept Effective Date Smoking Status Unknown if ever smoked [id number] Immunizations No Data in Section Vital Signs No Data in Section Procedures Date Concept Id Description Targeted Site Concept Targeted Site Concept Type 04/14/2021 67033 Extended Individual Psychotherapy - 45 min CPT Patient has no history of implantable de vices Encounters Encounter Start Date End Date Encounter Type Description Diagnosis Di agnosis Desc Location Author First Name Author Last Name Npid Taxonomy Cod e Taxonomy Desc Phone Number Location Addr1 Location Addr2 Location [facility] Location [facility] Location [facility] [id number] 04/14/2021 04/14/2021 29883 Extended Individual Psych otherapy - 45 min F60.3 Borderline personality disorder [facility] [place] [phone] [id number] Mental Health [phone] [address] [address] Plan of Treatment No Data in Section Lab Results No Data in Section Instructions No Data in Section Insurance Providers Insurance Id Policy Effective Date Policy Thru Date [employer] N dana [id number] 2018 [id number]
--- OUTSIDE RECORDS SUMMARY | 2021-06-05 07:27 | CCD ---
Author Author [facility] Address Unknown Phone Unavailable Care Team Providers Care Supervisor Contingents Name Role Phone Kilcer, R Jordan RPAC Unavailable Unavailable Kilcer, [...] Unavailable Kilcer, R Jordan RPAC Unavailable Unavailable Lizet Gold JEWELRY SETTER Unavailable Unavailable Lizet Gold JEWELRY SETTER Unavailable Unavailable Lizet Gold JEWELRY SETTER Unavailable Unavailable ABHIJIT ESCOBAR Unavailable Unavailable CHARLIE, ANEN REED Unavailable Unavailable CHARLIE, ANNE REED Unavailable Unavailable CHARLIE, ANNE REED Unavailable Unavailable CHARLIE, ANNE REED Unavailable Unavailable CHARLIEANNE BRYANT MD Unavailable Unavailable CHARLIEANNE BRYANT MD Unavailable Unavailable CHARLIEANNE BRYANT MD Unavailable Unavailable CHARLIEANNE BRYANT MD Unavailable Unavailable CHARLIE, ANNE REED Unavailable Unavailable CHARLIE, ANNE REED Unavailable Unavailable CHARLIE, ANNE REED Unavailable Unavailable CHARLIEANNE BRYANT MD Unavailable Unavailable CHARLIEANNE BRYANT MD Unavailable Unavailable CHARLIE, ANNE REED Unavailable Unavailable CHARLIE, ANNE REED Unavailable Unavailable CHARLIE, ANNE REED Unavailable Unavailable CHARLIE, ANNE REED Unavailable Unavailable CHARLIE, ANNE REED Unavailable Unavailable CHARLIE, ANNE REED Unavailable Unavailable CHARLIE, ANNE REED Unavailable Unavailable CHARLIE, ANNE REED Unavailable Unavailable CHARLIE, ANNE REED Unavailable Unavailable CHARLIE, ANNE REED Unavailable Unavailable CHARLIE, ANNE REED Unavailable Unavailable CHARLIE, ANNE REED Unavailable Unavailable CHARLIE, ANNE REED Unavailable Unavailable CHARLIE, ANNE REED Unavailable Unavailable CHARLIE, ANNE MD Unavailable Unavailable ANNE GUERRA MD Unavailable Unavailable ANNE GUERRA MD Unavailable Unavailable ANNE GUERRA MD Unavailable Unavailable ANNE GUERRA MD Unavailable Unavailable CHARLIE, ANNE REED Unavailable Unavailable CHARLIE, ANNE REED Unavailable Unavailable CHARLIE, ANNE REED Unavailable Unavailable CHARLIE, ANNE REED Unavailable Unavailable CHARLIE, ANNE REED Unavailable Unavailable CHARLIE, ANNE REED Unavailable Unavailable CHARLIE, ANNE REED Unavailable Unavailable CHARLIE, ANNE REED Unavailable Unavailable CHARLIE, ANNE REED Unavailable Unavailable CHARLIE, ANNE REED Unavailable Unavailable CHARLIE, ANNE REED Unavailable Unavailable Octavio, Beatrice Unavailable Unavailable Trickey, J Beatrice PA Unavailable Unavailable Trickey, J Beatrice PA Unavailable Unavailable Trickey, J Beatrice PA Unavailable Unavailable Trickey, J Beatrice PA Unavailable Unavailable Trickey, J Beatrice PA Unavailable Unavailable Trickey, J Beatrice PA Unavailable Unavailable Trickey, J Beatrice PA Unavailable Unavailable Trickey, J Beatrice PA Unavailable Unavailable Trickey, J Beatrice PA Unavailable Unavailable Trickey, J Beatrice PA Unavailable Unavailable Trickey, J Beatrice PA Unavailable Unavailable Trickey, J Beatrice PA Unavailable Unavailable Trickey, J Beatrice PA Unavailable Unavailable Trickey, J Beatrice PA Unavailable Unavailable Trickey, J Beatrice PA Unavailable Unavailable Trickey, J Beatrice PA Unavailable Unavailable Trickey, J Beatrice PA Unavailable Unavailable Trickey, J Beatrice PA Unavailable Unavailable Trickey, J Beatrice PA Unavailable Unavailable Trickey, J Beatrice PA Unavailable Unavailable Trickey, J Beatrice PA Unavailable Unavailable Trickey, J Beatrice PA Unavailable Unavailable Trickey, J Beatrice PA Unavailable Unavailable Trickey, J Beatrice PA Unavailable Unavailable Trickey, J Beatrice PA Unavailable Unavailable Trickey, J Beatrice PA Unavailable Unavailable Trickey, J Beatrice PA Unavailable Unavailable Trickey, J Beatrice PA Unavailable Unavailable Trickey, J Beatrice PA Unavailable Unavailable Trickey, J Beatrice PA Unavailable Unavailable Trickey, J Beatrice PA Unavailable Unavailable Trickey, J Beatrice PA Unavailable Unavailable Trickey, J Beatrice PA Unavailable Unavailable Trickey, J Beatrice PA Unavailable Unavailable Trickey, J Beatrice PA Unavailable Unavailable Trickey, J Beatrice PA Unavailable Unavailable Trickey, J Beatrice PA Unavailable Unavailable Trickey, J Beatrice PA Unavailable Unavailable Trickey, J Beatrice PA Unavailable Unavailable Trickey, J Beatrice PA Unavailable Unavailable Trickey, J Beatrice PA Unavailable Unavailable Trickey, J Beatrice PA Unavailable Unavailable Trickey, J Beatrice PA Unavailable Unavailable Trickey, J Beatrice PA Unavailable Unavailable Trickey, J Beatrice PA Unavailable Unavailable Trickey, J Beatrice PA Unavailable Unavailable Trickey, J Beatrice PA Unavailable Unavailable Trickey, J Beatrice PA Unavailable Unavailable Trickey, J Beatrice PA Unavailable Unavailable SYMENOW, G CHRISTOPHER PA [...] Unavailable SYMENOW, G CHRISTOPHER PA Unavailable Unavailable [place]eland, Damari RPA-C Unavailable Unavailable [place], Damari RPA-C Unavailable Unavailable [place], Damari RPA-C Unavailable Unavailable [place], Damari RPA-C Unavailable Unavailable Roseland, Damari RPA-C Unavailable Unavailable Roseland, Damari RPA-C Unavailable Unavailable [place]eland, Damari RPA-C Unavailable Unavailable Roseland, Damari RPA-C Unavailable Unavailable Roseland, Damari RPA-C Unavailable Unavailable Roseland, Damari RPA-C Unavailable Unavailable Roseland, Damari RPA-C Unavailable Unavailable Roseland, Damari RPA-C Unavailable Unavailable Roseland, Damari RPA-C Unavailable Unavailable [place], Damari RPA-C Unavailable Unavailable [place], Damari RPA-C Unavailable Unavailable [place], Damari RPA-C Unavailable Unavailable [place], Damari RPA-C Unavailable Unavailable [place], Damari RPA-C Unavailable Unavailable Evangelista MANSFIELD PA Unavailable Unavailable Evangelista MANSFIELD PA Unavailable Unavailable Evangelista MANSFIELD PA Unavailable Unavailable Evangelista MANSFIELD PA Unavailable Unavailable Evangelista MANSFIELD PA Unavailable Unavailable DONALEvangelista PA Unavailable Unavailable DONAL, L DARLENE PA [...] Unavailable DONAL, L DARLENE PA Unavailable Unavailable Juan Jose, K Zahira PMH-JEWELRY SETTER Unavailable Unavailable Juan Jose, K Zahira PMH-JEWELRY SETTER Unavailable Unavailable Juan Jose, K Zahira PMH-JEWELRY SETTER Unavailable Unavailable Juan Jose, K Zahira PMH-JEWELRY SETTER Unavailable Unavailable [place], K Zahira PMH-JEWELRY SETTER Unavailable Unavailable [place], K Zahira PMH-JEWELRY SETTER Unavailable Unavailable [place], K Zahira PMH-JEWELRY SETTER Unavailable Unavailable [place], K Zahira PMH-JEWELRY SETTER Unavailable Unavailable Juan Jose, K Zahira PMH-JEWELRY SETTER Unavailable Unavailable Juan Jose, K Zahira PMH-JEWELRY SETTER Unavailable Unavailable Brendon, A Ivette PROGRAM TRAINER Unavailable Unavailable Brendon, A Ivette PROGRAM TRAINER Unavailable Unavailable Brendon, A Ivette PROGRAM TRAINER Unavailable Unavailable Brendon, A Ivette PROGRAM TRAINER Unavailable Unavailable Brendon, A Ivette PROGRAM TRAINER Unavailable Unavailable Brendon, A Ivette PROGRAM TRAINER Unavailable Unavailable Brendon, A Ivette PROGRAM TRAINER Unavailable Unavailable Brendon, A Ivette PROGRAM TRAINER Unavailable Unavailable Brendon, A Ivette PROGRAM TRAINER Unavailable Unavailable Brendon, A Ivette PROGRAM TRAINER Unavailable Unavailable Brendon, A Ivette PROGRAM TRAINER Unavailable Unavailable Brendon, A Ivette PROGRAM TRAINER Unavailable Unavailable Brendon, A Ivette PROGRAM TRAINER Unavailable Unavailable Brendon, A Ivette PROGRAM TRAINER Unavailable Unavailable Brendon, A Ivette PROGRAM TRAINER Unavailable Unavailable Brendon, A Ivette PROGRAM TRAINER Unavailable Unavailable Brendon, A Ivette PROGRAM TRAINER Unavailable Unavailable Brendon, A Ivette PROGRAM TRAINER Unavailable Unavailable Brendon, A Ivette PROGRAM TRAINER Unavailable Unavailable Brendon, A Ivette PROGRAM TRAINER Unavailable Unavailable Brendon, A Ivette PROGRAM TRAINER Unavailable Unavailable Brendon, A Ivette PROGRAM TRAINER Unavailable Unavailable Brendon, A Ivette PROGRAM TRAINER Unavailable Unavailable Brendon, A Ivette PROGRAM TRAINER Unavailable Unavailable Brendon, A Ivette PROGRAM TRAINER Unavailable Unavailable Brendon, A Ivette PROGRAM TRAINER Unavailable Unavailable Brendon, A Ivette PROGRAM TRAINER Unavailable Unavailable Brendon, A Ivette PROGRAM TRAINER Unavailable Unavailable Brendon, A Ivette PROGRAM TRAINER Unavailable Unavailable Brendon, A Ivette PROGRAM TRAINER Unavailable Unavailable Brendon, A Ivette PROGRAM TRAINER Unavailable Unavailable Brendon, A Ivetet PROGRAM TRAINER Unavailable Unavailable Brendon, A Ivette PROGRAM TRAINER Unavailable Unavailable Brendon, A Ivette PROGRAM TRAINER Unavailable Unavailable Brendon, A Ivette PROGRAM TRAINER Unavailable Unavailable Brendon, A Ivette PROGRAM TRAINER Unavailable Unavailable Brendon, A Ivette PROGRAM TRAINER Unavailable Unavailable Brendon, A Ivette PROGRAM TRAINER Unavailable Unavailable Brendon, A Ivette PROGRAM TRAINER Unavailable Unavailable Brendon, A Ivette PROGRAM TRAINER Unavailable Unavailable Brendon, A Ivette PROGRAM TRAINER Unavailable Unavailable Brendon, A Ivette PROGRAM TRAINER Unavailable Unavailable Brendon, A Ivette PROGRAM TRAINER Unavailable Unavailable Brendon, A Ivette PROGRAM TRAINER Unavailable Unavailable Brendon, A Ivette PROGRAM TRAINER Unavailable Unavailable Brendon, A Ivette PROGRAM TRAINER Unavailable Unavailable Brendon, A Ivette PROGRAM TRAINER Unavailable Unavailable Brendon, A Ivette PROGRAM TRAINER Unavailable Unavailable Brendon, A Ivette PROGRAM TRAINER Unavailable Unavailable Brendon, A Ivette PROGRAM TRAINER Unavailable Unavailable Brendon, A Ivette PROGRAM TRAINER Unavailable Unavailable Brendon, A Ivette PROGRAM TRAINER Unavailable Unavailable Brendon, A Ivette PROGRAM TRAINER Unavailable Unavailable Brendon, A Ivette PROGRAM TRAINER Unavailable Unavailable Brendon, A Ivette PROGRAM TRAINER Unavailable Unavailable Brendon, A Ivette PROGRAM TRAINER Unavailable Unavailable Re-disclosure Warning The records that [...] is protected by Article 27-F of the [facility] Public Health law. If you continue you may have access to information: Regarding HIV / AIDS; Provided by facilities licensed or operated by the [facility] Office of Mental Health; or Provided by the [facility] Office for People With Developmental Disabilities. If such information is present, then the following [facility] mandated warning applies: This information has [...] law may result in a fine or fdc sentence or both. A general authorization for the release of medical or other information is NOT sufficient authorization for further disc losure. Allergies and Adverse Reactions Type Description Substance Reaction Status Data Source(s ) Propensity to adverse reactions to substance nkda 24 HR Bupropion Hydrochloride 150 MG Extended Release Oral Tablet Active [facility] ([facility]) Propensity to adverse reactions to substance nkda 24 HR Bupropion Hydrochloride 150 MG Extended Release Oral Tablet Active [facility] ([facility]) Family History Family Member Name Family Member Gender Family Member Status Date o f Status Description Data Source(s) Unknown Unknown Problem [facility] ([facility], ) Encounters Encounter Providers Location Date Indications Data Source(s ) Extended Individual Psychotherapy - 45 min Attender: Beatrice Cunningham [facility] 05/29/2021 09:00:00 AM EST - 05/29/2021 09:00:00 AM EST [facility] ([facility]) Attender: Beatrice Cunningham 05/29/2021 12:00:00 AM EST [facility] ([facility]) Outpatient Attender: Beatrice KERR [facility] 05/27/2021 08:30:00 AM EST MEDENT ([facility] Rhianna zarate, ASHLEE) [place] [address] [facility] [place] [address] 05/25/2021 12:00:00 AM EST [facility]CW[facility]) Extended Individual Psychotherapy - 45 min Attender: Beatrice Octavio [facility] 05/15/2021 10:00:00 AM EST - 05/15/2021 10:00:00 AM EST [facility] ([facility]) Attender: Beatrice Cunningham 05/15/2021 12:00:00 AM EST [facility] ([facility]) Outpatient Attender: Franklin Gold NP [facility] 05/14/2021 08:00:00 AM EST - 05/14/2021 08:00:00 AM EST [facility] ([facility]) Attender: Franklin Gold NP 05/14/2021 12:00:00 AM EST [facility] [place] [address] [facility] [place] [address] 04/29/2021 12:00:00 AM EDT eCW1 ([facility] Unknown [address] [facility] [place] [address] 04/17/2021 12:00:00 AM EDT eCW1 ([facility]) Outpatient Attender: ANNE GUERRA MD Main office - [facility] 04/14/2021 12:30:00 PM EDT MEDENT ([facility] Rhianna zarate, ASHLEE) Extended Individual Psychotherapy - 45 min Attender: Beatrice Octavio [facility] 04/14/2021 10:00:00 AM EDT - 04/14/2021 10:00:00 AM EDT [facility] ([facility]) Attender: Beatrice Cunningham 04/14/2021 12:00:00 AM EDT [facility] ([facility]) Outpatient Attender: Franklin Gold NP [facility] 04/03/2021 10:00:00 AM EDT - 04/03/2021 10:00:00 AM EDT [facility] ([facility]) Attender: Franklin Gold NP 04/03/2021 12:00:00 AM EDT [facility] ([facility]) Attender: Beatrice Cunningham 04/01/2021 12:00:00 AM EDT [facility] ([facility]) TEMPMHCTelemed 30" Psychotherapy Attender: Beatrice Christensen [facility] 03/31/2021 12:00:00 PM EDT - 03/31/2021 12:00:00 PM EDT [facility] ([facility]) TEMPMHCTelemed 30" Psychotherapy Attender: Beatrice Christensen [facility] 03/11/2021 11:45:00 AM EDT - 03/11/2021 11:45:00 AM EDT [facility] ([facility]) Attender: Beatrice Cunningham 03/11/2021 12:00:00 AM EDT [facility] ([facility]) Unknown [address] [facility] [place] [address] 03/10/2021 12:00:00 AM EDT eCW1 ([facility] Outpatient [address] [facility] Y [address] 03/03/2021 12:00:00 AM EDT eCW1 ([facility] Outpatient [address] [facility] Y [address] 02/04/2021 12:00:00 AM EDT eCW1 ([facility] Unknown [address] [facility] [place] [address] 01/21/2021 12:00:00 AM EDT eCW1 ([facility] Outpatient Attender: Zahira Ingram [facility] 12/23/2020 08:30:00 AM EDT - 12/23/2020 08:30:00 AM EDT [facility] ([facility]) Attender: Zahira RANGEL 12/23/2020 12: 00:00 AM EDT [facility] ([facility]) Unknown [address] [facility] [place] [address] 12/19/2020 12:00:00 AM EDT eCW1 ([facility]) Unknown [address] [facility] [place] [address] 12/19/2020 12:00:00 AM EDT eCW1 ([facility]) Outpatient [address] [facility] [place] [address] 12/17/2020 12:00:00 AM EDT eCW1 ([facility]) Attender: Zahira RANGEL 12/16/2020 12: 00:00 AM EDT [facility] ([facility]) [facility] 2020 09:30:00 AM EDT - 2020 09:30:00 AM EDT [facility] ([facility]) [id number]"Psychotherapy Attender: Beatrice [facility] 12/02/2020 10:00:00 AM EDT - 12/02/2020 10:00:00 AM EDT [facility] ([facility]) Attender: Beatrice Cunningham 12/02/2020 12:00:00 AM EDT [facility] ([facility]) ([facility]) [facility] Nurse Visit [address] [place] [address] 11/19/2020 12:00:00 AM EDT [facility] ([facility]) [id number]"Psychotherapy Attender: Beatrice [facility] 11/17/2020 09:00:00 AM EDT - 11/17/2020 09:00:00 AM EDT [facility] ([facility]) Attender: Beatrice Cunningham 11/17/2020 12:00:00 AM EDT [facility] ([facility]) Extended Individual Psychotherapy - 45 min Attender: Beatrice [facility] 10/13/2020 09:00:00 AM EDT - 10/13/2020 09:00:00 AM EDT [facility] ([facility]) Attender: Beatrice Cunningham 10/13/2020 12:00:00 AM EDT [facility] ([facility]) Outpatient Attender: Zahira HARRELLELSIE [facility] 10/06/2020 09:30:00 AM EDT - 10/06/2020 09:30:00 AM EDT [facility] ([facility]) Attender: Zahira RANGEL 10/06/2020 12: 00:00 AM EDT [facility] ([facility]) Outpatient Attender: Zahira Chaney [facility] 09/02/2020 10:30:00 AM EST - 09/02/2020 10:30:00 AM EST [facility] ([facility]) Attender: Zahira RANGEL 09/02/2020 12: 00:00 AM EST [facility] ([facility]) ( ESTOB) [facility] Est OB [address] [place] [address] 09/01/2020 12:00:00 AM EST eCW1 ([facility]) [id number]"Psychotherapy Attender: Beatrice Octavio [facility] 08/22/2020 10:00:00 AM EST - 08/22/2020 10:00:00 AM EST [facility] ([facility]) Attender: Beatrice Cunningham 08/22/2020 12:00:00 AM EST [facility] ([facility]) Outpatient Attender: Zahira HARRELLELSIE [facility] 08/18/2020 08:30:00 AM EST - 08/18/2020 08:30:00 AM EST [facility] ([facility]) Attender: Zahira RANGEL 08/18/2020 12: 00:00 AM EST [facility] ([facility]) Unknown [address] [facility] [place] [address] 08/13/2020 12:00:00 AM EST eCW1 ([facility] Unknown [address] [facility] [address] 08/05/2020 12:00:00 AM EST eCW1 ([facility] Unknown [address] [facility] [place] [address] 08/05/2020 12:00:00 AM EST eCW1 ([facility]) Outpatient Attender: Zahira Ingram [facility] 08/04/2020 11:00:00 AM EST - 08/04/2020 11:00:00 AM EST [facility] ([facility]) Unknown [address] [facility] [place] [address] 08/04/2020 12:00:00 AM EST eCW1 ([facility]) Attender: Zahira Ingram [facility] 08/04/2020 12: 00:00 AM EST [facility] ([facility]) [id number]"Psychotherapy Attender: Beatrice Cunningham [facility] 08/01/2020 10:00:00 AM EST - 08/01/2020 10:00:00 AM EST [facility] ([facility]) Attender: Beatrice Cunningham 08/01/2020 12:00:00 AM EST [facility] ([facility]) Unknown [address] [facility] [place] [address] 07/28/2020 12:00:00 AM EST eCW1 ([facility]) (WC ESTOB) [facility] Est OB [address] [place] [address] 07/07/2020 12:00:00 AM EST eCW1 ([facility]) (WC ESTOB) [facility] Est OB [address] [place] [address] 07/04/2020 12:00:00 AM EST [facility]1 ([facility]) Outpatient Attender: Zahira Ingram [facility] 06/30/2020 11:00:00 AM EST - 06/30/2020 11:00:00 AM EST [facility] ([facility]) Attender: Zahira Ingram [facility] 06/30/2020 12: 00:00 AM EST [facility] ([facility]) Emergency Attender: ROBERTO Garduno: Jordan Alonso [facility] 06/27/2020 12:22:00 AM EST - 06/27/2020 12:53:00 AM [facility] Patient discharged. Emergency Attender: RUBÉN Johns nder: DARLENE Garduno: Jordan Alonso [facility] 06/25/2020 07:55:00 PM EST - 06/25/2020 08:05:00 PM [facility] Patient discharged. ( ESTOB) [facility] Est OB [address] [place] [address] 06/24/2020 12:00:00 AM EST eCW1 ([facility]) ( ESTOB) [facility] Est OB [address] [place] [address] 06/17/2020 12:00:00 AM EST eCW1 ([facility]) Outpatient Attender: Damari Rice [facility] 06/11/2020 09:10: 00 AM [facility] Outpatient [facility] 06/11/2020 12:00:00 AM EST eCW1 ([facility]) TEMPMHCTelemed 30" Psychotherapy Attender: Beatrice Christensen [facility] 06/09/2020 10:00:00 AM EST - 06/09/2020 10:00:00 AM EST [facility] ([facility]) Unknown [address] [facility] [address] 06/09/2020 12:00:00 AM EST eCW1 ([facility]) Attender: Beatrice Cunningham 06/09/2020 12:00:00 AM EST [facility] ([facility]) ( ESTOB) enter Est OB [address] [place] [address] 06/03/2020 12:00:00 AM EST eCW1 ([facility]) Outpatient Attender: Zahira Ingram [facility] 05/26/2020 10:00:00 AM EST - 05/26/2020 10:00:00 AM EST [facility] ([facility]) Attender: Zahira Ingram [facility] 05/26/2020 12: 00:00 AM EST [facility] ([facility]) ( ESTOB) [facility] Est OB [address] [place] [address] 05/14/2020 12:00:00 AM EST eCW1 ([facility]) Outpatient Attender: Zahira HARRELLELSIE [facility] 04/28/2020 11:00:00 AM EST - 04/28/2020 11:00:00 AM EST [facility] ([facility]) ( [place]) [facility] Nurse Visit [address] [place] [address] 04/28/2020 12:00:00 AM EST eCW1 ([facility]) Unknown [address] [facility] [address] 04/28/2020 12:00:00 AM EST eCW1 ([facility]) Attender: Zahira Ingram [facility] 04/28/2020 12: 00:00 AM EST [facility] ([facility]) ( ESTOB) [facility] Est OB [address] [place] [address] 04/23/2020 12:00:00 AM EDT eCW1 ([facility]) Unknown [address] [facility] [address] 04/11/2020 12:00:00 AM EDT eCW1 ([facility]) Emergency Attender: DARLENE Garduno: [place] [facility] EMERGENCY ROOM-ER 01/23/2020 04:47:00 PM EDT - 01/23/2020 07:09:00 PM EDT [facility] Patient discharged. Outpatient Attender: Ivette Olivas FNPReferrer: Jordan Kecia joelle [facility] 11/14/2019 09:53:00 AM EDT - 11/14/2019 09:53:00 AM [facility] Outpatient Attender: Ivette Olivas FNPReferrer: Jordan Mcdonnell joelle [facility] 01/22/2019 01:00:00 PM [facility] Functional Status Immunizations Vaccine Date Status Description Data Source(s) 02/04/2021 09:52:00 AM EDT completed [facility] 02/04/2021 09:52:00 AM EDT completed e [facility] 02/04/2021 09:52:00 AM EDT completed e [facility] 02/04/2021 09:52:00 AM EDT completed e [facility]) 11/19/2020 09:06:00 AM EDT completed e CW[facility] ([facility]) 11/19/2020 09:06:00 AM EDT completed e CW[facility] ([facility]) 11/19/2020 09:06:00 AM EDT completed e CW1 (Critical [facility] 11/19/2020 09:06:00 AM EDT completed [facility] 11/19/2020 09:06:00 AM EDT completed [facility]) 11/19/2020 09:06:00 AM EDT completed [facility]) 11/19/2020 09:06:00 AM EDT completed [facility]) 11/19/2020 09:06:00 AM EDT completed [facility]) 11/19/2020 09:06:00 AM EDT completed [facility]) 09/01/2020 10:05:00 AM EST completed [facility]) 09/01/2020 10:05:00 AM EST completed [facility]) 09/01/2020 10:05:00 AM EST completed [facility]) 09/01/2020 10:05:00 AM EST completed e [facility]) 09/01/2020 10:05:00 AM EST completed e [facility]) 09/01/2020 10:05:00 AM EST completed e [facility]) 09/01/2020 10:05:00 AM EST completed [facility]) 09/01/2020 10:05:00 AM EST completed e [facility]) 09/01/2020 10:05:00 AM EST completed e [facility]) 09/01/2020 10:05:00 AM EST completed e [facility] ([facility] [...] Instructions Status Indications Reaction Description Data Source(s) ropinirole 1 MG Oral Tablet Ropinirole HCL 05/27/2021 12:00:00 AM EST ORAL active [facility] ([facility]) PT: Evaluate And Treat 05/27/2021 12:00:00 AM EST active [facility] ([facility]) Nicotine 2 MG Chewing Gum nicotine (polacrilex) 05/27/2021 12:00:00 AM EST 2 mg completed <td ID="Me dicationRxNorm_2">470742</td><td ID="MedicationMedication_2">nicotine (polacrilex)</td><td ID="MedicationRoute_2">to inside of mouth (buccal)</td><td ID="MedicationRouteConcept_2"></td><td ID="MedicationStartDate_2">05/27/2021</td><td ID="MedicationStopDate_2">07/26/2021</td><td ID="MedicationDosageFrequency_2"> every three hours</td><td ID="MedicationDuration_2">30</td><td ID="MedicationFormulaStrength_2">2 mg</td><td ID="MedicationDosageForm_2">gum</td><td ID="MedicationDosageFormCode_2"></td><td ID="MedicationDosageDescription_2">as needed</td><td ID="MedicationMedicationId_2">[id number]</td><td ID="MedicationAccount_2">[id number]</td><td ID="MedicationNpid_2">[id number]</td><td ID="MedicationAuthorFirstName_2">Franklin</td><td ID="MedicationAuthorLastName_2">Gold</td><td ID="MedicationTaxonomyCode_2">[id number]</td><td ID="MedicationTaxonomyDesc_2">Nurse Practitioner</td><td ID="MedicationPhoneNumber_2">[phone]</td> [facility] ([facility]) aripiprazole 2 MG Oral Tablet aripiprazole 05/14/2021 12:00:00 AM EST 2 mg by mouth completed <td ID="Medica tionRxNorm_2">057691</td><td ID="MedicationMedication_2">aripiprazole</td><td ID="MedicationRoute_2">by mouth</td><td ID="MedicationRouteConcept_2">U07044</td><td ID="MedicationStartDate_2">05/14/2021</td><td ID="MedicationStopDate_2">07/13/2021</td><td ID="MedicationDosageFrequency_2">once a day</td><td ID="MedicationDuration_2">30</td><td ID="MedicationFormulaStrength_2">2 mg</td><td ID="MedicationDosageForm_2">tablet</td><td ID="MedicationDosageFormCode_2"></td><td ID="MedicationDosageDescription_2"></td><td ID="MedicationMedicationId_2">[id number]</td><td ID="MedicationAccount_2">[id number]</td><td ID="MedicationNpid_2">[id number]</td><td ID="MedicationAuthorFirstName_2">Franklin</td><td ID="MedicationAuthorLastName_2">Gold</td><td ID="MedicationTaxonomyCode_2">[id number]</td><td ID="MedicationTaxonomyDesc_2">Nurse Practitioner</td><td ID="MedicationPhoneNumber_2">[phone]</td> [facility] ([facility] aripiprazole 2 MG Oral Tablet aripiprazole 05/14/2021 12:00:00 AM EST 2 mg by mouth completed <td ID="Medica tionRxNorm_3">872216</td><td ID="MedicationMedication_3">aripiprazole</td><td ID="MedicationRoute_3">by mouth</td><td ID="MedicationRouteConcept_3">L21310</td><td ID="MedicationStartDate_3">05/14/2021</td><td ID="MedicationStopDate_3">07/13/2021</td><td ID="MedicationDosageFrequency_3">once a day</td><td ID="MedicationDuration_3">30</td><td ID="MedicationFormulaStrength_3">2 mg</td><td ID="MedicationDosageForm_3">tablet</td><td ID="MedicationDosageFormCode_3"></td><td ID="MedicationDosageDescription_3"></td><td ID="MedicationMedicationId_3">[id number]</td><td ID="MedicationAccount_3">[id number]</td><td ID="MedicationNpid_3">[id number]</td><td ID="MedicationAuthorFirstName_3">Franklin</td><td ID="MedicationAuthorLastName_3">Gold</td><td ID="MedicationTaxonomyCode_3">[id number]</td><td ID="MedicationTaxonomyDesc_3">Nurse Practitioner</td><td ID="MedicationPhoneNumber_3">[phone]</td> [facility] ([facility]) aripiprazole 2 MG Oral Tablet aripiprazole 05/14/2021 12:00:00 AM EST 2 mg by mouth completed <td ID="Medica tionRxNorm_1">025512</td><td ID="MedicationMedication_1">aripiprazole</td><td ID="MedicationRoute_1">by mouth</td><td ID="MedicationRouteConcept_1">P00463</td><td ID="MedicationStartDate_1">05/14/2021</td><td ID="MedicationStopDate_1">07/13/2021</td><td ID="MedicationDosageFrequency_1">once a day</td><td ID="MedicationDuration_1">30</td><td ID="MedicationFormulaStrength_1">2 mg</td><td ID="MedicationDosageForm_1">tablet</td><td ID="MedicationDosageFormCode_1"></td><td ID="MedicationDosageDescription_1"></td><td ID="MedicationMedicationId_1">[id number]</td><td ID="MedicationAccount_1">[id number]</td><td ID="MedicationNpid_1">[id number]</td><td ID="MedicationAuthorFirstName_1">Franklin</td><td ID="MedicationAuthorLastName_1">Gold</td><td ID="MedicationTaxonomyCode_1">[id number]</td><td ID="MedicationTaxonomyDesc_1">Nurse Practitioner</td><td ID="MedicationPhoneNumber_1">[phone]</td> [facility] ([facility]) ropinirole 0.5 MG Oral Tablet Ropinirole HCL 04/20/2021 12:00:00 AM E DT ORAL completed [facility] ([facility]) Alprazolam 0.5 MG Oral Tablet Alprazolam 04/15/2021 12:00:00 AM EDT ORAL active [facility] ([facility] ) 24 HR Bupropion Hydrochloride 150 MG Extended Release Oral T ablet bupropion HCl 04/03/2021 12:00:00 AM EDT 150 mg by mouth completed <td ID="MedicationRxNorm_1">466387</td><td ID="MedicationMedication_1">bupropion HCl</td><td ID="MedicationRoute_1">by mouth</td><td ID="MedicationRouteConcept_1">U02363</td><td ID="MedicationStartDate_1">04/03/2021</td><td ID="MedicationStopDate_1">05/14/2021</td><td ID="MedicationDosageFrequency_1">every morning</td><td ID="MedicationDuration_1"></td><td ID="MedicationFormulaStrength_1">150 mg</td><td ID="MedicationDosageForm_1">tablet extended release 24 hr</td><td ID="MedicationDosageFormCode_1"></td><td ID="MedicationDosageDescription_1"></td><td ID="MedicationMedicationId_1">[id number]</td><td ID="MedicationAccount_1">[id number]</td><td ID="MedicationNpid_1">[id number]</td><td ID="MedicationAuthorFirstName_1">Ariadna</td><td ID="MedicationAuthorLastName_1">Tello</td><td ID="MedicationTaxonomyCode_1">[id number]</td><td ID="MedicationTaxonomyDesc_1"> Nurse Practitioner</td><td ID="MedicationPhoneNumber_1">[phone]</td> [facility] ([facility]) 24 HR Bupropion Hydrochloride 150 MG Extended Release Oral T ablet bupropion HCl 04/03/2021 12:00:00 AM EDT 150 mg by mouth completed <td ID="MedicationRxNorm_2">501201</td><td ID="MedicationMedication_2">bupropion HCl</td><td ID="MedicationRoute_2">by mouth</td><td ID="MedicationRouteConcept_2">L86864</td><td ID="MedicationStartDate_2">04/03/2021</td><td ID="MedicationStopDate_2"></td><td ID="MedicationDosageFrequency_2">every morning</td><td ID="MedicationDuration_2"></td><td ID="MedicationFormulaStrength_2">150 mg</td><td ID="MedicationDosageForm_2">tablet extended release 24 hr</td><td ID="MedicationDosageFormCode_2"></td><td ID="MedicationDosageDescription_2"></td><td ID="MedicationMedicationId_2">[id number]</td><td ID="MedicationAccount_2">[id number]</td><td ID="MedicationNpid_2">[id number]</td><td ID="MedicationAuthorFirstName_2">Franklin</td><td ID="MedicationAuthorLastName_2">Gold</td><td ID="MedicationTaxonomyCode_2">[id number]</td><td ID="MedicationTaxonomyDesc_2"> Nurse Practitioner</td><td ID="MedicationPhoneNumber_2">[phone]</td> [facility] ([facility]) lamotrigine 25 MG Oral Tablet lamotrigine 02/12/2021 12:00:00 AM EDT 25 mg by mouth completed <td ID="Medica tionRxNorm_2">983227</td><td ID="MedicationMedication_2">lamotrigine</td><td ID="MedicationRoute_2">by mouth</td><td ID="MedicationRouteConcept_2">C27344</td><td ID="MedicationStartDate_2">02/12/2021</td><td ID="MedicationStopDate_2"></td><td ID="MedicationDosageFrequency_2">as directed</td><td ID="MedicationDuration_2"></td><td ID="MedicationFormulaStrength_2">25 mg</td><td ID="MedicationDosageForm_2">tablet</td><td ID="MedicationDosageFormCode_2"></td><td ID="MedicationDosageDescription_2"></td><td ID="MedicationMedicationId_2">72193</td><td ID="MedicationAccount_2">[id number]</td><td ID="MedicationNpid_2">[id number]</td><td ID="MedicationAuthorFirstName_2">Franklin</td><td ID="MedicationAuthorLastName_2">Gold</td><td ID="MedicationTaxonomyCode_2">[id number]</td><td ID="MedicationTaxonomyDesc_2">Nurse Practitioner</td><td ID="MedicationPhoneNumber_2">[phone]</td> [facility] ([facility]) lamotrigine 100 MG Oral Tablet lamotrigine 02/12/2021 12:00:00 AM EDT 100 mg by mouth completed <td ID="Medica tionRxNorm_1">189843</td><td ID="MedicationMedication_1">lamotrigine</td><td ID="MedicationRoute_1">by mouth</td><td ID="MedicationRouteConcept_1">A78028</td><td ID="MedicationStartDate_1">02/12/2021</td><td ID="MedicationStopDate_1"></td><td ID="MedicationDosageFrequency_1">twice a day</td><td ID="MedicationDuration_1"></td><td ID="MedicationFormulaStrength_1">100 mg</td><td ID="MedicationDosageForm_1">tablet</td><td ID="MedicationDosageFormCode_1"></td><td ID="MedicationDosageDescription_1"></td><td ID="MedicationMedicationId_1">06093</td><td ID="MedicationAccount_1">[id number]</td><td ID="MedicationNpid_1">[id number]</td><td ID="MedicationAuthorFirstName_1">Franklin</td><td ID="MedicationAuthorLastName_1">Gold</td><td ID="MedicationTaxonomyCode_1">[id number]</td><td ID="MedicationTaxonomyDesc_1">Nurse Practitioner</td><td ID="MedicationPhoneNumber_1">[phone]</td> [facility] ([facility]) lamotrigine 100 MG Oral Tablet lamotrigine 02/12/2021 12:00:00 AM EDT 100 mg completed <td ID="Medica tionRxNorm_1">622732</td><td ID="MedicationMedication_1">lamotrigine</td><td ID="MedicationRoute_1"></td><td ID="MedicationRouteConcept_1"></td><td ID="MedicationStartDate_1">02/12/2021</td><td ID="MedicationStopDate_1">07/28/2021</td><td ID="MedicationDosageFrequency_1"></td><td ID="MedicationDuration_1">30</td><td ID="MedicationFormulaStrength_1">100 mg</td><td ID="MedicationDosageForm_1">tablet</td><td ID="MedicationDosageFormCode_1"></td><td ID="MedicationDosageDescription_1"></td><td ID="MedicationMedicationId_1">32712</td><td ID="MedicationAccount_1">[id number]</td><td ID="MedicationNpid_1">[id number]</td><td ID="MedicationAuthorFirstName_1">Franklin</td><td ID="MedicationAuthorLastName_1">Gold</td><td ID="MedicationTaxonomyCode_1">[id number]</td><td ID="MedicationTaxonomyDesc_1">Nurse Practitioner</td><td ID="MedicationPhoneNumber_1">[phone]</td> [facility] ([facility]) lamotrigine 100 MG Oral Tablet lamotrigine 02/12/2021 12:00:00 AM EDT 100 mg completed <td ID="Medica tionRxNorm_3">234434</td><td ID="MedicationMedication_3">lamotrigine</td><td ID="MedicationRoute_3"></td><td ID="MedicationRouteConcept_3"></td><td ID="MedicationStartDate_3">02/12/2021</td><td ID="MedicationStopDate_3">07/28/2021</td><td ID="MedicationDosageFrequency_3"></td><td ID="MedicationDuration_3">30</td><td ID="MedicationFormulaStrength_3">100 mg</td><td ID="MedicationDosageForm_3">tablet</td><td ID="MedicationDosageFormCode_3"></td><td ID="MedicationDosageDescription_3"></td><td ID="MedicationMedicationId_3">00605</td><td ID="MedicationAccount_3">[id number]</td><td ID="MedicationNpid_3">[id number]</td><td ID="MedicationAuthorFirstName_3">Franklin</td><td ID="MedicationAuthorLastName_3">Gold</td><td ID="MedicationTaxonomyCode_3">[id number]</td><td ID="MedicationTaxonomyDesc_3">Nurse Practitioner</td><td ID="MedicationPhoneNumber_3">[phone]</td> [facility] ([facility]) lamotrigine 100 MG Oral Tablet lamotrigine 02/12/2021 12:00:00 AM EDT 100 mg completed <td ID="Medica tionRxNorm_2">965945</td><td ID="MedicationMedication_2">lamotrigine</td><td ID="MedicationRoute_2"></td><td ID="MedicationRouteConcept_2"></td><td ID="MedicationStartDate_2">02/12/2021</td><td ID="MedicationStopDate_2">07/28/2021</td><td ID="MedicationDosageFrequency_2"></td><td ID="MedicationDuration_2">30</td><td ID="MedicationFormulaStrength_2">100 mg</td><td ID="MedicationDosageForm_2">tablet</td><td ID="MedicationDosageFormCode_2"></td><td ID="MedicationDosageDescription_2"></td><td ID="MedicationMedicationId_2">24842</td><td ID="MedicationAccount_2">[id number]</td><td ID="MedicationNpid_2">[id number]</td><td ID="MedicationAuthorFirstName_2">Franklin</td><td ID="MedicationAuthorLastName_2">Gold</td><td ID="MedicationTaxonomyCode_2">[id number]</td><td ID="MedicationTaxonomyDesc_2">Nurse Practitioner</td><td ID="MedicationPhoneNumber_2">[phone]</td> [facility] ([facility]) buspirone hydrochloride 15 MG Oral Tablet buspirone 2020 12:00:00 AM EDT 15 mg by mouth completed <td ID="Medic ationRxNorm_2">735305</td><td ID="MedicationMedication_2">buspirone</td><td ID="MedicationRoute_2">by mouth</td><td ID="MedicationRouteConcept_2">K30829</td><td ID="MedicationStartDate_2">12/23/2020</td><td ID="MedicationStopDate_2"></td><td ID="MedicationDosageFrequency_2">twice a day</td><td ID="MedicationDuration_2"></td><td ID="MedicationFormulaStrength_2">15 mg</td><td ID="MedicationDosageForm_2">tablet</td><td ID="MedicationDosageFormCode_2"></td><td ID="MedicationDosageDescription_2"></td><td ID="MedicationMedicationId_2">71668</td><td ID="MedicationAccount_2">[id number]</td><td ID="MedicationNpid_2">[id number]</td><td ID="MedicationAuthorFirstName_2">Zahira</td><td ID="MedicationAuthorLastName_2">Juan Jose</td><td ID="MedicationTaxonomyCode_2">[id number]</td><td ID="MedicationTaxonomyDesc_2">Psychiatric/Mental Health</td><td ID="MedicationPhoneNumber_2">[phone]</td> [facility] ([facility]) buspirone hydrochloride 15 MG Oral Tablet buspirone 2020 12:00:00 AM EDT 15 mg by mouth completed <td ID="Medic ationRxNorm_1">117662</td><td ID="MedicationMedication_1">buspirone</td><td ID="MedicationRoute_1">by mouth</td><td ID="MedicationRouteConcept_1">B11375</td><td ID="MedicationStartDate_1">12/23/2020</td><td ID="MedicationStopDate_1"></td><td ID="MedicationDosageFrequency_1">twice a day</td><td ID="MedicationDuration_1"></td><td ID="MedicationFormulaStrength_1">15 mg</td><td ID="MedicationDosageForm_1">tablet</td><td ID="MedicationDosageFormCode_1"></td><td ID="MedicationDosageDescription_1"></td><td ID="MedicationMedicationId_1">69527</td><td ID="MedicationAccount_1">[id number]</td><td ID="MedicationNpid_1">[id number]</td><td ID="MedicationAuthorFirstName_1">Zahira</td><td ID="MedicationAuthorLastName_1">Juan Jose</td><td ID="MedicationTaxonomyCode_1">[id number]</td><td ID="MedicationTaxonomyDesc_1">Psychiatric/Mental Health</td><td ID="MedicationPhoneNumber_1">[phone]</td> [facility] ([facility]) buspirone hydrochloride 15 MG Oral Tablet buspirone 2020 12:00:00 AM EDT 15 mg by mouth completed <td ID="Medic ationRxNorm_3">576035</td><td ID="MedicationMedication_3">buspirone</td><td ID="MedicationRoute_3">by mouth</td><td ID="MedicationRouteConcept_3">S65688</td><td ID="MedicationStartDate_3">12/23/2020</td><td ID="MedicationStopDate_3">04/03/2021</td><td ID="MedicationDosageFrequency_3">twice a day</td><td ID="MedicationDuration_3"></td><td ID="MedicationFormulaStrength_3">15 mg</td><td ID="MedicationDosageForm_3">tablet</td><td ID="MedicationDosageFormCode_3"></td><td ID="MedicationDosageDescription_3"></td><td ID="MedicationMedicationId_3">45733</td><td ID="MedicationAccount_3">[id number]</td><td ID="MedicationNpid_3">[id number]</td><td ID="MedicationAuthorFirstName_3">Zahira</td><td ID="MedicationAuthorLastName_3">Juan Jose</td><td ID="MedicationTaxonomyCode_3">[id number]</td><td ID="MedicationTaxonomyDesc_3">Psychiatric/Mental Health</td><td ID="MedicationPhoneNumber_3">[phone]</td> [facility] ([facility]) Buprenorphine 8 MG Sublingual Tablet buprenorphine HCl 08/2020 12:00:00 AM EDT 8 mg completed <td ID ="MedicationRxNorm_2">615421</td><td ID="MedicationMedication_2">buprenorphine HCl</td><td ID="MedicationRoute_2">under tongue</td><td ID="MedicationRouteConcept_2"></td> <td ID="MedicationStartDate_2">11/27/2020</td><td ID="MedicationStopDate_2">12/11/2020</td><td ID="MedicationDosageFrequency_2">twice a day</td><td ID="MedicationDuration_2">14</td><td ID="MedicationFormulaStrength_2">8 mg</td><td ID="MedicationDosageForm_2">tablet, sublingual</td><td ID="MedicationDosageFormCode_2"></td><td ID="MedicationDosageDescription_2"> </td><td ID="MedicationMedicationId_2">56813</td><td ID="MedicationAccount_2">[id number]</td><td ID="MedicationNpid_2">[id number]</td><td ID="MedicationAuthorFirstName_2">Judie</td><td ID="MedicationAuthorLastName_2">[place]</td><td ID="MedicationTaxonomyCode_2">[id number]</td><td ID="MedicationTaxonomyDesc_2">Psychiatric/Mental Health</td><td ID="MedicationPhoneNumber_2">[phone]</td> [facility] ([facility]) Hydroxyzine Hydrochloride 10 MG Oral Tablet hydroxyzine HCl 11/18/2020 12:00:00 AM EDT 10 mg by mouth completed <td ID="MedicationRxNorm_3">334284</td><td ID="MedicationMedication_3">hydroxyzine HCl</td><td ID="MedicationRoute_3">by mouth</td><td ID="MedicationRouteConcept_3">P87399</td><td ID="MedicationStartDate_3">11/18/2020</td><td ID="MedicationStopDate_3">01/17/2021</td><td ID="MedicationDosageFrequency_3">three times a day</td><td ID="MedicationDuration_3">30</td><td ID="MedicationFormulaStrength_3">10 mg</td><td ID="MedicationDosageForm_3">tablet</td><td ID="MedicationDosageFormCode_3"></td><td ID="MedicationDosageDescription_3">as needed</td><td ID="MedicationMedicationId_3">44582</td><td ID="MedicationAccount_3">[id number]</td><td ID="MedicationNpid_3">[id number]</td><td ID="MedicationAuthorFirstName_3">Zahira</td><td ID="MedicationAuthorLastName_3">[place]</td><td ID="MedicationTaxonomyCode_3">[id number]</td><td ID="MedicationTaxonomyDesc_3">Psychiatric/Mental Health</td><td ID="MedicationPhoneNumber_3">[phone]</td> [facility] ([facility]) buspirone hydrochloride 15 MG Oral Tablet buspirone 2020 12:00:00 AM EDT 15 mg by mouth completed <td ID="Medic ationRxNorm_5">569376</td><td ID="MedicationMedication_5">buspirone</td><td ID="MedicationRoute_5">by mouth</td><td ID="MedicationRouteConcept_5">S48345</td><td ID="MedicationStartDate_5">10/06/2020</td><td ID="MedicationStopDate_5">12/05/2020</td><td ID="MedicationDosageFrequency_5">twice a day</td><td ID="MedicationDuration_5">30</td><td ID="MedicationFormulaStrength_5">15 mg</td><td ID="MedicationDosageForm_5">tablet</td><td ID="MedicationDosageFormCode_5"></td><td ID="MedicationDosageDescription_5"></td><td ID="MedicationMedicationId_5">93912</td><td ID="MedicationAccount_5">[id number]</td><td ID="MedicationNpid_5">[id number]</td><td ID="MedicationAuthorFirstName_5">Zahira</td><td ID="MedicationAuthorLastName_5">Juan Jose</td><td ID="MedicationTaxonomyCode_5">[id number]</td><td ID="MedicationTaxonomyDesc_5">Psychiatric/Mental Health</td><td ID="MedicationPhoneNumber_5">[phone]</td> [facility] ([facility]) duloxetine 60 MG Delayed Release Oral Capsule duloxetine 10/06/2020 12:00:00 AM EDT 60 mg by mouth completed <td ID="MedicationRxNorm_1">756814</td><td ID="MedicationMedication_1">duloxetine</td><td ID="MedicationRoute_1">by mouth</td><td ID="MedicationRouteConcept_1">O14937</td><td ID="MedicationStartDate_1">10/06/2020</td><td ID="MedicationStopDate_1"></td><td ID="MedicationDosageFrequency_1">once a day</td><td ID="MedicationDuration_1"></td><td ID="MedicationFormulaStrength_1">60 mg</td><td ID="MedicationDosageForm_1">capsule,delayed release(DR/EC)</td><td ID="MedicationDosageFormCode_1"></td><td ID="MedicationDosageDescription_1"></td><td ID="MedicationMedicationId_1">50095</td><td ID="MedicationAccount_1">[id number]</td><td ID="MedicationNpid_1">[id number]</td><td ID="MedicationAuthorFirstName_1">Zahira</td><td ID="MedicationAuthorLastName_1">[place]</td><td ID="MedicationTaxonomyCode_1">[id number]</td><td ID="MedicationTaxonomyDesc_1"> Psychiatric/Mental Health</td><td ID="MedicationPhoneNumber_1">[phone]</td> [facility] ([facility]) duloxetine 60 MG Delayed Release Oral Capsule duloxetine 10/06/2020 12:00:00 AM EDT 60 mg by mouth completed <td ID="MedicationRxNorm_2">269026</td><td ID="MedicationMedication_2">duloxetine</td><td ID="MedicationRoute_2">by mouth</td><td ID="MedicationRouteConcept_2">U05124</td><td ID="MedicationStartDate_2">10/06/2020</td><td ID="MedicationStopDate_2"></td><td ID="MedicationDosageFrequency_2">once a day</td><td ID="MedicationDuration_2"></td><td ID="MedicationFormulaStrength_2">60 mg</td><td ID="MedicationDosageForm_2">capsule,delayed release(DR/EC)</td><td ID="MedicationDosageFormCode_2"></td><td ID="MedicationDosageDescription_2"></td><td ID="MedicationMedicationId_2">66244</td><td ID="MedicationAccount_2">[id number]</td><td ID="MedicationNpid_2">[id number]</td><td ID="MedicationAuthorFirstName_2">Zahira</td><td ID="MedicationAuthorLastName_2">[place]</td><td ID="MedicationTaxonomyCode_2">[id number]</td><td ID="MedicationTaxonomyDesc_2"> Psychiatric/Mental Health</td><td ID="MedicationPhoneNumber_2">[phone]</td> [facility] ([facility]) buspirone hydrochloride 10 MG Oral Tablet buspirone 2020 12:00:00 AM EST 10 mg by mouth completed <td ID="Medic ationRxNorm_4">020432</td><td ID="MedicationMedication_4">buspirone</td><td ID="MedicationRoute_4">by mouth</td><td ID="MedicationRouteConcept_4">P93450</td><td ID="MedicationStartDate_4">09/02/2020</td><td ID="MedicationStopDate_4">10/06/2020</td><td ID="MedicationDosageFrequency_4">twice a day</td><td ID="MedicationDuration_4">30</td><td ID="MedicationFormulaStrength_4">10 mg</td><td ID="MedicationDosageForm_4">tablet</td><td ID="MedicationDosageFormCode_4"></td><td ID="MedicationDosageDescription_4"></td><td ID="MedicationMedicationId_4">84217</td><td ID="MedicationAccount_4">[id number]</td><td ID="MedicationNpid_4">[id number]</td><td ID="MedicationAuthorFirstName_4">Zahira</td><td ID="MedicationAuthorLastName_4">Juan Jose</td><td ID="MedicationTaxonomyCode_4">[id number]</td><td ID="MedicationTaxonomyDesc_4">Psychiatric/Mental Health</td><td ID="MedicationPhoneNumber_4">[phone]</td> [facility] [place] [facility] duloxetine 20 MG Delayed Release Oral Capsule duloxetine 08/18/2020 12:00:00 AM EST 20 mg by mouth completed <td ID="MedicationRxNorm_3">[id number]</td><td ID="MedicationMedication_3">duloxetine</td><td ID="MedicationRoute_3">by mouth</td><td ID="MedicationRouteConcept_3">[id number]</td><td ID="MedicationStartDate_3">08/18/2020</td><td ID="MedicationStopDate_3">10/06/2020</td><td ID="MedicationDosageFrequency_3">twice a day</td><td ID="MedicationDuration_3"></td><td ID="MedicationFormulaStrength_3">20 mg</td><td ID="MedicationDosageForm_3">capsule,delayed release(DR/EC)</td><td ID="MedicationDosageFormCode_3"></td><td ID="MedicationDosageDescription_3"></td><td ID="MedicationMedicationId_3">[id number]</td><td ID="MedicationAccount_3">[id number]</td><td ID="MedicationNpid_3">[id number]</td><td ID="MedicationAuthorFirstName_3">Zahira</td><td ID="MedicationAuthorLastName_3">Juan Jose</td><td ID="MedicationTaxonomyCode_3">[id number]</td><td ID="MedicationTaxonomyDesc_3"> Psychiatric/Mental Health</td><td ID="MedicationPhoneNumber_3">[phone]</td> [facility] ([facility]) Buprenorphine 8 MG Sublingual Tablet buprenorphine HCl 12:00:00 AM EDT 8 mg completed <td ID ="MedicationRxNorm_3">[id number]</td><td ID="MedicationMedication_3">buprenorphine HCl</td><td ID="MedicationRoute_3">under tongue</td><td ID="MedicationRouteConcept_3"></td> <td ID="MedicationStartDate_3">04/14/2020</td><td ID="MedicationStopDate_3"></td><td ID="MedicationDosageFrequency_3">twice a day</td><td ID="MedicationDuration_3"></td><td ID="MedicationFormulaStrength_3">8 mg</td><td ID="MedicationDosageForm_3">tablet, sublingual</td><td ID="MedicationDosageFormCode_3"></td><td ID="MedicationDosageDescription_3"> </td><td ID="MedicationMedicationId_3">[id number]</td><td ID="MedicationAccount_3">[id number]</td><td ID="MedicationNpid_3">[id number]</td><td ID="MedicationAuthorFirstName_3">Zahira</td><td ID="MedicationAuthorLastName_3">Juan Jose</td><td ID="MedicationTaxonomyCode_3">[id number]</td><td ID="MedicationTaxonomyDesc_3">Psychiatric/Mental Health</td><td ID="MedicationPhoneNumber_3">[phone]</td> [facility] ([facility]) Buprenorphine 8 MG Sublingual Tablet buprenorphine HCl 12:00:00 AM EDT 8 mg completed <td ID ="MedicationRxNorm_1">[id number]</td><td ID="MedicationMedication_1">buprenorphine HCl</td><td ID="MedicationRoute_1">under tongue</td><td ID="MedicationRouteConcept_1"></td> <td ID="MedicationStartDate_1">04/14/2020</td><td ID="MedicationStopDate_1"></td><td ID="MedicationDosageFrequency_1">twice a day</td><td ID="MedicationDuration_1"></td><td ID="MedicationFormulaStrength_1">8 mg</td><td ID="MedicationDosageForm_1">tablet, sublingual</td><td ID="MedicationDosageFormCode_1"></td><td ID="MedicationDosageDescription_1"> </td><td ID="MedicationMedicationId_1">[id number]</td><td ID="MedicationAccount_1">[id number]</td><td ID="MedicationNpid_1">[id number]</td><td ID="MedicationAuthorFirstName_1">Zahira</td><td ID="MedicationAuthorLastName_1">Juan Jose</td><td ID="MedicationTaxonomyCode_1">[id number]</td><td ID="MedicationTaxonomyDesc_1">Psychiatric/Mental Health</td><td ID="MedicationPhoneNumber_1">[phone]</td> [facility] ([facility]) Mirtazapine 7.5 MG Oral Tablet mirtazapine 10/23/2019 12:00:00 AM EDT 7.5 mg by mouth completed <td ID="Medica tionRxNorm_3">[id number]</td><td ID="MedicationMedication_3">mirtazapine</td><td ID="MedicationRoute_3">by mouth</td><td ID="MedicationRouteConcept_3">T22822</td><td ID="MedicationStartDate_3">10/23/2019</td><td ID="MedicationStopDate_3">08/04/2020</td><td ID="MedicationDosageFrequency_3">every night</td><td ID="MedicationDuration_3"></td><td ID="MedicationFormulaStrength_3">7.5 mg</td><td ID="MedicationDosageForm_3">tablet</td><td ID="MedicationDosageFormCode_3"></td><td ID="MedicationDosageDescription_3"></td><td ID="MedicationMedicationId_3">[id number]</td><td ID="MedicationAccount_3">[id number]</td><td ID="MedicationNpid_3">[id number]</td><td ID="MedicationAuthorFirstName_3">Zahira</td><td ID="MedicationAuthorLastName_3">[place]</td><td ID="MedicationTaxonomyCode_3">[id number]</td><td ID="MedicationTaxonomyDesc_3">Psychiatric/Mental Health</td><td ID="MedicationPhoneNumber_3">[phone]</td> [facility] ([facility]) Insurance Providers Payer name Policy type / Coverage type Policy ID Covered republican ID Covered republican's relationship to wise Policy Wise Plan Information [employer] [place] 304/[phone] [id number] FA2 [id number] [employer] [place] 304/804 [id number] FA2 [id number] Medicaid Dental P [id number] S [id number] [facility] Health Maintenance Organization (HMO) [id number] Self [facility] Health Maintenance Organization (O) [id number] Self [id number] Managed Care - Community Plan [facility] P [id number] S [id number] Managed Care - [facility] Community Plan P [id number] S [id number] Medicaid S [id number] S [id number] [facility] MEDICAID [id number] S [id number] Managed Care - [facility] Community Plan P [id number] S [id number] Medicaid S [id number] S [id number] [facility] MEDICAID [id number] S [id number] Managed Care - [facility] Community Plan P [id number] S [id number] Medicaid S [id number] S [id number] SELF PAY UNAVAILABLE UNAVAILA BLE D Managed Care [facility] S [id number] S [id number] [facility] O [id number] S [id number] MEDICAID [id number] SP [id number] UN[employer] AMERICHOICE XIX O [id number] 18 [id number] O BLUE [id number] SP [id number] COMMERCIAL ALVARO M[employer]UAL INS [id number] SP [id number] BCBS [facility] [phone] [id number] [id number] HMO BLUE [id number] SP [id number] UNHC COMMUNITY PLAN MCDO [id number] SP [id number] [facility](MCAID) O [id number] S [id number] [facility] MEDICAID [id number] S [id number] [facility] COMMUNITY PLAN [facility] [id number] SP [id number] [facility] HEALTH [facility] [id number] SP [id number] [facility] Health Maintenance Organization (HMO) [id number] Self [id number] [facility] Health Maintenance Organization (HMO) [id number] Self [id number] [facility] COMMUNITY PLAN [facility] [id number] SP [id number] [facility] HEALTH [id number] SP [id number] [facility] O [id number] S [id number] [facility] [id number] SP [id number] [facility] COMMUNITY PLAN [facility] [id number] SP [id number] [employer] P [id number] S [id number] Problems, Conditions, and Diagnoses Code Display Name Description Problem Type Effective Dates Data Source(s) Y93.89 Activity, other specified ACTIVITY, OTHER SPECIFIED Di agnosis 06/27/2020 12:22:00 AM [facility] Y92.[address] specified places as the place of o ccurrence of the external cause OTH PLACES THE PLACE OF OCCURRENCE OF THE EXTER Diagnosis 06/2020 12:22:00 AM [facility] X58.XXXA Exposure to other specified factors, ini tial encounter EXPOSURE TO OTHER SPECIFIED FACTORS, INITIAL ENCOU Diagnosis 06/27/2020 12:22:00 A M [facility] Z79.899 Other retirement (current) drug therapy O THER HALF-WAY (CURRENT) DRUG THERAPY Diagnosis 06/27/2020 12:22:00 AM [facility] F17.210 Nicotine dependence, cigarettes, uncompl icated NICOTINE DEPENDENCE, CIGARETTES, UNCOMPLICATED Diagnosis 06/27/2020 12:22:00 AM [facility] S39.012A Strain of muscle, fascia and tendon of l ower back, initial encounter STRAIN OF MUSCLE, FASCIA AND TENDON OF LOWER BACK, Diagnosis 06/2020 12:22:00 AM [facility] M54.9 Dorsalgia, unspecified DORSALGIA, UNSPECIFIED Diagnosi s 06/27/2020 12:22:00 AM [facility] X50.1XXA OVEREXERTION FROM PROLONGED STATIC OR AW KWARD POST OVEREXERTION FROM PROLONGED STATIC OR AWKWARD POST Diagnosis 06/25/2020 07:55:00 PM [facility] Z3A.36 36 weeks gestation of 36 WEEKS GESTATI ON OF Diagnosis 06/25/2020 07:55:00 PM [facility] S29.011A Strain of muscle and tendon of front wal l of thorax, initial encounter STRAIN OF MUSCLE AND TENDON OF FRONT WALL OF THORA Diagnosis 07:55:00 PM [facility] O9A.213 Injury, poisoning and certai n other consequences of external causes complicating , third trimester INJ/POISN/OTH CONSEQ OF EXTERNAL CAUSES COMP PREG, THIRD TRI Diagnosis 06/25[facility]2020 [facility]55[facility] gestation of 35 WEEKS GESTATI ON OF Diagnosis 06/11/2020 09:10:00 AM [facility] J06.9 Acute upper respiratory infection, unspe cified ACUTE UPPER RESPIRATORY INFECTION, UNSPECIFIED Diagnosis 06/11/2020 09:10:00 AM [facility] ital O99.513 Diseases of the respiratory system complicating , third trimester DISEASES OF THE RESP SYS COMP , THIRD TRIMESTER Kristin gnosis 06/11/2020 09:10:00 AM [facility] F11.20 Opioid dependence, uncomplicated Opioid Use Disorder, Moderate Condition 05/29/2021 12:00:00 AM EST [facility] ([facility]) F15.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 dependence, uncomplicate d Stimulant Use Disorder, Moderate: Amphetamine-type substance Condition 05/29/2021 12:00:00 AM EST [facility] ([facility]) F41.9 Anxiety disorder, unspecified Unspecified Anxiety Diso rder Condition 05/29/2021 12:00:00 AM EST [facility] ([facility]) F60.3 Borderline personality disorder Borderline Personality Disorder Condition 05/29/2021 12:00:00 AM EST [facility] ([facility]) F41.9 Anxiety disorder, unspecified Unspecified Anxiety Diso rder Condition 04/01/2021 12:00:00 AM EDT [facility] ([facility]) F15.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 dependence, uncomplicate d Stimulant Use Disorder, Moderate: Amphetamine-type substance Condition 04/01/2021 12:00:00 AM EDT [facility] ([facility]) G25.81 [id number] Restless leg syndrome Problem 03/03/2021 12: 00:00 AM EDT [facility] F60.3 Borderline personality disorder Borderline Personality Disorder Condition 12/23/2020 12:00:00 AM EDT [facility] ([facility]) F15.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 dependence, uncomplicate d Stimulant Use Disorder, Moderate: Amphetamine-type substance Condition 12/23/2020 12:00:00 AM EDT [facility] ([facility]) F11.20 Opioid dependence, uncomplicated Opioid Use Disorder, Moderate Condition 12/16/2020 12:00:00 AM EDT [facility] ([facility]) 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 Oth er Specified Personality Disorder Condition 12/16/2020 12:00:00 AM EDT [facility] ([facility]) F15.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 dependence, uncomplicate d Stimulant Use Disorder, Moderate: Amphetamine-type substance Condition 12/02/2020 12:00:00 AM EDT [facility] ([facility]) 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 Oth er Specified Personality Disorder Condition 12/02/2020 12:00:00 AM EDT [facility] ([facility]) F11.20 Opioid dependence, uncomplicated Opioid Use Disorder, Moderate Condition 12/02/2020 12:00:00 AM EDT [facility] ([facility]) F41.9 Anxiety disorder, unspecified Unspecified Anxiety Diso rder Condition 12/02/2020 12:00:00 AM EDT [facility] ([facility]) F11.20 Opioid dependence, uncomplicated Opioid Use Disorder, Moderate Condition 11/17/2020 12:00:00 AM EDT [facility] ([facility]) F31.81 Bipolar II disorder Bipolar II Disorder Condition 0 08/04/2020 12:00:00 AM EST [facility] ([facility]) F31.81 Bipolar II disorder Bipolar II Disorder Condition 1 07/26/2019 12:00:00 AM EST [facility] ([facility]) B18.2 [id number] Chronic viral hepatitis C Problem 04/22/2020 12:00:00 AM EDT [facility] Surgeries/Procedures Procedure Description Date Indications Data Source(s) Extended Individual Psychotherapy - 45 min 05/29/2021 12:00:00 AM EST - 05/29/2021 12:00:00 AM EST [facility] ([facility]) Extended Individual Psychotherapy - 45 min 12:00:00 AM EST [facility] ([facility]) OFFICE OUTPATIENT VISIT 25 MINUTES 05/27/2021 12:00:00 AM EST [facility] ([facility] ) ELECTROENCEPHALOGRAM W/REC AWAKE&ASLEEP 05/19/2021 12: 00:00 AM EST [facility] ([facility]) ELECTROENCEPHALOGRAM W/REC AWAKE&ASLEEP 05/19/2021 12: 00:00 AM EST [facility] ([facility]) Extended Individual Psychotherapy - 45 min 05/15/2021 12:00:00 AM EST - 05/15/2021 12:00:00 AM EST [facility] ([facility]) Extended Individual Psychotherapy - 45 min 12:00:00 AM EST [facility] ([facility]) Telemed E/M Lvl 3--New pt 05/14/2021 12: 00:00 AM EST - 05/14/2021 12:00:00 AM EST [facility] ([facility]) Telemed A/O 30" 05/14/2021 12:00:00 AM EST [facility] ([facility]) Telemed E/M Lvl 3--New pt 05/14/2021 12:00:00 AM EST [facility] ([facility]) Injection, medroxyprogesterone acetate for contraceptive use , 150 mg 04/29/2021 12:00:00 AM EDT eCW1 ([facility]) Needle electromyography, each extremity, with related paraspinal areas, when performed, done with nerve conduction, amplitude and latency/velocity study; complete, five or more muscles studied, innervated by three or more nerves or four or more spinal levels (list separately in addition to the code for primary procedure). 04/20/2021 12:00:00 AM EDT [facility] ([facility], ) Needle electromyography, each extremity, with related paraspinal areas, when performed, done with nerve conduction, amplitude and latency/velocity study; complete, five or more muscles studied, innervated by three or more nerves or four or more spinal levels (list separately in addition to the code for primary procedure). 04/20/2021 12:00:00 AM EDT [facility] ([facility], ) [address]60 Nerve conduction studies 13 or more studies NEW 201204/20/2021 12:00:00 AM EDT [facility] ([facility] ) MRI BRAIN BRAIN STEM W/O CONTRAST MATERIAL 04/17/2021 12:00:00 AM EDT [facility] ([facility] ) MRI BRAIN BRAIN STEM W/O CONTRAST MATERIAL 04/17/2021 12:00:00 AM EDT [facility] ([facility] ) MRI Spine Thoracic W/O Contrast 04/17/2021 12:00:00 AM EDT [facility] ([facility] ) MRI Spine Thoracic W/O Contrast 04/17/2021 12:00:00 AM EDT [facility] ([facility] ) MRI SPINAL CANAL LUMBAR W/O CONTRAST MATERIAL 04/17/20 12:00:00 AM EDT [facility] ([facility] ) MRI SPINAL CANAL LUMBAR W/O CONTRAST MATERIAL 04/17/20 12:00:00 AM EDT [facility] ([facility] ) OFFICE OUTPATIENT NEW 45 MINUTES 04/14/2021 12:00:00 A M EDT [facility] ([facility] ) Extended Individual Psychotherapy - 45 min 04/14/2021 12:00:00 AM EDT - 04/14/2021 12:00:00 AM EDT [facility] ([facility]) Extended Individual Psychotherapy - 45 min 12:00:00 AM EDT [facility] ([facility]) MHCTelemed E/M Lvl 5--Est pt 04/03/2021 12:00:00 AM EDT - 04/03/2021 12:00:00 AM EDT [facility] ([facility]) MHCTelemed E/M Lvl 5--Est pt 04/03/2021 12:00:00 AM ED T [facility] ([facility]) TEMPMHCTelemed 30" Psychotherapy 12:00:00 AM EDT - 04/01/2021 12:00:00 AM EDT [facility] ([facility]) TEMPMHCTelemed 30" Psychotherapy 03/31/2021 12:00:00 A M EDT [facility] ([facility]) TEMPMHCTelemed 30" Psychotherapy 12:00:00 AM EDT - 03/11/2021 12:00:00 AM EDT [facility] ([facility]) TEMPMHCTelemed 30" Psychotherapy 03/11/2021 12:00:00 A M EDT [facility] ([facility]) Injection, medroxyprogesterone acetate for contraceptive use , 150 mg 02/04/2021 12:00:00 AM EDT eC1 ([facility]) MHC Telemed E/M Lvl 3--Est pt 12/23/2020 12:00:00 AM EDT - 12/23/2020 12:00:00 AM EDT [facility] ([facility]) MHC Telemed E/M Lvl 3--Est pt 12/23/2020 12:00:00 AM E DT [facility] ([facility]) MHC Telemed E/M Lvl 3--Est pt 12/16/2020 12:00:00 AM EDT - 12/16/2020 12:00:00 AM EDT [facility] ([facility]) MHC Telemed E/M Lvl 3--Est pt 2020 12:00:00 AM E DT [facility] ([facility]) [id number]"Psychotherapy 12:00:00 AM EDT - 12/02/2020 12:00:00 AM EDT [facility] ([facility]) [id number]"Psychotherapy 12/02/2020 12:00:00 AM EDT [facility] ([facility]) Injection, medroxyprogesterone acetate for contraceptive use , 150 mg 11/19/2020 12:00:00 AM EDT eC1 ([facility]) [id number]"Psychotherapy 12:00:00 AM EDT - 11/17/2020 12:00:00 AM EDT [facility] ([facility]) [id number]"Psychotherapy 11/17/2020 12:00:00 AM EDT [facility] ([facility]) Extended Individual Psychotherapy - 45 min 10/13/2020 12:00:00 AM EDT - 10/13/2020 12:00:00 AM EDT [facility] ([facility]) Extended Individual Psychotherapy - 45 min 12:00:00 AM EDT [facility] ([facility]) MHC Telemed E/M Lvl 3--Est pt 10/06/2020 12:00:00 AM EDT - 10/06/2020 12:00:00 AM EDT [facility] ([facility]) MHC Telemed E/M Lvl 3--Est pt 10/06/2020 12:00:00 AM E DT [facility] ([facility]) MHC Telemed E/M Lvl 3--Est pt 09/02/2020 12:00:00 AM EST - 09/02/2020 12:00:00 AM EST [facility] ([facility]) Telemed A/O 30" 09/02/2020 12:00:00 AM EST [facility] ([facility]) MHC Telemed E/M Lvl 3--Est pt 09/02/2020 12:00:[address] [facility] ([facility]) URINE TEST 09/01/2020 12:00:00 AM EST [facility] Injection, medroxyprogesterone acetate for contraceptive use , 150 mg 09/01/2020 12:00:00 AM EST eCW1 ([facility]) [id number]"Psychotherapy 12:00:00 AM EST - 08/22/2020 12:00:00 AM EST [facility] ([facility]) [id number]"Psychotherapy 08/22/2020 12:00:00 AM EST [facility] ([facility]) [facility] [place] E/M Lvl 3--Est pt 08/18/2020 12:00:00 AM EST - 08/18/2020 12:00:00 AM EST [facility] ([facility]) Telemed A/O 30" 08/18/2020 12:00:00 AM EST [facility] ([facility]) MHC Telemed E/M Lvl 3--Est pt 08/18/2020 12:00:[address] [facility] ([facility]) [facility] [place] E/M Lvl 3--Est pt 08/04/2020 12:00:00 AM EST - 08/04/2020 12:00:00 AM EST [facility] ([facility]) Telemed A/O 30" 08/04/2020 12:00:00 AM EST [facility] ([facility]) MHC Telemed E/M Lvl 3--Est pt 08/04/2020 12:00:[address] [facility] ([facility]) [id number]"Psychotherapy 12:00:00 AM EST - 08/01/2020 12:00:00 AM EST [facility] ([facility]) [id number]"Psychotherapy 08/01/2020 12:00:00 AM EST [facility] ([facility]) MHC Telemed E/M Lvl 3--Est pt 06/30/2020 12:00:00 AM EST - 06/30/2020 12:00:00 AM EST [facility] ([facility]) Telemed A/O 30" 06/30/2020 12:00:00 AM EST [facility] ([facility]) MHC Telemed E/M Lvl 3--Est pt 06/30/2020 12:00:[address] [facility] ([facility]) TEMPMHCTelemed 30" Psychotherapy 020 12:00:00 AM EST - 06/09/2020 12:00:00 AM EST [facility] ([facility]) TEMPMHCTelemed 30" Psychotherapy 06/09/2020 12:00:00 A M EST [facility] ([facility]) MHC Telemed E/M Lvl 3--Est pt 05/26/2020 12:00:00 AM EST - 05/26/2020 12:00:00 AM EST [facility] ([facility]) Telemed A/O 30" 05/26/2020 12:00:00 AM EST [facility] ([facility]) MHC Telemed E/M Lvl 3--Est pt 05/26/2020 12:00:[address] [facility] ([facility]) Immunization: Boostrix 0.5mL IM (TDAP) 05/14/2020 12:0 0:00 AM EST [facility] MHC Telemed E/M Lvl 3--Est pt 04/28/2020 12:00:00 AM EST - 04/28/2020 12:00:00 AM EST [facility] ([facility]) Telemed A/O 30" 04/28/2020 12:00:00 AM EST [facility] ([facility]) MHC Telemed E/M Lvl 3--Est pt 04/28/2020 12:00:[address] [facility] ([facility]) INFLUENZA VIRUS VACC SPLIT PRSRV FREE 3 YRS/> IM 04/23 12:00:00 AM EDT [facility]CW[facility]) Results ID Date Data Source [id number] 04/22/2021 08:58:00 AM EDT [facility] ([facility] ) Name Value Range Interpretation Code Description Data Annabella rce(s) Supporting Document(s) Rheumatoid factor [Units/volume] in Serum or Plasma Laboratory test result [facility] ([facility], ) ID Date Data Source [id number] 04/22/2021 08:58:00 AM EDT [facility] ([facility], ) Name Value Range Interpretation Code Description Data Annabella rce(s) Supporting Document(s) Vitamin B12 Level 568 pg/mL [facility] ([facility], ) VITAMIN B12 NORMAL RANGE NORMAL 247 - 911 PG/ML INDETERMINATE 211 - 246 PG/ML DEFICIENT LESS THAN 211 PG/ML Folate 13.2 ng/mL [facility] ([facility], ) FOLATE NORMAL RANGE NORMAL GREATER THAN 5.4 NG/ML INDETERMINATE 3.4-5.4 NG/ML DEFICIENT LESS THAN 3.4 NG/ML ID Date Data Source [id number] 04/22/2021 08:58:00 AM EDT [facility] ([facility], ) Name Value Range Interpretation Code Description Data Annabella rce(s) Supporting Document(s) Thyroxine (T4) free [Mass/volume] in Serum or Plasma 1.08 ng/dL 0.76- 1.46 [facility] ([facility] ) ID Date Data Source [id number] 04/22/2021 08:58:00 AM EDT [facility] ([facility], ) Name Value Range Interpretation Code Description Data Annabella rce(s) Supporting Document(s) T Uptake 32 % 30-39 [facility] ([facility], ) Free Thyroxine Index 3.1 % 1.3-4.8 [facility] ([facility], ) Thyroxine (T4) 9.8 ug/dL 4.5-12.0 [facility] ([facility], ) Thyroid Stimulating Hormone 1.170 uIU/ML 0.358-3.740 [facility] ([facility], ) ID Date Data Source [id number] 04/22/2021 08:58:00 AM EDT [facility] ([facility], ) Name Value Range Interpretation Code Description Data Annabella rce(s) Supporting Document(s) Albumin % 66.7 % 55.8-66.1 [facility] ([facility] ) Aloeo-5-Kmypbwei % 5.7 % 2.9-4.9 [facility] ([facility]) Rxwr-2-Dxummbvvk % 4.0 % 3.2-6.5 [facility] ([facility]) Nowv-2-Xxktbsqzn % 6.7 % 4.7-7.2 [facility] ([facility]) Pcpll-8-Uuxmfrmox % 11.2 % 7.1-11.8 [facility] ([facility], ) Albumin 4.67 GM/DL 3.29-5.55 [facility] ([facility]) Gamma Globulin % 5.7 % 11.1-18.8 [facility] ([facility]) Eujem-9-Ojrmupydm 0.78 GM/DL 0.42-0.99 [facility] ([facility]) Pewvz-4-Wwecsubsr 0.40 GM/DL 0.17-0.41 [facility] ([facility]) Ggbl-9-Drsincqej 0.28 GM/DL 0.19-0.55 [facility] ([facility]) Afxa-0-Jwkbdcpzg 0.47 GM/DL 0.28-0.60 [facility] ([facility]) Gamma Globulins 0.40 GM/DL 0.65-1.58 [facility] ([facility]) Total Protein 7.0 GM/DL 6.4-8.2 [facility] ([facility], ) Spep Interpretation Laboratory test result [facility] ([facility]) HYPOGAMMAGLOBULINEMIA. SUGGEST SERUM AND URINE IMMUNOTYPING. Laboratory test finding (navigational concept) Laboratory test result [facility] ([facility]) ID Date Data Source [id number] 04/22/2021 08:58:00 AM EDT [facility] ([facility]) Name Value Range Interpretation Code Description Data Annabella rce(s) Supporting Document(s) Hemoglobin A1c 5.1 % [facility] ([facility], ) <content>REFERENCE RANGES:</content><br/ ><content></content>
<content><=5.6% NORMAL</content>
<content>5.7-6.4% SUGGESTS IMPAIRED GLUCOSE METABOLISM/PREDIABETIC</content>
<content>>= 6.5% ABNORMAL</content>
<content></content> Estimated Average Glucose 100 mg/dL 60-110 [facility] ID Date Data Source [id number] 04/22/2021 08:58:00 AM EDT [facility] [facility] Name Value Range Interpretation Code Description Data Annabella rce(s) Supporting Document(s) Erythrocyte sedimentation rate by 2H Westergren method 5 mm/hr 0-2 0 [facility] ([facility]) ID Date Data Source [id number] 04/22/2021 08:58:00 AM EDT [facility] ([facility]) Name Value Range Interpretation Code Description Data Annabella rce(s) Supporting Document(s) Antinuclear Antibodies Direct Laboratory test result Abnormal (applies to non- numeric results) [facility] ([facility]) Anti Double Strand-Dna AB Laboratory test result 0-9 [facility] ([facility]) <content>Negative <5</content>
<content>Equivocal 5 - 9</content>
<content>Positive >9</content>
<content></content> SENIOR APPLICATIONS ARCHITECT Antibodies 1.1 AI 0.0-0.9 [facility] ([facility]) Wilde Antibodies Laboratory test result 0.0-0.9 [facility] ([facility]) Sjogren's Anti SS-B Laboratory test result 0.0-0.9 [facility] ([facility]) Sjogren's Anti SS-A Laboratory test result 0.0-0.9 [facility] ([facility]) Derrick Comment Laboratory test result [facility] ([facility]) . Autoantibody Disease Association Condition Frequency -------- [...] (anti-Wilde) SLE 15 - 30% ------- --------- SENIOR APPLICATIONS ARCHITECT Mixed Connective Tissue Disease 95% (U1 nRNP, SLE 30 - 50% anti-ribonucleoprotein) Polymyositis and/or Dermatomyositis 20% -------- --------- Scl-70 (antiDNA Scleroderma (diffuse) 20 - 35% topoisomerase) Crest 13% -------- --------- Elvia-1 Polymyositis and/or Dermatomyositis 20 - 40% -------- --------- Centromere B Scleroderma - Crest variant 80% Performed at: [facility] [id number] Caponizer: John Miles MD, Phone: [phone] Performed at: [facility] [id number] [employer]: Fernanda Scales MD, Phone: [phone] ID Date Data Source [id number] 04/22/2021 08:58:00 AM [facility] ([facility], ) Name Value Range Interpretation Code Description Data Annabella rce(s) Supporting Document(s) Thiamine [Mass/volume] in Blood 153.9 nmol/L 66.5-200.0 [facility] ([facility], ) This test was developed and its performa nce characteristics determined by [facility]. It has not been cleared or approved by the Food and Drug Administration. Pyridoxine [Mass/volume] in Serum or Plasma 4.8 ug/L 2.0-32.8 [facility] ([facility], ) This test was developed and its performa nce characteristics determined by [facility]. It has not been cleared or approved by the Food and Drug Administration. ID Date Data Source [id number] 04/22/2021 08:58:00 AM EDT [facility] ([facility], ) Name Value Range Interpretation Code Description Data Annabella rce(s) Supporting Document(s) Vitamin E(Alpha Tocopherol) 10.0 mg/L 5.9-19.4 [facility] ([facility], ) This test was developed and its performa nce characteristics determined by [facility]. It has not been cleared or approved by the Food and Drug Administration. Vitamin E(Gamma Tocopherol) 2.0 mg/L 0.7-4.9 [facility] ([facility], ) This test was developed and its performa nce characteristics determined by [facility]. It has not been cleared or approved by the Food and Drug Administration. Reference intervals for alpha and gamma-tocopherol determined from National Health and Nutrition Examination Survey, 1268-5367. Individuals with alpha-tocopherol levels less than 5.0 mg/L are considered vitamin E deficient. ID Date Data Source [id number] 04/22/2021 08:58:00 AM EDT [facility] ([facility]) Name Value Range Interpretation Code Description Data Annabella rce(s) Supporting Document(s) PTT Lupus Type Anticoag Screen 0.9 0-1.2 [facility] ([facility]) RESULT IS LESS THAN 1.2, NO FURTHER TEST ING INDICATED. INTERPRETATION This test is to screen [...] coagulation factor deficiency or a specific inhibitor. ID Date Data Source DAVID FINGER (S) 03/03/2021 12:00:00 AM EDT eCW1 ([facility]) Name Value Range Interpretation Code Description Data Annabella rce(s) Supporting Document(s) DAVID FINGER (S) eCW1 ([facility]) ID Date Data Source FREE T4 & TSH PANEL 12/17/2020 12:00:00 AM EDT eCW1 ([facility]) Name Value Range Interpretation Code Description Data Annabella rce(s) Supporting Document(s) 0.575 0.358-3.740 THYROID STIMULATING HORM ONE eCW1 ([facility]) 0.96 0.76-1.46 FREE T4 eCW1 ([facility]) ID Date Data Source Comprehensive Metabolic Profile (CMP) 12/17/2020 12:00:00 AM EDT [facility] Name Value Range Interpretation Code Description Data Annabella rce(s) Supporting Document(s) 11 7-18 BLOOD UREA NITROGEN eCW1 ([facility]) 93 70-100 GLUCOSE, FASTING eCW1 ([facility]) 0.57 0.55-1.30 CREATININE FOR GFR eCW1 ([facility]) 143 136-145 SODIUM LEVEL eCW1 ([facility]) > 60.0 >60 GLOMERULAR FILTRATION RATE eCW 1 ([facility]) 4.1 3.5-5.1 POTASSIUM SERUM eCW1 ([facility]) 9.2 8.5-10.1 CALCIUM LEVEL eCW1 ([facility]) 26 21-32 CARBON DIOXIDE LEVEL eCW1 ([facility]) 109 98-107 CHLORIDE LEVEL eCW1 ([facility]) 0.5 0.2-1.0 BILIRUBIN,TOTAL eCW1 ([facility]) 60 45-117 ALKALINE PHOSPHATASE eCW1 ([facility]) 18 12-78 ALT/SGPT eCW1 ([facility]) 8 7-37 AST/SGOT eCW1 ([facility]) 1.5 1.2-2.2 ALBUMIN/GLOBULIN RATIO eCW1 ([facility]) 6.8 6.4-8.2 TOTAL PROTEIN eCW1 ([facility]) 4.1 3.2-5.2 ALBUMIN eCW1 ([facility]) ID Date Data Source CBC with Differential 12/17/2020 12:00:00 AM EDT eCW1 ([facility]) Name Value Range Interpretation Code Description Data Annabella rce(s) Supporting Document(s) 14.1 12.0-15.5 HEMOGLOBIN eCW1 ([facility]) 5.04 4.00-5.40 RED BLOOD COUNT eCW1 ([facility]) 6.8 4.0-10.0 WHITE BLOOD COUNT eCW1 ([facility]) 42.3 36.0-47.0 HEMATOCRIT eCW1 ([facility]) 83.9 80.0-96.0 MEAN CORPUSCULAR VOLUME e CW1 ([facility]) 28.0 27.0-33.0 MEAN CORPUSCULAR HEMOGLOB IN eCW1 ([facility]) 12.8 11.5-14.5 RED CELL DISTRIBUTION WID TH eCW1 ([facility]) 290 150-450 PLATELET COUNT, AUTOMATED eCW1 ([facility]) 33.3 32.0-36.5 MEAN CORPUSCULAR HGB CONC eCW1 ([facility]) 7.4 2.0-8.0 MONO % eCW1 ([facility]) 66.7 36.0-66.0 NEUTROPHILS % eCW1 ([facility]) 22.4 24.0-44.0 LYMPH % eCW1 ([facility]) 2.5 0.0-3.0 EOS % eCW1 ([facility]) 0.7 0.0-1.0 BASO % eCW1 ([facility]) 4.5 1.5-8.5 NEUTROPHILS # eCW1 ([facility]) 0.2 0.0-0.5 EOS # eCW1 ([facility]) 0.5 0.0-0.8 MONO # eCW1 ([facility]) 1.5 1.5-5.0 LYMPH # eCW1 ([facility]) 0.1 0.0-0.2 BASO # eCW1 ([facility]) ID Date Data Source [id number] 07/16/2020 11:38:00 PM EST [facility] Name Value Range Interpretation Code Description Data Annabella rce(s) Supporting Document(s) SARS coronavirus 2 RNA [Presence] in Res piratory specimen by WESLEY with probe detection NEGATIVE NYSDWI This lab was ordered by [facility] a nd reported by [facility]. ID Date Data Source [id number] 06/27/2020 08:26:00 PM EST [facility]: ANNIE NUNEZ [id number] [place] [address] [phone], FRegistration Date/Time: 06/26/2020 23:54 Weight:72.5 kg (S). [...] rce(s) Supporting Document(s) ID Date Data Source [id number] 06/26/2020 06:14:00 AM [facility] Patient: ANNIE NUNEZ Observation Report - [facility] Levels Hospital.VisitID: [id number] [place] [address] [phone], FRegistration Date/Time: 06/25/2020 18:47 Weight:72.5 kg (S). Height/Length:59 inches (S). BMI:32.3 PAST HISTORYMedications: Oral, daily, stopped this am.Buprenorphine HCl Buccal 8mg po, 2x a day, last dose this am.Omeprazole Oral 40 mg, daily, last dose this a,m. Allergies:No Known Drug Allergy. FAMILY HISTORYNegative - denies family medical history. (Electronically signed by Rubén Escobar MD 06/26/2020 06:06) Name Value Range Interpretation Code Description Data Annabella rce(s) Supporting Document(s) ID Date Data Source GROUP B STREP CULTURE 06/24/2020 12:00:00 AM EST eCW1 ([facility]) Name Value Range Interpretation Code Description Data Annabella rce(s) Supporting Document(s) GROUP B STREP CULTURE eCW1 ([facility]) ID Date Data Source Glucose Challenge Test [...] Supporting Document(s) O POSITIVE BLOOD TYPE eCW1 ([facility]) NEGATIVE AB SCREEN (INDIRECT COOMB S)VIS eCW1 ([facility]) ID Date Data Source CBC - Complete Blood Count 04/23/2020 12:12:06 PM EDT eCW1 ( [facility]) Name Value Range Interpretation Code Description Data Annabella rce(s) Supporting Document(s) 4.27 RED BLOOD COUNT eCW1 ([facility]) 12.6 HEMOGLOBIN eCW1 ([facility]) 12.6 WHITE BLOOD COUNT eCW1 ([facility]) 37.7 HEMATOCRIT eCW1 ([facility]) 29.5 MEAN CORPUSCULAR HEMOGLOBIN eC W1 ([facility]) 88.3 MEAN CORPUSCULAR VOLUME eCW1 ( [facility]) 33.4 MEAN CORPUSCULAR HGB CONC eCW1 ([facility]) 13.1 RED CELL DISTRIBUTION WIDTH eC W1 ([facility]) 236 PLATELET COUNT, AUTOMATED eCW1 ([facility]) Procedure Social History Code Duration Value Status Description Data Source(s ) Smoking 05/29/2021 12:00:00 AM EST Unknown if ever smoked comp leted Unknown if ever smoked [facility] ([facility]) Smoking 05/25/2021 12:00:00 AM EST Current Smoker completed Curre nt Smoker eCW1 ([facility]) Smoking 05/15/2021 12:00:00 AM EST Unknown if ever smoked comp leted Unknown if ever smoked [facility] ([facility]) Smoking 05/14/2021 12:00:00 AM EST Unknown if ever smoked comp leted Unknown if ever smoked [facility] ([facility]) Smoking 04/14/2021 12:00:00 AM EDT Unknown if ever smoked comp leted Unknown if ever smoked [facility] ([facility]) Smoking 04/03/2021 12:00:00 AM EDT Unknown if ever smoked comp leted Unknown if ever smoked [facility] ([facility]) Smoking 04/01/2021 12:00:00 AM EDT Unknown if ever smoked comp leted Unknown if ever smoked [facility] ([facility]) Smoking 03/11/2021 12:00:00 AM EDT Unknown if ever smoked comp leted Unknown if ever smoked [facility] ([facility]) Smoking 03/03/2021 12:00:00 AM EDT Current Smoker completed Curre nt Smoker eCW1 ([facility]) Smoking 03/03/2021 12:00:00 AM EDT Current Smoker completed Curre nt Smoker eCW1 ([facility]) Smoking 03/03/2021 12:00:00 AM EDT Current Smoker completed Curre nt Smoker eCW1 ([facility]) Smoking 03/03/2021 12:00:00 AM EDT Current Smoker completed Curre nt Smoker eCW1 ([facility]) Smoking 02/04/2021 12:00:00 AM EDT Current Smoker completed Curre nt Smoker eCW1 ([facility]) Smoking 12/23/2020 12:00:00 AM EDT Unknown if ever smoked comp leted Unknown if ever smoked [facility]) Smoking 12/17/2020 12:00:00 AM EDT Current Smoker completed Curre nt Smoker eCW1 ([facility]) Smoking 12/17/2020 12:00:00 AM EDT Current Smoker completed Curre nt Smoker eCW1 ([facility]) Smoking 12/17/2020 12:00:00 AM EDT Current Smoker completed Curre nt Smoker eCW1 ([facility]) Smoking 12/17/2020 12:00:00 AM EDT Current Smoker completed Curre nt Smoker eCW1 ([facility]) Smoking 12/16/2020 12:00:00 AM EDT Unknown if ever smoked comp leted Unknown if ever smoked [facility] ([facility]) Smoking 12/02/2020 12:00:00 AM EDT Unknown if ever smoked comp leted Unknown if ever smoked [facility] ([facility]) Smoking 11/17/2020 12:00:00 AM EDT Unknown if ever smoked comp leted Unknown if ever smoked [facility] ([facility]) Smoking 10/13/2020 12:00:00 AM EDT Unknown if ever smoked comp leted Unknown if ever smoked [facility] ([facility]) Smoking 10/06/2020 12:00:00 AM EDT Unknown if ever smoked comp leted Unknown if ever smoked [facility] ([facility]) Smoking 09/02/2020 12:00:00 AM EST Unknown if ever smoked comp leted Unknown if ever smoked [facility] ([facility]) Smoking 09/01/2020 12:00:00 AM EST Current Smoker completed Curre nt Smoker eCW1 ([facility]) Smoking 09/01/2020 12:00:00 AM EST Current Smoker completed Curre nt Smoker eCW1 ([facility]) Smoking 08/22/2020 12:00:00 AM EST Unknown if ever smoked comp leted Unknown if ever smoked [facility] ([facility]) Smoking 08/18/2020 12:00:00 AM EST Unknown if ever smoked comp leted Unknown if ever smoked [facility] ([facility]) Smoking 08/04/2020 12:00:00 AM EST Current Smoker completed Curre nt Smoker eCW1 ([facility]) Smoking 08/04/2020 12:00:00 AM EST Current Smoker completed Curre nt Smoker eCW1 ([facility]) Smoking 08/04/2020 12:00:00 AM EST Current Smoker completed Curre nt Smoker eCW1 ([facility]) Smoking 08/04/2020 12:00:00 AM EST Current Smoker completed Curre nt Smoker eCW1 ([facility]) Smoking 08/04/2020 12:00:00 AM EST Current Smoker completed Curre nt Smoker eCW1 ([facility]) Smoking 08/04/2020 12:00:00 AM EST Unknown if ever smoked comp leted Unknown if ever smoked [facility] ([facility]) Smoking 08/01/2020 12:00:00 AM EST Unknown if ever smoked comp leted Unknown if ever smoked [facility] ([facility]) Smoking 07/04/2020 12:00:00 AM EST Current Smoker completed Curre nt Smoker eCW1 ([facility]) Smoking 07/04/2020 12:00:00 AM EST Current Smoker completed Curre nt Smoker eCW1 ([facility]) Smoking 06/30/2020 12:00:00 AM EST Unknown if ever smoked comp leted Unknown if ever smoked [facility] ([facility]) Smoking 06/23/2020 12:00:00 AM EST Current Smoker completed Curre nt Smoker eCW1 ([facility]) Smoking 06/11/2020 12:00:00 AM EST Current Smoker completed Curre nt Smoker eCW1 ([facility]) Smoking 06/11/2020 12:00:00 AM EST Current Smoker completed Curre nt Smoker eCW1 ([facility]) Smoking 06/09/2020 12:00:00 AM EST Unknown if ever smoked comp leted Unknown if ever smoked [facility] ([facility]) Smoking 05/30/2020 12:00:00 AM EST Current Smoker completed Curre nt Smoker eCW1 ([facility]) Smoking 05/30/2020 12:00:00 AM EST Current Smoker completed Curre nt Smoker eCW1 ([facility]) Smoking 05/30/2020 12:00:00 AM EST Current Smoker completed Curre nt Smoker eCW1 ([facility]) Smoking 05/26/2020 12:00:00 AM EST Unknown if ever smoked comp leted Unknown if ever smoked [facility] ([facility]) Smoking 05/08/2020 12:00:00 AM EST Current Smoker completed Curre nt Smoker eCW1 ([facility]) Smoking 05/08/2020 12:00:00 AM EST Current Smoker completed Curre nt Smoker eCW1 ([facility]) Smoking 04/28/2020 12:00:00 AM EST Current Smoker completed Curre nt Smoker eCW1 ([facility]) Smoking 04/28/2020 12:00:00 AM EST Unknown if ever smoked comp leted Unknown if ever smoked [facility] ([facility]) Smoking 04/17/2020 12:00:00 AM EDT Current Smoker completed Curre nt Smoker eCW1 ([facility]) Vital Signs ID Date Data Source UNK Name Value Range Interpretation Code Description Data Source(s) Systolic blood pressure 124 mm[Hg] 124 mm[Hg] M [facility] ([facility]) Diastolic blood pressure 80 mm[Hg] 80 mm[Hg] [facility] ([facility]) Heart rate 88 /min 88 /min [facility] ([facility]) Respiratory rate 16 /min 16 /min [facility] ( [facility] ) Body weight 147.2 [lb_av] 147.2 [lb_av] eCW1 ([facility]) Body weight 66.77 kg 66.77 kg W1 ([facility]) Body height 59 [in_i] 59 [in_i] eCW1 ([facility]) Body mass index (BMI) [Ratio] 29.73 kg/m2 29.73 kg/m2 eCW1 ([facility]) Systolic blood pressure 110 mm[Hg] 110 mm[Hg] e CW1 ([facility]) Diastolic blood pressure 70 mm[Hg] 70 mm[Hg] eCW1 ([facility]) Body weight 140.8 [lb_av] 140.8 [lb_av] eCW1 ([facility]) Body weight 63.87 kg 63.87 kg eCW1 ([facility]) Body height 59 [in_i] 59 [in_i] eCW1 ([facility]) Body mass index (BMI) [Ratio] 28.44 kg/m2 28.44 kg/m2 eCW1 ([facility]) Heart rate 95 /min 95 /min eCW1 ([facility]) Respiratory rate 20 /min 20 /min eCW1 ([facility]) Body temperature 98.5 [degF] 98.5 [degF] eCW1 ( [facility]) Systolic blood pressure 108 mm[Hg] 108 mm[Hg] e CW1 ([facility]) Diastolic blood pressure 70 mm[Hg] 70 mm[Hg] eCW1 ([facility]) Body weight 145.0 [lb_av] 145.0 [lb_av] eCW1 ([facility]) Body height 59 [in_i] 59 [in_i] eCW1 ([facility]) Body mass index (BMI) [Ratio] 29.28 kg/m2 29.28 kg/m2 eCW1 ([facility]) Systolic blood pressure 100 mm[Hg] 100 mm[Hg] e CW1 ([facility]) Diastolic blood pressure 60 mm[Hg] 60 mm[Hg] eCW1 ([facility]) Body weight 142 [lb_av] 142 [lb_av] eCW1 ([facility]) Body height 59 [in_i] 59 [in_i] eCW1 ([facility]) Body mass index (BMI) [Ratio] 28.68 kg/m2 28.68 kg/m2 eCW1 ([facility]) Heart rate 112 /min 112 /min eCW1 ([facility]) Respiratory rate 18 /min 18 /min eCW1 ([facility]) Body temperature 98.8 [degF] 98.8 [degF] eCW1 ( [facility]) Systolic blood pressure 100 mm[Hg] 100 mm[Hg] e CW1 ([facility]) Diastolic blood pressure 68 mm[Hg] 68 mm[Hg] eCW1 ([facility]) Body height 0.00 in Normal (applies to non-numeric resu lts) 0.00 in [facility] ([facility]) Body weight Measured 0.00 lbs Normal (applies to n on-numeric results) 0.00 lbs [facility] ([facility]) Systolic blood pressure 0 mm[Hg] Normal (applies t o non-numeric results) 0 mm[Hg] [facility] ([facility]) Body mass index (BMI) [Ratio] 0.00 kg/m2 No rmal (applies to non-numeric results) 0.00 kg/m2 [facility] ([facility]) Diastolic blood pressure 0 mm[Hg] Normal (applies to non-numeric results) 0 mm[Hg] [facility] ([facility]) Body height 0.00 in Normal (applies to non-numeric resu lts) 0.00 in [facility] ([facility]) Diastolic blood pressure 0 mm[Hg] Normal (applies to non-numeric results) 0 mm[Hg] [facility] ([facility]) Body weight Measured 0.00 lbs Normal (applies to n on-numeric results) 0.00 lbs [facility] ([facility]) Body mass index (BMI) [Ratio] 0.00 kg/m2 No rmal (applies to non-numeric results) 0.00 kg/m2 [facility] ([facility]) Systolic blood pressure 0 mm[Hg] Normal (applies t o non-numeric results) 0 mm[Hg] [facility] ([facility]) Body weight 133.0 [lb_av] 133.0 [lb_av] eCW1 ([facility]) Body weight 60.33 kg 60.33 kg eCW1 ([facility]) Body height 59 [in_i] 59 [in_i] eCW1 ([facility]) Body mass index (BMI) [Ratio] 26.86 kg/m2 26.86 kg/m2 eCW1 ([facility]) Systolic blood pressure 122 mm[Hg] 122 mm[Hg] e CW1 ([facility]) Diastolic blood pressure 78 mm[Hg] 78 mm[Hg] eCW1 ([facility]) Body height 0.00 in Normal (applies to non-numeric resu lts) 0.00 in [facility] ([facility]) Body weight Measured 0.00 lbs Normal (applies to n on-numeric results) 0.00 lbs [facility] ([facility]) Body mass index (BMI) [Ratio] 0.00 kg/m2 No rmal (applies to non-numeric results) 0.00 kg/m2 [facility] ([facility]) Systolic blood pressure 0 mm[Hg] Normal (applies t o non-numeric results) 0 mm[Hg] [facility] ([facility]) Diastolic blood pressure 0 mm[Hg] Normal (applies to non-numeric results) 0 mm[Hg] [facility] ([facility]) Body height 0.00 in Normal (applies to non-numeric resu lts) 0.00 in [facility] ([facility]) Body weight Measured 0.00 lbs Normal (applies to n on-numeric results) 0.00 lbs [facility] ([facility]) Body mass index (BMI) [Ratio] 0.00 kg/m2 No rmal (applies to non-numeric results) 0.00 kg/m2 [facility] ([facility]) Systolic blood pressure 0 mm[Hg] Normal (applies t o non-numeric results) 0 mm[Hg] [facility] ([facility]) Diastolic blood pressure 0 mm[Hg] Normal (applies to non-numeric results) 0 mm[Hg] [facility] ([facility]) Body weight 165.6 [lb_av] 165.6 [lb_av] eCW1 ([facility]) Body weight 75.11 kg 75.11 kg eCW1 ([facility]) Body height 59 [in_i] 59 [in_i] eCW1 ([facility]) Body mass index (BMI) [Ratio] 33.447 kg/m2 33.4 47 kg/m2 eCW1 ([facility]) Systolic blood pressure 116 mm[Hg] 116 mm[Hg] e CW1 ([facility]) Diastolic blood pressure 74 mm[Hg] 74 mm[Hg] eCW1 ([facility]) Body weight 167 [lb_av] 167 [lb_av] eCW1 ([facility]) Body height 59 [in_i] 59 [in_i] eCW1 ([facility]) Body mass index (BMI) [Ratio] 33.73 kg/m2 33.73 kg/m2 eCW1 ([facility]) Systolic blood pressure 112 mm[Hg] 112 mm[Hg] e CW1 ([facility]) Diastolic blood pressure 78 mm[Hg] 78 mm[Hg] eCW1 ([facility]) Body height 0.00 in Normal (applies to non-numeric resu lts) 0.00 in [facility] ([facility]) Body weight Measured 0.00 lbs Normal (applies to n on-numeric results) 0.00 lbs [facility] ([facility]) Body mass index (BMI) [Ratio] 0.00 kg/m2 No rmal (applies to non-numeric results) 0.00 kg/m2 [facility] ([facility]) Systolic blood pressure 0 mm[Hg] Normal (applies t o non-numeric results) 0 mm[Hg] [facility] ([facility]) Diastolic blood pressure 0 mm[Hg] Normal (applies to non-numeric results) 0 mm[Hg] [facility] ([facility]) Body weight 167.0 [lb_av] 167.0 [lb_av] eCW1 ([facility]) Body height 59 [in_i] 59 [in_i] eCW1 ([facility]) Body mass index (BMI) [Ratio] 33.73 kg/m2 33.73 kg/m2 eCW1 ([facility]) Systolic blood pressure 110 mm[Hg] 110 mm[Hg] e CW1 ([facility]) Diastolic blood pressure 68 mm[Hg] 68 mm[Hg] [facility] Body weight 160.8 [lb_av] 160.8 [lb_av] eCW1 ([facility]) Body weight 72.94 kg 72.94 kg eCW1 ([facility] Body height 59 [in_i] 59 [in_i] eCW1 ([facility]) Body mass index (BMI) [Ratio] 32.478 kg/m2 32.4 78 kg/m2 e[facility] ([facility]) Systolic blood pressure 112 mm[Hg] 112 mm[Hg] e CW1 ([facility]) Diastolic blood pressure 72 mm[Hg] 72 mm[Hg] eCW1 [facility]) Body temperature 97.8 [degF] 97.8 [degF] eCW1 ( [facility]) Heart rate 116 /min 116 /min eCW1 ([facility]) Respiratory rate 18 /min 18 /min eCW1 ([facility]) Oxygen saturation in Arterial blood by Pulse oximetry 98 % 98 % eCW1 ([facility]) Body height [in_i] eCW1 ([facility]) Body weight 155.6 [lb_av] 155.6 [lb_av] eCW1 ([facility]) Body mass index (BMI) [Ratio] 31.42 kg/m2 31.42 kg/m2 eCW1 ([facility]) Body weight 154.6 [lb_av] 154.6 [lb_av] eCW1 ([facility]) Body mass index (BMI) [Ratio] 31.225 kg/m2 31.2 25 kg/m2 eCW1 ([facility]) Body weight 70.13 kg 70.13 kg eCW1 ([facility]) Systolic blood pressure 102 mm[Hg] 102 mm[Hg] e CW1 ([facility]) Body height 59 [in_i] 59 [in_i] eCW1 ([facility]) Diastolic blood pressure 80 mm[Hg] 80 mm[Hg] eCW1 ([facility]) Body height 0.00 in Normal (applies to non-numeric resu lts) 0.00 in [facility] ([facility]) Body weight Measured 0.00 lbs Normal (applies to n on-numeric results) 0.00 lbs [facility] ([facility]) Body mass index (BMI) [Ratio] 0.00 kg/m2 No rmal (applies to non-numeric results) 0.00 kg/m2 [facility] ([facility]) Systolic blood pressure 108 mm[Hg] Normal (applies t o non-numeric results) 108 mm[Hg] [facility] ([facility]) Diastolic blood pressure 82 mm[Hg] Normal (applies to non-numeric results) 82 mm[Hg] [facility] ([facility]) Body weight 150.4 [lb_av] 150.4 [lb_av] eCW1 ([facility]) Body weight 68.22 kg 68.22 kg W1 ([facility]) Body height 59 [in_i] 59 [in_i] eCW1 ([facility]) Body mass index (BMI) [Ratio] 30.37 kg/m2 30.37 kg/m2 W1 ([facility]) Systolic blood pressure 100 mm[Hg] 100 mm[Hg] e CW1 ([facility]) Diastolic blood pressure 70 mm[Hg] 70 mm[Hg] eCW1 ([facility]) Body weight 145.2 [lb_av] 145.2 [lb_av] eCW1 ([facility]) Body weight 65.86 kg 65.86 kg eCW1 ([facility]) Body height 59 [in_i] 59 [in_i] eCW1 ([facility]) Body mass index (BMI) [Ratio] 29.32 kg/m2 29.32 kg/m2 eCW1 ([facility]) Systolic blood pressure 116 mm[Hg] 116 mm[Hg] e CW1 ([facility]) Diastolic blood pressure 70 mm[Hg] 70 mm[Hg] eCW1 ([facility]) Body height 0.00 in Normal (applies to non-numeric resu lts) 0.00 in [facility] ([facility]) Body weight Measured 0.00 lbs Normal (applies to n on-numeric results) 0.00 lbs [facility] ([facility]) Body mass index (BMI) [Ratio] 0.00 kg/m2 No rmal (applies to non-numeric results) 0.00 kg/m2 [facility] Systolic blood pressure 0 mm[Hg] Normal (applies t o non-numeric results) 0 mm[Hg] [facility] ([facility]) Diastolic blood pressure 0 mm[Hg] Normal (applies to non-numeric results) 0 mm[Hg] [facility] ([facility]) Body weight 146.4 [lb_av] 146.4 [lb_av] eCW1 ([facility]) Body height 59 [in_i] 59 [in_i] eCW1 ([facility]) Body mass index (BMI) [Ratio] 29.569 kg/m2 29.5 69 kg/m2 W1 ([facility]) Systolic blood pressure 122 mm[Hg] 122 mm[Hg] e CW1 ([facility]) Diastolic blood pressure 74 mm[Hg] 74 mm[Hg] eCW1 [facility])
--- OUTSIDE RECORDS SUMMARY | 2021-06-05 07:27 | CCD ---
Author Author Mabel Cunningham Beatrice Organization Unknown Address [address] [address] Phone Care Team Providers Care Warehouse Logistics Manager Name Role Phone Beatrice Cunningham PCP Allergies, Adverse Reactions, Alerts Concept Allergy Name Reaction Severity Onset Date Status Documentation Date Phone Number Npid Taxonomy Code Taxonomy Desc Author Last Name Author Fi rst Name Concept Type 336464 nkda Active 02/17/2018 [id number] Psychiatric/Mental Health Esa Wills RXNORM Problem List Concept Problem Description Status Start Date Created Date Resolv ed Date Snomed Code F60.3 Borderline Personality Disorder Active 03/11/20 21 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, Moderate: Amphetamine-ty pe substance Active 01/25/2018 01/25/2018 F41.9 Unspecified Anxiety Disorder Active 03/11/2021 F11.20 Opioid Use Disorder, Moderate Active 01/25/2018 8 Medications Rx Norm Medication Route Route Concept Start Date Stop Date Dosage Zach quency Duration Formula Strength Dosage Form Dosage Form Code Dosage Description Medication Id Account Npid Author First Name Author Last Name Taxonomy Code Taxonomy Desc Phone Number [phone] buspirone by mouth [id number] 12/23/2020 twice a day 15 mg tab let 08510 [id number] [id number] Zahira Ingram [id number] Psychiatric/Mental Health [id number] 707936 lamotrigine by mouth [id number] 02/12/2021 as directed 25 mg t ablet 75645 702997 [id number] Franklin Gold [id number] Nurse Practitioner [id number] Social History Social History Element Description Concept Effective Date Smoking Status Unknown if ever smoked [id number] Immunizations No Data in Section Vital Signs No Data in Section Procedures Date Concept Id Description Targeted Site Concept Targeted Site Concept Type 03/11/2021 83165-27 TEMPMHCTelemed 30" Psychotherapy CPT Patient has no history of implantable de vices Encounters Encounter Start Date End Date Encounter Type Description Diagnosis Di agnosis Desc Location Author First Name Author Last Name Npid Taxonomy Cod e Taxonomy Desc Phone Number Location Addr1 Location Addr2 Location [facility] Location [facility] Location [facility] [id number] 03/11/2021 03/11/2021 65610-63 TEMPMHCTelemed 30" Psychochris edwards F60.3 Borderline personality disorder [facility] Octavio Barron [id number] Mental Health [id number] [address] [address] Plan of Treatment No Data in Section Lab Results No Data in Section Instructions No Data in Section Insurance Providers Insurance Id Policy Effective Date Policy Thru Date Company Josh cortez [id number] 2018 [email or web address]
--- OUTSIDE RECORDS SUMMARY | 2021-06-05 07:27 | CCD ---
Author Author Mabel Gold Organization Unknown Address [address] [address] Phone Care Team Providers Care Petrophysicist Name Role Phone GoldEktaFranklin PCP Allergies, Adverse Reactions, Alerts Concept Allergy Name Reaction Severity Onset Date Status Documentation Date Phone Number Npid Taxonomy Code Taxonomy Desc Author Last Name Author Fi rst Name Concept Type 280523 nkda Active 02/17/2018 [id number] Psychiatric/Mental Health Esa Wills RXNORM Problem List Concept Problem Description Status Start Date Created Date Resolv ed Date Snomed Code F60.3 Borderline Personality Disorder Active 04/03/20 21 F41.9 Unspecified Anxiety Disorder Active 04/03/2021 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, Moderate: Amphetamine-ty pe substance Active 01/25/2018 01/25/2018 F11.20 Opioid Use Disorder, Moderate Active 01/25/2018 8 Medications Rx Norm Medication Route Route Concept Start Date Stop Date Dosage Zach quency Duration Formula Strength Dosage Form Dosage Form Code Dosage Description Medication Id Account Npid Author First Name Author Last Name Taxonomy Code Taxonomy Desc Phone Number [phone] lamotrigine by mouth Y07057 02/12/2021 twice a day 100 mg tablet 72568 434820 [phone] Franklin Gold [id number] Nurse Practitioner [phone] 257278 bupropion HCl by mouth L86447 04/03/2021 every morning 150 mg tablet extended release 24 hr 37085 194652 [id number] Franklin Gold [id number] Nurse Practitioner [id number] 527587 buspirone by mouth [id number] 12/23/2020 04/03/2021 twice a day 15 mg tablet 68876 552750 [id number] Zahira Ingram [id number] P sychiatric/Mental Health [id number] Social History Social History Element Description Concept Effective Date Smoking Status Unknown if ever smoked [id number] Immunizations No Data in Section Vital Signs No Data in Section Procedures Date Concept Id Description Targeted Site Concept Targeted Site Concept Type 04/03/2021 94615-77 MHCTelemed E/M Lvl 5--Est pt CPT Patient has no history of implantable de vices Encounters Encounter Start Date End Date Encounter Type Description Diagnosis Di agnosis Desc Location Author First Name Author Last Name Npid Taxonomy Cod e Taxonomy Desc Phone Number Location Addr1 Location Addr2 Location [facility] Location [place] Zip [id number] 04/03/2021 04/03/2021 26011-29 MHCTelemed E/M Lvl 5--Est pt F60.3 Borderline personality disorder [facility] [id number] Nurse Practitioner [id number] [address] [address] Plan of Treatment No Data in Section Lab Results No Data in Section Instructions No Data in Section Functional Cognitive Status No Data in Section Insurance Providers Insurance Id Policy Effective Date Policy Thru Date Studio Kate N dana [id number] 2018 [email or web address]
--- OUTSIDE RECORDS SUMMARY | 2021-06-05 07:27 | CCD ---
Author Author Mabel Cunningham Beatrice Organization Unknown Address [address] [address] Phone Care Team Providers Care Guard Supervisor Name Role Phone Beatrice Cunnnigham PCP Allergies, Adverse Reactions, Alerts Concept Allergy Name Reaction Severity Onset Date Status Documentation Date Phone Number Npid Taxonomy Code Taxonomy Desc Author Last Name Author Fi rst Name Concept Type 686565 nkda Active 02/17/2018 [id number] Psychiatric/Mental Health Esa Wills RXNORM Problem List Concept Problem Description Status Start Date Created Date Resolv ed Date Snomed Code F60.3 Borderline Personality Disorder Active 04/02/20 21 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, Moderate: Amphetamine-ty pe substance Active 01/25/2018 01/25/2018 F41.9 Unspecified Anxiety Disorder Active 04/02/2021 F11.20 Opioid Use Disorder, Moderate Active 01/25/2018 8 Medications Rx Norm Medication Route Route Concept Start Date Stop Date Dosage Zach quency Duration Formula Strength Dosage Form Dosage Form Code Dosage Description Medication Id Account Npid Author First Name Author Last Name Taxonomy Code Taxonomy Desc Phone Number [phone] lamotrigine by mouth O38653 02/12/2021 as directed 25 mg t ablet 12345 171762 [phone] Franklin Gold [id number] Nurse Practitioner [phone] 870243 buspirone by mouth Q85696 12/23/2020 twice a day 15 mg tab let 45810 435854 [id number] Zahira Ingram [id number] Psychiatric/Mental Health [id number] Social History Social History Element Description Concept Effective Date Smoking Status Unknown if ever smoked [id number] Immunizations No Data in Section Vital Signs No Data in Section Procedures Date Concept Id Description Targeted Site Concept Targeted Site Concept Type 03/31/2021 36654-57 TEMPMHCTelemed 30" Psychotherapy CPT Patient has no history of implantable de vices Encounters Encounter Start Date End Date Encounter Type Description Diagnosis Di agnosis Desc Location Author First Name Author Last Name Npid Taxonomy Cod e Taxonomy Desc Phone Number Location Addr1 Location Addr2 Location [facility] Location [facility] Location [facility] [id number] 03/31/2021 03/31/2021 96446-93 TEMPMHCTelemed 30" Psychochris edwards F60.3 Borderline personality disorder [facility] Octavio Barron [id number] Mental Health [id number] [address] [address] Plan of Treatment No Data in Section Lab Results No Data in Section Instructions No Data in Section Insurance Providers Insurance Id Policy Effective Date Policy Thru Date Company Josh cortez [id number] 2018 [id number]
--- OUTSIDE RECORDS SUMMARY | 2021-06-05 07:27 | CCD ---
Author Author [employer] [facility] Organization [employer] Address Unknown Phone Unavailable Care Team Providers Care Director Park Name Role Phone Laura Sorto Unavailable PROBLEMS Type Condition ICD9-CM Code VHZ11-AI Code Onset Dates Condition S tatus W/U Status Risk SNOMED Code Notes Problem Depressive disorder F32.9 Active confirmed 71230139 Problem Chronic hepatitis C B18.2 Active confirmed 875336683 Problem Anemia affecting in third trimester O99. 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 Active confirmed [id number] ALLERGIES No Known Allergies ENCOUNTERS from 1993 to 2021-03-10 Encounter Location Date Provider Diagnosis [facility]AVA [phone] [place] [address] 14 Feb, 2021 Laura Sorto IMMUNIZATIONS Vaccine Route Administration Date Status Depo-Provera [...] Information RESULTS No Results REASON FOR VISIT Leg pain MEDICAL (GENERAL) HISTORY Type Description Date Medical [...] Next Appt Details Provider Name:Harsha Saab, 2021-04-29 0 9:20:00 AM, [address] [facility], , [place], [address], Provider Name:Laura Sorto, 2020-06 10:00:00 AM, [address] [place] [address], , [place], [address], Insurance Providers Payer Name Payer Address Payer Phone Insured Name Patient Relati onship to Insured Coverage Start Date Coverage End Date [facility] [facility] [address] [facility] [phone] ANNIE NUNEZ self
[2021-06-05 08:02] LABS: HEMATOCRIT 43.7 % (36.0-47.0); MEAN CORPUSCULAR HEMOGLOBIN 28.1 pg (27.0-33.0); MEAN CORPUSCULAR HGB CONC 34.3 g/dl (32.0-36.5); MEAN CORPUSCULAR VOLUME 81.8 fl (80.0-96.0); PLATELET COUNT, AUTOMATED 293 10^3/uL (150-450); RED BLOOD COUNT 5.34 10^6/uL (4.00-5.40); WHITE BLOOD COUNT 7.6 10^3/uL (4.0-10.0)
[2021-06-05 08:10] LABS: HCG, SERUM QUALITATIVE NEGATIVE (NEGATIVE)
[2021-06-05] MEDS ORDERED: SILVER NITRATE APPLICATOR As Ordered ONE (09:02)
[2021-06-05] MEDS ORDERED: BUPIVACAINE HCL 0.25% 10ML VIAL As Ordered ONE (09:02)
[2021-06-05] MEDS ORDERED: dexameTHASONE 4 MG/ML 1ML VIAL (J1100 PER 1MG) As Ordered ONE (09:05)
[2021-06-05] MEDS ORDERED: ONDANSETRON 4MG/2ML VIAL As Ordered ONE (09:05)
[2021-06-05] MEDS ORDERED: PHENYLephrine 500MCG 5ML (100MCG/ML) SYRINGE As Ordered ONE (09:29)
[2021-06-05] MEDS ORDERED: SUGAMMADEX SODIUM 500 MG/5 ML VIAL (BRIDION) As Ordered ONE (09:29)
[2021-06-05] MEDS ORDERED: ACETAMINOPHEN 1000MG 100ML IV BTL (OFIRMEV) (J0131 PER 10MG) As Ordered ONE (09:29)
[2021-06-05] MEDS ORDERED: METOPROLOL 5 MG/5 ML VIAL As Ordered ONE (09:49)
--- NOTE | 2021-06-05 10:17 | ROOPDOC ---
[facility] Report Of Operation Report of Operation Date of procedure: 06/05/2021 Preoperative diagnosis: Satisfied parity. Postoperative diagnosis: Same Procedure: Laparoscopic bilateral salpingectomy Anesthesia: Gen. endotracheal Estimated blood loss 5 mL IV fluids replaced 1000 mL lactated Ringer's Drains: In and out catheter 20 mL of urine Complications: None Preoperative antibiotics: None indicated Specimens: Bilateral fallopian tubes Intraoperative findings: Normal size, shape, contour of the uterus. Normal adnexa/ovaries bilaterally. Procedure: The patient was counseled and consented on the risks, benefits, indications, and alternatives of the procedure. Informed consent was obtained. She was taken to the operating room with an IV running. She was placed on the operating table in the dorsal supine position. Gen. anesthesia was administered and the airway was secured without any difficulty. A timeout was performed per protocol. She was prepared and draped in the normal sterile fashion. Attention was turned to the pelvis. The bladder was drained with in and out sterile catheter. A speculum was placed into the vagina with good visualization of the cervix. A single- tooth tenaculum was placed on the anterior lip of the cervix and downward traction was applied. The cervix was sequentially dilated with Mulugeta dilators up to a #16. A ZUMI uterine manipulator was placed without any difficulty. The single-tooth tenaculum was removed. The tenaculum sites were noted to be hemostatic. A sterile glove switch was performed. Attention was turned to the abdomen. A 5mm umbilical incision was made with the 11 blade. Through this incision, a Veress needle was placed into the intraperitoneal cavity. Intraperitoneal placement was confirmed with ease of flow of normal saline, a positive drop test and no return on aspiration. The opening pressure was 2 mmHg. The abdomen was insufflated with 2 L of CO2. The Veress needle was removed. A 5 mm laparoscopic trocar was placed under direct visualization without any difficulty, and intraperitoneal placement was confirmed. No incidental bleeding or injury was evident. The patient was placed in steep Trendelenburg. 2 additional laparoscopic port sites were placed through 5 mm incisions in the lower left quadrant. Each trocar/cannula was placed under direct visualization without any difficulty, incidental bleeding or injury. Attention was turned to the right fallopian tube. The right fallopian tube was followed out to the fimbriated end, grasped and elevated. The underlying mesosalpinx was sequentially clamped, coagulated and transected, until the level of the cornu was reached. At this level, the fallopian tube was clamped, coagulated and transected, thus amputating the fallopian tube. The fallopian tube was brought through the cannula without any difficulty and sent to pathology for permanent section. Attention was turned to the left fallopian tube. The left fallopian tube was followed out to the fimbriated end, grasped and elevated. The underlying mesosalpinx was sequentially clamped, coagulated and transected, until the level of the cornu was reached. At this level the fallopian tube was clamped, coagulated and transected, thus amputating the fallopian tube. The fallopian tube was brought to the cannula without any difficulty and sent to pathology for permanent section. Both right and left surgical sites were noted to be completely hemostatic. The gas was released from the abdomen. The patient was taken out of Trendelenburg position. The cannulas were removed. The skin incisions were closed with 4-0 Monocryl in subcuticular fashion and reinforced with Dermabond. The uterine manipulator was removed, the vagina was noted to be clear of any sponge or instrument. Sponge, needle and instrument counts were correct per protocol. The patient tolerated the entire procedure very well. She was transferred to the PACU in good and stable condition. DO ANDREA Pitts JONATHAN R. DO Jun 05, 2021 10:17
[2021-06-05] MEDS ORDERED: IBUP80TA PO (10:18)
[2021-06-05] MEDS ORDERED: ONDANSETRON 4MG/2ML VIAL IV PRN (11:20)
[2021-06-05] MEDS ORDERED: LR 1,000 ML IV SCH ×2 (11:20)
[2021-06-05] MEDS ORDERED: oxyCODONE 5MG TAB PO PRN (11:20)
[2021-06-05] MEDS ORDERED: fentaNYL 100 MCG/2 ML INJECTION (J3010) IV PRN (11:20)
[2021-06-05 11:25] VITALS: BP 131/88
== END 2021-06-05 11:46 | disposition home or self-care (01) ==
LOC: M SDC 07:21
PROVIDERS: ATTEND Obstetrics & Gynecology
DX: Z30.2 Encounter for sterilization (principal); F41.9 Anxiety disorder, unspecified; F32.A Depression, unspecified; R12 Heartburn; F17.200 Nicotine dependence, unspecified, uncomplicated; F11.21 Opioid dependence, in remission
CPT/HCPCS: 36415; 58661; 84703; 85027; 86850; 86900; 86901; 88302; J0131; J1100; J2250; J2370; J2405; J3010

== ENCOUNTER → 2021-06-12 | Outpatient (CLI) | payer OTHER ==
[~2021-06-12] MED LIST changes: +IBUP80TA PO; -LIDOCAINE 1% MDV 20ML VIAL SQ PRN; -LIDOCAINE 2% 100MG/5ML SDV (FOR ANES.) As Ordered ONE; -LR 1,000 ML IV ONE; -MIDAZOLAM INJ 2MG/2ML VIAL (J2250 PER 1MG) As Ordered ONE; -ROCURONIUM BROMIDE 50 MG/5 ML VIAL As Ordered ONE; -fentaNYL 100 MCG/2 ML INJECTION (J3010) As Ordered ONE; -propofoL 200 MG/20 ML VIAL As Ordered ONE
[2021-06-12 14:22] LABS: IMMUNOGLOBULIN A 39.6 MG/DL (70-400); IMMUNOGLOBULIN G 397 MG/DL (681-1648)
[2021-06-12 14:28] LABS: IMMUNOGLOBULIN E < 3.6 IU/ML (<100)
[2021-06-23 02:08] LABS: ANTI TETANUS ANTIBODY 0.91 IU/mL (<0.10); IgG SERUM (part of Subclasses) 401 mg/dL (586-1602); IgG Subclass 1 247 mg/dL (248-810); IgG Subclass 2 44 mg/dL (130-555); IgG Subclass 3 16 mg/dL (15-102); IgG Subclass 4 3 mg/dL (2-96); STREP PNEUMO TYPE 1 0.2 ug/mL (>1.3); STREP PNEUMO TYPE 12F <0.1 ug/mL (>1.3); STREP PNEUMO TYPE 14 <0.1 ug/mL (>1.3); STREP PNEUMO TYPE 18C <0.1 ug/mL (>1.3); STREP PNEUMO TYPE 19A 0.7 ug/mL (>1.3); STREP PNEUMO TYPE 19F 0.8 ug/mL (>1.3); STREP PNEUMO TYPE 23F <0.1 ug/mL (>1.3); STREP PNEUMO TYPE 3 0.8 ug/mL (>1.3); STREP PNEUMO TYPE 4 <0.1 ug/mL (>1.3); STREP PNEUMO TYPE 6B <0.1 ug/mL (>1.3); STREP PNEUMO TYPE 7F <0.1 ug/mL (>1.3); STREP PNEUMO TYPE 8 0.2 ug/mL (>1.3); STREP PNEUMO TYPE 9N 1.2 ug/mL (>1.3); STREP PNEUMO TYPE 9V <0.1 ug/mL (>1.3)
== END ==
LOC: M CLY 08:48
PROVIDERS: ATTEND Internal Medicine Infectious Disease
DX: R05.3 Chronic cough (principal); D80.1 Nonfamilial hypogammaglobulinemia

== ENCOUNTER → 2021-06-24 | Outpatient (REF) | payer OTHER ==
[2021-06-26 04:09] LABS: FREE KAPPA LIGHT CHAINS URINE 2.99 mg/L (0.63-113.79); FREE LAMBDA LIGHT CHAINS URINE 0.78 mg/L (0.47-11.77); KAPPA/LAMBDA RATIO URINE 3.83 (1.03-31.76)
== END ==
LOC: M LAB REF 14:20
PROVIDERS: ATTEND Internal Medicine Hematology & Oncology
DX: R79.9 Abnormal finding of blood chemistry, unspecified (principal)

== ENCOUNTER → 2021-06-25 | Outpatient (CLI) | payer OTHER ==
[~2021-06-25] MED LIST changes: +GASTROGRAFIN SOLUTION 30ML (Q9963) As Ordered ONE; +ISOVUE-370 76% 100ML VIAL As Ordered ONE
--- NOTE | 2021-06-25 11:30 | REP ---
INDICATION: HEREDITARY HYPOGAMMAGLOBULINENIMA COMPARISON: 03/30/2014 TECHNIQUE: Axial contrast enhanced images from the thoracic inlet to the upper abdomen with coronal and sagittal reformations using 100 ml Isovue 370 intravenous contrast material. This CT examination was performed using the following dose reduction techniques: Automated exposure control, adjustment of mA and/or kv according to the patient's size, and use of iterative reconstruction technique. FINDINGS: Bilateral lung mccullough are well aerated and clear. No consolidation, suspicious nodule or mass. No effusion. No pneumothorax. Tracheobronchial tree is patent. Mediastinum demonstrates normal thoracic aorta, pulmonary vasculature, and heart/pericardium by current technique. There is no evidence for adenopathy. Musculoskeletal structures are intact and without acute osseous abnormality. IMPRESSION: Normal contrast-enhanced chest CT. No acute mediastinal or pleuroparenchymal process. <Electronically signed by Gerald Camarillo > 06/25/21 1125
--- NOTE | 2021-06-25 11:32 | REP ---
INDICATION: HEREDITARY HYPOGAMMAGLOBULINEMIA. COMPARISON: None. TECHNIQUE: Standard helical technique before and after intravenous contrast administration. 100 cc Isovue 370 was administered intravenously. Oral bowel preparatory contrast was also administered prior to the exam. FINDINGS: For description of the lung bases see CT chest report made same day. The pre contrast enhanced portion of the examination shows a patent splenic densities to be within normal limits. There are no choleliths. There is no nephroureterolithiasis, hydronephrosis, or hydroureter. There are no urinary bladder calcifications. The contrast-enhanced portion of the examination shows the liver, gallbladder, spleen, pancreas, adrenal glands, and kidneys to be within normal limits. The abdominal aorta and para-aortic regions are within normal limits. The bowel loops and the mesenteries are within normal limits. There is no evidence of a mass or adenopathy. There is no free fluid or free air. In the left hemipelvis there is a round 2.8 cm sized low-density structure arising from the left ovary. Bone window technique throughout the exam shows the osseous structures to be within normal limits. IMPRESSION: Simple cyst versus dominant follicle left ovary as described above. The examination is otherwise unremarkable. <Electronically signed by Bryan Rivers > 06/25/21 3592
== END ==
LOC: M RAD 09:08
PROVIDERS: ATTEND Internal Medicine Hematology & Oncology
DX: D80.0 Hereditary hypogammaglobulinemia (principal)
CPT/HCPCS: 71260; 74177; Q9963; Q9967

== ENCOUNTER → 2021-08-05 | Outpatient (REF) | payer OTHER ==
[~2021-08-05] MED LIST changes: -GASTROGRAFIN SOLUTION 30ML (Q9963) As Ordered ONE; -ISOVUE-370 76% 100ML VIAL As Ordered ONE
== END ==
LOC: M LABDRAWC 15:34
PROVIDERS: ATTEND Internal Medicine Infectious Disease
DX: D80.1 Nonfamilial hypogammaglobulinemia (principal)

== ENCOUNTER → 2021-09-02 | Outpatient (REF) | payer OTHER ==
[2021-09-04 23:07] LABS: ANA (HEP2) Negative (.); CYCLIC CITRULLINATED PEPTIDE 6 units (0-19)
== END ==
LOC: M SFHCCLAY 11:12
PROVIDERS: ATTEND Nurse Practitioner Family
DX: M25.551 Pain in right hip (principal); M25.552 Pain in left hip; M25.561 Pain in right knee; M25.562 Pain in left knee; G89.29 Other chronic pain; M25.571 Pain in right ankle and joints of right foot; M25.572 Pain in left ankle and joints of left foot; M79.671 Pain in right foot; M79.672 Pain in left foot

== ENCOUNTER → 2021-09-02 | Outpatient (CLI) | payer OTHER | LOC: M CLY 11:25 | PROVIDERS: ATTEND Nurse Practitioner Family | DX: M54.6 Pain in thoracic spine (principal); M54.50 Low back pain, unspecified; M25.551 Pain in right hip; M25.552 Pain in left hip; M25.571 Pain in right ankle and joints of right foot; M25.572 Pain in left ankle and joints of left foot; M79.671 Pain in right foot; M79.672 Pain in left foot ==

== ENCOUNTER → 2022-02-23 | Outpatient (REF) | payer OTHER ==
[2022-02-23 12:11] LABS: BASO # 0.1 10^3/uL (0.0-0.2); EOS # 0.2 10^3/uL (0.0-0.5); HEMATOCRIT 40.6 % (36.0-47.0); HEMOGLOBIN 13.9 g/dl (12.0-15.5); LYMPH # 1.2 10^3/uL (1.5-5.0); LYMPH % 19.7 % (24.0-44.0); MEAN CORPUSCULAR HEMOGLOBIN 28.4 pg (27.0-33.0); MEAN CORPUSCULAR HGB CONC 34.2 g/dl (32.0-36.5); MEAN CORPUSCULAR VOLUME 82.9 fl (80.0-96.0); MONO # 0.4 10^3/uL (0.0-0.8); MONO % 6.7 % (2.0-8.0); NEUTROPHILS # 4.4 10^3/uL (1.5-8.5); NEUTROPHILS % 69.3 % (36.0-66.0); PLATELET COUNT, AUTOMATED 308 10^3/uL (150-450); WHITE BLOOD COUNT 6.3 10^3/uL (4.0-10.0)
[2022-02-23 16:08] LABS: ALT/SGPT 18 U/L (12-78); BILIRUBIN,TOTAL 0.4 MG/DL (0.2-1.0); BLOOD UREA NITROGEN 6 MG/DL (7-18); CALCIUM LEVEL 9.1 MG/DL (8.5-10.1); CARBON DIOXIDE LEVEL 24 MEQ/L (21-32); CHLORIDE LEVEL 107 MEQ/L (98-107); GLOMERULAR FILTRATION RATE > 60.0 (>60); GLUCOSE, FASTING 101 MG/DL (70-100); POTASSIUM SERUM 3.9 MEQ/L (3.5-5.1); SODIUM LEVEL 139 MEQ/L (136-145); THYROID STIMULATING HORMONE 0.866 uIU/ML (0.358-3.740); TOTAL PROTEIN 6.8 GM/DL (6.4-8.2)
[2022-02-23 17:02] LABS: FOLATE 7.5 NG/ML; VITAMIN B12 LEVEL 493 PG/ML
[2022-02-23 19:40] LABS: HEMOGLOBIN A1c 5.3 %
== END ==
LOC: M LABDRAWC 11:33
PROVIDERS: ATTEND Psychiatry & Neurology Neurology
DX: R41.89 Other symptoms and signs involving cognitive functions and awareness (principal)

== ENCOUNTER → 2022-12-02 | Outpatient (CLI) | payer OTHER | LOC: M CLY 11:30 | PROVIDERS: ATTEND Nurse Practitioner Family | DX: R05.2 Subacute cough (principal) ==

== ENCOUNTER → 2023-02-15 | Outpatient (REF) | payer OTHER ==
[~2023-02-15] MED LIST changes: -CLON-383 PO; +CLON-442 PO; -GABA-283 PO; +GABA-284 PO; -ROPI0.253 PO; +ROPI5TAB19 PO
[2023-02-15 18:29] LABS: BASO # 0.1 10^3/uL (0.0-0.2); BASO % 0.5 % (0.0-1.0); EOS # 0.2 10^3/uL (0.0-0.5); EOS % 2.6 % (0.0-3.0); HEMATOCRIT 44.2 % (36.0-47.0); HEMOGLOBIN 15.1 g/dl (12.0-15.5); LYMPH # 1.7 10^3/uL (1.5-5.0); LYMPH % 17.7 % (24.0-44.0); MEAN CORPUSCULAR HGB CONC 34.2 g/dl (32.0-36.5); MEAN CORPUSCULAR VOLUME 84.8 fl (80.0-96.0); MONO # 0.7 10^3/uL (0.0-0.8); MONO % 7.5 % (2.0-8.0); NEUTROPHILS # 6.7 10^3/uL (1.5-8.5); NEUTROPHILS % 71.4 % (36.0-66.0); PLATELET COUNT, AUTOMATED 317 10^3/uL (150-450); RED BLOOD COUNT 5.21 10^6/uL (4.00-5.40); WHITE BLOOD COUNT 9.4 10^3/uL (4.0-10.0)
[2023-02-15 18:45] LABS: ALBUMIN 4.3 G/DL (3.2-5.2); ALKALINE PHOSPHATASE 71 U/L (46-116); ALT/SGPT 10 U/L (7.0-40); AST/SGOT < 8 U/L (<34); BILIRUBIN,TOTAL 0.4 MG/DL (0.3-1.2); BLOOD UREA NITROGEN 9 MG/DL (9-23); CALCIUM LEVEL 8.9 MG/DL (8.5-10.1); CARBON DIOXIDE LEVEL 27 MMOL/L (20-31); CHLORIDE LEVEL 106 MMOL/L (98-107); CPK CREATINE PHOSPHOKINASE 70 U/L (34-145); GLOMERULAR FILTRATION RATE > 60.0 (>60); GLUCOSE, FASTING 82 MG/DL (60-100); MAGNESIUM LEVEL 1.9 MG/DL (1.8-2.4); POTASSIUM SERUM 4.5 MMOL/L (3.5-5.1); SODIUM LEVEL 140 MMOL/L (136-145); TOTAL PROTEIN 6.8 G/DL (5.7-8.2)
[2023-02-15 18:47] LABS: ERYTHROCYTE SEDIMENTATION RATE 6 mm/hr (0-20); VITAMIN B12 LEVEL 459 PG/ML (211-911)
== END ==
LOC: M SFHCCLAY 14:44
PROVIDERS: ATTEND Physician Assistant
DX: R20.2 Paresthesia of skin (principal)

== ENCOUNTER → 2023-04-21 | Outpatient (REF) | payer OTHER ==
[2023-04-21 18:35] LABS: BASO % 0.6 % (0.0-1.0); EOS # 0.2 10^3/uL (0.0-0.5); EOS % 2.5 % (0.0-3.0); HEMATOCRIT 40.8 % (36.0-47.0); LYMPH # 1.2 10^3/uL (1.5-5.0); LYMPH % 17.5 % (24.0-44.0); MEAN CORPUSCULAR HEMOGLOBIN 29.2 pg (27.0-33.0); MEAN CORPUSCULAR HGB CONC 34.3 g/dl (32.0-36.5); MONO # 0.5 10^3/uL (0.0-0.8); MONO % 6.7 % (2.0-8.0); NEUTROPHILS % 72.4 % (36.0-66.0); PLATELET COUNT, AUTOMATED 283 10^3/uL (150-450); WHITE BLOOD COUNT 6.8 10^3/uL (4.0-10.0)
[2023-04-21 18:51] LABS: IMMUNOGLOBULIN G 492 MG/DL (650-1600)
[2023-04-21 18:53] LABS: ALBUMIN 4.1 G/DL (3.2-5.2); ALKALINE PHOSPHATASE 75 U/L (46-116); ALT/SGPT 17 U/L (7.0-40); AST/SGOT 22 U/L (<34); BILIRUBIN,TOTAL 0.4 MG/DL (0.3-1.2); BLOOD UREA NITROGEN 9 MG/DL (9-23); CARBON DIOXIDE LEVEL 24 MMOL/L (20-31); CHLORIDE LEVEL 107 MMOL/L (98-107); GLOMERULAR FILTRATION RATE > 60.0 (>60); GLUCOSE, FASTING 100 MG/DL (60-100); POTASSIUM SERUM 4.3 MMOL/L (3.5-5.1); SODIUM LEVEL 141 MMOL/L (136-145); TOTAL PROTEIN 6.4 G/DL (5.7-8.2)
== END ==
LOC: M LABDRAWC 17:25
PROVIDERS: ATTEND Nurse Practitioner Family
DX: D80.1 Nonfamilial hypogammaglobulinemia (principal)

== ENCOUNTER → 2023-05-17 | Outpatient (REF) | LOC: M RAD 11:44 | PROVIDERS: ATTEND Internal Medicine | DX: R52 Pain, unspecified (principal) ==

== ENCOUNTER → 2023-08-11 | Outpatient (CLI) | payer OTHER ==
[~2023-08-11] MED LIST changes: -EFFE150C2 PO; +EFFE150C3 PO; -KLON0.5T PO; +KLON0.5T8 PO
[2023-08-11 14:33] LABS: HCG, SERUM QUALITATIVE NEGATIVE (NEGATIVE)
[2023-08-11 14:55] LABS: HIV 1&2 SCREEN NEGATIVE (NEGATIVE)
== END ==
LOC: M PLALAB 10:36
PROVIDERS: ATTEND Nurse Practitioner Family
DX: N64.4 Mastodynia (principal); Z11.3 Encounter for screening for infections with a predominantly sexual mode of transmission

== ENCOUNTER → 2024-01-25 | Outpatient (REF) | payer OTHER ==
[2024-01-27 15:37] LABS: HPV APTIMA Detected (Not Detected)
== END ==
LOC: M SFHCWAGY 14:53
PROVIDERS: ATTEND Nurse Practitioner Family
DX: N94.10 Unspecified dyspareunia (principal); Z12.4 Encounter for screening for malignant neoplasm of cervix; R87.610 Atypical squamous cells of undetermined significance on cytologic smear of cervix (ASC-US); R87.810 Cervical high risk human papillomavirus (HPV) DNA test positive

== ENCOUNTER → 2024-01-30 | Outpatient (CLI) | payer OTHER ==
[2024-01-30 12:33] LABS: HEMOGLOBIN A1c 4.9 % (4.0-6.0)
[2024-01-30 12:44] LABS: THYROID STIMULATING HORMONE 0.752 uIU/ML (0.55-4.78)
[2024-01-30 12:46] LABS: FREE T4 1.02 NG/DL (0.89-1.76)
== END ==
LOC: M PLALAB 08:22
PROVIDERS: ATTEND Nurse Practitioner Family
DX: N93.9 Abnormal uterine and vaginal bleeding, unspecified (principal)

== ENCOUNTER → 2024-02-20 | Outpatient (CLI) | payer OTHER | LOC: M WHC 11:56 | PROVIDERS: ATTEND Nurse Practitioner Family | DX: N64.4 Mastodynia (principal); N93.9 Abnormal uterine and vaginal bleeding, unspecified; N94.10 Unspecified dyspareunia ==

== ENCOUNTER → 2024-02-23 | Outpatient (REF) | payer OTHER ==
[~2024-02-23] MED LIST changes: +GABA-1172 PO; -GABA-282 PO
== END ==
LOC: M PLALAB 12:49
PROVIDERS: ATTEND Advanced Practice Midwife
DX: N87.0 Mild cervical dysplasia (principal); R87.810 Cervical high risk human papillomavirus (HPV) DNA test positive

== ENCOUNTER → 2024-04-20 | Outpatient (CLI) | payer OTHER ==
[2024-04-20 11:23] LABS: BASO # 0.1 10^3/uL (0.0-0.2); BASO % 0.6 % (0.0-1.0); EOS # 0.2 10^3/uL (0.0-0.5); EOS % 2.2 % (0.0-3.0); HEMATOCRIT 42.6 % (36.0-47.0); HEMOGLOBIN 14.7 g/dl (12.0-15.5); LYMPH # 1.7 10^3/uL (1.5-5.0); LYMPH % 15.7 % (24.0-44.0); MEAN CORPUSCULAR HEMOGLOBIN 29.3 pg (27.0-33.0); MEAN CORPUSCULAR HGB CONC 34.5 g/dl (32.0-36.5); MONO # 0.7 10^3/uL (0.0-0.8); MONO % 6.7 % (2.0-8.0); NEUTROPHILS % 74.5 % (36.0-66.0); PLATELET COUNT, AUTOMATED 279 10^3/uL (150-450); RED BLOOD COUNT 5.01 10^6/uL (4.00-5.40); WHITE BLOOD COUNT 10.7 10^3/uL (4.0-10.0)
[2024-04-20 11:50] LABS: ALBUMIN 3.9 G/DL (3.2-5.2); ALKALINE PHOSPHATASE 89 U/L (35-104); ALT/SGPT 15 U/L (7.0-40); AST/SGOT 9 U/L (<34); BILIRUBIN,TOTAL 0.4 MG/DL (0.3-1.2); BLOOD UREA NITROGEN 9 MG/DL (9-23); CALCIUM LEVEL 9.4 MG/DL (8.5-10.1); CARBON DIOXIDE LEVEL 28 MMOL/L (20-31); CHLORIDE LEVEL 108 MMOL/L (98-107); CREATININE FOR GFR 0.68 MG/DL (0.55-1.30); GLOMERULAR FILTRATION RATE > 60.0 (>60); GLUCOSE, FASTING 92 MG/DL (60-100); POTASSIUM SERUM 4.2 MMOL/L (3.5-5.1); SODIUM LEVEL 141 MMOL/L (136-145); TOTAL PROTEIN 6.7 G/DL (5.7-8.2)
[2024-04-20 11:51] LABS: IMMUNOGLOBULIN A 79.9 MG/DL (40-350); IMMUNOGLOBULIN G 551 MG/DL (650-1600)
== END ==
LOC: M LAB 10:24
PROVIDERS: ATTEND Nurse Practitioner Family
DX: D80.1 Nonfamilial hypogammaglobulinemia (principal)

== ENCOUNTER → 2024-05-02 | Outpatient (CLI) | payer OTHER ==
[2024-05-02 10:31] LABS: BASO # 0.1 10^3/uL (0.0-0.2); BASO % 0.8 % (0.0-1.0); EOS # 0.3 10^3/uL (0.0-0.5); EOS % 3.3 % (0.0-3.0); HEMATOCRIT 41.1 % (36.0-47.0); HEMOGLOBIN 14.2 g/dl (12.0-15.5); LYMPH # 1.6 10^3/uL (1.5-5.0); LYMPH % 17.7 % (24.0-44.0); MEAN CORPUSCULAR HEMOGLOBIN 29.4 pg (27.0-33.0); MEAN CORPUSCULAR HGB CONC 34.5 g/dl (32.0-36.5); MEAN CORPUSCULAR VOLUME 85.1 fl (80.0-96.0); MONO # 0.6 10^3/uL (0.0-0.8); MONO % 6.4 % (2.0-8.0); NEUTROPHILS # 6.4 10^3/uL (1.5-8.5); NEUTROPHILS % 71.4 % (36.0-66.0); PLATELET COUNT, AUTOMATED 308 10^3/uL (150-450); RED BLOOD COUNT 4.83 10^6/uL (4.00-5.40)
[2024-05-02 10:59] LABS: ALBUMIN 3.9 G/DL (3.2-5.2); ALKALINE PHOSPHATASE 88 U/L (35-104); ALT/SGPT 16 U/L (7.0-40); AST/SGOT < 8 U/L (<34); BILIRUBIN,TOTAL 0.3 MG/DL (0.3-1.2); BLOOD UREA NITROGEN 10 MG/DL (9-23); CALCIUM LEVEL 9.8 MG/DL (8.5-10.1); CARBON DIOXIDE LEVEL 28 MMOL/L (20-31); CHLORIDE LEVEL 107 MMOL/L (98-107); CREATININE FOR GFR 0.66 MG/DL (0.55-1.30); GLOMERULAR FILTRATION RATE > 60.0 (>60); GLUCOSE, FASTING 94 MG/DL (60-100); IMMUNOGLOBULIN A 81.2 MG/DL (40-350); IMMUNOGLOBULIN G 542 MG/DL (650-1600); POTASSIUM SERUM 4.4 MMOL/L (3.5-5.1); SODIUM LEVEL 139 MMOL/L (136-145); TOTAL PROTEIN 6.7 G/DL (5.7-8.2)
== END ==
LOC: M LAB 09:54
PROVIDERS: ATTEND Nurse Practitioner Family
DX: D80.1 Nonfamilial hypogammaglobulinemia (principal)

== ENCOUNTER → 2024-07-12 | Outpatient (CLI) | payer OTHER | LOC: M LAB 10:16 | PROVIDERS: ATTEND Internal Medicine Infectious Disease | DX: D80.1 Nonfamilial hypogammaglobulinemia (principal) ==

== ENCOUNTER 2024-08-20 09:29 | Day surgery (SDC) | payer OTHER ==
[~2024-08-20] VITALS: Ht 149.9 cm; Wt 82.0 kg
[~2024-08-20 09:29] MED LIST changes: +ACETAMINOPHEN *IV* 1,000 MG in APPROPRIATE DILUENT 0 ML IV ONE; +LIDOCAINE 2% 100MG/5ML SDV (FOR ANES.) As Ordered ONE; +MIDAZOLAM INJ 2MG/2ML VIAL As Ordered ONE; +PROP10TA56 PO; +ROCURONIUM BROMIDE 50MG/5ML VIAL As Ordered ONE; +SERT150C PO; +fentaNYL 250 MCG/5 ML INJECTION As Ordered ONE; +propofoL 200 MG/20 ML VIAL As Ordered ONE
[2024-08-20] MEDS: FLUORESCEIN 10% (100MG/ML) 5ML VIAL As Ordered ONE (09:38)
[2024-08-20] MEDS: LR 1,000 ML IV SCH (10:16)
[2024-08-20] MEDS ORDERED: KETAMINE HCL 200MG/20ML VIAL As Ordered ONE (10:28)
[2024-08-20] MEDS: ceFAZolin SOD 2 GM in IV 1 EA IV ONE (10:49)
[2024-08-20] MEDS ORDERED: ACETAMINOPHEN 1000MG/100ML IV BAG As Ordered ONE (10:57)
[2024-08-20 11:00] LABS: BASO # 0.1 10^3/uL (0.0-0.2); BASO % 0.5 % (0.0-1.0); EOS # 0.3 10^3/uL (0.0-0.5); HEMATOCRIT 39.5 % (36.0-47.0); HEMOGLOBIN 13.6 g/dl (12.0-15.5); LYMPH # 1.5 10^3/uL (1.5-5.0); LYMPH % 16.6 % (24.0-44.0); MEAN CORPUSCULAR HEMOGLOBIN 29.1 pg (27.0-33.0); MEAN CORPUSCULAR HGB CONC 34.4 g/dl (32.0-36.5); MEAN CORPUSCULAR VOLUME 84.4 fl (80.0-96.0); MONO # 0.6 10^3/uL (0.0-0.8); MONO % 6.2 % (2.0-8.0); NEUTROPHILS # 6.8 10^3/uL (1.5-8.5); NEUTROPHILS % 73.2 % (36.0-66.0); PLATELET COUNT, AUTOMATED 289 10^3/uL (150-450); RED BLOOD COUNT 4.68 10^6/uL (4.00-5.40); WHITE BLOOD COUNT 9.2 10^3/uL (4.0-10.0)
[2024-08-20] MEDS ORDERED: dexmedeTOMIDine (4MCG/ML)200MCG/50ML BTL (PRECEDEX) As Ordered ONE (11:01)
[2024-08-20] MEDS ORDERED: SUGAMMADEX SODIUM 500 MG/5 ML VIAL (BRIDION) As Ordered ONE (11:03)
[2024-08-20] MEDS ORDERED: METOCLOPRAMIDE INJ 10MG/2ML VIAL As Ordered ONE (11:04)
[2024-08-20] MEDS ORDERED: ONDANSETRON 4MG 2ML VIAL As Ordered ONE (11:04)
[2024-08-20] MEDS ORDERED: KETOROLAC 60MG 2ML VIAL As Ordered ONE (11:04)
[2024-08-20 11:47] LABS: ALBUMIN 3.7 G/DL (3.2-5.2); ALKALINE PHOSPHATASE 71 U/L (35-104); ALT/SGPT 17 U/L (7.0-40); AST/SGOT 12 U/L (<34); BILIRUBIN,TOTAL 0.4 MG/DL (0.3-1.2); BLOOD UREA NITROGEN 7 MG/DL (9-23); CALCIUM LEVEL 8.8 MG/DL (8.5-10.1); CARBON DIOXIDE LEVEL 24 MMOL/L (20-31); CHLORIDE LEVEL 109 MMOL/L (98-107); CREATININE FOR GFR 0.49 MG/DL (0.55-1.30); GLOMERULAR FILTRATION RATE > 60.0 (>60); GLUCOSE, FASTING 94 MG/DL (60-100); POTASSIUM SERUM 3.9 MMOL/L (3.5-5.1); SODIUM LEVEL 143 MMOL/L (136-145); TOTAL PROTEIN 6.2 G/DL (5.7-8.2)
[2024-08-20] MEDS ORDERED: LR 1,000 ML IV SCH (12:25)
[2024-08-20] MEDS ORDERED: ONDANSETRON 4MG 2ML VIAL IV PRN (12:25)
[2024-08-20 13:45] VITALS: BP 133/76; TEMP 98.1; O2SAT 97
== END 2024-08-20 14:10 | disposition home or self-care (01) ==
LOC: M SDC 09:29
PROVIDERS: ATTEND Obstetrics & Gynecology
DX: N93.9 Abnormal uterine and vaginal bleeding, unspecified (principal); N87.9 Dysplasia of cervix uteri, unspecified; R10.2 Pelvic and perineal pain; K21.9 Gastro-esophageal reflux disease without esophagitis; F41.9 Anxiety disorder, unspecified; F32.A Depression, unspecified; G43.909 Migraine, unspecified, not intractable, without status migrainosus; N83.201 Unspecified ovarian cyst, right side; Z88.8 Allergy status to other drugs, medicaments and biological substances
CPT/HCPCS: 58571; 80053; 81025; 85025; 86850; 86900; 86901; 88305; 88307; 93005; J0131; J0665; J0690; J1885; J2250; J2405; J2765; S2900

== ENCOUNTER → 2024-09-12 | Outpatient (CLI) | payer OTHER ==
[~2024-09-12] MED LIST changes: -ACETAMINOPHEN *IV* 1,000 MG in APPROPRIATE DILUENT 0 ML IV ONE; -LIDOCAINE 2% 100MG/5ML SDV (FOR ANES.) As Ordered ONE; -MIDAZOLAM INJ 2MG/2ML VIAL As Ordered ONE; -ROCURONIUM BROMIDE 50MG/5ML VIAL As Ordered ONE; -fentaNYL 250 MCG/5 ML INJECTION As Ordered ONE; -propofoL 200 MG/20 ML VIAL As Ordered ONE
== END ==
LOC: M LAB 09:33
PROVIDERS: ATTEND Internal Medicine Infectious Disease
DX: D80.1 Nonfamilial hypogammaglobulinemia (principal)

== ENCOUNTER → 2025-01-08 | Outpatient (REF) | payer OTHER ==
[2025-01-08 12:59] LABS: BASO # 0.1 10^3/uL (0.0-0.2); BASO % 0.9 % (0.0-1.0); EOS # 0.3 10^3/uL (0.0-0.5); EOS % 4.7 % (0.0-3.0); LYMPH # 1.3 10^3/uL (1.5-5.0); LYMPH % 19.9 % (24.0-44.0); MONO # 0.6 10^3/uL (0.0-0.8); MONO % 9.2 % (2.0-8.0); NEUTROPHILS # 4.3 10^3/uL (1.5-8.5); NEUTROPHILS % 65.1 % (36.0-66.0); PLATELET COUNT, AUTOMATED 262 10^3/uL (150-450)
[2025-01-08 13:21] LABS: ESTIMATED AVERAGE GLUCOSE 100.0 MG/DL (60-110)
[2025-01-08 13:25] LABS: ALT/SGPT 16 U/L (7.0-40); AST/SGOT 16 U/L (<34); CALCIUM LEVEL 9.3 MG/DL (8.5-10.1); CARBON DIOXIDE LEVEL 26 MMOL/L (20-31); CHLORIDE LEVEL 106 MMOL/L (98-107); CHOLESTEROL LEVEL 188 MG/DL (<200); CHOLESTEROL RISK RATIO 4.77 (<5); CREATININE FOR GFR 0.66 MG/DL (0.55-1.30); GLOMERULAR FILTRATION RATE > 90.0 (>60); LDL CHOLESTEROL 117.4 MG/DL (<100); NON-HDL-C 148.6 MG/DL; POTASSIUM SERUM 4.1 MMOL/L (3.5-5.1); SODIUM LEVEL 143 MMOL/L (136-145); TRIGLYCERIDES LEVEL 156 MG/DL (<150)
[2025-01-08 13:26] LABS: FREE T4 1.21 NG/DL (0.89-1.76)
== END ==
LOC: M SFHCCLAY 08:45
PROVIDERS: ATTEND Nurse Practitioner Family
DX: R20.2 Paresthesia of skin (principal); D83.9 Common variable immunodeficiency, unspecified; Z87.898 Personal history of other specified conditions; B18.2 Chronic viral hepatitis C; N93.9 Abnormal uterine and vaginal bleeding, unspecified; Z13.220 Encounter for screening for lipoid disorders

== ENCOUNTER → 2025-05-14 | Outpatient (CLI) | payer OTHER ==
[~2025-05-14] MED LIST changes: +PROZ10CA11 PO; -PROZ10CA7 PO; -PROZ20CA11 PO; +PROZ20CA12 PO
[2025-05-14 11:14] LABS: ALT/SGPT 41 U/L (7.0-40); AST/SGOT 18 U/L (<34); CALCIUM LEVEL 9.1 MG/DL (8.5-10.1); CARBON DIOXIDE LEVEL 27 MMOL/L (20-31); CHLORIDE LEVEL 106 MMOL/L (98-107); CREATININE FOR GFR 0.55 MG/DL (0.55-1.30); GLOMERULAR FILTRATION RATE > 90.0 (>60); POTASSIUM SERUM 4.3 MMOL/L (3.5-5.1); SODIUM LEVEL 140 MMOL/L (136-145)
== END ==
LOC: M LAB 09:49
PROVIDERS: ATTEND Nurse Practitioner Family
DX: D80.1 Nonfamilial hypogammaglobulinemia (principal)

== ENCOUNTER → 2025-06-03 | Outpatient (CLI) | payer OTHER ==
[~2025-06-03] MED LIST changes: -PROZ20CA12 PO; +PROZ20CA25 PO
[2025-06-03 14:16] LABS: HIV 1&2 SCREEN NEGATIVE (NEGATIVE)
[2025-06-03 14:24] LABS: HEPATITIS C VIRUS ABY INDEX 0.51 INDEX (<0.8)
[2025-06-03 14:36] LABS: Trichomonas vaginalis (AMP) NOT DETECTED (NEGATIVE)
[2025-06-03 14:59] LABS: GC DNA AMPLIFICATION NEGATIVE (NEGATIVE)
== END ==
LOC: M PLALAB 11:29
PROVIDERS: ATTEND Student in an Organized Health Care Education/Training Program
DX: Z11.3 Encounter for screening for infections with a predominantly sexual mode of transmission (principal)

== ENCOUNTER → 2025-06-03 | Outpatient (REF) | payer OTHER | LOC: M PLALAB 11:09 | PROVIDERS: ATTEND Student in an Organized Health Care Education/Training Program | DX: Z11.3 Encounter for screening for infections with a predominantly sexual mode of transmission (principal) ==

== ENCOUNTER → 2025-06-26 | Outpatient (CLI) | payer OTHER | LOC: M WHC 08:06 | PROVIDERS: ATTEND Student in an Organized Health Care Education/Training Program | DX: N63.10 Unspecified lump in the right breast, unspecified quadrant (principal); N63.20 Unspecified lump in the left breast, unspecified quadrant; R92.323 Mammographic fibroglandular density, bilateral breasts ==